=== PATIENT | female | born 1955 | race Caucasian/White ===

== ENCOUNTER → 2017-10-13 | Outpatient (CLI) | payer OTHER ==
--- NOTE | 2017-10-15 12:12 | MM ---
Reason for exam: screening (asymptomatic). Last mammogram was performed 1 year and 11 months ago. History: Patient is postmenopausal. Physical Findings: A clinical breast exam by your physician is recommended on an annual basis and results should be correlated with mammographic findings. MG Screening Mammo w CAD Bilateral CC and MLO view(s) were taken. Prior study comparison: November 20, 2015, mammogram. September 27, 2012, mammogram, performed at [facility]. There are scattered fibroglandular densities. Finding: There are indeterminate, fine calcifications in both breasts inner left CC view and outer right CC view. New finding since November 20, 2015 and September 27, 2012. ASSESSMENT: Incomplete: need additional imaging evaluation, BI-RAD 0 RECOMMENDATION: Special view mammogram of both breasts. [facility] will attempt to contact patient to return for supplemental views.
== END | disposition home or self-care (01) ==
LOC: RADMAMWWP 10:42
PROVIDERS: ATTEND Family Medicine
DX: Z12.31 Encounter for screening mammogram for malignant neoplasm of breast (principal)
CPT/HCPCS: 77067

== ENCOUNTER → 2017-11-06 | Outpatient (CLI) | payer OTHER ==
--- NOTE | 2017-11-09 09:14 | MM ---
Reason for exam: additional evaluation requested from abnormal screening. Last mammogram was performed 1 month ago. History: Patient is postmenopausal. Physical Findings: Nurse did not find any significant physical abnormalities on exam. MG 3D Work Up W/Cad CARISSA Bilateral LM and spot compression CC view(s) were taken. Prior study comparison: October 13, 2017, bilateral MG screening mammo w CAD. November 20, 2015, mammogram. The breast tissue is heterogeneously dense. This may lower the sensitivity of mammography. There is a 5mm group of left lower inner quadrant linear pleomorphic calcification for which biopsy will be performed. Right 3mm group of lower outer quadrant calcifications is likely present on the prior of 2015 and probably benign. 6 month follow up right breast. These results were verbally communicated with the patient and result sheet given to the patient on 11/06/17. ASSESSMENT: Suspicious, BI-RAD 4 RECOMMENDATION: Stereotactic core biopsy of the left breast. Called Dr. Howard with mammographic findings and has scheduled an appointment for the patient for 11/19/17 at 12:[address] Spicer. PRELIMINARY REPORT CALLED AND FAXED TO DR. SPICER ON 11/09/17.
--- NOTE | 2017-12-04 09:39 | PCN ---
PROCEDURE NOTE The patient is a 62-year-old female who presented with a mammographic abnormality in the left breast. There was a 5 mm group of left lower inner quadrant pleomorphic calcifications for which biopsy was recommended. No lesions of concern were otherwise noted in either breast warranting biopsy. On multi-positional exam of each breast, no dominant masses or nodules of concern were identified. Risks and benefits of stereo biopsy procedure were discussed with the patient. The patient is on Coumadin and it was discussed with her hematology office and the patient is switched from Coumadin to Lovenox, which will be stopped approximately 24 hours prior to the procedure. The risks and benefits of the procedure including bleeding, infection, possible inability to identify and remove the area of concern were discussed with the patient. The patient wished to proceed. The patient was taken to the stereotactic core biopsy room and it was determined that we would use a CC from below approach to target the lesion. The lesion was adequately targeted. The skin was prepped using Betadine and 1% lidocaine without epinephrine was used to anesthetize the skin. Approximately 10 mL of lidocaine were used. Bicarb was used with the lidocaine. Approximately 10 mL of 1% lidocaine with epinephrine was used in the deeper tissues. The needle was driven to the correct coordinates and pre and post biopsy films were obtained confirming the location of the needle. The needle was a 9-gauge vacuum assisted core biopsy needle. Multiple core biopsies were obtained. Radiograph of the specimen revealed the area of concern had been removed. The calcifications were present in the specimen. A [employer] top-hat clip was deployed. This was noted to be in the correct location. The specimen was sent to Pathology. The patient tolerated the procedure in stable condition with no immediate postprocedure complications. The patient will follow up next week with Dr. Yung. MMBHAVANIL / IJN: [id number] /
== END | disposition home or self-care (01) ==
LOC: RADMAMWWP 14:55
PROVIDERS: ATTEND Family Medicine
DX: R92.8 Other abnormal and inconclusive findings on diagnostic imaging of breast (principal)
CPT/HCPCS: 77062; 77066

== ENCOUNTER → 2017-11-19 | Outpatient (CLI) | payer OTHER ==
[2017-11-19 12:51] VITALS: BMI 42.7
--- NOTE | 2017-11-19 13:21 | P.GSHP ---
History of Present Illness H&P Date: 11/19/17 Chief Complaint: abnormal mammogram The patient is a 62-year-old white female who is status post bilateral mammogram performed [id number]. Following this mammogram was noted to have some indeterminate calcifications in both breasts and additional [place]. [place] [id number]. These views revealed a 5 mm group of left lower inner quadrant pleomorphic calcifications for which biopsy was recommended. In the right breast a 3 mm group of lower outer quadrant calcifications were felt to be present on a prior study and six-month follow-up was recommended. The patient herself denies any masses in her breast. She denies any nipple discharge. She does have some keratosis underneath the breast which she states may have changed. Family History: 1. sister: thyroid Menarche: 10 : 1, 1 child, 17 at , breast fed: yes menopause: hysterectomy left ovaries, done at 39 for fibroids hormones: none BCP: none Past surgical history: 1. Cervical fusion 2. ventral hernia repair 3. Cholecystectomy 4. Bilateral partial knee 5. Hysterectomy 6. Pulmonary embolism following knee surgery Medical history: 1. 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 Social History: smoke: stopped 13 years ago, smoked 1PPD for 18 years alcohol: stopped 13 years drugs: none used marijuana when younger - Constitutional Constitutional: Denies chills, Denies fever - EENT Eyes: bilateral loss of vision Ears: left: tinnitus, deny: decreased hearing Ears, nose, mouth and throat: Reports headache, Denies sore throat - Breasts Breasts: bilateral: as per HPI - Cardiovascular Cardiovascular: Denies chest pain, Denies shortness of breath - Respiratory Respiratory: Denies cough, Denies 7 - Gastrointestinal Gastrointestinal: Denies abdominal pain, Denies diarrhea, Denies nausea, Denies vomiting Past Medical History Smoking Status: Former smoker Surgical - Exam - General obese - Eyes normal ocular movement - ENT no hearing loss, no congestion - Neck no masses, trachea midline - Respiratory normal respiratory effort, clear to auscultation - Cardiovascular Rhythm: regular Heart Sounds: normal: S1, S2 - Abdomen Abdomen: soft, non tender, no guarding, no rigid, no rebound - Integumentary keratosis under the breast - Neurologic no disoriented, no combative - Psychiatric oriented to time, oriented to person, oriented to place, speech is normal Breast examination: Right breast: Multiple positional exam no dominant masses or nodules of concern , keratosis noted in the inferior aspect of the breast on examination Right axilla: No adenopathy of concern Left breast: Multiple positional exam no dominant masses or nodules of concern, keratosis noted inferior aspect of the breast Left axilla: No adenopathy of concern Results Mammogram results reviewed Assessment and Plan Assessment: Impression/plan: 1. Mammographic abnormality recommending left breast stero-core biopsy 2. Patient status post CVA on Coumadin will discuss this with , we' ll most likely need to stop the Coumadin and be on Lovenox 3. Prior history of pulmonary embolism 4. Arthritis 5. Diabetes 6. Repeat right breast mammogram in 6 months time Risk and benefits of procedure discussed with the patient. These include bleeding infection reaction to the anesthetic inability to access and adequately sampled the area and the patient wishes to proceed. CC: DR. Howard
== END ==
LOC: WWCWWP 12:00
PROVIDERS: ATTEND Surgery
DX: Z53.9 Procedure and treatment not carried out, unspecified reason (principal)

== ENCOUNTER → 2017-12-04 | Day surgery (SDC) | payer OTHER ==
[2017-12-04 07:44] LABS: INR 1.2 (<1.2); Partial Thromboplastin Time 50.5 sec (22.0-30.0); Prothrombin Time 11.7 sec (9.0-12.0)
[2017-12-04 07:53] VITALS: RESP 16; TEMP 98; BMI 43.1
[2017-12-04 10:01] VITALS: BP 132/82; PULSE 71
--- NOTE | 2017-12-04 10:07 | MM ---
EXAMINATION TYPE: MG stereo VAD BX LT DATE OF EXAM: 12/04/2017 COMPARISON: 10/13/2017 CLINICAL HISTORY: Linear pleomorphic left 5 mm group of calcifications for which stereotactic guided biopsy was recommended. TECHNIQUE: Stereotactic guided core biopsy of left breast. FINDINGS: The procedure of stereotactic guided core biopsy was explained to the patient. Benefits, a lternatives, and risks were discussed. An informed consent was then obtained. Preprocedural timeout was performed. The CC from below approach was chosen as the calcifications were partially obscured on the MLO view a nd therefore the shortness pathway was not chosen. I performed the localization, then surgeon, Dr. Kang Matthews performed the remainder of the procedure. A vacuum assisted biopsy gun was used to obtain m ultiple core samples. The patient tolerated the procedure well without any immediate complication. The patient was kept in the radiology department for short stay after the procedure and then discharged home in stable condi tion. Targeted calcifications are identified in specimen mammogram. Post biopsy mammogram shows the biopsy marker to appear in satisfactory position relative to the targeted area of concern on the pre procedure images. IMPRESSION: SUCCESSFUL, UNCOMPLICATED STEREOTACTIC GUIDED CORE BIOPSY OF THE 5 MM GROUP OF LINEAR PLEOMORPHIC ESTELA CIFICATIONS IN THE LEFT BREAST, FULL PATHOLOGY RESULTS TO FOLLOW.
== END ==
LOC: RADMAMWWP 07:00
PROVIDERS: ATTEND Surgery
DX: D24.2 Benign neoplasm of left breast (principal); N61.0 Mastitis without abscess; Z88.1 Allergy status to other antibiotic agents
CPT/HCPCS: 88305; 85610; 85730; 19081; A4648; J2001

== ENCOUNTER → 2018-06-17 | Outpatient (CLI) | payer MEDICARE ==
--- NOTE | 2018-06-17 13:31 | P.PN ---
Subjective Progress Note Date: 06/17/18 Principal diagnosis: status post stero-core biopsy 12-04-17 Flores is a 63-year-old white female who is status post left breast stereotactic core biopsy on . Pathology was benign revealing benign lobulated adipose tissue with scattered fragments and benign breast parenchyma showing fibroadenomatosis, periductal inflammation and intraductal mineralization's. The patient was not seen after her procedure as she had been hospitalized secondary to a subarachnoid bleed. The patient has been on Coumadin secondary antiphosphlipid antibody. She has had pulmonary emboli and strokes in the past. The patient was being bridged with Lovenox at the time of the stereo biopsy and then developed a subarachnoid bleed approximately 2 days after the biopsy. She was being followed by her continuing education specialist. She was at [facility] for approximately a week. The patient has no residual sequela related to the subarachnoid bleed. The patient states that after her procedure she believes she had a reaction to the Betadine which was used to prep the breast. The patient states she developed sloughing of the skin where the skin had been prepped. Family history: 1. sister: thyroid cancer Beginning hormonal history: Menarche: 10 : 2, 1 [place], 1 child at 17 breast fed: yes menpause: hysterectomy at 36 done for fibroids, left ovaries BCP: 1 year hormones: none Past surgical history: 1. Cervical fusion 2. Ventral hernia repair 3. Cholecystectomy 4. Bilateral partial knee replacement 5. Hysterectomy Medical history: 1. CVA at 60 blood clot to right occipital area affected short-term memory and effective vision 2. Depression 3. 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 Social history: Smoke: Stopped 13 years ago, smoked 1 pack per day for 18 years Alcohol: Stopped 13 years ago Drugs: Used marijuana when younger Review of systems: HEENT: Bilateral loss of vision Ears: Left ear tinnitus History of headaches in the past Breasts: As per HPI Cardiovascular: Negative Respiratory: Status post pulmonary embolism GI: Negative Neurologic: Status post CVA, status post subarachnoid bleed Hematology: Hypercoagulable on Coumadin at this time Objective - Vital Signs Vital signs: Intake & Output 06/16/18 06/17/18 06/17/18 18:59 06:59 18:59 Weight 105.687 kg - Exam BMI 42.6 - Constitutional General appearance: Present: obese - EENT Eyes: Present: EOMI ENT: Present: hearing grossly normal - Neck Neck: Present: normal ROM - Respiratory Respiratory: bilateral: CTA - Cardiovascular Rhythm: regular Heart sounds: normal: S1, S2 - Gastrointestinal General gastrointestinal: Present: soft - Integumentary Integumentary: Present: normal turgor - Psychiatric Psychiatric: Present: A&O x's 3, appropriate affect - Additional findings Additional findings: breast exam: Right breast: Multi-positional exam no dominant masses or nodules of concern fibrocystic change Right axilla: No adenopathy of concern Left breast: Multiple positional exam no dominant masses or nodules of concern Left axilla: No adenopathy of concern Patient has keratosis and inferior aspects of both breast. Assessment and Plan Assessment: Impression: 1. Antiphospholipid antibody, resulting in hypercoagulable state patient presently on Coumadin 2. Patient status post CVA and subarachnoid bleed 3. Patient status post pulmonary embolism 4. Arthritis 5. Diabetes 6. Radiographic abnormality of the left breast resulting in stereo biopsy which was benign 7. Fibrocystic breast changes 8. Family history of cancer, thyroid cancer in a sister Hali model risk analysis was run: Five-year risk is 0.9%, lifetime risk for 4.5% Plan: 1. Left breast mammogram, 6 months status post left breast stereo biopsy 2. Continued medical management of medical conditions 3. Bilateral mammogram in 6 months of left breast mammogram is stable at this time Cc: Dr. Howard
[2018-06-17 13:34] VITALS: BP 154/68; PULSE 65; RESP 18; TEMP 97.6; BMI 42.6
== END | disposition home or self-care (01) ==
LOC: WWCWWP 12:34
PROVIDERS: ATTEND Surgery
DX: Z53.9 Procedure and treatment not carried out, unspecified reason (principal)

== ENCOUNTER → 2018-07-05 | Outpatient (CLI) | payer MEDICARE ==
--- NOTE | 2018-07-05 08:29 | MM ---
Reason for exam: follow-up at short interval from prior study. Last mammogram was performed 8 months ago. History: Patient is postmenopausal. Benign MG stereo VAD BX LT of the left breast, December 04, 2017. Physical Findings: Nurse Summary: scattered moles under bilateral breasts (nurse dw). MG 3D Diag Mammo W/Cad LT CC and MLO view(s) were taken of the left breast. Prior study comparison: November 06, 2017, bilateral MG 3d work up w/cad CARISSA. October 13, 2017, bilateral MG screening mammo w CAD. The breast tissue is heterogeneously dense. This may lower the sensitivity of mammography. Previous mammotome biopsy in the left breast. There is no discrete abnormality. These results were verbally communicated with the patient and result sheet given to the patient on 07/05/18. ASSESSMENT: Benign, BI-RAD 2 RECOMMENDATION: Return to routine screening mammogram schedule for both breasts. Back on schedule.
== END | disposition home or self-care (01) ==
LOC: RADMAMWWP 07:13
PROVIDERS: ATTEND Surgery
DX: R92.8 Other abnormal and inconclusive findings on diagnostic imaging of breast (principal)
CPT/HCPCS: 77065; G0279; 77061

== ENCOUNTER → 2018-07-16 | Outpatient (CLI) | payer OTHER ==
--- NOTE | 2018-07-16 15:10 | P.PN ---
Progress Note - Text Progress Note Date: 07/16/18 Ortega is a 63-year-old white female who is status [place] [id number]. Pathology was benign. Postprocedure the patient was hospitalized secondary to subarachnoid bleed. The patient had been on Coumadin secondary to antiphospholipid antibody. She has had pulmonary emboli and strokes in the past. The patient was being placed with Lovenox at the time of the stereo biopsy at this point she was noted to develop a subarachnoid bleed approximately 2 days after the biopsy. She has been followed by her software release manager. She was treated at [facility] for approximately a week. The patient has no residual circumflex probably related to the subarachnoid bleed. The patient was recently seen in May and a breast exam was done at that time. The patient is due for bilateral mammogram in September/October 2018 however to coordinate between the right and left breast she is going to have bilateral mammogram in November 2018. The patient has no complaints at this time. She was recently examined in May 2018 and does not wish to have the exam repeated at this time. Impression: Antiphospholipid antibody resulted in hypercoagulable state patient presently on Coumadin 2. Status post CVA and subarachnoid bleed 3. Status post pulmonary embolism 4. Arthritis 5. Diabetes 6. Status post stereo biopsy of the left breast stable radiographically and on exam at that time 7. Fibrocystic breast disease 8. Family history of cancer Plan: 1. Bilateral mammogram November 2018 with appointment at that time 2. Continued medical management of medical conditions Cc: Dr. Howard
== END ==
LOC: WWCWWP 14:31
PROVIDERS: ATTEND Surgery
DX: Z53.9 Procedure and treatment not carried out, unspecified reason (principal)

== ENCOUNTER → 2018-07-20 | Outpatient (CLI) | payer MEDICARE ==
--- NOTE | 2018-07-21 07:15 | MR ---
EXAMINATION TYPE: MR MRCP DATE OF EXAM: 07/20/2018 COMPARISON: None. HISTORY: Nonspecific reactive hepatitis per order. Abdominal pain per order. Standard multiplanar, multisequence MRI departmental protocol Multiplanar, multisequence images of the abdomen were acquired. Thin and thick slice MRCP imaging is created on the MRI scanner. FINDINGS: Liver/gallbladder/pancreas/biliary system: Gallbladder is not visualized and presumed surgically abse nt. Liver is overall normal in size. No suspicious solid or cystic intrahepatic masses are identified . Pancreas appears normal in size. Pancreatic duct is visualized without suspicious dilatation. Commo n bile duct measures up to 9 mm near edgard hepatis which is within normal limits after cholecystectom y. There is no suspicious intrahepatic or extrahepatic biliary dilatation. There is gradual expected tapering towards the ampulla. No suspicious narrowing or focal dilatation is present. Other: Lung bases are clear. Spleen is upper limits of normal in size with scattered round lesions of slight T2 hyperintensity, largest just below diaphragm measures 2.2 cm long axis, lesions of uncerta in etiology but favored benign. Adrenal glands are normal in size. There is no suspicious renal brandee s or hydronephrosis. No suspicious bowel dilatation. No abdominal ascites is seen. No suspicious abdo imani adenopathy is present. Visualized osseous structures are intact. IMPRESSION: No suspicious biliary dilatation. Nonspecific splenic lesions otherwise unremarkable stud y.
== END | disposition home or self-care (01) ==
LOC: RADMRIMAIN 13:12
PROVIDERS: ATTEND Family Medicine
DX: D73.89 Other diseases of spleen (principal); K75.2 Nonspecific reactive hepatitis
CPT/HCPCS: 74181

== ENCOUNTER → 2018-12-09 | Outpatient (CLI) | payer MEDICARE ==
--- NOTE | 2018-12-09 23:04 | CONS ---
CONSULTATION DATE OF SERVICE: 12/09/2018 This patient is a 63-year-old lady who has been evaluated in [facility] for significant excessive daytime sleepiness, snoring and witnessed episodes of stopped breathing during sleep. HISTORY OF PRESENT ILLNESS/SLEEP-WAKE EVALUATION: Patient usually sleeps from 9 p.m. until 9 a.m. She sometimes has problem with falling asleep, although no TV in bedroom. She prefers to sleep on her stomach position. She has loud snoring. She wakes up from sleep up to 3 times, with 2 episodes of nocturia. She also has episodes of grinding teeth, dry mouth, panic attack, palpitations, restless legs, sleeptalking, sweating. She has jumping movements sometimes during sleep. She attributed it to the possibility of abnormal respiration during sleep. No history of hypnagogic hallucinations, sleep paralysis or cataplexy. During the day, the patient feels extremely sleepy. [place] Sleepiness Scale is 22. She may take naps any time; usually no vivid dreams during naps. PAST MEDICAL HISTORY: 1. Depression. 2. Right occipital stroke in 2016 with loss of left-side field vision in both eyes. 3. Hypertension. 4. Antiphospholipid antibody. 5. History of bilateral pulmonary embolism. 6. Thyroid nodules. PAST SURGICAL HISTORY: Bilateral partial knee replacement. MEDICATIONS: 1. Seroquel. 2. Zoloft. 3. Aspirin. 4. Lisinopril. 5. Atorvastatin. 6. Xanax. 7. Metformin. 8. Coumadin. 9. Coreg. SOCIAL HISTORY: Positive for about 20 pack/years of smoking; quit about 20 years ago. Alcohol consumption occasional. FAMILY HISTORY: Hypertension, hyperlipidemia, lung problems, sleep apnea, snoring, headaches, diabetes, liver problems, thyroid problems. REVIEW OF SYSTEMS: Multiple awakenings from sleep. Significant sleepiness during the day. Absent left- side visual field. Problems with short-term memory. PHYSICAL EXAMINATION: GENERAL: A pleasant lady without distress. VITAL SIGNS: BP 178/85, HR 77, RR 16, height 5 feet 1 inch, weight 241 pounds. Body mass index 45.5. Temperature 98.3, oxygen saturation at room air 92%. HEENT: PERRLA, EOMI. Evaluation of oropharynx showed tongue protrudes midline. Extremely low position of soft palate. Mallampati IV. NECK: Supple. No JVD. Thyroid is not palpable. Neck measures 15-1/2 inches in circumference. LUNGS: Clear to percussion and to auscultation. Good air exchange. No wheezing or rhonchi. HEART: S1, S2 regular. No murmurs, gallops or rubs. ABDOMEN: Obese. EXTREMITIES: No clubbing or cyanosis. AUDIO VISUAL AIDE: Awake, alert, and oriented X3. Cranial nerves 2 to 7 intact. There is no fasciculation or atrophy. noted. No focal deficits observed. IMPRESSION: 1. Loud snoring, witnessed episodes of stopped breathing during sleep, extremely low position of soft palate, multiple awakenings from sleep, sleepiness; obstructive sleep apnea-hypopnea syndrome. 2. Significant excessive daytime sleepiness with [place] Sleepiness Scale 22, dictating necessity to include hypersomnia including narcolepsy in the differential diagnosis, including secondary sleep disorder secondary to stroke. 3. History of right occipital stroke in 2016, with loss of left side of visual [place] of both eyes. 4. Hypertension. 5. Antiphospholipid antibody syndrome. 6. Hyperlipidemia. 7. Thyroid nodules. 8. Status post bilateral pulmonary emboli. 9. History of subarachnoid bleed. 10.Depression. 11.Pre-diabetic with borderline level of blood sugar. 12.Status post hernia repair. 13.Status post cholecystectomy. 14.Status post neck decompression surgery. PLAN: 1. Polysomnography for evaluation of patient's breathing during sleep. 2. CPAP/BiPAP titration if sleep study confirms obstructive sleep apnea-hypopnea syndrome. 3. Preferable position during sleep on the side. 4. No driving. Patient does not drive. 5. I will see patient for follow up visit to explain results of testing and following plan. 6. Patient may need multiple sleep latency test for objective evaluation of her symptoms of significant excessive daytime sleepiness. Thank you very much for referring this patient for consultation. Sincerely, Christofer Tyler MD, PhD, FAASM Diplomat of [place] [employer] [place] [employer] [facility] [place] MMBHAVANIL / AMIN: [id number] /
== END ==
LOC: SLEEP 14:50
PROVIDERS: ATTEND Internal Medicine
DX: G47.33 Obstructive sleep apnea (adult) (pediatric) (principal); I10 Essential (primary) hypertension; D68.61 Antiphospholipid syndrome; E04.2 Nontoxic multinodular goiter; Z86.69 Personal history of other diseases of the nervous system and sense organs; F32.9 Major depressive disorder, single episode, unspecified; R73.03 Prediabetes; Z98.890 Other specified postprocedural states; Z90.49 Acquired absence of other specified parts of digestive tract; Z87.891 Personal history of nicotine dependence; Z79.899 Other long term (current) drug therapy; Z79.82 Long term (current) use of aspirin; Z79.01 Long term (current) use of anticoagulants; Z79.84 Long term (current) use of oral hypoglycemic drugs
CPT/HCPCS: 99211

== ENCOUNTER → 2019-07-06 | Outpatient (CLI) | payer MEDICARE ==
--- NOTE | 2019-07-06 15:52 | PN ---
PROGRESS NOTE DATE OF SERVICE: 07/06/2019 This patient is a 64-year-old lady who has been followed in Sleep Center for treatment of obstructive sleep apnea-hypopnea syndrome. At the end of last year the patient had a polysomnogram which showed mild obstructive sleep apnea. The patient presented with significant excessive daytime sleepiness and history of stroke. Subsequently she was started on treatment with CPAP. Today is her first visit after starting on treatment with CPAP. I checked her CPAP unit. Range of the pressure is from 5 to 15 cm of water. Average pressure is 11 cm of water. Usage is 83/155 nights and 70/155 nights for more than 4 hours, with average usage 6.7 hours per night. Leak is only 6 L/minute for all this time, which is within normal range. Apnea-hypopnea index is 1.8, which is within normal range. [place] Sleepiness Scale today is 13. The patient still has episodes of sleepiness during the day. MEDICATIONS: Zoloft, Xanax and Seroquel at bedtime, aspirin, atorvastatin, metformin. Coreg, Coumadin. PHYSICAL EXAMINATION: GENERAL: A pleasant patient in no distress. VITAL SIGNS: BP 163/84, HR 72, RR 16, weight 246 pounds, temperature 98.2, oxygen saturation at room air 93%. HEENT: PERRLA, EOMI. Evaluation of oropharynx showed tongue protrudes midline. Low position of soft palate. Mallampati III. NECK: Supple. No JVD. Thyroid is not palpable. LUNGS: Clear to percussion and to auscultation. Good air exchange. No wheezing or rhonchi. HEART: S1, S2 regular. No murmurs, gallops or rubs. ABDOMEN: Obese. EXTREMITIES: No clubbing or cyanosis. SPOOLING MACHINE OPERATOR: Awake, alert, and oriented X3. Cranial nerves 2 to 7 intact. There is no fasciculation or atrophy. noted. No focal deficits observed. IMPRESSION: 1. Mild obstructive sleep apnea-hypopnea syndrome. Reading from the machine demonstrated normal respiration while on treatment with CPAP. 2. Hypertension. 3. History of right occipital stroke in 2016 with changes of vision. 4. Hypertension. 5. History of antiphospholipid antibody syndrome. 6. History of depression. 7. History of thyroid nodules. 8. History of bilateral pulmonary emboli. PLAN: 1. Continue treatment with CPAP every night for the whole night. 2. Trial with nasal pillow mask. 3. Losing weight. 4. Sleep hygiene with regular time in bed for at least 7-1/2 to 8 hours. 5. No driving if feeling any sleepiness. Thank you very much for allowing me to participate in the management of your patient. Sincerely, Christofer Tyler MD, PhD, FAASM Diplomat of [employer] [employer] Microbiology Teacher of [facility] [place] MMODL / IJN: [id number] /
== END | disposition home or self-care (01) ==
LOC: SLEEP 13:46
PROVIDERS: ATTEND Internal Medicine
DX: G47.33 Obstructive sleep apnea (adult) (pediatric) (principal); I10 Essential (primary) hypertension; Z86.73 Personal history of transient ischemic attack (TIA), and cerebral infarction without residual deficits; Z86.59 Personal history of other mental and behavioral disorders; Z85.850 Personal history of malignant neoplasm of thyroid; Z86.711 Personal history of pulmonary embolism; Z86.2 Personal history of diseases of the blood and blood-forming organs and certain disorders involving the immune mechanism; Z79.82 Long term (current) use of aspirin; Z79.84 Long term (current) use of oral hypoglycemic drugs; Z79.01 Long term (current) use of anticoagulants; Z79.899 Other long term (current) drug therapy

== ENCOUNTER → 2020-01-12 | Outpatient (CLI) | payer MEDICARE ==
--- NOTE | 2020-01-13 03:46 | SFUN ---
SLEEP CENTER FOLLOW UP NOTE DATE OF SERVICE: 01/12/2020 This 64-year-old lady has been followed in Sleep Center for treatment of obstructive sleep apnea-hypopnea syndrome. The patient tried to use her CPAP equipment, but feels discomfort under the nose while using her full face mask. [place] Sleepiness Scale today significantly increased to 19. I checked patient's CPAP unit. She did not use it for the last month. For the last 3 months, she used it 46 out 90 days and 29 out of 90 days for more than 4 hours with average usage 5.1 hour per night. Pressure range 5 to 10 with average pressure 8.7. Apnea-hypopnea index reading 3.9, which is acceptable. Leak is 10 L/minutes which is also acceptable. MEDICATIONS: Zoloft, Xanax, Seroquel, aspirin, atorvastatin, Coumadin, Coreg. PHYSICAL EXAMINATION: GENERAL: Patient in no distress. VITAL SIGNS: BP 191/86, HR 71, R 16, height 5 feet 1 inch, weight 241 pounds, which is 5 pounds less than during the previous visit. Body mass index 45.5, temperature 98.3, oxygen saturation at room air 94%. HEENT: PERRLA, EOMI. Low position of soft palate, Mallampati 3. NECK: Supple, no JVD. Thyroid is not palpable. LUNGS: Clear to percussion and to auscultation. Good air exchange. No wheezing or rhonchi. HEART: S1, S2 regular. No murmurs, gallops, or rubs. ABDOMEN: Obese. EXTREMITIES: No clubbing or cyanosis. MELLOWING MACHINE OPERATOR: Awake, alert, and oriented X3. Cranial nerves 2 to 7 intact. There is no fasciculation or atrophy. noted. No focal deficits observed. IMPRESSION: 1. Obstructive sleep apnea-hypopnea syndrome. The patient has difficulties to use CPAP equipment secondary to some discomfort and irritation under her nose while using her CPAP mask. 2. Hypertension. 3. History of right occipital stroke in 2016 with changes of vision. 4. History of antiphospholipid antibody syndrome. 5. History of depression. 6. History of thyroid nodules. 7. History of bilateral pulmonary embolism. PLAN: 1. We will change full-face mask to different style with the configuration of the mask not below nose, but above nose. 2. Patient will continue to use PAP equipment every night for the whole night. 3. Sleep hygiene with regular time in bed for at least 7-1/2 to 8 hours. 4. Precautions related to driving. No driving if feeling sleepiness. 5. I will maintain all necessary prescription for PAP supplies including mask, tube, filters. 6. Watching weight. 7. No driving if feeling sleepiness. 8. Follow-up visit in 6 months or earlier if patient has any problems. Thank you very much for allowing me to participate in management of your patient. Sincerely, Christofer Tyler MD, PhD, FAASM Diplomat of [place] [employer] Platform Material Handling Supervisor of [facility] [place] MMODL / IJN: [id number] /
== END | disposition home or self-care (01) ==
LOC: SLEEP 15:01
PROVIDERS: ATTEND Internal Medicine
DX: G47.33 Obstructive sleep apnea (adult) (pediatric) (principal); I10 Essential (primary) hypertension; Z86.711 Personal history of pulmonary embolism; Z86.73 Personal history of transient ischemic attack (TIA), and cerebral infarction without residual deficits; Z86.59 Personal history of other mental and behavioral disorders; Z86.39 Personal history of other endocrine, nutritional and metabolic disease; Z86.2 Personal history of diseases of the blood and blood-forming organs and certain disorders involving the immune mechanism; Z99.89 Dependence on other enabling machines and devices

== ENCOUNTER → 2020-04-05 | Outpatient (CLI) | payer MEDICARE ==
--- NOTE | 2020-04-05 16:58 | SFUN ---
SLEEP CENTER FOLLOW UP NOTE DATE OF SERVICE: 04/05/2020 A 65-year-old lady who has been followed in the Sleep Center for treatment of obstructive sleep apnea-hypopnea syndrome. During previous visit, it was documented that patient continues to use her machine, but she has problems with her mask, so she was recommended to get a different style of mask. Patient received mask different stype and she likes the part which goes to the face, but she was not given head gear for this part. Subsequently, she was not able to use machine properly. [employer] Sleepiness Scale today significantly increased to 18. I checked the patient CPAP unit. Automatic regimen 5-15 cm of water. Average pressure is 11 cm of water. MEDICATIONS: Zoloft, lisinopril, metformin, Seroquel, Coumadin, Xanax, atorvastatin, aspirin. PHYSICAL EXAM: Patient in no distress, BP 158/67, HR 74, RR 15, height 5 foot 1 inch, weight 238.8 pounds, temperature 96.5, oxygen saturation at room air 92%. OROPHARYNX: Low position of soft palate, Mallampati 3. ABDOMEN: Obese. NECK: Supple, no JVD. Thyroid is not palpable. LUNGS: Clear to percussion and to auscultation. Good air exchange. No wheezing or rhonchi. HEART: S1, S2 regular. No murmurs, gallops, or rubs. EXTREMITIES: No clubbing or cyanosis. TONG CARRIER: Awake, alert, and oriented X3. Cranial nerves 2 to 7 intact. There is no fasciculation or atrophy. noted. No focal deficits observed. IMPRESSION: 1. Obstructive sleep apnea-hypopnea syndrome. Patient has difficulties with usage of CPAP equipment because she does not have all parts of her mask presently. 2. Hypertension. 3. History of right occipital stroke in 2016, which changes with vision. 4. History of antiphospholipid antibody syndrome. 5. History of depression. 6. History of thyroid nodules. 7. History of bilateral pulmonary embolism. PLAN: 1. Prescription for all necessary CPAP supplies, including a head gear for the Simplus, medium-size full-face mask. 2. Patient will continue to use PAP equipment every night for the whole night. 3. Sleep hygiene with regular time in bed for at least 7-1/2 to 8 hours. 4. Precautions related to driving. No driving if feeling sleepiness. 5. Watching weight. 6. No driving if feeling sleepiness. 7. Followup visit in 6 months or earlier if patient has any problems. Thank you very much for allowing me to participate in the management of your patient. Sincerely, Christofer Tyler MD, PhD, FAASM Diplomat of [place] [employer] [employer] Packaging Clerk of [facility] [place] MMODL / AMIN: [id number] /
== END | disposition home or self-care (01) ==
LOC: SLEEP 13:58
PROVIDERS: ATTEND Internal Medicine
DX: G47.33 Obstructive sleep apnea (adult) (pediatric) (principal); I10 Essential (primary) hypertension; Z86.73 Personal history of transient ischemic attack (TIA), and cerebral infarction without residual deficits; Z86.711 Personal history of pulmonary embolism; Z86.2 Personal history of diseases of the blood and blood-forming organs and certain disorders involving the immune mechanism; Z86.59 Personal history of other mental and behavioral disorders; Z86.39 Personal history of other endocrine, nutritional and metabolic disease; Z79.84 Long term (current) use of oral hypoglycemic drugs; Z79.01 Long term (current) use of anticoagulants; Z79.899 Other long term (current) drug therapy; Z79.82 Long term (current) use of aspirin; Z99.89 Dependence on other enabling machines and devices

== ENCOUNTER → 2020-10-04 | Outpatient (CLI) | payer MEDICARE ==
--- NOTE | 2020-10-05 08:06 | SFUN ---
SLEEP CENTER FOLLOW UP NOTE DATE OF SERVICE: 10/04/2020 65-year-old lady has been followed in sleep center for treatment of obstructive sleep apnea-hypopnea syndrome. Last time I saw the patient in March of 2020 and at that time she has had some difficulties with using the machine because she did not have the whole parts necessary from the mask and I wrote for all necessary prescriptions. Today, patient indicated that she had Covid several months ago and she was not able to use her CPAP equipment. I checked her CPAP unit. No recent usage of the CPAP. For the last 6 months, she used it only 15 nights and 5 nights for more than 4 hours. Range of the pressure 5-15, average pressure of 8.7. Leak is 23 L/minute, which is with full face mask. Apnea- hypopnea index was normal at that time 2.6. The patient has Simplus fullface mask and does not like it, there is some leak to the eyes according to her. [place] Sleepiness Scale today is extremely high, 22. MEDICATIONS: Lisinopril. Seroquel, Xanax, Coreg, Coumadin, Zoloft, aspirin. PHYSICAL EXAMINATION: GENERAL: Patient in no distress. BP 145/77, HR 68/15, height 5 feet 1 inch, weight 132.0, BMI 43.8, temperature 97.4. Oxygen saturation at room air 95%. Oropharynx: Low position of soft palate, Mallampati 3. NECK: Supple, no JVD. Thyroid is not palpable. LUNGS: Clear to percussion and to auscultation. Good air exchange. No wheezing or rhonchi. HEART: S1, S2 regular. No murmurs, gallops, or rubs. ABDOMEN: Soft and nontender. Bowel sounds are present. No organomegaly appreciated. EXTREMITIES: No clubbing or cyanosis. SEMICONDUCTOR PACKAGES PLATEMAKER: Awake, alert, and oriented X3. Cranial nerves 2 to 7 intact. There is no fasciculation or atrophy. noted. No focal deficits observed. The patient walks with a walker. IMPRESSION: 1. Obstructive sleep apnea-hypopnea syndrome. The patient was not able to use machine, had Covid and does not feel comfortable with full face mask. Obstructive sleep apnea in mild range, but patient has sleepiness during the day and awakenings from sleep and that is why treatment with the CPAP is indicated including other medical problems, hypertension, and history of stroke. 2. Status post Covid 19 2 months ago. 3. Hypertension. 4. History of right occipital stroke in 2016 with changes of the vision. 5. History of antiphospholipid antibody syndrome. 6. History of depression. 7. History of thyroid nodules. 8. History of bilateral pulmonary embolism. PLAN: 1. I discussed with the patient necessity to start using the machine. 2. Prescription for nasal pillow mask which would be much easier to use. 1. Patient will continue to use PAP equipment every night for the whole night. 2. Sleep hygiene with regular time in bed for at least 7-1/2 to 8 hours. 3. Precautions related to driving. No driving if feeling sleepiness. 4. I will maintain all necessary prescription for PAP supplies including mask, tube, filters. 5. Watching weight. 6. Follow-up visit in 6 months or earlier if patient has any problems. Thank you very much for allowing me to participate in management of your patient. Sincerely, Christofer Tyler MD, PhD, FAASM Diplomat of [place] [employer] [place] [employer] Water Plumber of [facility] [place] MMODL / AMIN: [id number] /
== END ==
LOC: SLEEP 15:21
PROVIDERS: ATTEND Internal Medicine
DX: G47.33 Obstructive sleep apnea (adult) (pediatric) (principal); I10 Essential (primary) hypertension; Z86.73 Personal history of transient ischemic attack (TIA), and cerebral infarction without residual deficits; Z86.2 Personal history of diseases of the blood and blood-forming organs and certain disorders involving the immune mechanism; F32.9 Major depressive disorder, single episode, unspecified; Z86.711 Personal history of pulmonary embolism; Z86.39 Personal history of other endocrine, nutritional and metabolic disease; Z86.16 Personal history of COVID-19; Z88.5 Allergy status to narcotic agent; Z88.1 Allergy status to other antibiotic agents; Z88.6 Allergy status to analgesic agent; Z88.8 Allergy status to other drugs, medicaments and biological substances; Z87.891 Personal history of nicotine dependence

== ENCOUNTER 2022-04-25 07:09 | Observation (INO) | payer MEDICARE ==
--- NOTE | 2022-04-25 07:50 | ED ---
General Adult HPI - General Chief complaint: Fall Stated complaint: fall Time Seen by Provider: 04/25/22 07:37 Source: patient, family, RN notes reviewed Mode of arrival: ambulatory Limitations: physical limitation - History of Present Illness Initial comments: Patient is a pleasant 67-year-old female presenting to the emergency Department with general weakness. Onset of symptoms was a past day or 2. Patient was recently at [facility] for hypertension however cannot state more than that. Patient does have history of previous stroke and states she has memory problems. Patient states last night she slid off the bed while sitting on the side. He should does have mild discomfort of her right hip region. Patient felt generally weak and is unable to get up on her own. Son was unable to help her as well. Patient denies any head injury or loss of consciousness. No neck or back pain. No chest pain or dyspnea. No abdominal pain. Son has concerns that patient is more drowsy than normal. Patient does twice tripped off to sleep during conversation. - Related Data Home Medications Medication Instructions Recorded Confirmed Atorvastatin [Lipitor] 20 mg PO HS 11/19/17 04/25/22 QUEtiapine [SEROquel] 50 mg PO HS 11/19/17 04/25/22 Sertraline HCl [Zoloft] 200 tab PO HS 11/19/17 04/25/22 Warfarin Sodium [Coumadin] 6 mg PO HS 11/19/17 04/25/22 Cefuroxime [Ceftin] 250 mg PO BID 04/25/22 04/25/22 Dapsone 50 mg PO DAILY 04/25/22 04/25/22 Folic Acid 1 mg PO DAILY 04/25/22 04/25/22 Furosemide [Lasix] 40 mg PO DAILY 04/25/22 04/25/22 Metoprolol Succinate (ER) [Toprol 50 mg PO HS 04/25/22 04/25/22 Xl] NIFEdipine [Adalat CC] 30 mg PO HS 04/25/22 04/25/22 Potassium Chloride ER [K-Dur 10] 10 meq PO DAILY 04/25/22 04/25/22 Triamcinolone 0.1% Cream [Kenalog 1 applicatio TOPICAL BID PRN 04/25/22 04/25/22 0.1% Cream] glipiZIDE [Glucotrol] 5 mg PO BID 04/25/22 04/25/22 lisinopriL [Zestril] 10 mg PO HS 04/25/22 04/25/22 Allergies Allergy/AdvReac Type Severity Reaction Status Date / Time povidone-iodine Allergy Rash/Hives Verified 04/25/22 07:22 [From Betadine] soap [From Betadine] Allergy Rash/Hives Verified 04/25/22 07:22 acetaminophen [From [place]] AdvReac Itching Verified 04/25/22 07:22 hydrocodone [From [place]] AdvReac Itching Verified 04/25/22 07:22 Tetracyclines AdvReac Nausea & Verified 04/25/22 07:22 Vomiting Review of Systems ROS Statement: Those systems with pertinent positive or pertinent negative responses have been documented in the HPI. ROS Other: All systems not noted in ROS Statement are negative. Constitutional: Denies: fever Eyes: Denies: eye pain ENT: Denies: ear pain Respiratory: Denies: cough Cardiovascular: Denies: chest pain Endocrine: Reports: fatigue Gastrointestinal: Denies: abdominal pain Genitourinary: Denies: dysuria Musculoskeletal: Denies: back pain Skin: Denies: rash Neurological: Reports: as per HPI, weakness. 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 antiphosphopholipid antibody-autoimmune clotting disorder. 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 tinnitus, eczema. thyroid [id number]. thrombocytopenia. History of Any Multi-Drug Resistant Organisms: None Reported Past Surgical History: Cholecystectomy, Hernia Repair, Joint Replacement, Orthopedic Surgery Additional Past Surgical History / Comment(s): cervical decompression, ventral hernia repair, bilat knee replacement, Past Anesthesia/Blood Transfusion Reactions: Postoperative Nausea & Vomiting (PONV) Past Psychological History: Anxiety, Depression Smoking Status: Former smoker Past Alcohol Use History: Occasional Past Drug Use History: None Reported General Exam Limitations: physical limitation General appearance: alert, in no apparent distress Head exam: Present: atraumatic, normocephalic Eye exam: Present: normal appearance, PERRL, EOMI ENT exam: Present: normal oropharynx Neck exam: Present: normal inspection. Absent: tenderness Respiratory exam: Present: normal lung sounds bilaterally Cardiovascular Exam: Present: regular rate, normal rhythm Expanded Peripheral pulses: 2+: Dorsalis Pedis (R), Dorsalis Pedis (L) GI/Abdominal exam: Present: soft. Absent: distended, tenderness Extremities exam: Present: tenderness (Minimal tenderness right hip) Back exam: Absent: tenderness Neurological exam: Present: oriented X3, CN II-XII intact, other (Drowsy, drifts to sleep during conversation). Absent: motor sensory deficit Expanded Neurological exam: Present: protecting the airway Patient oriented to: Present: person, place, time Speech: Present: fluid speech Motor strength exam: RUE: 5, LUE: 5, RLE: 5, LLE: 5 Eye Response: (4) open spontaneously Motor Response: (6) obeys commands Verbal Response: (5) oriented Psychiatric exam: Present: normal affect, normal mood Skin exam: Present: other (Bilateral lower leg redness consistent with patient's history of vasculitis. There is tenderness.) Course Vital Signs 04/25/22 04/25/22 04/25/22 07:16 09:00 09:30 Temperature 98.6 F Pulse Rate 93 90 88 Respiratory 18 Rate Blood Pressure 146/74 120/58 122/58 O2 Sat by Pulse 96 93 L 94 L Oximetry 04/25/22 04/25/22 04/25/22 10:00 10:30 11:00 Temperature Pulse Rate 87 89 86 Respiratory 17 Rate Blood Pressure 122/64 127/69 125/79 O2 Sat by Pulse 93 L 95 93 L Oximetry 04/25/22 11:30 Temperature Pulse Rate 87 Respiratory 16 Rate Blood Pressure 130/77 O2 Sat by Pulse 96 Oximetry EKG Findings - EKG Results: EKG: interpreted by ERMD, sinus rhythm, normal axis, normal QRS, normal ST/T Medical Decision Making - Medical Decision Making Patient reevaluated without significant change. Patient and family updated on results and plan. Case discussed with physician Davian, covering Dr. Stubbs, - Lab Data Result diagrams: 04/25/22 08:28 04/25/22 08:28 Lab Results 04/25/22 04/25/22 04/25/22 Range/Units 08:28 08:28 08:28 WBC 7.5 (3.8-10.6) k/uL RBC 4.38 (3.80-5.40) m/uL Hgb 11.4 (11.4-16.0) gm/dL Hct 34.4 (34.0-46.0) % MCV 78.5 L (80.0-100.0) fL MCH 26.1 (25.0-35.0) pg MCHC 33.3 (31.0-37.0) g/dL RDW 16.5 H (11.5-15.5) % Plt Count 145 L (150-450) k/uL MPV 8.6 Neutrophils % 82 % Lymphocytes % 11 % Monocytes % 4 % Eosinophils % 1 % Basophils % 0 % Neutrophils # 6.2 (1.3-7.7) k/uL Lymphocytes # 0.9 L (1.0-4.8) k/uL Monocytes # 0.3 (0-1.0) k/uL Eosinophils # 0.1 (0-0.7) k/uL Basophils # 0.0 (0-0.2) k/uL Hypochromasia Slight Anisocytosis Slight Microcytosis Slight PT 27.4 H (9.0-12.0) sec INR 2.8 H (<1.2) APTT 33.6 H (22.0-30.0) sec Sodium (137-145) mmol/L Potassium (3.5-5.1) mmol/L Chloride (98-107) mmol/L Carbon Dioxide (22-30) mmol/L Anion Gap mmol/L BUN (7-17) mg/dL Creatinine (0.52-1.04) mg/dL Est GFR (CKD-EPI)AfAm (>60 ml/min/1.73 sqM) Est GFR (CKD-EPI)NonAf (>60 ml/min/1.73 sqM) Glucose (74-99) mg/dL Plasma Lactic Acid [place] (0.7-2.0) mmol/L Calcium (8.4-10.2) mg/dL Phosphorus (2.5-4.5) mg/dL Magnesium (1.6-2.3) mg/dL Total Bilirubin (0.2-1.3) mg/dL AST (14-36) U/L ALT (4-34) U/L Alkaline Phosphatase (38-126) U/L Creatine Kinase (30-135) U/L Troponin I (0.000-0.034) ng/mL Total Protein (6.3-8.2) g/dL Albumin (3.5-5.0) g/dL TSH (0.465-4.680) mIU/L Free T4 (0.78-2.19) ng/dL Free T3 pg/mL (2.8-5.3) pg/ml Urine Color Dark Yellow Urine Appearance Cloudy H (Clear) Urine pH 5.5 (5.0-8.0) Ur Specific [place] 1.025 (1.001-1.035) Urine Protein 1+ H (Negative) Urine Glucose (UA) Trace H (Negative) Urine Ketones 1+ H (Negative) Urine Blood Trace H (Negative) Urine Nitrite Negative (Negative) Urine Bilirubin Negative (Negative) Urine Urobilinogen 4.0 (<2.0) mg/dL Ur Leukocyte Esterase Negative (Negative) Urine RBC 2 (0-5) /hpf Urine WBC 2 (0-5) /hpf Ur Squamous Epith Cells 9 H (0-4) /hpf Urine Mucus Few H (None) /hpf 04/25/22 04/25/22 04/25/22 Range/Units 08:28 08:28 08:28 WBC (3.8-10.6) k/uL RBC (3.80-5.40) m/uL Hgb (11.4-16.0) gm/dL Hct (34.0-46.0) % MCV (80.0-100.0) fL MCH (25.0-35.0) pg MCHC (31.0-37.0) g/dL RDW (11.5-15.5) % Plt Count (150-450) k/uL MPV Neutrophils % % Lymphocytes % % Monocytes % % Eosinophils % % Basophils % % Neutrophils # (1.3-7.7) k/uL Lymphocytes # (1.0-4.8) k/uL Monocytes # (0-1.0) k/uL Eosinophils # (0-0.7) k/uL Basophils # (0-0.2) k/uL Hypochromasia Anisocytosis Microcytosis PT (9.0-12.0) sec INR (<1.2) APTT (22.0-30.0) sec Sodium 136 L (137-145) mmol/L Potassium 3.9 (3.5-5.1) mmol/L Chloride 103 (98-107) mmol/L Carbon Dioxide 24 (22-30) mmol/L Anion Gap 9 mmol/L BUN 17 (7-17) mg/dL Creatinine 0.68 (0.52-1.04) mg/dL Est GFR (CKD-EPI)AfAm >90 (>60 ml/min/1.73 sqM) Est GFR (CKD-EPI)NonAf >90 (>60 ml/min/1.73 sqM) Glucose 179 H (74-99) mg/dL Plasma Lactic Acid [place] 1.1 (0.7-2.0) mmol/L Calcium 8.3 L (8.4-10.2) mg/dL Phosphorus 3.0 (2.5-4.5) mg/dL Magnesium 1.6 (1.6-2.3) mg/dL Total Bilirubin 1.3 (0.2-1.3) mg/dL AST 39 H (14-36) U/L ALT 21 (4-34) U/L Alkaline Phosphatase 109 (38-126) U/L Creatine Kinase 159 H (30-135) U/L Troponin I 0.012 (0.000-0.034) ng/mL Total Protein 5.9 L (6.3-8.2) g/dL Albumin 3.1 L (3.5-5.0) g/dL TSH 3.460 (0.465-4.680) mIU/L Free T4 1.45 (0.78-2.19) ng/dL Free T3 pg/mL 4.8 (2.8-5.3) pg/ml Urine Color Urine Appearance (Clear) Urine pH (5.0-8.0) Ur Specific [place] (1.001-1.035) Urine Protein (Negative) Urine Glucose (UA) (Negative) Urine Ketones (Negative) Urine Blood (Negative) Urine Nitrite (Negative) Urine Bilirubin (Negative) Urine Urobilinogen (<2.0) mg/dL Ur Leukocyte Esterase (Negative) Urine RBC (0-5) /hpf Urine WBC (0-5) /hpf Ur Squamous Epith Cells (0-4) /hpf Urine Mucus (None) /hpf - Radiology Data Radiology results: report reviewed (Computed tomography scan of the brain reveals no acute intercranial process. Remote injury right occipital lobe with encephalomalacia.) Interpreted by me: Two-view chest x-ray shows mild interstitial prominence. X-ray right hip and pelvis shows mild arthritis. No acute osseous fracture. Disposition Clinical Impression: Fall, Weakness Disposition: ADMITTED IP TO THIS HOSP Is patient prescribed a controlled substance at d/c from ED?: No Referrals: None,Stated [Primary Care Provider] - 1-2 days Time of Disposition: 12:37
--- NOTE | 2022-04-25 08:05 | CT ---
EXAMINATION TYPE: CT brain wo con CT DLP: 1149 mGycm, Automated exposure control for dose reduction was used. DATE OF EXAM: 04/25/2022 8:00 AM COMPARISON: None. CLINICAL INDICATION:Female, 67 years old with history of weakness, TECHNIQUE: Brain: Multiple axial CT images of the brain were obtained without IV contrast. Coronal and sagittal reformats reviewed FINDINGS: Brain: Extra-axial spaces: No abnormal extra-axial fluid collections. Ventricular system: Within normal limits Cerebral parenchyma: No acute intraparenchymal hemorrhage or mass effect. Encephalomalacia of the ri ght occipital lobe. The patel-white junction is well differentiated. Scattered hypoattenuating areas a re seen within the white matter. Cerebellum: Unremarkable. Mass effect: No evidence of midline shift. Intracranial vasculature: unremarkable Soft tissues: Normal. Calvarium/osseous structures: No depressed skull fracture. Paranasal sinuses and mastoid air cells: Suggestive mucous retention cyst within the right maxillary sinus measuring up to 7 mm. The mastoid air cells are clear. Visualized orbits: Bilateral aphakia IMPRESSION: 1. No acute intracranial process. 2. Remote injury to the right occipital lobe with encephalomalacia and nonspecific white matter duarte ges, likely secondary to chronic small vessel ischemic disease.
--- NOTE | 2022-04-25 08:44 | XR ---
EXAMINATION TYPE: XR chest 2V DATE OF EXAM: 04/25/2022 COMPARISON: None HISTORY: 67-year-old female with weakness TECHNIQUE: AP and lateral views FINDINGS: ACF hardware. Heart normal size. Mild interstitial prominence. Mild peribronchial cuffing. No consoli dation or pleural effusion. IMPRESSION: There is some interstitial prominence that may be seen with bronchitis or asthma. No focal infiltrate .
--- NOTE | 2022-04-25 08:46 | XR ---
EXAMINATION TYPE: AP view pelvis and 2 views right hip DATE OF EXAM: 04/25/2022 COMPARISON: NONE HISTORY: 67-year-old female with fall and pain FINDINGS: Degenerative change lower lumbar spine. SI joints appear symmetric and intact. There is mil d degenerative change at both hips. Some additional degenerative change of the pubic symphysis noted. No displaced fracture identified. IMPRESSION: Mild bilateral hip OA. Degenerative change lower lumbar spine. No acute osseous abnormali ty seen.
[2022-04-25 09:40] LABS: Anisocytosis Slight; Basophils % (A) 0 %; Eosinophils # (A) 0.1 k/uL (0-0.7); Eosinophils % (A) 1 %; HCT 34.4 % (34.0-46.0); HGB 11.4 gm/dL (11.4-16.0); Hypochromasia Slight; Lymphocytes # (A) 0.9 k/uL (1.0-4.8); Lymphocytes % (A) 11 %; MCH 26.1 pg (25.0-35.0); MCHC 33.3 g/dL (31.0-37.0); MCV 78.5 fL (80.0-100.0); Mean Platelet Volume 8.6; Microcytosis Slight; Monocytes # (A) 0.3 k/uL (0-1.0); Monocytes % (A) 4 %; Neutrophils # (A) 6.2 k/uL (1.3-7.7); Neutrophils % (A) 82 %; Platelet Count 145 k/uL (150-450); RBC 4.38 m/uL (3.80-5.40); RDW 16.5 % (11.5-15.5); WBC 7.5 k/uL (3.8-10.6)
[2022-04-25 09:59] LABS: ALT 21 U/L (4-34); AST 39 U/L (14-36); African American GFR (CKD) >90 (>60 ml/min/1.73 sqM); Albumin 3.1 g/dL (3.5-5.0); Alkaline Phosphatase 109 U/L (38-126); Anion Gap 9 mmol/L; Blood Urea Nitrogen 17 mg/dL (7-17); Calcium 8.3 mg/dL (8.4-10.2); Carbon Dioxide 24 mmol/L (22-30); Chloride 103 mmol/L (98-107); Creatine Kinase 159 U/L (30-135); Glucose 179 mg/dL (74-99); Magnesium 1.6 mg/dL (1.6-2.3); Non-African American GFR(CKD) >90 (>60 ml/min/1.73 sqM); Potassium 3.9 mmol/L (3.5-5.1); Sodium 136 mmol/L (137-145); Total Bilirubin 1.3 mg/dL (0.2-1.3); Total Protein 5.9 g/dL (6.3-8.2)
[2022-04-25 10:09] LABS: INR 2.8 (<1.2); Partial Thromboplastin Time 33.6 sec (22.0-30.0); Prothrombin Time 27.4 sec (9.0-12.0)
[2022-04-25 10:14] LABS: T4, Free (Free Thyroxine) 1.45 ng/dL (0.78-2.19)
[2022-04-25 11:55] LABS: Appearance,Urine Cloudy (Clear); Bilirubin,Urine Negative (Negative); Blood,Urine Trace (Negative); Color,Urine Dark Yellow; Glucose,Urine (UA) Trace (Negative); Ketones,Urine 1+ (Negative); Leukocyte Esterase,Urine Negative (Negative); Mucus,Urine Few /hpf; Nitrite,Urine Negative (Negative); PH, Urine 5.5 (5.0-8.0); Protein,Urine 1+ (Negative); RBC,Urine 2 /hpf (0-5); Specific Gravity,Urine 1.025 (1.001-1.035); Squamous Epithelial Cell,Urine 9 /hpf (0-4); WBC,Urine 2 /hpf (0-5)
[2022-04-25] MEDS ORDERED: NALOXONE 0.4 MG/ML 1 ML VIAL IV PRN ×2 (12:38→14:13)
[2022-04-25] MEDS: SODIUM CHLORIDE 0.9% 1,000 ML IV SCH (12:50)
--- NOTE | 2022-04-25 14:28 | P.HPIM ---
History of Present Illness H&P Date: 04/25/22 Chief Complaint: weakness 67-year-old female presenting to the emergency Department with bilateral lower extremities weakness right more than left. Weakness started right after [place]. A family member noted that she ''was not making sense'' when she was talking during [place]. Her speech is clear currently. 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 Patient was recently at [facility] for hypertension and dehydration. She states that she has not been drinking water because she doesn't feel like it. Prior to this ER visit she slipped off her mattress and laid on the floor for many hours due to not being able to get up. She was also feeling dizzy and was having left-sided abdominal pain earlier. She denied having chest pain, loss of consciousness or shortness of breath. No nausea or vomiting. No fevers or chills. No recent illness. She does have mild discomfort of her right hip region. Evaluation in the emergency department revealed normal vital signs. Labs were unremarkable. Right hip and pelvis x-ray was negative for fracture. Head CT scan showed old right occipital stroke with encephalomalacia but no acute process. Patient was admitted to the hospital for further evaluation and man agement. 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 antiphosphopholipid antibody-autoimmune clotting disorder. 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 tinnitus, eczema. thyroid [id number]. thrombocytopenia. History of Any Multi-Drug Resistant Organisms: None Reported Past Surgical History: Cholecystectomy, Hernia Repair, Joint Replacement, Orthopedic Surgery Additional Past Surgical History / Comment(s): cervical decompression, ventral hernia repair, bilat knee replacement, Past Anesthesia/Blood Transfusion Reactions: Postoperative Nausea & Vomiting (PONV) Past Psychological History: Anxiety, Depression Smoking Status: Former smoker Past Alcohol Use History: Occasional Past Drug Use History: None Reported Medications and Allergies Home Medications Medication Instructions Recorded Confirmed Type Atorvastatin [Lipitor] 20 mg PO HS 11/19/17 04/25/22 History QUEtiapine [SEROquel] 50 mg PO HS 11/19/17 04/25/22 History Sertraline HCl [Zoloft] 200 tab PO HS 11/19/17 04/25/22 History Warfarin Sodium [Coumadin] 6 mg PO HS 11/19/17 04/25/22 History Cefuroxime [Ceftin] 250 mg PO BID 04/25/22 04/25/22 History Dapsone 50 mg PO DAILY 04/25/22 04/25/22 History Folic Acid 1 mg PO DAILY 04/25/22 04/25/22 History Furosemide [Lasix] 40 mg PO DAILY 04/25/22 04/25/22 History Metoprolol Succinate (ER) [Toprol 50 mg PO HS 04/25/22 04/25/22 History Xl] NIFEdipine [Adalat CC] 30 mg PO HS 04/25/22 04/25/22 History Potassium Chloride ER [K-Dur 10] 10 meq PO DAILY 04/25/22 04/25/22 History Triamcinolone 0.1% Cream [Kenalog 1 applicatio TOPICAL BID PRN 04/25/22 04/25/22 History 0.1% Cream] glipiZIDE [Glucotrol] 5 mg PO BID 04/25/22 04/25/22 History lisinopriL [Zestril] 10 mg PO HS 04/25/22 04/25/22 History Allergies Allergy/AdvReac Type Severity Reaction Status Date / Time povidone-iodine Allergy Rash/Hives Verified 04/25/22 07:22 [From Betadine] soap [From Betadine] Allergy Rash/Hives Verified 04/25/22 07:22 acetaminophen [From [place]] AdvReac Itching Verified 04/25/22 07:22 hydrocodone [From [place]] AdvReac Itching Verified 04/25/22 07:22 Tetracyclines AdvReac Nausea & Verified 04/25/22 07:22 Vomiting Physical Exam Vitals: Vital Signs Temp Pulse Resp BP Pulse Ox 04/25/22 12:30 90 130/73 04/25/22 12:00 87 116/65 04/25/22 11:30 87 16 130/77 96 04/25/22 11:00 86 17 125/79 93 L 04/25/22 10:30 89 127/69 95 04/25/22 10:00 87 122/64 93 L 04/25/22 09:30 88 122/58 94 L 04/25/22 09:00 90 120/58 93 L 04/25/22 07:16 98.6 F 93 18 146/74 96 Intake and Output 04/24/22 04/25/22 04/25/22 22:59 06:59 14:59 Other: Weight 104.326 kg Constitutional: No acute distress, conversant, pleasant Eyes:Anicteric sclerae, moist conjunctiva, no lid-lag, PERRLA, ENMT: Oropharynx clear, no erythema, exudates Neck: Supple, FROM, no masses, or JVD, No carotid bruits, No thyromegaly Lungs: Clear to auscultation, Clear to percussion, Normal respiratory effort, no accessory muscle use Cardiovascular: Heart regular in rate and rhythm, No murmurs, gallops, or rubs, No peripheral edema Abdominal: Soft, Nontender, no guarding, rebound or rigidity, Normoactive bowel sounds, No hepatomegaly, No splenomegaly, No palpable mass Skin: Normal temperature, tone, texture, turgor, no induration, No subcutaneous nodules, No rash, lesions, No ulcers Extremities: No digital cyanosis, No clubbing, Pedal pulses intact and symmetrical, Radial pulses intact and symmetrical, No calf tenderness Psychiatric: Alert and oriented to person, place and time, appropriate affect, intact judgement Neuro: Right lower extremity 4 out of 5, Sensation to light touch grossly present throughout, Cranial nerves II-XII grossly intact, no focal sensory deficits Results CBC & Chem 7: 04/25/22 08:28 04/25/22 08:28 Labs: Abnormal Lab Results - Last 24 Hours (Table) 04/25/22 04/25/22 04/25/22 Range/Units 08:28 08:28 08:28 MCV 78.5 L (80.0-100.0) fL RDW 16.5 H (11.5-15.5) % Plt Count 145 L (150-450) k/uL Lymphocytes # 0.9 L (1.0-4.8) k/uL PT 27.4 H (9.0-12.0) sec INR 2.8 H (<1.2) APTT 33.6 H (22.0-30.0) sec Sodium (137-145) mmol/L Glucose (74-99) mg/dL Calcium (8.4-10.2) mg/dL AST (14-36) U/L Creatine Kinase (30-135) U/L Total Protein (6.3-8.2) g/dL Albumin (3.5-5.0) g/dL Urine Appearance Cloudy H (Clear) Urine Protein 1+ H (Negative) Urine Glucose (UA) Trace H (Negative) Urine Ketones 1+ H (Negative) Urine Blood Trace H (Negative) Ur Squamous Epith Cells 9 H (0-4) /hpf Urine Mucus Few H (None) /hpf 04/25/22 Range/Units 08:28 MCV (80.0-100.0) fL RDW (11.5-15.5) % Plt Count (150-450) k/uL Lymphocytes # (1.0-4.8) k/uL PT (9.0-12.0) sec INR (<1.2) APTT (22.0-30.0) sec Sodium 136 L (137-145) mmol/L Glucose 179 H (74-99) mg/dL Calcium 8.3 L (8.4-10.2) mg/dL AST 39 H (14-36) U/L Creatine Kinase 159 H (30-135) U/L Total Protein 5.9 L (6.3-8.2) g/dL Albumin 3.1 L (3.5-5.0) g/dL Urine Appearance (Clear) Urine Protein (Negative) Urine Glucose (UA) (Negative) Urine Ketones (Negative) Urine Blood (Negative) Ur Squamous Epith Cells (0-4) /hpf Urine Mucus (None) /hpf Assessment and Plan Plan: Right lower extremity weakness History of dysphasia recently Hisotry of right occipital stroke. Rule out acute stroke MRI brain Consult neurology Telemetry Neuro checks PT and OT Diabetes Mellitus 2 Hold oral agents SSI Chronic Hypertension, Osteoarthritis (OA), History of pulmonary Embolus (PE), History of vasculitis History of antiphospholipid syndrome Sleep Apnea/CPAP/BIPAP All stable Resume meds Admit to inpatient, expected length of stay was in 2 midnights
--- NOTE | 2022-04-25 20:25 | P.CNNES ---
History of Present Illness Consult date: 04/25/22 Requesting physician: Evens Marino Reason for Consult: Weakness History of Present Illness: Patient is a 67-year-old female with history of antiphospholipid antibodies, history of DVTs and PE on Coumadin, previous stroke, hypertension, came to the hospital by ambulance today at 7:09 AM. EMS flow sheet not available in the chart. Patient states that last night at around 9:30 to 10 PM, patient fell off the bed. She was sitting on the edge of the bed, when she slid down. Her feet could not hold her weight. At first she was able to get up, but then she slid back down. Then she had no energy, laid there all night long. She rolled on the floor, got the blanket and put it under her knees and tried to get up, still could not. She stayed there until her grandson Mario who works acute care occupational therapist came over at 6 AM and she hollered at him and he found her on the floor. He turned her over on the stomach but she still could not get up. He called the ambulance. Patient states that on 04/20/2022, she was at her sister's house, when she was not able to go up steps. She was not acting right. She was taken to [facility] on [address] where she stayed from Thursday, the and discharged on 04/22/2022. They monitored her INR. She does not remember if any MRI was done. Patient admits to having low back pain 01/04. It radiates to the right leg all the way to the ankle. Vital signs on arrival blood pressure 146/74, pulse rate 93, temperature 98.6. CT head showed no acute intracranial process. Remote injury to the right occipital lobe with encephalomalacia and nonspecific white matter changes, likely secondary to chronic small vessel ischemic disease. I personally rev iewed CT head, agree with the findings. There is no previous CT head for comparison. There is also evidence of chronic ischemia in the left cerebellum. Chest x-ray showed some interstitial prominence that may be seen with bronchitis or asthma. No focal infiltrate. EKG shows normal sinus rhythm. X-ray of the hip and pelvis revealed mild bilateral hip OA. Degenerative changes of lower lumbar spine. No acute osseous abnormality. Blood test shows normal CBC, INR is 2.8. Sodium 136, potassium is normal. Renal function is normal. AST 39 ALT 21. CPK 159. TSH is normal. UA negative. For the last 4 years she has been walking with a walker mostly, but not all the time. She uses walker outside only as needed. Patient has been diagnosed with this colitis by continuing education instructor Dr. Foreman in January 2022. She is on prednisone. Home medications not sertraline 200 mg, Seroquel 50 mg, Coumadin, Lipitor 20 mg, potassium, metoprolol, lisinopril 10 mg, dapsone 50 mg, nifedipine ER 30 mg, g lipizide 5 mg twice a day, Lasix, folic acid 1 mg and Ceftin. Patient states that she has been using a walker since 2017. She admits to having low back pain which she rates 9/10. Patient denies any stroke symptoms like facial droop, slurred speech. Patient states she had a history of CVA in 2016 involving right occipital lobe, which produced left homonymous hemianopia. Also affected slightly her memory. Patient follows up with Dr. Espinoza. Patient has smoked 1 pack per day from age 19 until age 46 (for 25 years), quit 20 years ago. Denies any alcohol use. She has diabetes, takes pills for last 2 years. Review of Systems Constitutional: Denies chills, Denies fever Eyes: bilateral loss of vision (Left homonymous hemianopia), denies diplopia, denies pain Ears: deny: ear discharge, earache Ears, nose, mouth and throat: Denies headache, Denies sore throat Cardiovascular: Denies chest pain, Denies shortness of breath Respiratory: Denies cough Genitourinary: Denies dysuria, Denies hematuria Integumentary: Reports color changes, Reports darkening of skin, Reports lesi ons, Reports rash, Denies pruritus Neurological: Reports as per HPI Psychiatric: Denies anxiety, Denies depression Endocrine: Reports weight change Hematologic/Lymphatic: Reports easy bruising Past Medical History Past Medical History: Blood Disorder, Diabetes Mellitus, Eye Disorder, Hearing Disorder / Deafness, Hypertension, Neurologic Disorder, Osteoarthritis (OA), Pulmonary Embolus (PE), Skin Disorder, Sleep Apnea/CPAP/BIPAP Additional Past Medical History / Comment(s): 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 antiphosphopholipid antibody-autoimmune clotting disorder. 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 tinnitus, eczema. thyroid [id number]. thrombocytopenia. History of Any Multi-Drug Resistant Organisms: None Reported Past Surgical History: Cholecystectomy, Hernia Repair, Joint Replacement, Orthopedic Surgery Additional Past Surgical History / Comment(s): cervical decompression, ventral hernia repair, bilat knee replacement, Past Anesthesia/Blood Transfusion Reactions: Postoperative Nausea & Vomiting (PONV) Past Psychological History: Anxiety, Depression Smoking Status: Former smoker Past Alcohol Use History: Occasional Past Drug Use History: None Reported Medications and Allergies Home Medications Medication Instructions Recorded Confirmed Type Atorvastatin [Lipitor] 20 mg PO HS 11/19/17 04/25/22 History QUEtiapine [SEROquel] 50 mg PO HS 11/19/17 04/25/22 History Sertraline HCl [Zoloft] 200 mg PO HS 11/19/17 04/25/22 History Warfarin Sodium [Coumadin] 6 mg PO HS 11/19/17 04/25/22 History Cefuroxime [Ceftin] 250 mg PO BID 04/25/22 04/25/22 History Dapsone 50 mg PO DAILY 04/25/22 04/25/22 History Folic Acid 1 mg PO DAILY 04/25/22 04/25/22 History Furosemide [Lasix] 40 mg PO DAILY 04/25/22 04/25/22 History Metoprolol Succinate (ER) [Toprol 50 mg PO HS 04/25/22 04/25/22 History Xl] NIFEdipine [Adalat CC] 30 mg PO HS 04/25/22 04/25/22 History Potassium Chloride ER [K-Dur 10] 10 meq PO DAILY 04/25/22 04/25/22 History Triamcinolone 0.1% Cream [Kenalog 1 applicatio TOPICAL BID PRN 04/25/22 04/25/22 History 0.1% Cream] glipiZIDE [Glucotrol] 5 mg PO BID 04/25/22 04/25/22 History lisinopriL [Zestril] 10 mg PO HS 04/25/22 04/25/22 History Allergies Allergy/AdvReac Type Severity Reaction Status Date / Time povidone-iodine Allergy Rash/Hives Verified 04/25/22 07:22 [From Betadine] soap [From Betadine] Allergy Rash/Hives Verified 04/25/22 07:22 acetaminophen [From [place]] AdvReac Itching Verified 04/25/22 07:22 hydrocodone [From [place]] AdvReac Itching Verified 04/25/22 07:22 Tetracyclines AdvReac Nausea & Verified 04/25/22 07:22 Vomiting Physical Examination - Vital Signs Vital Signs: Vital Signs Temp Pulse Resp BP Pulse Ox 04/25/22 12:30 90 130/73 04/25/22 12:00 87 116/65 04/25/22 11:30 87 16 130/77 96 04/25/22 11:00 86 17 125/79 93 L 04/25/22 10:30 89 127/69 95 04/25/22 10:00 87 122/64 93 L 04/25/22 09:30 88 122/58 94 L 04/25/22 09:00 90 120/58 93 L 04/25/22 07:16 98.6 F 93 18 146/74 96 Intake and Output 04/25/22 04/25/22 04/25/22 06:59 14:59 22:59 Other: Weight 104.326 kg Patient is an elderly female, in no acute distress. Patient is alert awake oriented to time place and person. Speech and language functions are normal. Patient can name and repeat very well. No aphasia or dysarthria. Attention, concentration and fund of knowledge is adequate. On cranial nerve examination, pupils are equal, round and reacting to light, visual [place] revealed left homonymous hemianopia, that is chronic in nature. Extraocular muscles are intact with no nystagmus. Face is symmetric, tongue pro trudes to the midline. Palatal elevation and sensation normal, hearing and shoulder shrug normal, facial sensation normal. On muscle strength testing, there is left-sided pronation, no drift. Muscle strength is normal in both upper limbs distally and proximally. In the lower limbs, the strength is normal in bilateral hip adduction, hip abduction, knee extension, ankle dorsiflexion. Hip flexion is 4 on the right, 5 left. Deep tendon reflexes are (right/left) biceps 1+/1+, brachioradialis 1+/1+, knees 2/2+, ankles trace/trace, plantar is downgoing on the right, up on the left side. Sensory to touch is equal with no neglect on double simultaneous stimulation. Cerebellar function showed no ataxia for [id number] testing. No dysdiadochokinesia. No ataxia for [id number] testing on either side. Tone and bulk of muscles normal. Gait deferred.. On general examination, there is no carotid bruit or murmur, S1-S2 audible. Chest is clear on consultation. Abdomen is soft nontender. No organomegaly, bowel sounds present. Patient has peripheral edema. Patient has red blotches in the skin of the lower limbs from previous vasculitis. Also has some bruises over the knee from fall. Results - Laboratory Findings CBC and BMP: 04/26/22 08:18 04/26/22 08:18 Abnormal Lab Findings: Abnormal Labs 04/25/22 04/25/22 04/25/22 08:28 08:28 08:28 MCV 78.5 L RDW 16.5 H Plt Count 145 L Lymphocytes # 0.9 L PT 27.4 H INR 2.8 H APTT 33.6 H Sodium Glucose Calcium AST Creatine Kinase Total Protein Albumin Urine Appearance Cloudy H Urine Protein 1+ H Urine Glucose (UA) Trace H Urine Ketones 1+ H Urine Blood Trace H Ur Squamous Epith Cells 9 H Urine Mucus Few H 04/25/22 08:28 MCV RDW Plt Count Lymphocytes # PT INR APTT Sodium 136 L Glucose 179 H Calcium 8.3 L AST 39 H Creatine Kinase 159 H Total Protein 5.9 L Albumin 3.1 L Urine Appearance Urine Protein Urine Glucose (UA) Urine Ketones Urine Blood Ur Squamous Epith Cells Urine Mucus Assessment and Plan Assessment: * 67-year-old female, with chronic low back pain, with radiation to the right leg, came to the hospital because of slipping down the bed, and not able to get up. Examination reveals right leg weakness mainly in the hip flexion as compared to the left. X-ray of the hips shows evidence of osteoarthritis. Rule out superimposed lumbar spondylosis/spinal stenosis/radiculopathy. CVA less likely, with therapeutic INR. * Vasculitis * History of right occipital stroke with chronic left homonymous hemianopia * History of antiphospholipid antibodies * History of DVT and PE, on anticoagulation * Diabetes * Hypertension * Obesity Plan: * MRI lumbar spine evaluate for spinal stenosis * B12, folate, A1c. TFTs are normal. CPK borderline elevated, likely due to fall. * Neurology will follow. Thank you for the consult. Time with Patient: Greater than 30
[2022-04-25 21:27] LABS: Glucose,Whole Blood 147 mg/dL (70-110)
[2022-04-25] MEDS: INSULIN ASPART (NovoLOG) 100 UNIT/ML VIAL SQ SCH (21:28)
[2022-04-25] MEDS: ATORVASTATIN 20 MG TAB PO SCH (21:29)
[2022-04-25] MEDS: lisinopriL 10 MG TAB PO SCH ×2 (21:29)
[2022-04-25] MEDS: METOPROLOL SUCCINATE (ER) 50 MG TAB.ER.24H PO SCH (21:29)
[2022-04-25] MEDS: QUEtiapine 50 MG TAB PO SCH (21:30)
[2022-04-25] MEDS: SERTRALINE 100 MG TAB PO SCH (21:30)
[2022-04-25] MEDS: NIFEdipine XL 30 MG TAB.ER.24 PO SCH (21:30)
[2022-04-25] MEDS: WARFARIN 3 MG TAB PO SCH (21:30)
[2022-04-26] MEDS: ACETAMINOPHEN TAB 325 MG TAB PO PRN ×2 (04:28→15:53)
[2022-04-26] MEDS: SODIUM CHLORIDE 0.9% 1,000 ML IV SCH ×2 (06:03→15:49)
[2022-04-26 06:07] LABS: Glucose,Whole Blood 159 mg/dL (70-110)
[2022-04-26] MEDS: INSULIN ASPART (NovoLOG) 100 UNIT/ML VIAL SQ SCH ×4 (06:52→21:38)
[2022-04-26 08:43] LABS: Anisocytosis Slight; Basophils % (A) 1 %; Eosinophils # (A) 0.1 k/uL (0-0.7); Eosinophils % (A) 2 %; HCT 34.6 % (34.0-46.0); HGB 10.9 gm/dL (11.4-16.0); Hypochromasia Slight; Lymphocytes # (A) 0.7 k/uL (1.0-4.8); Lymphocytes % (A) 12 %; MCH 25.3 pg (25.0-35.0); MCHC 31.6 g/dL (31.0-37.0); MCV 80.1 fL (80.0-100.0); Microcytosis Slight; Monocytes # (A) 0.2 k/uL (0-1.0); Monocytes % (A) 3 %; Neutrophils # (A) 4.9 k/uL (1.3-7.7); Neutrophils % (A) 81 %; Platelet Count 133 k/uL (150-450); RBC 4.32 m/uL (3.80-5.40); RDW 17.1 % (11.5-15.5); WBC 6.1 k/uL (3.8-10.6)
[2022-04-26 08:51] LABS: INR 2.4 (<1.2); Prothrombin Time 23.2 sec (9.0-12.0)
[2022-04-26 08:54] LABS: AST 31 U/L (14-36); African American GFR (CKD) >90 (>60 ml/min/1.73 sqM); Albumin 2.7 g/dL (3.5-5.0); Alkaline Phosphatase 96 U/L (38-126); Anion Gap 4 mmol/L; Blood Urea Nitrogen 16 mg/dL (7-17); Calcium 8.3 mg/dL (8.4-10.2); Carbon Dioxide 28 mmol/L (22-30); Chloride 105 mmol/L (98-107); Glucose 187 mg/dL (74-99); Magnesium 1.9 mg/dL (1.6-2.3); Non-African American GFR(CKD) 86 (>60 ml/min/1.73 sqM); Phosphorus 3.1 mg/dL (2.5-4.5); Potassium 3.3 mmol/L (3.5-5.1); Sodium 137 mmol/L (137-145); Total Bilirubin 1.3 mg/dL (0.2-1.3); Total Protein 5.5 g/dL (6.3-8.2)
[2022-04-26] MEDS: FUROSEMIDE 40 MG TAB PO SCH (09:47)
[2022-04-26] MEDS: FOLIC ACID 1 MG TAB PO SCH (09:47)
[2022-04-26] MEDS: DAPSONE 25 MG TAB PO SCH (09:47)
[2022-04-26] MEDS: POTASSIUM CHLORIDE ER 10 MEQ TAB.ER.PRT PO SCH (09:47)
[2022-04-26 09:53] LABS: ALT 18 U/L (4-34)
[2022-04-26] MEDS ORDERED: Potassium Replacement Protocol 1 EACH MISC MISCELLANE PRN (11:07)
[2022-04-26 11:39] VITALS: BMI 42.0
[2022-04-26 11:39] LABS: Glucose,Whole Blood 223 mg/dL (70-110)
[2022-04-26] MEDS: POTASSIUM CHLORIDE ER 20 MEQ TAB.ER PO SCH ×2 (12:15→15:51)
--- NOTE | 2022-04-26 12:18 | P.PN ---
Subjective Progress Note Date: 04/26/22 Principal diagnosis: Right leg weakness Patient feels that her right lower extremity is currently stronger. States that she has right lower back pain radiating to the right hip area. This is an improvement from admission time. Denied other complaint. No shortness of breath or pain. No fevers or chills. No overnight event. Objective - Vital Signs Vital signs: Vital Signs Temp 98.0 F 04/26/22 08:00 Pulse 88 04/26/22 08:00 Resp 16 04/26/22 08:00 BP 137/74 04/26/22 08:00 Pulse Ox 93 L 04/26/22 08:00 FiO2 Intake & Output 04/25/22 04/26/22 04/26/22 18:59 06:59 18:59 Intake Total 180 Output Total 300 Balance -300 180 Weight 104.326 kg 104.326 kg 104.326 kg Intake: Oral 180 Output: Urine 300 Other: Voiding Method Toilet Toilet Bedside Commode Bedside Commode - Exam Constitutional: No acute distress, conversant, pleasant Eyes:Anicteric sclerae, moist conjunctiva, no lid-lag, PERRLA, ENMT: Oropharynx clear, no erythema, exudates Neck: Supple, FROM, no masses, or JVD, No carotid bruits, No thyromegaly Lungs: Clear to auscultation, Clear to percussion, Normal respiratory effort, no accessory muscle use Cardiovascular: Heart regular in rate and rhythm, No murmurs, gallops, or rubs, No peripheral edema Abdominal: Soft, Nontender, no guarding, rebound or rigidity, Normoactive bowel sounds, No hepatomegaly, No splenomegaly, No palpable mass Skin: Normal temperature, tone, texture, turgor, no induration, No subcutaneous nodules, No rash, lesions, No ulcers Extremities: No digital cyanosis, No clubbing, Pedal pulses intact and symmetrical, Radial pulses intact and symmetrical, No calf tenderness Psychiatric: Alert and oriented to person, place and time, appropriate affect, intact judgement Neuro: Right lower extremity 4 out of 5, Sensation to light touch grossly pre sent throughout, Cranial nerves II-XII grossly intact, no focal sensory deficits - Labs CBC & Chem 7: 04/26/22 08:18 04/26/22 08:18 Labs: Abnormal Lab Results - Last 24 Hours (Table) 04/25/22 04/25/22 04/26/22 Range/Units 08:28 21:26 06:06 Hgb (11.4-16.0) gm/dL RDW (11.5-15.5) % Plt Count (150-450) k/uL Lymphocytes # (1.0-4.8) k/uL PT (9.0-12.0) sec INR (<1.2) Potassium (3.5-5.1) mmol/L Glucose (74-99) mg/dL POC Glucose (mg/dL) 147 H 159 H (70-110) mg/dL Hemoglobin A1c 10.3 H (0.0-6.0) % Calcium (8.4-10.2) mg/dL Total Protein (6.3-8.2) g/dL Albumin (3.5-5.0) g/dL 04/26/22 04/26/22 04/26/22 Range/Units 08:18 08:18 08:18 Hgb 10.9 L (11.4-16.0) gm/dL RDW 17.1 H (11.5-15.5) % Plt Count 133 L (150-450) k/uL Lymphocytes # 0.7 L (1.0-4.8) k/uL PT 23.2 H (9.0-12.0) sec INR 2.4 H (<1.2) Potassium 3.3 L (3.5-5.1) mmol/L Glucose 187 H (74-99) mg/dL POC Glucose (mg/dL) (70-110) mg/dL Hemoglobin A1c (0.0-6.0) % Calcium 8.3 L (8.4-10.2) mg/dL Total Protein 5.5 L (6.3-8.2) g/dL Albumin 2.7 L (3.5-5.0) g/dL 04/26/22 Range/Units 11:38 Hgb (11.4-16.0) gm/dL RDW (11.5-15.5) % Plt Count (150-450) k/uL Lymphocytes # (1.0-4.8) k/uL PT (9.0-12.0) sec INR (<1.2) Potassium (3.5-5.1) mmol/L Glucose (74-99) mg/dL POC Glucose (mg/dL) 223 H (70-110) mg/dL Hemoglobin A1c (0.0-6.0) % Calcium (8.4-10.2) mg/dL Total Protein (6.3-8.2) g/dL Albumin (3.5-5.0) g/dL Assessment and Plan Plan: Right lower extremity weakness History of dysphasia recently Hisotry of right occipital stroke. Rule out acute stroke versus lumbar disc disease causing right leg weakness MRI brain as well as lumbar spine Case discussed with neurology Telemetry Neuro checks PT and OT Diabetes Mellitus 2 Hold oral agents SSI Chronic Hypertension, Osteoarthritis (OA), History of pulmonary Embolus (PE), History of vasculitis History of antiphospholipid syndrome Sleep Apnea/CPAP/BIPAP All stable Resume meds Disposition: Likely home 1-2 days
--- NOTE | 2022-04-26 14:13 | MR ---
EXAMINATION TYPE: MR brain/lspine wo con DATE OF EXAM: 04/26/2022 1:59 PM COMPARISON: CT brain 04/25/2022. CLINICAL INDICATION:Female, 67 years old with history of LBP radiating both legs, weakness right leg; TECHNIQUE: Multi planar, multi sequence imaging was performed through the brain including: T1, T2, In version recovery, Diffusion weighted imaging, and gradient echo imaging. No gadolinium was given. FINDINGS: Right occipital lobe remote injury with encephalomalacia. The patel-white junctions, ventricular syste m, and cisterns appear unremarkable. Scattered foci of high T2 signal intensity are seen within the periventricular white matter. Midline structures show no abnormality. Diffusion-weighted imaging show s no evidence of restricted diffusion. The susceptibility weighted images do not reveal any evidence for micro-hemorrhage. The bone marrow signal is within normal limits. Paranasal sinuses and mastoid air cells: Mild scattered paranasal sinus disease. Visualized orbits: Orbital contents are intact. Alignment: The lumbar vertebral bodies have preserved heights and alignment. Cord: The conus medullaris and the distal spinal cord appear unremarkable with regards to their signa l intensity and morphology. Bones/Discs: Bone signal is within normal limits. Multilevel degenerative disc disease is noted and most pronounced at the . T12-L1: Disc bulge and facet joint arthropathy without significant spinal canal stenosis and mild yasmine ateral neural foraminal stenosis. L1-L2: No evidence of significant spinal canal stenosis or neural foraminal stenosis. L2-L3: Disc bulge and facet joint arthropathy result in moderate spinal canal and mild bilateral neur al foraminal stenosis. L3-L4: Disc bulge and facet joint arthropathy result in mild spinal canal and mild bilateral neural f oraminal stenosis. L4-L5: The disc is rounded posterior morphology without significant spinal canal stenosis. Facet join t arthropathy with moderate neural foraminal stenosis. L5-S1: The disc is rounded posterior morphology without significant spinal canal stenosis. Facet join t arthropathy with moderate neural foraminal stenosis. Other findings: None. IMPRESSION: 1. No evidence of intracranial mass or acute/subacute infarct. 2. Right occipital lobe remote injury with encephalomalacia. 3. Nonspecific white matter changes, likely secondary to small vessel ischemic disease. 4. No definitive evidence of disc herniation or significant spinal canal stenosis. 5. Multilevel disc degeneration with associated osteoarthritic changes resulting in moderate L4-L5 a nd L5-S1 neural foraminal stenosis.
[2022-04-26 16:26] LABS: Glucose,Whole Blood 213 mg/dL (70-110)
[2022-04-26] MEDS: GABAPENTIN 100 MG CAP PO SCH ×2 (17:00→21:37)
[2022-04-26 20:08] LABS: Glucose,Whole Blood 148 mg/dL (70-110)
[2022-04-26] MEDS: SERTRALINE 100 MG TAB PO SCH (20:14)
[2022-04-26] MEDS: lisinopriL 10 MG TAB PO SCH (20:14)
[2022-04-26] MEDS: QUEtiapine 50 MG TAB PO SCH (20:14)
[2022-04-26] MEDS: NIFEdipine XL 30 MG TAB.ER.24 PO SCH (20:15)
[2022-04-26] MEDS: ATORVASTATIN 20 MG TAB PO SCH (20:15)
[2022-04-26] MEDS: WARFARIN 3 MG TAB PO SCH (20:15)
[2022-04-26] MEDS: METOPROLOL SUCCINATE (ER) 50 MG TAB.ER.24H PO SCH (20:15)
[2022-04-27] MEDS: SODIUM CHLORIDE 0.9% 1,000 ML IV SCH ×2 (05:58→18:03)
[2022-04-27 06:03] LABS: Glucose,Whole Blood 150 mg/dL (70-110)
[2022-04-27] MEDS: INSULIN ASPART (NovoLOG) 100 UNIT/ML VIAL SQ SCH ×4 (06:04→20:38)
--- NOTE | 2022-04-27 08:31 | US ---
EXAMINATION TYPE: US venous doppler duplex LE RT DATE OF EXAM: 04/27/2022 8:15 AM COMPARISON: NONE CLINICAL HISTORY: Right leg pain and swelling SIDE PERFORMED: Right TECHNIQUE: The lower extremity deep venous system is examined utilizing real time linear array sonog demario with graded compression, doppler sonography and color-flow sonography. VESSELS IMAGED: Common Femoral Vein Deep Femoral Vein Greater Saphenous Vein * Femoral Vein Popliteal Vein Small Saphenous Vein * Proximal Calf Veins (* superficial vessels) Right Leg: Negative for DVT. Grayscale, color doppler, spectral doppler imaging performed of the kyle p veins of the lower extremities. There is normal flow, compressibility, vascular waveforms. IMPRESSION: No evidence for deep vein thrombus of the right lower extremity.
[2022-04-27] MEDS: FOLIC ACID 1 MG TAB PO SCH (08:53)
[2022-04-27] MEDS: POTASSIUM CHLORIDE ER 10 MEQ TAB.ER.PRT PO SCH (08:53)
[2022-04-27] MEDS: GABAPENTIN 100 MG CAP PO SCH (08:53)
[2022-04-27] MEDS: DAPSONE 25 MG TAB PO SCH (08:53)
[2022-04-27] MEDS: FUROSEMIDE 40 MG TAB PO SCH (08:53)
[2022-04-27] MEDS: ACETAMINOPHEN TAB 325 MG TAB PO PRN (08:54)
[2022-04-27 10:16] LABS: INR 2.3 (<1.2); Prothrombin Time 22.9 sec (9.0-12.0)
--- NOTE | 2022-04-27 10:25 | P.PN ---
Subjective Progress Note Date: 04/26/22 Patient was seen for a follow-up. Patient continues to be complaining of radicular pain in the right leg. She believes her right leg is swollen. She complains of pain 10 on a scale of 1-10. The pain bothers the bottom of the right foot, that extends to the right calf and then anterior thigh to the right posterior hip region. Denies any symptoms in the left leg. Objective - Vital Signs Vital signs: Vital Signs Temp 98.3 F 04/26/22 12:00 Pulse 72 04/26/22 14:00 Resp 16 04/26/22 14:00 BP 96/58 04/26/22 12:00 Pulse Ox 93 L 04/26/22 12:00 FiO2 Intake & Output 04/25/22 04/26/22 04/26/22 18:59 06:59 18:59 Intake Total 360 Output Total 300 Balance -300 360 Weight 104.326 kg 104.326 kg 104.326 kg Intake: Oral 360 Output: Urine 300 Other: Voiding Method Toilet Toilet Bedside Commode Bedside Commode # Bowel Movements 1 - Exam Patient's mental status, speech and language functions are normal. Examination significant for only right hip flexion weakness. Muscle examination is normal. Patient's right leg is swollen as compared to the left. Patient has large petechial rash from her vasculitis. - Labs CBC & Chem 7: 04/26/22 08:18 04/26/22 08:18 Labs: Abnormal Lab Results - Last 24 Hours (Table) 04/25/22 04/25/22 04/26/22 Range/Units 08:28 21:26 06:06 Hgb (11.4-16.0) gm/dL RDW (11.5-15.5) % Plt Count (150-450) k/uL Lymphocytes # (1.0-4.8) k/uL PT (9.0-12.0) sec INR (<1.2) Potassium (3.5-5.1) mmol/L Glucose (74-99) mg/dL POC Glucose (mg/dL) 147 H 159 H (70-110) mg/dL Hemoglobin A1c 10.3 H (0.0-6.0) % Calcium (8.4-10.2) mg/dL Total Protein (6.3-8.2) g/dL Albumin (3.5-5.0) g/dL 04/26/22 04/26/22 04/26/22 Range/Units 08:18 08:18 08:18 Hgb 10.9 L (11.4-16.0) gm/dL RDW 17.1 H (11.5-15.5) % Plt Count 133 L (150-450) k/uL Lymphocytes # 0.7 L (1.0-4.8) k/uL PT 23.2 H (9.0-12.0) sec INR 2.4 H (<1.2) Potassium 3.3 L (3.5-5.1) mmol/L Glucose 187 H (74-99) mg/dL POC Glucose (mg/dL) (70-110) mg/dL Hemoglobin A1c (0.0-6.0) % Calcium 8.3 L (8.4-10.2) mg/dL Total Protein 5.5 L (6.3-8.2) g/dL Albumin 2.7 L (3.5-5.0) g/dL 04/26/22 Range/Units 11:38 Hgb (11.4-16.0) gm/dL RDW (11.5-15.5) % Plt Count (150-450) k/uL Lymphocytes # (1.0-4.8) k/uL PT (9.0-12.0) sec INR (<1.2) Potassium (3.5-5.1) mmol/L Glucose (74-99) mg/dL POC Glucose (mg/dL) 223 H (70-110) mg/dL Hemoglobin A1c (0.0-6.0) % Calcium (8.4-10.2) mg/dL Total Protein (6.3-8.2) g/dL Albumin (3.5-5.0) g/dL Assessment and Plan Assessment: * Right leg weakness and radicular pain in S1 root distribution. Possible radiculopathy. X-ray of the hips shows evidence of osteoarthritis. MRI of the lumbar spine did not show any significant spinal stenosis or disc herniation. Radiculopathy could be inflammatory from diabetes or related to her vasculitis. CVA ruled out with MRI brain. 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 Multilevel disc degeneration with associated osteoarthritic changes resulting in moderate L4-L5 and L5-S1 neural foraminal stenosis. I personally reviewed MRI, and agree with findings. No significant spinal stenosis or radiculopathy. * MRI of the brain revealed no acute or subacute infarct. Right occipital lobe remote injury with encephalomalacia. Nonspecific white matter change likely secondary to small vessel ischemic disease. I personally reviewed MRI, I agree with the findings. * B12 447, folate 8.7, A1c 10.3. Patient started on folic acid 1 mg daily. Recommend optimize control of diabetes to target A1c < 7.0. * Start Neurontin 200 mg 3 times a day for neuropathic/radicular pain. This is likely inflammatory radiculopathy. Patient may need EMG and nerve conduction of right lower extremity as an outpatient. * Doppler ultrasound right lower extremity rule out DVT. * TFTs are normal. CPK borderline elevated, likely due to fall. * Discussed with primary physician in detail.
[2022-04-27 10:27] LABS: African American GFR (CKD) >90 (>60 ml/min/1.73 sqM); Anion Gap 3 mmol/L; Blood Urea Nitrogen 15 mg/dL (7-17); Calcium 7.9 mg/dL (8.4-10.2); Carbon Dioxide 25 mmol/L (22-30); Chloride 105 mmol/L (98-107); Glucose 258 mg/dL (74-99); Non-African American GFR(CKD) >90 (>60 ml/min/1.73 sqM); Potassium 4.2 mmol/L (3.5-5.1); Sodium 133 mmol/L (137-145)
[2022-04-27 11:44] LABS: Glucose,Whole Blood 173 mg/dL (70-110)
--- NOTE | 2022-04-27 13:21 | P.PN ---
Subjective Progress Note Date: 04/27/22 Principal diagnosis: Right leg weakness Patient noticed improvement in her right lower extremity weakness today. She is able to walk using a walker. Denied any new neurologic symptoms. No overnight events. Objective - Vital Signs Vital signs: Vital Signs Temp 99.2 F 04/27/22 08:00 Pulse 94 04/27/22 08:00 Resp 17 04/27/22 08:00 BP 119/77 04/27/22 08:00 Pulse Ox 92 L 04/27/22 08:00 FiO2 Intake & Output 04/26/22 04/27/22 04/27/22 18:59 06:59 18:59 Intake Total 540 480 180 Output Total 800 Balance 540 -320 180 Weight 104.326 kg Intake: Oral 540 480 180 Output: Urine 800 Other: Voiding Method Toilet Toilet Toilet Bedside Commode Bedside Commode Bedside Commode # Voids 1 # Bowel Movements 1 - Exam Constitutional: No acute distress, conversant, pleasant Eyes:Anicteric sclerae, moist conjunctiva, no lid-lag, PERRLA, ENMT: Oropharynx clear, no erythema, exudates Neck: Supple, FROM, no masses, or JVD, No carotid bruits, No thyromegaly Lungs: Clear to auscultation, Clear to percussion, Normal respiratory effort, no accessory muscle use Cardiovascular: Heart regular in rate and rhythm, No murmurs, gallops, or rubs, No peripheral edema Abdominal: Soft, Nontender, no guarding, rebound or rigidity, Normoactive bowel sounds, No hepatomegaly, No splenomegaly, No palpable mass Skin: Normal temperature, tone, texture, turgor, no induration, No subcutaneous nodules, No rash, lesions, No ulcers Extremities: No digital cyanosis, No clubbing, Pedal pulses intact and symmetrical, Radial pulses intact and symmetrical, No calf tenderness Psychiatric: Alert and oriented to person, place and time, appropriate affect, intact judgement Neuro: Right lower extremity 4 out of 5, Sensation to light touch grossly present throughout, Cranial nerves II-XII grossly intact, no focal sensory deficits - Labs CBC & Chem 7: 04/26/22 08:18 04/27/22 09:30 Labs: Abnormal Lab Results - Last 24 Hours (Table) 04/26/22 04/26/22 04/27/22 Range/Units 16:24 20:07 06:02 PT (9.0-12.0) sec INR (<1.2) Sodium (137-145) mmol/L Glucose (74-99) mg/dL POC Glucose (mg/dL) 213 H 148 H 150 H (70-110) mg/dL Calcium (8.4-10.2) mg/dL 04/27/22 04/27/22 04/27/22 Range/Units 09:30 09:30 11:42 PT 22.9 H (9.0-12.0) sec INR 2.3 H (<1.2) Sodium 133 L (137-145) mmol/L Glucose 258 H (74-99) mg/dL POC Glucose (mg/dL) 173 H (70-110) mg/dL Calcium 7.9 L (8.4-10.2) mg/dL Assessment and Plan Plan: Right lower extremity weakness History of dysphasia recently Hisotry of right occipital stroke. Rule out acute stroke versus lumbar disc disease causing right leg weakness MRI brain as well as lumbar spine both negative Case discussed with neurology Telemetry PT and OT Diabetes Mellitus 2 A1c 10, very uncontrolled Add SGLT2 inhibitors due to presence of swelling Add lantus SSI Peripheral neuropathy D/w neurology, will need EMG outpatient, neurontin added. Chronic Hypertension, Osteoarthritis (OA), History of pulmonary Embolus (PE), History of vasculitis History of antiphospholipid syndrome Sleep Apnea/CPAP/BIPAP All stable Resume meds Disposition: Likely home in am
--- NOTE | 2022-04-27 15:03 | P.PN ---
Subjective Progress Note Date: 04/27/22 Patient was seen for a follow-up. Patient continues to be complaining of radicular pain in the right leg. The pain is improved with Neurontin. She was experiencing pain 8-9/10 before, but since taking Neurontin, it is down to 5- 6/10. The pain bothers the bottom of the right foot, that extends to the right calf and then anterior thigh to the right posterior hip region. Denies any symptoms in the left leg. Patient used to follow with Dr. Espinoza. Objective - Vital Signs Vital signs: Vital Signs Temp 99.2 F 04/27/22 08:00 Pulse 94 04/27/22 08:00 Resp 17 04/27/22 08:00 BP 119/77 04/27/22 08:00 Pulse Ox 92 L 04/27/22 08:00 FiO2 Intake & Output 04/26/22 04/27/22 04/27/22 18:59 06:59 18:59 Intake Total 540 480 180 Output Total 800 Balance 540 -320 180 Weight 104.326 kg Intake: Oral 540 480 180 Output: Urine 800 Other: Voiding Method Toilet Toilet Toilet Bedside Commode Bedside Commode Bedside Commode # Voids 1 # Bowel Movements 1 - Exam Patient's mental status, speech and language functions are normal. Examination significant for only right hip flexion weakness. Muscle examination is normal. Patient's right leg is swollen as compared to the left. Patient has large petechial rash from her vasculitis. Patient has peripheral edema. - Labs CBC & Chem 7: 04/26/22 08:18 04/27/22 09:30 Labs: Abnormal Lab Results - Last 24 Hours (Table) 04/26/22 04/26/22 04/27/22 Range/Units 16:24 20:07 06:02 PT (9.0-12.0) sec INR (<1.2) Sodium (137-145) mmol/L Glucose (74-99) mg/dL POC Glucose (mg/dL) 213 H 148 H 150 H (70-110) mg/dL Calcium (8.4-10.2) mg/dL 04/27/22 04/27/22 04/27/22 Range/Units 09:30 09:30 11:42 PT 22.9 H (9.0-12.0) sec INR 2.3 H (<1.2) Sodium 133 L (137-145) mmol/L Glucose 258 H (74-99) mg/dL POC Glucose (mg/dL) 173 H (70-110) mg/dL Calcium 7.9 L (8.4-10.2) mg/dL Assessment and Plan Assessment: * Right leg weakness and radicular pain in S1 root distribution. Possible radiculopathy. X-ray of the hips shows evidence of osteoarthritis. MRI of the lumbar spine did not show any significant spinal stenosis or disc herniation. Radiculopathy could be inflammatory from diabetes or related to her vasculitis. CVA ruled out with MRI brain. 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 Multilevel disc degeneration with associated osteoarthritic changes resulting in moderate L4-L5 and L5-S1 neural foraminal stenosis. I personally reviewed MRI, and agree with findings. No significant spinal stenosis or radiculopathy. * MRI of the brain revealed no acute or subacute infarct. Right occipital lobe remote injury with encephalomalacia. Nonspecific white matter change likely secondary to small vessel ischemic disease. I personally reviewed MRI, I agree with the findings. * B12 447, folate 8.7, A1c 10.3. Patient started on folic acid 1 mg daily. Recommend optimize control of diabetes to target A1c < 7.0. * Patient's radicular pain has improved with Neurontin. We will increase Neurontin to 300 mg 3 times a day. Radiculopathy is likely inflammatory in nature. Patient may need EMG and nerve conduction of right lower extremity as an outpatient. Patient to follow up with Dr. Farley, her neurologist. * Doppler ultrasound right lower extremity rule out DVT. * TFTs are normal. CPK borderline elevated, likely due to fall. * Neurologically clear for discharge. We will sign off. Discussed with primary physician in detail.
[2022-04-27] MEDS: GABAPENTIN 300 MG CAP PO SCH ×2 (15:52→20:38)
[2022-04-27 16:25] LABS: Glucose,Whole Blood 160 mg/dL (70-110)
[2022-04-27] MEDS: DAPAGLIFLOZIN PROPANEDIOL 5 MG TABLET PO SCH (17:22)
[2022-04-27 20:14] LABS: Glucose,Whole Blood 169 mg/dL (70-110)
[2022-04-27] MEDS: ATORVASTATIN 20 MG TAB PO SCH (20:36)
[2022-04-27] MEDS: METOPROLOL SUCCINATE (ER) 50 MG TAB.ER.24H PO SCH (20:37)
[2022-04-27] MEDS: WARFARIN 3 MG TAB PO SCH (20:37)
[2022-04-27] MEDS: QUEtiapine 50 MG TAB PO SCH (20:37)
[2022-04-27] MEDS: SERTRALINE 100 MG TAB PO SCH (20:37)
[2022-04-27] MEDS: NIFEdipine XL 30 MG TAB.ER.24 PO SCH (20:38)
[2022-04-27] MEDS: lisinopriL 10 MG TAB PO SCH (20:38)
[2022-04-27] MEDS ORDERED: INSULIN DETEMIR (LEVEMIR) 100 UNIT/ML SYR SQ SCH (21:00)
[2022-04-28 06:27] LABS: Glucose,Whole Blood 163 mg/dL (70-110)
[2022-04-28] MEDS: SODIUM CHLORIDE 0.9% 1,000 ML IV SCH (06:49)
[2022-04-28] MEDS: INSULIN ASPART (NovoLOG) 100 UNIT/ML VIAL SQ SCH ×2 (07:00→11:47)
[2022-04-28] MEDS: POTASSIUM CHLORIDE ER 10 MEQ TAB.ER.PRT PO SCH (08:05)
[2022-04-28] MEDS: GABAPENTIN 300 MG CAP PO SCH (08:05)
[2022-04-28] MEDS: FUROSEMIDE 40 MG TAB PO SCH (08:05)
[2022-04-28] MEDS: FOLIC ACID 1 MG TAB PO SCH (08:06)
[2022-04-28] MEDS: DAPAGLIFLOZIN PROPANEDIOL 5 MG TABLET PO SCH (08:06)
[2022-04-28] MEDS: DAPSONE 25 MG TAB PO SCH (08:06)
[2022-04-28 08:11] VITALS: TEMP 98.3
[2022-04-28 08:28] LABS: INR 2.4 (<1.2); Prothrombin Time 23.5 sec (9.0-12.0)
[2022-04-28 11:29] LABS: Glucose,Whole Blood 195 mg/dL (70-110)
[2022-04-28 11:37] VITALS: BP 146/76; PULSE 79; RESP 18
--- NOTE | 2022-04-28 12:28 | P.DS ---
Providers Date of admission: 04/25/22 12:38 Expected date of discharge: 04/28/22 Attending physician: Pat Vitale DO Consults: 04/25/22 12:38 Consult Physician Routine Consulting Provider: Palma Watson Consult Reason/Comments: weakness Do you want consulting provider notified?: Yes Primary care physician: Stated None Hospital Course: 67-year-old female presenting to the emergency Department with bilateral lower extremities weakness right more than left. Weakness started right after Madeline. A family member noted that she ''was not making sense'' when she was talking during Madeline. Her speech is clear currently. 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 Patient was recently at [facility] for hypertension and dehydration. She states that she has not been drinking water because she doesn't feel like it. Prior to this ER visit she slipped off her mattress and laid on the floor for many hours due to not being able to get up. She was also feeling dizzy and was having left-sided abdominal pain earlier. She denied having chest pain, loss of consciousness or shortness of breath. No nausea or vomiting. No fevers or chills. No recent illness. She does have mild discomfort of her right hip region. Evaluation in the emergency department revealed normal vital signs. Labs were unremarkable. Right hip and pelvis x-ray was negative for fracture. Head CT scan showed old right occipital stroke with encephalomalacia but no acute process. Patient was admitted to the hospital for further evaluation and management. Patient was monitored on telemetry, underwent stroke workup with brain MRI came back negative. She also had lumbar spine MRI due to isolated right leg weakness and that showed some degenerative changes with no explanation for the weakness. She was evaluated by neurology. Patient also has pain and swelling in the right lower extremity. Venous doppler was negative for DVT. Based on the neurologist evaluation peripheral neuropathy sec to uncontrolled diabetes and vasculitis was suspected. She was started on neurontin for right leg pain. Of note HbA1c was 10. She was given some diabetic education. In addition she was started on farxiga as well as Lantus. She was told to keep herself hydrated and to skip the lasix if she feels she is getting too dehydrated. she was ad vised to lose weight. Her symptoms are much better now. She will be discharged home in a stable condition. She was seen face to face on the day of discharge / Time for discharge 36 min Plan - Discharge Summary Discharge Rx Participant: No New Discharge Prescriptions: New Dapagliflozin Propanediol [Farxiga] 5 mg PO DAILY 30 Days #30 tab Gabapentin [Neurontin] 300 mg PO TID 30 Days #90 cap Insulin Detemir (Levemir) [Levemir] 10 unit SQ HS 30 Days #10 ml Insulin Detemir (Levemir) [Levemir] 10 unit SQ HS 30 Days #10 ml Dapagliflozin Propanediol [Farxiga] 5 mg PO DAILY 30 Days #30 tablet Insulin Detemir (Levemir) [Levemir] 10 unit SQ HS 30 Days #10 ml Dapagliflozin Propanediol [Farxiga] 5 mg PO DAILY 30 Days #30 tablet Continue Sertraline HCl [Zoloft] 200 mg PO HS QUEtiapine [SEROquel] 50 mg PO HS Warfarin Sodium [Coumadin] 6 mg PO HS Atorvastatin [Lipitor] 20 mg PO HS Potassium Chloride ER [K-Dur 10] 10 meq PO DAILY Metoprolol Succinate (ER) [Toprol XL] 50 mg PO HS lisinopriL [Zestril] 10 mg PO HS Dapsone 50 mg PO DAILY Triamcinolone 0.1% Cream [Kenalog 0.1% Cream] 1 applicatio TOPICAL BID PRN PRN Reason: Skin Irritation NIFEdipine [Adalat CC] 30 mg PO HS glipiZIDE [Glucotrol] 5 mg PO BID Furosemide [Lasix] 40 mg PO DAILY Folic Acid 1 mg PO DAILY Discontinued Cefuroxime [Ceftin] 250 mg PO BID Discharge Medication List Atorvastatin [Lipitor] 20 mg PO HS 11/19/17 [History] QUEtiapine [SEROquel] 50 mg PO HS 11/19/17 [History] Sertraline HCl [Zoloft] 200 mg PO HS 11/19/17 [History] Warfarin Sodium [Coumadin] 6 mg PO HS 11/19/17 [History] Dapsone 50 mg PO DAILY 04/25/22 [History] Folic Acid 1 mg PO DAILY 04/25/22 [History] Furosemide [Lasix] 40 mg PO DAILY 04/25/22 [History] Metoprolol Succinate (ER) [Toprol XL] 50 mg PO HS 04/25/22 [History] NIFEdipine [Adalat CC] 30 mg PO HS 04/25/22 [History] Potassium Chloride ER [K-Dur 10] 10 meq PO DAILY 04/25/22 [History] Triamcinolone 0.1% Cream [Kenalog 0.1% Cream] 1 applicatio TOPICAL BID PRN 04/25/22 [History] glipiZIDE [Glucotrol] 5 mg PO BID 04/25/22 [History] lisinopriL [Zestril] 10 mg PO HS 04/25/22 [History] Dapagliflozin Propanediol [Farxiga] 5 mg PO DAILY 30 Days #30 tab 04/28/22 [Rx] Dapagliflozin Propanediol [Farxiga] 5 mg PO DAILY 30 Days #30 tablet 04/28/22 [Rx] Dapagliflozin Propanediol [Farxiga] 5 mg PO DAILY 30 Days #30 tablet 04/28/22 [Rx] Gabapentin [Neurontin] 300 mg PO TID 30 Days #90 cap 04/28/22 [Rx] Insulin Detemir (Levemir) [Levemir] 10 unit SQ HS 30 Days #10 ml 04/28/22 [Rx] Insulin Detemir (Levemir) [Levemir] 10 unit SQ HS 30 Days #10 ml 04/28/22 [Rx] Insulin Detemir (Levemir) [Levemir] 10 unit SQ HS 30 Days #10 ml 04/28/22 [Rx] Follow up Appointment(s)/Referral(s): None,Stated [Primary Care Provider] - 1-2 days (Please find a primary care provi justin and follow up JAYLA.) Patient Instructions/Handouts: How to Give a Subcutaneous Injection (DC), Diabetic Peripheral Neuropathy (DC), Type 2 Diabetes in the Older Adult (DC)
== END 2022-04-28 14:43 | disposition home or self-care (01) ==
LOC: EC 07:09 → 6NMEDSUR 12:38 → 3SCARD 16:09
PROVIDERS: ADMIT Internal Medicine; ATTEND Internal Medicine
DX: W19.XXXA Unspecified fall, initial encounter (principal); I69.398 Other sequelae of cerebral infarction; H53.8 Other visual disturbances; I10 Essential (primary) hypertension; H91.90 Unspecified hearing loss, unspecified ear; E11.65 Type 2 diabetes mellitus with hyperglycemia; E11.40 Type 2 diabetes mellitus with diabetic neuropathy, unspecified; E87.6 Hypokalemia; E66.9 Obesity, unspecified; Z68.41 Body mass index [BMI] 40.0-44.9, adult; D68.312 Antiphospholipid antibody with hemorrhagic disorder; M16.0 Bilateral primary osteoarthritis of hip; M35.9 Systemic involvement of connective tissue, unspecified; L30.9 Dermatitis, unspecified; H93.19 Tinnitus, unspecified ear; F41.9 Anxiety disorder, unspecified; F32.A Depression, unspecified; Z87.891 Personal history of nicotine dependence; D69.6 Thrombocytopenia, unspecified; W06.XXXA Fall from bed, initial encounter; Z86.711 Personal history of pulmonary embolism; G62.9 Polyneuropathy, unspecified; M54.50 Low back pain, unspecified; G47.30 Sleep apnea, unspecified; Z90.49 Acquired absence of other specified parts of digestive tract; Z96.653 Presence of artificial knee joint, bilateral; Z98.890 Other specified postprocedural states; Z79.01 Long term (current) use of anticoagulants; Z79.84 Long term (current) use of oral hypoglycemic drugs; Z79.899 Other long term (current) drug therapy; Z88.1 Allergy status to other antibiotic agents; Z88.5 Allergy status to narcotic agent; Z88.8 Allergy status to other drugs, medicaments and biological substances; Z91.048 Other nonmedicinal substance allergy status
CPT/HCPCS: 96360; 96361 ×2; 99285; 36415; 93005; 97162; 97166; 84439; 84481; 80053 ×2; 80048; 82607; 82550; 82746; 83605; 83735 ×2; 84100 ×2; 84443; 84484; 85025 ×2; 85610 ×4; 85730; 81001; 83036; 73502; 71046; 93971; 70450; 70551; 72148; G0378 ×5

== ENCOUNTER 2022-04-30 12:31 | Inpatient (IN) | payer MEDICARE ==
--- NOTE | 2022-04-30 13:08 | ED ---
Fall HPI - General Chief Complaint: Fall Stated Complaint: weakness Time Seen by Provider: 04/30/22 12:31 Source: patient, EMS, RN notes reviewed, old records reviewed - History of Present Illness Initial Comments: 67-year-old female history of vasculitis with lower extremity weakness who states she fell last p.m. around 9 to 10:00 PM while using her walker she was on a bedroom for could not get up all night. Complains of some head pain also left hip and knee pain. No definitive neck pain at all. No new focal weakness is reported no dizziness no lightheadedness. He states he was just discharged from hospital yesterday. MD Complaint: fall - Related Data Home Medications Medication Instructions Recorded Confirmed Atorvastatin [Lipitor] 20 mg PO HS 11/19/17 04/30/22 QUEtiapine [SEROquel] 50 mg PO HS 11/19/17 04/30/22 Sertraline HCl [Zoloft] 200 mg PO HS 11/19/17 04/30/22 Warfarin Sodium [Coumadin] 6 mg PO HS 11/19/17 04/30/22 Dapsone 50 mg PO DAILY 04/25/22 04/30/22 Folic Acid 1 mg PO DAILY 04/25/22 04/30/22 Furosemide [Lasix] 40 mg PO DAILY 04/25/22 04/30/22 Metoprolol Succinate (ER) [Toprol 50 mg PO HS 04/25/22 04/30/22 XL] NIFEdipine [Adalat CC] 30 mg PO HS 04/25/22 04/30/22 Potassium Chloride ER [K-Dur 10] 10 meq PO DAILY 04/25/22 04/30/22 Triamcinolone 0.1% Cream [Kenalog 1 applicatio TOPICAL BID PRN 04/25/22 04/30/22 0.1% Cream] glipiZIDE [Glucotrol] 5 mg PO BID 04/25/22 04/30/22 lisinopriL [Zestril] 10 mg PO HS 04/25/22 04/30/22 Previous Rx's Medication Instructions Recorded Dapagliflozin Propanediol [Farxiga] 5 mg PO DAILY 30 Days #30 tablet 04/28/22 Gabapentin [Neurontin] 300 mg PO TID 30 Days #90 cap 04/28/22 Insulin Detemir (Levemir) [Levemir] 10 unit SQ HS 30 Days #10 ml 04/28/22 Allergies Allergy/AdvReac Type Severity Reaction Status Date / Time povidone-iodine Allergy Rash/Hives Verified 04/30/22 16:14 [From Betadine] soap [From Betadine] Allergy Rash/Hives Verified 04/30/22 16:14 acetaminophen [From Flushing] AdvReac Itching Verified 04/30/22 16:14 hydrocodone [From Flushing] AdvReac Itching Verified 04/30/22 16:14 Tetracyclines AdvReac Nausea & Verified 04/30/22 16:14 Vomiting Review of Systems ROS Statement: Those systems with pertinent positive or pertinent negative responses have been documented in the HPI. ROS Other: All systems not noted in ROS Statement are negative. 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 antiphosphopholipid antibody-autoimmune clotting disorder. 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 tinnitus, eczema. thyroid [id number]. thrombocytopenia. History of Any Multi-Drug Resistant Organisms: None Reported Past Surgical History: Cholecystectomy, Hernia Repair, Joint Replacement, Orthopedic Surgery Additional Past Surgical History / Comment(s): cervical decompression, ventral hernia repair, bilat knee replacement, Past Anesthesia/Blood Transfusion Reactions: Postoperative Nausea & Vomiting (PONV) Past Psychological History: Anxiety, Depression Smoking Status: Former smoker Past Alcohol Use History: Occasional Past Drug Use History: None Reported General Exam - General Exam Comments Initial Comments: This is a well-developed well-nourished awake alert oriented 4 female Limitations: no limitations General appearance: alert, anxious Head exam: Present: normocephalic, other (3 mm abrasion laceration with good approximation no suture repair indicated no formed by seen no step-off no crepitation no active bleeding.) ENT exam: Present: mucous membranes dry Neck exam: Present: normal inspection, full ROM, other (Equivocal tenderness over the paraspinal minus musculature) Extremities exam: Present: full ROM, tenderness (As of the left knee and left hip evidence of vasculitis both lower extremities with chronic changes) Back exam: Present: normal inspection Neurological exam: Present: alert, oriented X3, CN II-XII intact Psychiatric exam: Present: normal affect, normal mood Skin exam: Present: warm, dry. Absent: intact, normal color Course Vital Signs 04/30/22 12:35 Temperature 99.0 F Pulse Rate 98 Respiratory 20 Rate Blood Pressure 106/52 O2 Sat by Pulse 92 L Oximetry Medical Decision Making - Medical Decision Making Patient will be admitted she does trace weakness she was on the floor all night and could not get herself up. She also demonstrate dehydration and failure to thrive Was pt. sent in by a medical professional or institution? @ Paramedics-[by , PA, BUS BOY, urgent care, hospital, or snf] Did you speak to anyone other than the patient for history? @ Paramedics-[EMS, parent, family, police, friend?] Did you review nursing and triage notes? @ Yes and I agree -[agree or disagree, why?] Were old charts reviewed? @ -[outside hosp., previous admissions, EMS record, old EKG, old radiological studies, urgent care reports/EKGs, snf records?] Differential Diagnosis? @ Weakness NC head trauma small superficial laceration no need for any repair. Weakness including dehydration-[chest pain, altered mental status abdominal pain women, abdominal pain men, vaginal bleeding, weakness, fever, dyspnea, syncope, headache, dizziness, GI bleed, back pain, seizure] EKG interpreted by me (3pts min.)? @Yes as above-[none] X-rays interpreted by me (1pt min.)? @ Yes as above-[none] CT interpreted by me (1pt min.)? @ Yes as above-[none] U/S interpreted by me (1pt. min.)? @ -[none] What testing was considered but not performed? (CT, X-rays, U/S, labs)? Why? @ [CT, X-rays, U/S, labs? Why?] What meds were considered but not given? Why? @ -[none] Did you discuss the management of the patient with other professionals? @ Dr. Garcia -[professionals i.e. , PA, BUS BOY, Lab, RT, Psych Nurse, Mechanist, Event Mgr, Teacher, Software Design Manager, caser? Give summary] Did you reconcile home meds? @ -[none] Was smoking cessation discussed for >3mins.? @ -[none] Was critical care preformed (if so, how long)? @ -[none] Were there social determinants of health that impacted care today? How? (Homelessness, low income, unemployed, alcoholism, drug addiction, transportation, low edu. Level, literacy, decrease access to med. care, correction, rehab)? @ -[Homelessness, low income, unemployed, alcoholism, drug addiction, transportation, low edu. Level, literacy, decrease access to med. care, correction, rehab?] Was there de-escalation of care discussed even if they declined? (Discuss DNR or withdrawal of care, Hospice)? @ -[Discuss DNR or withdrawal of care, Hospice?] What co-morbidities impacted this encounter? (DM, HTN, Smoking, COPD, CAD, Cancer, CVA, Hep., AIDS, mental health diagnosis, sleep apnea, morbid obesity)? @ Comorbidities as above-[DM, HTN, Smoking, COPD, CAD, Cancer, CVA, Hep., AIDS, mental health diagnosis, sleep apnea, morbid obesity?] Was patient admitted / discharged? @ Patient was admitted-[hospital course] Undiagnosed new problem with uncertain prognosis? @ -[none] Drug Therapy requiring intensive monitoring for toxicity (Heparin, Nitro, Insulin, Cardizem)? @ -[none] Were any procedures done? @ -[none] Diagnosis/symptom? @ Generalized weakness, dehydration, failure to thrive, fall, scalp laceration- [default] Acute, or Chronic, or Acute on Chronic? @ Acute on chronic-[default] Uncomplicated (without systemic symptoms) or Complicated (systemic symptoms)? @ -[default] Side effects of treatment? @ -[none] Exacerbation, Progression, or Severe Exacerbation] @ -[no] Poses a threat to life or bodily function? @ -[no] - Lab Data Result diagrams: 04/30/22 13:08 04/30/22 13:08 Lab Results 04/30/22 04/30/22 04/30/22 Range/Units 13:08 13:08 13:08 WBC 9.2 (3.8-10.6) k/uL RBC 4.60 (3.80-5.40) m/uL Hgb 11.8 (11.4-16.0) gm/dL Hct 36.6 (34.0-46.0) % MCV 79.5 L (80.0-100.0) fL MCH 25.7 (25.0-35.0) pg MCHC 32.3 (31.0-37.0) g/dL RDW 16.2 H (11.5-15.5) % Plt Count 148 L (150-450) k/uL MPV 8.6 Neutrophils % 85 % Lymphocytes % 8 % Monocytes % 3 % Eosinophils % 1 % Basophils % 1 % Neutrophils # 7.8 H (1.3-7.7) k/uL Lymphocytes # 0.8 L (1.0-4.8) k/uL Monocytes # 0.3 (0-1.0) k/uL Eosinophils # 0.1 (0-0.7) k/uL Basophils # 0.1 (0-0.2) k/uL Hypochromasia Slight Anisocytosis Slight PT 33.2 H (9.0-12.0) sec INR 3.4 H (<1.2) APTT 40.4 H (22.0-30.0) sec Sodium 136 L (137-145) mmol/L Potassium 4.0 (3.5-5.1) mmol/L Chloride 101 (98-107) mmol/L Carbon Dioxide 27 (22-30) mmol/L Anion Gap 8 mmol/L BUN 30 H (7-17) mg/dL Creatinine 0.97 (0.52-1.04) mg/dL Est GFR (CKD-EPI)AfAm 71 (>60 ml/min/1.73 sqM) Est GFR (CKD-EPI)NonAf 61 (>60 ml/min/1.73 sqM) Glucose 147 H (74-99) mg/dL Calcium 8.7 (8.4-10.2) mg/dL Magnesium 1.7 (1.6-2.3) mg/dL Total Bilirubin 1.3 (0.2-1.3) mg/dL AST 60 H (14-36) U/L ALT 25 (4-34) U/L Alkaline Phosphatase 139 H (38-126) U/L Creatine Kinase 206 H (30-135) U/L Troponin I (0.000-0.034) ng/mL Total Protein 6.5 (6.3-8.2) g/dL Albumin 3.3 L (3.5-5.0) g/dL 04/30/22 Range/Units 13:08 WBC (3.8-10.6) k/uL RBC (3.80-5.40) m/uL Hgb (11.4-16.0) gm/dL Hct (34.0-46.0) % MCV (80.0-100.0) fL MCH (25.0-35.0) pg MCHC (31.0-37.0) g/dL RDW (11.5-15.5) % Plt Count (150-450) k/uL MPV Neutrophils % % Lymphocytes % % Monocytes % % Eosinophils % % Basophils % % Neutrophils # (1.3-7.7) k/uL Lymphocytes # (1.0-4.8) k/uL Monocytes # (0-1.0) k/uL Eosinophils # (0-0.7) k/uL Basophils # (0-0.2) k/uL Hypochromasia Anisocytosis PT (9.0-12.0) sec INR (<1.2) APTT (22.0-30.0) sec Sodium (137-145) mmol/L Potassium (3.5-5.1) mmol/L Chloride (98-107) mmol/L Carbon Dioxide (22-30) mmol/L Anion Gap mmol/L BUN (7-17) mg/dL Creatinine (0.52-1.04) mg/dL Est GFR (CKD-EPI)AfAm (>60 ml/min/1.73 sqM) Est GFR (CKD-EPI)NonAf (>60 ml/min/1.73 sqM) Glucose (74-99) mg/dL Calcium (8.4-10.2) mg/dL Magnesium (1.6-2.3) mg/dL Total Bilirubin (0.2-1.3) mg/dL AST (14-36) U/L ALT (4-34) U/L Alkaline Phosphatase (38-126) U/L Creatine Kinase (30-135) U/L Troponin I <0.012 (0.000-0.034) ng/mL Total Protein (6.3-8.2) g/dL Albumin (3.5-5.0) g/dL Disposition Clinical Impression: Fall, Weakness, Dehydration, Failure to thrive Disposition: ADMITTED IP TO THIS [facility] Condition: Fair Referrals: Nonstaff,Physician [REFERRING] - 1-2 days Decision Date: 04/30/22 Decision Time: 16:30
[2022-04-30 13:44] LABS: Anisocytosis Slight; Basophils # (A) 0.1 k/uL (0-0.2); Basophils % (A) 1 %; Eosinophils # (A) 0.1 k/uL (0-0.7); Eosinophils % (A) 1 %; HCT 36.6 % (34.0-46.0); HGB 11.8 gm/dL (11.4-16.0); Hypochromasia Slight; Lymphocytes # (A) 0.8 k/uL (1.0-4.8); Lymphocytes % (A) 8 %; MCH 25.7 pg (25.0-35.0); MCHC 32.3 g/dL (31.0-37.0); MCV 79.5 fL (80.0-100.0); Mean Platelet Volume 8.6; Monocytes # (A) 0.3 k/uL (0-1.0); Monocytes % (A) 3 %; Neutrophils # (A) 7.8 k/uL (1.3-7.7); Neutrophils % (A) 85 %; Platelet Count 148 k/uL (150-450); RDW 16.2 % (11.5-15.5); WBC 9.2 k/uL (3.8-10.6)
[2022-04-30 13:49] LABS: INR 3.4 (<1.2); Partial Thromboplastin Time 40.4 sec (22.0-30.0); Prothrombin Time 33.2 sec (9.0-12.0)
[2022-04-30 13:56] LABS: Albumin 3.3 g/dL (3.5-5.0); Calcium 8.7 mg/dL (8.4-10.2); Magnesium 1.7 mg/dL (1.6-2.3); Total Bilirubin 1.3 mg/dL (0.2-1.3); Total Protein 6.5 g/dL (6.3-8.2)
--- NOTE | 2022-04-30 14:11 | CT ---
EXAMINATION TYPE: CT brain cspine wo con DATE OF EXAM: 04/30/2022 COMPARISON: 04/25/2022 HISTORY: Fall and altered mental status. CT DLP: 1744.2 mGycm Automated exposure control for dose reduction was used. TECHNIQUE: CT scan of the head and cervical spine are performed without contrast. FINDINGS: There is no acute intracranial hemorrhage, mass effect, or midline shift identified. The ventricles and sulci are consistent with mild to moderate degenerative change. Focal area of low att enuation involving the right parietal-occipital lobe compatible with remote infarct and stable from p rior exam.. The globes are intact and the visualized sinuses demonstrate changes of chronic sinusiti s. Cerebellar tonsils are low lying position at the level of foramen magnum stable from prior exam.. Cervical spine is visualized in its entirety from C1 through upper thoracic levels and demonstrates s atisfactory alignment without evidence of acute fracture or dislocation. Prevertebral soft tissue ap pears within normal limits. The C1-C2 articulation is unremarkable. Postsurgical changes are seen t here is multilevel hypertrophic and degenerative disc disease. Severe changes C2-C3. Postsurgical chyna nges beginning at level C4 through the lower cervical spine. Suspect a multilevel facet arthropathy a nd foraminal encroachment. IMPRESSION: 1. There is no acute fracture or dislocation evident in the cervical spine. There is multilevel degen erative change and facet arthropathy with suspected foraminal encroachment. Postsurgical changes note d. 2. No acute intracranial hemorrhage, mass effect, or midline shift is seen. Degenerative and remote ischemic change as discussed above.
--- NOTE | 2022-04-30 14:46 | XR ---
EXAMINATION TYPE: XR chest 2V DATE OF EXAM: 04/30/2022 COMPARISON: 04/25/2022 HISTORY: 67-year-old female with pain after fall TECHNIQUE: AP and lateral views FINDINGS: ACDF hardware. Somewhat low lung volumes and crowded vascular markings. Hazy densities relating to la rge patient body habitus. Heart upper limits of normal in size. No alfredo consolidation or pleural eff usion seen. Cholecystectomy clips. IMPRESSION: Hypoventilatory changes. No definite acute process seen.
--- NOTE | 2022-04-30 14:49 | XR ---
EXAMINATION TYPE: XR AP pelvis and 2 views left hip, XR knee complete 3 views LT DATE OF EXAM: 04/30/2022 Comparison: None Clinical History: 67-year-old female with pain after fall, Trauma Findings: Pelvis and left hip: There is mild marginal spurring at both hips. Portable exam and large body habitus limiting the evalu ation. No acute fracture, subluxation, dislocation is seen. Left knee: Postsurgical change of medial compartmental arthroplasty. Extensor mechanism is intact. Mild degenera tive spurring in the patellofemoral and lateral compartment. No significant joint effusion. No peripr osthetic fracture or alfredo loosening is seen. There may be some soft tissue swelling along the latera l and posterior aspect of the lower thigh. Impression: 1. Pelvis and left hip: Mild anterior spurring of both hips. No acute osseous abnormality seen. 2. Left knee: Previous unicompartmental arthroplasty medially at the knee. This appears uncomplicated . There appears to be some soft tissue swelling along the lateral and posterior aspect of the lower t high. Correlate for soft tissue contusion. No acute osseous abnormality seen.
--- NOTE | 2022-04-30 16:06 | XR ---
EXAMINATION TYPE: XR ankle complete 3 views LT, XR foot complete 3 views LT DATE OF EXAM: 04/30/2022 Comparison: None Clinical History: 67-year-old female pain after trauma Findings: Ankle: Generalized soft tissue swelling is present. There is a oblique, nondisplaced fracture of the distal fibular shaft. Small posterior and plantar calcaneal spurs. Talar dome appears intact. Foot: Prominent dorsal soft tissue swelling. Possible underlying fracture involving the second metatarsal b ase with lateral displacement of 3 mm. Additional lucency may involve the third metatarsal base. Bipa rtite fibular sesamoid. Impression: 1. Ankle: Oblique nondisplaced fracture distal fibular shaft. Soft tissue swelling. 2. Foot: Prominent dorsal soft tissue swelling. Suspect acute fracture at the base of the second meta tarsal (with 3 mm of displacement) and possibly acute fracture at the third metatarsal base as well.
[2022-04-30] MEDS ORDERED: NALOXONE 0.4 MG/ML 1 ML VIAL IV PRN (17:35)
[2022-04-30] MEDS ORDERED: TRIAMCINOLONE 0.1% CREAM 80 GM TUBE TOPICAL PRN (17:36)
--- NOTE | 2022-04-30 17:41 | ED ---
Medical Decision Making - Lab Data Result diagrams: 04/30/22 13:08 04/30/22 13:08 Lab Results 04/30/22 04/30/22 04/30/22 Range/Units 13:08 13:08 13:08 WBC 9.2 (3.8-10.6) k/uL RBC 4.60 (3.80-5.40) m/uL Hgb 11.8 (11.4-16.0) gm/dL Hct 36.6 (34.0-46.0) % MCV 79.5 L (80.0-100.0) fL MCH 25.7 (25.0-35.0) pg MCHC 32.3 (31.0-37.0) g/dL RDW 16.2 H (11.5-15.5) % Plt Count 148 L (150-450) k/uL MPV 8.6 Neutrophils % 85 % Lymphocytes % 8 % Monocytes % 3 % Eosinophils % 1 % Basophils % 1 % Neutrophils # 7.8 H (1.3-7.7) k/uL Lymphocytes # 0.8 L (1.0-4.8) k/uL Monocytes # 0.3 (0-1.0) k/uL Eosinophils # 0.1 (0-0.7) k/uL Basophils # 0.1 (0-0.2) k/uL Hypochromasia Slight Anisocytosis Slight PT 33.2 H (9.0-12.0) sec INR 3.4 H (<1.2) APTT 40.4 H (22.0-30.0) sec Sodium 136 L (137-145) mmol/L Potassium 4.0 (3.5-5.1) mmol/L Chloride 101 (98-107) mmol/L Carbon Dioxide 27 (22-30) mmol/L Anion Gap 8 mmol/L BUN 30 H (7-17) mg/dL Creatinine 0.97 (0.52-1.04) mg/dL Est GFR (CKD-EPI)AfAm 71 (>60 ml/min/1.73 sqM) Est GFR (CKD-EPI)NonAf 61 (>60 ml/min/1.73 sqM) Glucose 147 H (74-99) mg/dL Calcium 8.7 (8.4-10.2) mg/dL Magnesium 1.7 (1.6-2.3) mg/dL Total Bilirubin 1.3 (0.2-1.3) mg/dL AST 60 H (14-36) U/L ALT 25 (4-34) U/L Alkaline Phosphatase 139 H (38-126) U/L Creatine Kinase 206 H (30-135) U/L Troponin I (0.000-0.034) ng/mL Total Protein 6.5 (6.3-8.2) g/dL Albumin 3.3 L (3.5-5.0) g/dL 04/30/22 Range/Units 13:08 WBC (3.8-10.6) k/uL RBC (3.80-5.40) m/uL Hgb (11.4-16.0) gm/dL Hct (34.0-46.0) % MCV (80.0-100.0) fL MCH (25.0-35.0) pg MCHC (31.0-37.0) g/dL RDW (11.5-15.5) % Plt Count (150-450) k/uL MPV Neutrophils % % Lymphocytes % % Monocytes % % Eosinophils % % Basophils % % Neutrophils # (1.3-7.7) k/uL Lymphocytes # (1.0-4.8) k/uL Monocytes # (0-1.0) k/uL Eosinophils # (0-0.7) k/uL Basophils # (0-0.2) k/uL Hypochromasia Anisocytosis PT (9.0-12.0) sec INR (<1.2) APTT (22.0-30.0) sec Sodium (137-145) mmol/L Potassium (3.5-5.1) mmol/L Chloride (98-107) mmol/L Carbon Dioxide (22-30) mmol/L Anion Gap mmol/L BUN (7-17) mg/dL Creatinine (0.52-1.04) mg/dL Est GFR (CKD-EPI)AfAm (>60 ml/min/1.73 sqM) Est GFR (CKD-EPI)NonAf (>60 ml/min/1.73 sqM) Glucose (74-99) mg/dL Calcium (8.4-10.2) mg/dL Magnesium (1.6-2.3) mg/dL Total Bilirubin (0.2-1.3) mg/dL AST (14-36) U/L ALT (4-34) U/L Alkaline Phosphatase (38-126) U/L Creatine Kinase (30-135) U/L Troponin I <0.012 (0.000-0.034) ng/mL Total Protein (6.3-8.2) g/dL Albumin (3.5-5.0) g/dL - Radiology Data Interpreted by me: Imaging of the foot and tib-fib on the left ankle reveals evidence of a fractured distal fibula and second metatarsal this was evaluated by me Disposition Clinical Impression: Fall, Weakness, Dehydration, Failure to thrive, Closed left ankle fracture, Foot fracture, left Disposition: ADMITTED IP TO THIS [facility] Condition: Fair Referrals: Nonstaff,Physician [REFERRING] - 1-2 days Procedures - Orthopedic Splinting/Casting Injury #1 Side: left Lower Extremity Injury Location: short leg, ankle, foot Lower Extremity Immobilizer: posterior splint Additional Comments: Nonweightbearing
[2022-04-30] MEDS ORDERED: MELATONIN 3 MG TABLET PO PRN (17:42)
[2022-04-30] MEDS ORDERED: DEXTROSE 50% SYRINGE 50 ML IVP PRN ×2 (17:46)
--- NOTE | 2022-04-30 17:49 | P.HPIM ---
History of Present Illness H&P Date: 04/30/22 Patient is a 67 year old female with PMH of vasculitis, history of right occipital stroke with chronic left homonymous hemianopia, antiphospholipid syndrome, history of DVT and PE, diabetes mellitus, hypertension, obesity, sleep apnea presents the ED after mechanical fall. Patient reports attempting to ambulate with the aid of her walker last night when she started to feel vertigo- like symptoms which resulted in a fall. She feels that she may have injured her left leg. She denies any syncopal episode. She was unable to get up and spent the night on the floor. Patient was previously admitted for right lower extremity weakness and underwent extensive evaluation. Evaluation included: MRI lumbar spine revealed no definitive evidence of disc herniation or significant spinal canal stenosis. Multilevel disc degeneration with associated osteoarthritic changes resulting in moderate L4-L5 and L5-S1 neural foraminal stenosis. MRI of the brain revealed no acute or subacute infarct. Right occipital lobe remote injury with encephalomalacia. Nonspecific white matter change likely secondary to small vessel ischemic disease. Her right lower extremity weakness was thought to be related to radiculopathy possibly from diabetes or vasculitis. Her pain improved with gabapentin and she was discharged home on 04/28/2022. She reports presents to the hospital on 04/30/2022 after a fall. Patient is agreeable for rehab. Patient currently denies any headache, lower extremity edema, nausea vomiting, fever or chills, cough, chest pain, shortness of breath, palpitations, changes in urination or bowel habits. No changes in appetite or weight. She denies any dizziness, numbness/weakness or tingling of the extremities. In the ED, her vital signs are stable. CBC showed MCV of 79.5 with platelet count 148. INR was 2.4. CMP showed sodium 136, BUN of 30, glucose 147, AST of 60, alkaline phosphatase 139, creatinine kinase 206. Troponin was less than 0.012. CT head and C-spine was negative for acute change. Chest x-ray negative. Pelvic x-ray negative for fracture. Left foot x-ray showed distal fibular fracture with acute fracture of the third metatarsal base. Pertinent positives and negatives as discussed in HPI, a complete review of systems was performed and all other systems are negative. General: non toxic, appears sleepy and lethargic, appears at stated age Derm: warm, dry Head: atraumatic, normocephalic, symmetric Eyes: EOMI, no lid lag, anicteric sclera Mouth: no lip lesion, mucus membranes moist Cardiovascular: S1S2 reg, no murmur, positive posterior tibial pulse bilateral, Lungs: CTA bilateral, no rhonchi, no rales , no accessory muscle use Abdominal: soft, nontender to palpation, no guarding, no appreciable organomegaly Ext: no gross muscle atrophy, no edema, petechial rash bilateral lower extremities Neuro: CN II-XI grossly intact besides left homonymous hemianopia, no focal neuro deficits Psych: Alert, oriented, appropriate affect #Left distal fibular fracture Orthopedic surgery will be consulted for further management. #Failure to thrive #Mechanical fall PT and OT will be consulted to work with this patient. Follow-up precautions. Case management and social work consulted. #Prerenal azotemia BUN of 30. Likely due to dehydration. Continue normal sinus 75 mL per hour. #History of CVA Restart Lipitor. #Antiphospholipid syndrome #History DVT and PE Restart Coumadin. Daily INR. #Diabetes mellitus Start low-dose insulin sliding scale. Accu-Cheks before meals at bedtime. Hypoglycemic precautions. #Hypertension BP 106/52. Restart Lasix, lisinopril, metoprolol, nifedipine. Patient would like to be full code. Anticipated discharge to SNF after Orthopedic evaluation and insurance authorization. 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 antiphosphopholipid antibody-autoimmune clotting disorder. 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 tinnitus, eczema. thyroid [id number]. thrombocytopenia. History of Any Multi-Drug Resistant Organisms: None Reported Past Surgical History: Cholecystectomy, Hernia Repair, Joint Replacement, Orthopedic Surgery Additional Past Surgical History / Comment(s): cervical decompression, ventral hernia repair, bilat knee replacement, Past Anesthesia/Blood Transfusion Reactions: Postoperative Nausea & Vomiting (PONV) Past Psychological History: Anxiety, Depression Smoking Status: Former smoker Past Alcohol Use History: Occasional Past Drug Use History: None Reported Medications and Allergies Home Medications Medication Instructions Recorded Confirmed Type Atorvastatin [Lipitor] 20 mg PO HS 11/19/17 04/30/22 History QUEtiapine [SEROquel] 50 mg PO HS 11/19/17 04/30/22 History Sertraline HCl [Zoloft] 200 mg PO HS 11/19/17 04/30/22 History Warfarin Sodium [Coumadin] 6 mg PO HS 11/19/17 04/30/22 History Dapsone 50 mg PO DAILY 04/25/22 04/30/22 History Folic Acid 1 mg PO DAILY 04/25/22 04/30/22 History Furosemide [Lasix] 40 mg PO DAILY 04/25/22 04/30/22 History Metoprolol Succinate (ER) [Toprol 50 mg PO HS 04/25/22 04/30/22 History XL] NIFEdipine [Adalat CC] 30 mg PO HS 04/25/22 04/30/22 History Potassium Chloride ER [K-Dur 10] 10 meq PO DAILY 04/25/22 04/30/22 History Triamcinolone 0.1% Cream [Kenalog 1 applicatio TOPICAL BID PRN 04/25/22 04/30/22 History 0.1% Cream] glipiZIDE [Glucotrol] 5 mg PO BID 04/25/22 04/30/22 History lisinopriL [Zestril] 10 mg PO HS 04/25/22 04/30/22 History Dapagliflozin Propanediol [Farxiga] 5 mg PO DAILY 30 Days #30 tablet 04/28/22 04/30/22 Rx Gabapentin [Neurontin] 300 mg PO TID 30 Days #90 cap 04/28/22 04/30/22 Rx Insulin Detemir (Levemir) [Levemir] 10 unit SQ HS 30 Days #10 ml 04/28/22 04/30/22 Rx Allergies Allergy/AdvReac Type Severity Reaction Status Date / Time povidone-iodine Allergy Rash/Hives Verified 04/30/22 16:14 [From Betadine] soap [From Betadine] Allergy Rash/Hives Verified 04/30/22 16:14 acetaminophen [From [place]] AdvReac Itching Verified 04/30/22 16:14 hydrocodone [From [place]] AdvReac Itching Verified 04/30/22 16:14 Tetracyclines AdvReac Nausea & Verified 04/30/22 16:14 Vomiting Physical Exam Vitals: Vital Signs Temp Pulse Resp BP Pulse Ox 04/30/22 12:35 99.0 F 98 20 106/52 92 L Intake and Output 04/30/22 04/30/22 04/30/22 06:59 14:59 22:59 Other: Weight 104.78 kg Results CBC & Chem 7: 04/30/22 13:08 04/30/22 13:08 Labs: Abnormal Lab Results - Last 24 Hours (Table) 04/30/22 04/30/22 04/30/22 Range/Units 13:08 13:08 13:08 MCV 79.5 L (80.0-100.0) fL RDW 16.2 H (11.5-15.5) % Plt Count 148 L (150-450) k/uL Neutrophils # 7.8 H (1.3-7.7) k/uL Lymphocytes # 0.8 L (1.0-4.8) k/uL PT 33.2 H (9.0-12.0) sec INR 3.4 H (<1.2) APTT 40.4 H (22.0-30.0) sec Sodium 136 L (137-145) mmol/L BUN 30 H (7-17) mg/dL Glucose 147 H (74-99) mg/dL AST 60 H (14-36) U/L Alkaline Phosphatase 139 H (38-126) U/L Creatine Kinase 206 H (30-135) U/L Albumin 3.3 L (3.5-5.0) g/dL
[2022-04-30] MEDS ORDERED: WARFARIN 0.5 MG TAB PO ONE (18:00)
[2022-04-30 20:50] LABS: Glucose,Whole Blood 195 mg/dL (70-110)
[2022-04-30] MEDS: GABAPENTIN 300 MG CAP PO SCH (21:41)
[2022-04-30] MEDS: METOPROLOL SUCCINATE (ER) 50 MG TAB.ER.24H PO SCH (21:41)
[2022-04-30] MEDS: SERTRALINE 100 MG TAB PO SCH (21:41)
[2022-04-30] MEDS: QUEtiapine 50 MG TAB PO SCH (21:41)
[2022-04-30] MEDS: INSULIN ASPART (NovoLOG) 100 UNIT/ML VIAL SQ SCH (21:41)
[2022-04-30] MEDS: lisinopriL 10 MG TAB PO SCH (21:41)
[2022-04-30] MEDS: ATORVASTATIN 20 MG TAB PO SCH (21:42)
[2022-04-30] MEDS: FAMOTIDINE 20 MG TAB PO SCH (21:42)
[2022-04-30] MEDS: NIFEdipine XL 30 MG TAB.ER.24 PO SCH (21:42)
[2022-04-30] MEDS: SODIUM CHLORIDE 0.9% 1,000 ML IV SCH (21:42)
[2022-04-30 23:49] LABS: Appearance,Urine Clear (Clear); Bilirubin,Urine Negative (Negative); Blood,Urine Negative (Negative); Color,Urine Yellow; Glucose,Urine (UA) 4+ (Negative); Ketones,Urine Negative (Negative); Leukocyte Esterase,Urine Negative (Negative); Nitrite,Urine Negative (Negative); PH, Urine 5.5 (5.0-8.0); Protein,Urine Trace (Negative); Specific Gravity,Urine 1.026 (1.001-1.035)
[2022-05-01 07:01] LABS: Glucose,Whole Blood 136 mg/dL (70-110)
[2022-05-01] MEDS: INSULIN ASPART (NovoLOG) 100 UNIT/ML VIAL SQ SCH ×4 (07:29→21:12)
[2022-05-01 07:42] LABS: INR 3.5 (<1.2); Prothrombin Time 33.7 sec (9.0-12.0)
[2022-05-01] MEDS: FUROSEMIDE 40 MG TAB PO SCH (08:35)
[2022-05-01] MEDS: FOLIC ACID 1 MG TAB PO SCH (08:35)
[2022-05-01] MEDS: GABAPENTIN 300 MG CAP PO SCH ×3 (08:36→21:12)
[2022-05-01 11:11] LABS: Basophils # (A) 0.03 X 10*3/uL (0.00-0.10); Basophils % (A) 0.4 %; Eosinophils # (A) 0.12 X 10*3/uL (0.04-0.35); Eosinophils % (A) 1.6 %; HCT 30.3 % (37.2-46.3); HGB 9.4 g/dL (12.0-15.0); Immature Grans, Automated 1.7 %; Lymphocytes # (A) 1.05 X 10*3/uL (0.90-5.00); MCH 24.7 pg (27.0-32.0); MCV 79.5 fL (80.0-97.0); NRBC Per 100 WBC 0 /100 WBCS (0.0-0.0); Neutrophils # (A) 5.87 X 10*3/uL (1.80-7.70); Neutrophils % (A) 78.3 %; Platelet Count 157 X 10*3/uL (140-440); RBC 3.81 X 10*6/uL (4.10-5.20); RDW 17.4 % (11.5-14.5)
--- NOTE | 2022-05-01 11:23 | P.CNOR ---
History of Present Illness - [facility] Consult date: 05/01/22 Consult reason: fracture History of present illness: Patient's a pleasant 67-year-old female who presented to the hospital after having a fall yesterday and was unable to get up off the floor. She is a pleasant woman with a history of vasculitis, right occiput stroke, history of DVT and PE, history of diabetes, history of obesity hypertension and sleep apnea. She says she normally uses a walker when she walks at home for the past year but the walker has wheels and the brace does not work appropriately. She says that the walker slipped out from under her and she fell to the floor after having some vertigo-like symptoms. She had new pain at her left foot and lower leg. She was evaluated in the emergency room and found to have fractures of her foot and left ankle. She denied any headaches or loss conscious. She denies any prior injuries at her ankle or foot. She lives at home with her grandson Review of Systems As stated per [facility]. Apparently patient had some vertigo and fell while using her rolling walker. She was unable to get up and had some lower extremity weakness and had further evaluation. She was admitted regards to failure to thrive, dehydration and little weakness. She had evaluation. He recently as well which showed some foraminal stenosis at her lumbar spine without acute change. There was also no acute change in her cranial imaging. 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 antiphosphopholipid antibody-autoimmune clotting disorder. 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 tinnitus, eczema. thyroid [id number]. thrombocytopenia. History of Any Multi-Drug Resistant Organisms: None Reported Past Surgical History: Cholecystectomy, Hernia Repair, Joint Replacement, Orthopedic Surgery Additional Past Surgical History / Comment(s): cervical decompression, ventral hernia repair, bilat knee replacement, Past Anesthesia/Blood Transfusion Reactions: Postoperative Nausea & Vomiting (PONV) Past Psychological History: Anxiety, Depression Smoking Status: Former smoker Past Alcohol Use History: Occasional Additional Past Alcohol Use History / Comment(s): QUIT SMOKING IN 1997 Past Drug Use History: None Reported Medications and Allergies Home Medications Medication Instructions Recorded Confirmed Type Atorvastatin [Lipitor] 20 mg PO HS 11/19/17 04/30/22 History QUEtiapine [SEROquel] 50 mg PO HS 11/19/17 04/30/22 History Sertraline HCl [Zoloft] 200 mg PO HS 11/19/17 04/30/22 History Warfarin Sodium [Coumadin] 6 mg PO HS 11/19/17 04/30/22 History Dapsone 50 mg PO DAILY 04/25/22 04/30/22 History Folic Acid 1 mg PO DAILY 04/25/22 04/30/22 History Furosemide [Lasix] 40 mg PO DAILY 04/25/22 04/30/22 History Metoprolol Succinate (ER) [Toprol 50 mg PO HS 04/25/22 04/30/22 History XL] NIFEdipine [Adalat CC] 30 mg PO HS 04/25/22 04/30/22 History Potassium Chloride ER [K-Dur 10] 10 meq PO DAILY 04/25/22 04/30/22 History Triamcinolone 0.1% Cream [Kenalog 1 applicatio TOPICAL BID PRN 04/25/22 04/30/22 History 0.1% Cream] glipiZIDE [Glucotrol] 5 mg PO BID 04/25/22 04/30/22 History lisinopriL [Zestril] 10 mg PO HS 04/25/22 04/30/22 History Dapagliflozin Propanediol [Farxiga] 5 mg PO DAILY 30 Days #30 tablet 04/28/22 04/30/22 Rx Gabapentin [Neurontin] 300 mg PO TID 30 Days #90 cap 04/28/22 04/30/22 Rx Insulin Detemir (Levemir) [Levemir] 10 unit SQ HS 30 Days #10 ml 04/28/22 04/30/22 Rx Allergies Allergy/AdvReac Type Severity Reaction Status Date / Time povidone-iodine Allergy Rash/Hives Verified 04/30/22 16:14 [From Betadine] soap [From Betadine] Allergy Rash/Hives Verified 04/30/22 16:14 acetaminophen [From [place]] AdvReac Itching Verified 04/30/22 16:14 hydrocodone [From [place]] AdvReac Itching Verified 04/30/22 16:14 Tetracyclines AdvReac Nausea & Verified 04/30/22 16:14 Vomiting Physical Examination Osteopathic Statement: *. No significant issues noted on an osteopathic structural exam other than those noted in the History and Physical/Consult. - Ankle & Foot left Ankle appearance: swelling (She has a splint intact at her left ankle. There is no open wounds or abrasions. She has some vascular changes at her left thigh. She has tenderness over her lateral malleolus and the dorsum of her left foot. Sensory is intact.) Foot appearance: swelling (She is able to move her toes. Capillary refill is less than 2 seconds. HEENT normocephalic/atraumatic. She is obese. Abdomen soft.) Results - Labs Labs: Abnormal Lab Results - Last 24 Hours (Table) 04/30/22 04/30/22 04/30/22 Range/Units 13:08 13:08 13:08 RBC (4.10-5.20) X 10*6/uL Hgb (12.0-15.0) g/dL Hct (37.2-46.3) % MCV 79.5 L (80.0-100.0) fL MCH (27.0-32.0) pg MCHC (32.0-37.0) g/dL RDW 16.2 H (11.5-15.5) % Plt Count 148 L (150-450) k/uL Immature Gran # (0.00-0.04) X 10*3/uL Neutrophils # 7.8 H (1.3-7.7) k/uL Lymphocytes # 0.8 L (1.0-4.8) k/uL PT 33.2 H (9.0-12.0) sec INR 3.4 H (<1.2) APTT 40.4 H (22.0-30.0) sec Sodium 136 L (137-145) mmol/L BUN 30 H (7-17) mg/dL Glucose 147 H (74-99) mg/dL POC Glucose (mg/dL) (70-110) mg/dL AST 60 H (14-36) U/L Alkaline Phosphatase 139 H (38-126) U/L Creatine Kinase 206 H (30-135) U/L Albumin 3.3 L (3.5-5.0) g/dL Urine Protein (Negative) Urine Glucose (UA) (Negative) 04/30/22 04/30/22 05/01/22 Range/Units 20:48 23:35 06:59 RBC (4.10-5.20) X 10*6/uL Hgb (12.0-15.0) g/dL Hct (37.2-46.3) % MCV (80.0-100.0) fL MCH (27.0-32.0) pg MCHC (32.0-37.0) g/dL RDW (11.5-15.5) % Plt Count (150-450) k/uL Immature Gran # (0.00-0.04) X 10*3/uL Neutrophils # (1.3-7.7) k/uL Lymphocytes # (1.0-4.8) k/uL PT (9.0-12.0) sec INR (<1.2) APTT (22.0-30.0) sec Sodium (137-145) mmol/L BUN (7-17) mg/dL Glucose (74-99) mg/dL POC Glucose (mg/dL) 195 H 136 H (70-110) mg/dL AST (14-36) U/L Alkaline Phosphatase (38-126) U/L Creatine Kinase (30-135) U/L Albumin (3.5-5.0) g/dL Urine Protein Trace H (Negative) Urine Glucose (UA) 4+ H (Negative) 05/01/22 05/01/22 Range/Units 07:18 07:18 RBC 3.81 L (4.10-5.20) X 10*6/uL Hgb 9.4 L (12.0-15.0) g/dL Hct 30.3 L (37.2-46.3) % MCV 79.5 L (80.0-100.0) fL MCH 24.7 L (27.0-32.0) pg MCHC 31.0 L (32.0-37.0) g/dL RDW 17.4 H (11.5-15.5) % Plt Count (150-450) k/uL Immature Gran # 0.13 H (0.00-0.04) X 10*3/uL Neutrophils # (1.3-7.7) k/uL Lymphocytes # (1.0-4.8) k/uL PT 33.7 H (9.0-12.0) sec INR 3.5 H (<1.2) APTT (22.0-30.0) sec Sodium (137-145) mmol/L BUN (7-17) mg/dL Glucose (74-99) mg/dL POC Glucose (mg/dL) (70-110) mg/dL AST (14-36) U/L Alkaline Phosphatase (38-126) U/L Creatine Kinase (30-135) U/L Albumin (3.5-5.0) g/dL Urine Protein (Negative) Urine Glucose (UA) (Negative) H & H 04/30/22 05/01/22 Range/Units 13:08 07:18 Hgb 11.8 9.4 L (11.4-16.0) gm/dL Hct 36.6 30.3 L (34.0-46.0) % Coagulation 04/30/22 05/01/22 Range/Units 13:08 07:18 INR 3.4 H 3.5 H (<1.2) Result Diagrams: 05/01/22 07:18 04/30/22 13:08 - Diagnostic results Ankle/Foot x-ray: report reviewed (It is difficult to determine if there is significant widening at the base of the second metatarsal between the first and second.), image reviewed (Ankle and foot x-rays show a minimally displaced lateral malleolus fracture. There is no widening of the mortise and no widening at the syndesmosis. Her left foot shows possible fracture at the base of the second metatarsal and potentially at the base of third metatarsal. It is difficult to deter) Assessment and Plan Assessment: Status post fall at home Left ankle lateral malleolus fracture minimally displaced, closed neurologically intact Left foot base of second metatarsal fracture with possible widening between the first and second metatarsal Left foot base of third metatarsal fracture History of diabetes Multiple medical history Plan: Status post fall at home Left ankle lateral malleolus fracture minimally displaced, closed neurologically intact Left foot base of second metatarsal fracture with possible widening between the first and second metatarsal Left foot base of third metatarsal fracture History of diabetes Multiple medical history In terms of the left ankle fracture the injuries appear to be well-positioned and should do well with conservative treatment with using a equalizer boot. Equalizer boot has been ordered for her. She should remain with limited weightbearing toe-touch weightbearing for balance during transfers on her left foot. With the imaging showing the fracture at the base of second metatarsal I have some concern about the possibility of a Lisfranc type injury and I think that a computed tomography scan would be worthwhile to further evaluate the area of her left foot. We have ordered this for her. It is likely that she will be able to do conservative treatment with the boot for this as well. The patient feels that she would do much better with a different walker we will order new walker for her without wheels. The patient has multiple medical issues and is being treated with medicine appropriately. She is going to have significant difficulty with her mobilization given her limited status prior to her injury. She may need home health or placement post hospital. At this point we do not have plans for surgical intervention.
[2022-05-01 11:25] LABS: African American GFR (CKD) 77.2 (60.0-200.0); Anion Gap 6.9 mmol/L (10.00-18.00); BUN/Creat Ratio 28.67 Ratio (12.00-20.00); Blood Urea Nitrogen 25.8 mg/dL (9.0-27.0); Carbon Dioxide 27.1 mmol/L (20.0-27.5); Non-African American GFR(CKD) 66.6 (60.0-200.0); Potassium 4.9 mmol/L (3.5-5.5)
[2022-05-01 12:52] LABS: Glucose,Whole Blood 140 mg/dL (70-110)
[2022-05-01] MEDS ORDERED: traMADol 50 MG TAB PO STA (13:12)
--- NOTE | 2022-05-01 13:23 | P.PN ---
Subjective Progress Note Date: 05/01/22 Patient is a 67 year old female with PMH of vasculitis, history of right occipital stroke with chronic left homonymous hemianopia, antiphospholipid syndrome, history of DVT and PE, diabetes mellitus, hypertension, obesity, sleep apnea presents the ED after mechanical fall. Patient reports attempting to a mbulate with the aid of her walker last night when she started to feel vertigo- like symptoms which resulted in a fall. She feels that she may have injured her left leg. She denies any syncopal episode. She was unable to get up and spent the night on the floor. Patient was previously admitted for right lower extremity weakness and underwent extensive evaluation. Evaluation included: MRI lumbar spine revealed no definitive evidence of disc herniation or significant spinal canal stenosis. Multilevel disc degeneration with associated osteoarthritic changes resulting in moderate L4-L5 and L5-S1 neural foraminal stenosis. MRI of the brain revealed no acute or subacute infarct. Right occipital lobe remote injury with encephalomalacia. Nonspecific white matter change likely secondary to small vessel ischemic disease. Her right lower extremity weakness was thought to be related to radiculopathy possibly from diabetes or vasculitis. Her pain improved with gabapentin and she was discharged home on 04/28/2022. She reports presents to the hospital on 04/30/2022 after a fall. Patient is agreeable for rehab. Patient currently denies any headache, lower extremity edema, nausea vomiting, fever or chills, cough, chest pain, shortness of breath, palpitations, changes in urination or bowel habits. No changes in appetite or weight. She denies any dizziness, numbness/weakness or tingling of the extremities. In the ED, her vital signs are stable. CBC showed MCV of 79.5 with platelet count 148. INR was 2.4. CMP showed sodium 136, BUN of 30, glucose 147, AST of 60, alkaline phosphatase 139, creatinine kinase 206. Troponin was less than 0.012. CT head and C-spine was negative for acute change. Chest x-ray negative. Pelvic x-ray negative for fracture. Left foot x-ray showed distal fibular fracture with acute fracture of the third metatarsal base. Patient was seen and examined. No acute events overnight. Seen at bedside with her mother. Patient reports 8/10 severity pain in the left foot. Her lethargy has resolved. She reports poor water intake. General: non toxic, no distress, appears at stated age Derm: warm, dry Head: atraumatic, normocephalic, symmetric Eyes: EOMI, no lid lag, anicteric sclera Mouth: no lip lesion, mucus membranes moist Cardiovascular: S1S2 reg, no murmur Lungs: CTA bilateral, no rhonchi, no rales , no accessory muscle use Abdominal: soft, nontender to palpation, no guarding, no appreciable organomegaly Ext: no gross muscle atrophy, no edema, petechial rash bilateral lower extremities, L foot wrapped with restricted ROM due to pain Neuro: no focal neuro deficits Psych: Alert, oriented, appropriate affect #Left distal fibular fracture #Failure to thrive #Mechanical fall Orthopedic surgery recommedations appreciated, limited weightbearing toe-touch weightbearing for balance during transfers on her left foot. Pain control with Tramadol. Fall precautions. PT and OT will be consulted to work with this patient. Follow-up precautions. Case management and social work consulted. #Prerenal azotemia Resolved. DC IVF. #History of CVA Restart Lipitor. #Antiphospholipid syndrome #History DVT and PE Restart Coumadin. Daily INR. #Diabetes mellitus Start low-dose insulin sliding scale. Accu-Cheks before meals at bedtime. Hypoglycemic precautions. #Hypertension BP 106/52.18/ Continue Lasix, lisinopril, metoprolol, nifedipine. Resolved: Prerenal azotemia Patient would like to be full code. Anticipated discharge to SNF after insurance authorization. Objective - Vital Signs Vital signs: Vital Signs Temp 98.9 F 05/01/22 12:38 Pulse 89 05/01/22 12:38 Resp 18 05/01/22 12:38 BP 118/62 05/01/22 12:38 Pulse Ox 92 L 05/01/22 12:38 FiO2 Intake & Output 04/30/22 05/01/22 05/01/22 18:59 06:59 18:59 Output Total 300 Balance -300 Weight 104.78 kg 111.5 kg Output: Urine 300 Other: Voiding Method External Catheter External Catheter # Voids 1 1 # Bowel Movements 1 - Labs CBC & Chem 7: 05/01/22 07:18 05/01/22 07:18 Labs: Abnormal Lab Results - Last 24 Hours (Table) 04/30/22 04/30/22 04/30/22 Range/Units 13:08 13:08 13:08 RBC (4.10-5.20) X 10*6/uL Hgb (12.0-15.0) g/dL Hct (37.2-46.3) % MCV 79.5 L (80.0-100.0) fL MCH (27.0-32.0) pg MCHC (32.0-37.0) g/dL RDW 16.2 H (11.5-15.5) % Plt Count 148 L (150-450) k/uL Immature Gran # (0.00-0.04) X 10*3/uL Neutrophils # 7.8 H (1.3-7.7) k/uL Lymphocytes # 0.8 L (1.0-4.8) k/uL PT 33.2 H (9.0-12.0) sec INR 3.4 H (<1.2) APTT 40.4 H (22.0-30.0) sec Sodium 136 L (137-145) mmol/L Anion Gap (10.00-18.00) mmol/L BUN 30 H (7-17) mg/dL BUN/Creatinine Ratio (12.00-20.00) Ratio Glucose 147 H (74-99) mg/dL POC Glucose (mg/dL) (70-110) mg/dL Calcium (8.7-10.3) mg/dL AST 60 H (14-36) U/L Alkaline Phosphatase 139 H (38-126) U/L Creatine Kinase 206 H (30-135) U/L Albumin 3.3 L (3.5-5.0) g/dL Urine Protein (Negative) Urine Glucose (UA) (Negative) 04/30/22 04/30/22 05/01/22 Range/Units 20:48 23:35 06:59 RBC (4.10-5.20) X 10*6/uL Hgb (12.0-15.0) g/dL Hct (37.2-46.3) % MCV (80.0-100.0) fL MCH (27.0-32.0) pg MCHC (32.0-37.0) g/dL RDW (11.5-15.5) % Plt Count (150-450) k/uL Immature Gran # (0.00-0.04) X 10*3/uL Neutrophils # (1.3-7.7) k/uL Lymphocytes # (1.0-4.8) k/uL PT (9.0-12.0) sec INR (<1.2) APTT (22.0-30.0) sec Sodium (137-145) mmol/L Anion Gap (10.00-18.00) mmol/L BUN (7-17) mg/dL BUN/Creatinine Ratio (12.00-20.00) Ratio Glucose (74-99) mg/dL POC Glucose (mg/dL) 195 H 136 H (70-110) mg/dL Calcium (8.7-10.3) mg/dL AST (14-36) U/L Alkaline Phosphatase (38-126) U/L Creatine Kinase (30-135) U/L Albumin (3.5-5.0) g/dL Urine Protein Trace H (Negative) Urine Glucose (UA) 4+ H (Negative) 05/01/22 05/01/22 05/01/22 Range/Units 07:18 07:18 07:18 RBC 3.81 L (4.10-5.20) X 10*6/uL Hgb 9.4 L (12.0-15.0) g/dL Hct 30.3 L (37.2-46.3) % MCV 79.5 L (80.0-100.0) fL MCH 24.7 L (27.0-32.0) pg MCHC 31.0 L (32.0-37.0) g/dL RDW 17.4 H (11.5-15.5) % Plt Count (150-450) k/uL Immature Gran # 0.13 H (0.00-0.04) X 10*3/uL Neutrophils # (1.3-7.7) k/uL Lymphocytes # (1.0-4.8) k/uL PT 33.7 H (9.0-12.0) sec INR 3.5 H (<1.2) APTT (22.0-30.0) sec Sodium (137-145) mmol/L Anion Gap 6.90 L (10.00-18.00) mmol/L BUN (7-17) mg/dL BUN/Creatinine Ratio 28.67 H (12.00-20.00) Ratio Glucose 125 H (74-99) mg/dL POC Glucose (mg/dL) (70-110) mg/dL Calcium 8.0 L (8.7-10.3) mg/dL AST (14-36) U/L Alkaline Phosphatase (38-126) U/L Creatine Kinase (30-135) U/L Albumin (3.5-5.0) g/dL Urine Protein (Negative) Urine Glucose (UA) (Negative) 05/01/22 Range/Units 12:49 RBC (4.10-5.20) X 10*6/uL Hgb (12.0-15.0) g/dL Hct (37.2-46.3) % MCV (80.0-100.0) fL MCH (27.0-32.0) pg MCHC (32.0-37.0) g/dL RDW (11.5-15.5) % Plt Count (150-450) k/uL Immature Gran # (0.00-0.04) X 10*3/uL Neutrophils # (1.3-7.7) k/uL Lymphocytes # (1.0-4.8) k/uL PT (9.0-12.0) sec INR (<1.2) APTT (22.0-30.0) sec Sodium (137-145) mmol/L Anion Gap (10.00-18.00) mmol/L BUN (7-17) mg/dL BUN/Creatinine Ratio (12.00-20.00) Ratio Glucose (74-99) mg/dL POC Glucose (mg/dL) 140 H (70-110) mg/dL Calcium (8.7-10.3) mg/dL AST (14-36) U/L Alkaline Phosphatase (38-126) U/L Creatine Kinase (30-135) U/L Albumin (3.5-5.0) g/dL Urine Protein (Negative) Urine Glucose (UA) (Negative)
--- NOTE | 2022-05-01 13:26 | CT ---
EXAMINATION TYPE: CT foot LT wo con CT DLP: 201 mGycm, Automated exposure control for dose reduction was used. DATE OF EXAM: 05/01/2022 12:54 PM COMPARISON: Left foot/ankle radiographs 04/30/2022. CLINICAL INDICATION:Female, 67 years old with history of fracture at base of 2nd MT wth possible wide timur; PHH, fx base of 2nd MT TECHNIQUE: Axial images were obtained of the left foot without the use of IV contrast. Additional co laisha and sagittal reformatted images and soft tissue and bone window were obtained for review. 3-D r econstruction was created on a separate workstation. FINDINGS: Acute oblique nondisplaced fracture of the distal fibula. Nondisplaced acute fracture of th e base of the second, third, and fourth metatarsals. Nondisplaced acute fracture of the base of the f ourth proximal phalanx. Additional nondisplaced acute fracture of the medial cuneiform. There is wide timur between the first and second digits at the bases of approximate 4 mm. No dislocation. Small plan tar calcaneal enthesophyte. Calcification of the insertion of the Achilles tendon into the calcaneus. Diffuse soft tissue edema. IMPRESSION: 1. Acute nondisplaced fractures of the base of the second, third, and fourth metatarsals. There is n o widening between the first and second metatarsal bases of 3 mm which raises possibility of Lisfranc injury. Consider further evaluation with MR is clinically indicated. 2. Acute nondisplaced fracture of the medial cuneiform. 3. Acute nondisplaced fracture of the base of the fourth proximal phalanx. 4. Acute nondisplaced fracture of the distal fibula.
[2022-05-01] MEDS: SODIUM CHLORIDE 0.9% 1,000 ML IV SCH (14:19)
[2022-05-01 17:25] LABS: Glucose,Whole Blood 180 mg/dL (70-110)
[2022-05-01 20:33] LABS: Glucose,Whole Blood 228 mg/dL (70-110)
[2022-05-01] MEDS ORDERED: WARFARIN 0.5 MG TAB PO ONE (21:00)
[2022-05-01] MEDS ORDERED: WARFARIN 3 MG TAB PO SCH (21:00)
[2022-05-01] MEDS: NIFEdipine XL 30 MG TAB.ER.24 PO SCH (21:12)
[2022-05-01] MEDS: ATORVASTATIN 20 MG TAB PO SCH (21:12)
[2022-05-01] MEDS: SERTRALINE 100 MG TAB PO SCH (21:12)
[2022-05-01] MEDS: FAMOTIDINE 20 MG TAB PO SCH (21:12)
[2022-05-01] MEDS: QUEtiapine 50 MG TAB PO SCH (21:12)
[2022-05-01] MEDS: lisinopriL 10 MG TAB PO SCH (21:12)
[2022-05-01] MEDS: METOPROLOL SUCCINATE (ER) 50 MG TAB.ER.24H PO SCH (21:12)
[2022-05-02 06:05] LABS: INR 2.4 (<1.2); Prothrombin Time 23.9 sec (9.0-12.0)
[2022-05-02 07:13] LABS: Glucose,Whole Blood 144 mg/dL (70-110)
[2022-05-02] MEDS: GABAPENTIN 300 MG CAP PO SCH ×3 (08:42→22:36)
[2022-05-02] MEDS: FOLIC ACID 1 MG TAB PO SCH (08:42)
[2022-05-02] MEDS: FUROSEMIDE 40 MG TAB PO SCH (08:42)
[2022-05-02] MEDS: INSULIN ASPART (NovoLOG) 100 UNIT/ML VIAL SQ SCH ×4 (08:43→22:32)
--- NOTE | 2022-05-02 09:04 | P.PN ---
Progress Note - Text Progress Note Date: 05/02/22 Orthopedics: History of present illness: Patient is a very pleasant 67-year-old female who is seen and examined at bedside for follow-up evaluation for her left lower extremity. She is known have multiple fractures at the left ankle and left foot. CT imaging of the left foot was performed yesterday. She is currently in a splint for the left lower extremity. Previous equalizer boot has been ordered. Case management states this boot should be delivered and fitted appropriately today. Nursing states they have had difficulty with transferring this patient today bedside commode given her nonweightbearing status on her left lower extremity. Possibility of discharge to rehabilitation facility was discussed in detail with the patient. Patient states she would be willing to go to rehab at the time of discharge. She is admitted to medicine and is being seen for her multiple other medical diagnoses. Physical Exam: Patient is awake, alert, and oriented 3 Vital signs stable Good chest excursion with deep inspiration and expiration Splint is intact over the left lower extremity No pain with palpation over the left knee over the toes of the left foot Patient is able to wiggle her toes of the left foot without significant difficulty Evidence of some mild swelling of the left foot Evidence of skin changes over the bilateral lower extremities Pertinent studies: CT of the left foot without contrast taken on 05/01/2022: Acute nondisplaced fractures of the base of the second, third, and fourth metatarsal; evidence of widening between the first and second digits of the base of approximately 4 mm raised the possibility of Lisfranc injury; acute nondisplaced fracture of the medial cuneiform; acute nondisplaced fracture the base of the fourth proximal phalanx; acute nondisplaced fracture of the distal fibula Assessment: Status post multiple falls 3 Left ankle and foot pain Acute left nondisplaced fractures of the base of the second, third, and fourth metatarsal Widening between the left first and second digits of the base of approximately 4 mm raises the possibility of Lisfranc injury Acute left nondisplaced fracture of the medial cuneiform Acute left nondisplaced fracture the base of the fourth proximal phalanx Acute left nondisplaced fracture of the distal fibula History of DVT and PE History of CVA Diabetes mellitus Hypertension History of vasculitis History of right occipital stroke with chronic left homonymous hemianopia Obesity Plan: 1. Patient has sustained multiple falls and has multiple fractures including acute nondisplaced fractures of the base of the second, third, and fourth metatarsal, widening between the first and second digits of the base of approximately 4 mm raises the possibility of Lisfranc injury, acute nondisplaced fracture of the medial cuneiform, acute nondisplaced fracture the base of the fourth proximal phalanx, and acute nondisplaced fracture of the distal fibula. She is currently in a splint for the left lower extremity. Prescription has been written, signed, right case management to obtain a premium equalizer boot. Once this boot is delivered and fitted properly, patient may toe-touch weightbearing only on the left lower extremity. 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 Prescription has been written, signed and completed to case management as well for a walker without wheels. We discussed in detail she is nonweightbearing on the left lower extremity and it is toe- touch weightbearing only. Following the delivery and fitting of this boot, patient is clear for discharge from an orthopedic standpoint. Patient may follow-up with Dr. Collazo at [facility] in 1 weeks following discharge. 2. Patient will continue to be seen and examined by medicine for other medical diagnoses.
[2022-05-02] MEDS: traMADol 50 MG TAB PO PRN (09:53)
[2022-05-02 11:12] LABS: Glucose,Whole Blood 185 mg/dL (70-110)
--- NOTE | 2022-05-02 14:50 | P.PN ---
Subjective Progress Note Date: 05/02/22 Patient is a 67 year old female with PMH of vasculitis, history of right occipital stroke with chronic left homonymous hemianopia, antiphospholipid syndrome, history of DVT and PE, diabetes mellitus, hypertension, obesity, sleep apnea presents the ED after mechanical fall. Patient reports attempting to a mbulate with the aid of her walker last night when she started to feel vertigo- like symptoms which resulted in a fall. She feels that she may have injured her left leg. She denies any syncopal episode. She was unable to get up and spent the night on the floor. Patient was previously admitted for right lower extremity weakness and underwent extensive evaluation. Evaluation included: MRI lumbar spine revealed no definitive evidence of disc herniation or significant spinal canal stenosis. Multilevel disc degeneration with associated osteoarthritic changes resulting in moderate L4-L5 and L5-S1 neural foraminal stenosis. MRI of the brain revealed no acute or subacute infarct. Right occipital lobe remote injury with encephalomalacia. Nonspecific white matter change likely secondary to small vessel ischemic disease. Her right lower extremity weakness was thought to be related to radiculopathy possibly from diabetes or vasculitis. Her pain improved with gabapentin and she was discharged home on 04/28/2022. She reports presents to the hospital on 04/30/2022 after a fall. Patient is agreeable for rehab. Patient currently denies any headache, lower extremity edema, nausea vomiting, fever or chills, cough, chest pain, shortness of breath, palpitations, changes in urination or bowel habits. No changes in appetite or weight. She denies any dizziness, numbness/weakness or tingling of the extremities. In the ED, her vital signs are stable. CBC showed MCV of 79.5 with platelet count 148. INR was 2.4. CMP showed sodium 136, BUN of 30, glucose 147, AST of 60, alkaline phosphatase 139, creatinine kinase 206. Troponin was less than 0.012. CT head and C-spine was negative for acute change. Chest x-ray negative. Pelvic x-ray negative for fracture. Left foot x-ray showed distal fibular fracture with acute fracture of the third metatarsal base. Patient was seen and examined. No acute events overnight. Patient reports 8/10 severity pain in the left foot. She is agreeable for rehab today. General: non toxic, no distress, appears at stated age Derm: warm, dry Head: atraumatic, normocephalic, symmetric Eyes: EOMI, no lid lag, anicteric sclera Mouth: no lip lesion, mucus membranes moist Cardiovascular: S1S2 reg, no murmur Lungs: CTA bilateral, no rhonchi, no rales , no accessory muscle use Abdominal: soft, nontender to palpation, no guarding, no appreciable organomegaly Ext: no gross muscle atrophy, no edema, petechial rash bilateral lower extremities, L foot in a boot Neuro: no focal neuro deficits Psych: Alert, oriented, appropriate affect #Left distal fibular fracture #Failure to thrive #Mechanical fall Orthopedic surgery recommedations appreciated, limited weightbearing toe-touch weightbearing for balance during transfers on her left foot. Head CT reviewed which shows nondisplaced fractures of the base of the second, third and fourth metatarsals, medial cuneiform, base of the fourth proximal phalanx, distal fibula. Pain control with Tramadol. Percocet added for better pain control. Fall precautions. PT and OT will be consulted to work with this patient. Follow-up precautions. Case management and social work consulted. OBRA filled out, plans for DC to SNF with insurance authorization. #Prerenal azotemia Resolved. DC IVF. #History of CVA Restart Lipitor. #Antiphospholipid syndrome #History DVT and PE Restart Coumadin. Daily INR. #Diabetes mellitus Start low-dose insulin sliding scale. Accu-Cheks before meals at bedtime. Hypoglycemic precautions. #Hypertension BP 122/78 Continue Lasix, lisinopril, metoprolol, nifedipine. Resolved: Prerenal azotemia Patient would like to be full code. Anticipated discharge to SNF after insurance authorization. Medically stable. Objective - Vital Signs Vital signs: Vital Signs Temp 98.5 F 05/02/22 13:05 Pulse 82 05/02/22 13:05 Resp 18 05/02/22 13:05 BP 122/78 05/02/22 13:05 Pulse Ox 92 L 05/02/22 13:05 FiO2 Intake & Output 05/01/22 05/02/22 05/02/22 18:59 06:59 18:59 Intake Total 600 Balance 600 Intake: Oral 600 Other: Voiding Method External Catheter Bedside Commode Diaper # Voids 2 2 1 # Bowel Movements 1 1 1 - Labs CBC & Chem 7: 05/01/22 07:18 05/01/22 07:18 Labs: Abnormal Lab Results - Last 24 Hours (Table) 05/01/22 05/01/22 05/02/22 Range/Units 17:24 20:32 04:56 PT 23.9 H (9.0-12.0) sec INR 2.4 H (<1.2) POC Glucose (mg/dL) 180 H 228 H (70-110) mg/dL 05/02/22 05/02/22 Range/Units 07:12 11:11 PT (9.0-12.0) sec INR (<1.2) POC Glucose (mg/dL) 144 H 185 H (70-110) mg/dL
[2022-05-02] MEDS: oxyCODONE-APAP 7.5-325MG 1 EACH TAB PO PRN (15:30)
[2022-05-02 17:00] LABS: Glucose,Whole Blood 248 mg/dL (70-110)
[2022-05-02] MEDS ORDERED: WARFARIN 3 MG TAB PO ONE (18:00)
[2022-05-02 20:02] LABS: Glucose,Whole Blood 273 mg/dL (70-110)
[2022-05-02] MEDS: ATORVASTATIN 20 MG TAB PO SCH (22:35)
[2022-05-02] MEDS: METOPROLOL SUCCINATE (ER) 50 MG TAB.ER.24H PO SCH (22:35)
[2022-05-02] MEDS: SERTRALINE 100 MG TAB PO SCH (22:35)
[2022-05-02] MEDS: NIFEdipine XL 30 MG TAB.ER.24 PO SCH (22:35)
[2022-05-02] MEDS: QUEtiapine 50 MG TAB PO SCH (22:36)
[2022-05-02] MEDS: FAMOTIDINE 20 MG TAB PO SCH (22:36)
[2022-05-02] MEDS: lisinopriL 10 MG TAB PO SCH (22:36)
[2022-05-03 07:04] LABS: INR 2.1 (<1.2); Prothrombin Time 20.4 sec (9.0-12.0)
[2022-05-03 07:52] LABS: Glucose,Whole Blood 161 mg/dL (70-110)
[2022-05-03] MEDS: INSULIN ASPART (NovoLOG) 100 UNIT/ML VIAL SQ SCH ×4 (09:46→21:39)
[2022-05-03] MEDS: FUROSEMIDE 40 MG TAB PO SCH (09:46)
[2022-05-03] MEDS: GABAPENTIN 300 MG CAP PO SCH ×3 (09:46→21:39)
[2022-05-03] MEDS: FOLIC ACID 1 MG TAB PO SCH (09:46)
[2022-05-03] MEDS: oxyCODONE-APAP 7.5-325MG 1 EACH TAB PO PRN ×2 (09:49→14:29)
[2022-05-03 11:54] LABS: Glucose,Whole Blood 186 mg/dL (70-110)
--- NOTE | 2022-05-03 14:39 | P.PN ---
Subjective Progress Note Date: 05/03/22 Patient is a 67 year old female with PMH of vasculitis, history of right occipital stroke with chronic left homonymous hemianopia, antiphospholipid syndrome, history of DVT and PE, diabetes mellitus, hypertension, obesity, sleep apnea presents the ED after mechanical fall. Patient reports attempting to a mbulate with the aid of her walker last night when she started to feel vertigo- like symptoms which resulted in a fall. She feels that she may have injured her left leg. She denies any syncopal episode. She was unable to get up and spent the night on the floor. Patient was previously admitted for right lower extremity weakness and underwent extensive evaluation. Evaluation included: MRI lumbar spine revealed no definitive evidence of disc herniation or significant spinal canal stenosis. Multilevel disc degeneration with associated osteoarthritic changes resulting in moderate L4-L5 and L5-S1 neural foraminal stenosis. MRI of the brain revealed no acute or subacute infarct. Right occipital lobe remote injury with encephalomalacia. Nonspecific white matter change likely secondary to small vessel ischemic disease. Her right lower extremity weakness was thought to be related to radiculopathy possibly from diabetes or vasculitis. Her pain improved with gabapentin and she was discharged home on 04/28/2022. She reports presents to the hospital on 04/30/2022 after a fall. In the ED, her vital signs are stable. CBC showed MCV of 79.5 with platelet count 148. INR was 2.4. CMP showed sodium 136, BUN of 30, glucose 147, AST of 60, alkaline phosphatase 139, creatinine kinase 206. Troponin was less than 0.012. CT head and C-spine was negative for acute change. Chest x-ray negative. Pelvic x-ray negative for fracture. Left foot x-ray showed distal fibular fracture with acute fracture of the third metatarsal base. Patient was seen and examined. No acute events overnight. Patient reports 6/10 severity pain in the left foot. She is agreeable for rehab today. General: non toxic, no distress, appears at stated age Derm: warm, dry Head: atraumatic, normocephalic, symmetric Eyes: EOMI, no lid lag, anicteric sclera Mouth: no lip lesion, mucus membranes moist Cardiovascular: S1S2 reg, no murmur Lungs: CTA bilateral, no rhonchi, no rales , no accessory muscle use Abdominal: soft, nontender to palpation, no guarding, no appreciable organomegaly Ext: no gross muscle atrophy, no edema, petechial rash bilateral lower extremities, L foot in a boot Neuro: no focal neuro deficits Psych: Alert, oriented, appropriate affect #Left distal fibular fracture #Failure to thrive #Mechanical fall Orthopedic surgery recommedations appreciated, limited weightbearing toe-touch weightbearing for balance during transfers on her left foot. Head CT reviewed which shows nondisplaced fractures of the base of the second, third and fourth metatarsals, medial cuneiform, base of the fourth proximal phalanx, distal fibula. Pain control with Tramadol. Percocet added for better pain control. Fall precautions. PT and OT will be consulted to work with this patient. Follow-up precautions. Case management and social work consulted. OBRA filled out, plans for DC to SNF with insurance authorization. #Prerenal azotemia Resolved. DC IVF. #History of CVA Restart Lipitor. #Antiphospholipid syndrome #History DVT and PE Restart Coumadin. Daily INR. #Diabetes mellitus Start low-dose insulin sliding scale. Started on levemir 10 units QD. Accu-Cheks before meals at bedtime. Hypoglycemic precautions. #Hypertension BP 104/68 Continue Lasix, lisinopril, metoprolol, nifedipine. Resolved: Prerenal azotemia Patient would like to be full code. Anticipated discharge to SNF after insurance authorization. Medically stable. Objective - Vital Signs Vital signs: Vital Signs Temp 98.4 F 05/03/22 12:27 Pulse 73 05/03/22 12:27 Resp 16 05/03/22 12:27 BP 104/68 05/03/22 12:27 Pulse Ox 90 L 05/03/22 12:27 FiO2 Intake & Output 05/02/22 05/03/22 05/03/22 18:59 06:59 18:59 Intake Total 480 Balance 480 Intake: Oral 480 Other: # Voids 1 2 # Bowel Movements 1 - Labs CBC & Chem 7: 05/01/22 07:18 05/01/22 07:18 Labs: Abnormal Lab Results - Last 24 Hours (Table) 05/02/22 05/02/22 05/03/22 Range/Units 16:59 20:00 06:33 PT 20.4 H (9.0-12.0) sec INR 2.1 H (<1.2) POC Glucose (mg/dL) 248 H 273 H (70-110) mg/dL 05/03/22 05/03/22 Range/Units 07:50 11:52 PT (9.0-12.0) sec INR (<1.2) POC Glucose (mg/dL) 161 H 186 H (70-110) mg/dL
[2022-05-03 17:05] LABS: Glucose,Whole Blood 186 mg/dL (70-110)
[2022-05-03 20:42] LABS: Glucose,Whole Blood 210 mg/dL (70-110)
[2022-05-03] MEDS: METOPROLOL SUCCINATE (ER) 50 MG TAB.ER.24H PO SCH (21:39)
[2022-05-03] MEDS: FAMOTIDINE 20 MG TAB PO SCH (21:39)
[2022-05-03] MEDS: lisinopriL 10 MG TAB PO SCH (21:39)
[2022-05-03] MEDS: WARFARIN 3 MG TAB PO SCH (21:39)
[2022-05-03] MEDS: ATORVASTATIN 20 MG TAB PO SCH (21:39)
[2022-05-03] MEDS: SERTRALINE 100 MG TAB PO SCH (21:39)
[2022-05-03] MEDS: QUEtiapine 50 MG TAB PO SCH (21:39)
[2022-05-03] MEDS: NIFEdipine XL 30 MG TAB.ER.24 PO SCH (21:40)
[2022-05-04] MEDS ORDERED: INSULIN DETEMIR (LEVEMIR) 100 UNIT/ML SYR SQ SCH (07:00)
[2022-05-04 07:53] LABS: Glucose,Whole Blood 165 mg/dL (70-110)
[2022-05-04 08:35] LABS: INR 2.1 (<1.2)
[2022-05-04] MEDS: oxyCODONE-APAP 7.5-325MG 1 EACH TAB PO PRN ×2 (08:58→12:54)
[2022-05-04] MEDS: FUROSEMIDE 40 MG TAB PO SCH (08:59)
[2022-05-04] MEDS: GABAPENTIN 300 MG CAP PO SCH ×3 (08:59→21:15)
[2022-05-04] MEDS: FOLIC ACID 1 MG TAB PO SCH (09:00)
[2022-05-04] MEDS: INSULIN ASPART (NovoLOG) 100 UNIT/ML VIAL SQ SCH ×5 (09:00→21:16)
[2022-05-04 11:39] LABS: Glucose,Whole Blood 198 mg/dL (70-110)
--- NOTE | 2022-05-04 14:26 | P.PN ---
Subjective Progress Note Date: 05/04/22 Patient is a 67 year old female with PMH of vasculitis, history of right occipital stroke with chronic left homonymous hemianopia, antiphospholipid syndrome, history of DVT and PE, diabetes mellitus, hypertension, obesity, sleep apnea presents the ED after mechanical fall. Patient reports attempting to a mbulate with the aid of her walker last night when she started to feel vertigo- like symptoms which resulted in a fall. She feels that she may have injured her left leg. She denies any syncopal episode. She was unable to get up and spent the night on the floor. Patient was previously admitted for right lower extremity weakness and underwent extensive evaluation. Evaluation included: MRI lumbar spine revealed no definitive evidence of disc herniation or significant spinal canal stenosis. Multilevel disc degeneration with associated osteoarthritic changes resulting in moderate L4-L5 and L5-S1 neural foraminal stenosis. MRI of the brain revealed no acute or subacute infarct. Right occipital lobe remote injury with encephalomalacia. Nonspecific white matter change likely secondary to small vessel ischemic disease. Her right lower extremity weakness was thought to be related to radiculopathy possibly from diabetes or vasculitis. Her pain improved with gabapentin and she was discharged home on 04/28/2022. She reports presents to the hospital on 04/30/2022 after a fall. In the ED, her vital signs are stable. CBC showed MCV of 79.5 with platelet count 148. INR was 2.4. CMP showed sodium 136, BUN of 30, glucose 147, AST of 60, alkaline phosphatase 139, creatinine kinase 206. Troponin was less than 0.012. CT head and C-spine was negative for acute change. Chest x-ray negative. Pelvic x-ray negative for fracture. Left foot x-ray showed distal fibular fracture with acute fracture of the third metatarsal base. Patient was seen and examined. No acute events overnight. Patient reports 6/10 severity pain in the left foot. She is agreeable for rehab. General: non toxic, no distress, appears at stated age Derm: warm, dry Head: atraumatic, normocephalic, symmetric Eyes: EOMI, no lid lag, anicteric sclera Mouth: no lip lesion, mucus membranes moist Cardiovascular: S1S2 reg, no murmur Lungs: CTA bilateral, no rhonchi, no rales , no accessory muscle use Ext: no gross muscle atrophy, no edema, petechial rash bilateral lower extremities, L foot in a boot Neuro: no focal neuro deficits Psych: Alert, oriented, appropriate affect #Left distal fibular fracture #Failure to thrive #Mechanical fall Orthopedic surgery recommendations appreciated, limited weightbearing toe-touch weightbearing for balance during transfers on her left foot. Head CT reviewed which shows nondisplaced fractures of the base of the second, third and fourth metatarsals, medial cuneiform, base of the fourth proximal phalanx, distal fibula. Pain control with Tramadol. Percocet added for better pain control. Fall precautions. PT and OT will be consulted to work with this patient. Follow-up precautions. Case management and social work consulted. OBRA filled out, plans for DC to SNF with insurance authorization. #History of CVA Restart Lipitor. #Antiphospholipid syndrome #History DVT and PE Restart Coumadin. Daily INR. #Diabetes mellitus POC glucose 198 Start low-dose insulin sliding scale. Increase levemir to 12 units QD. Add Novolog 5 units TID with meals. Accu-Cheks before meals at bedtime. Hypoglycemic precautions. #Hypertension BP 121/65 Continue Lasix, lisinopril, metoprolol, nifedipine. Resolved: Prerenal azotemia Anticipated discharge to SNF after insurance authorization. Medically stable. Objective - Vital Signs Vital signs: Vital Signs Temp 97.9 F 05/04/22 12:33 Pulse 74 05/04/22 12:33 Resp 16 05/04/22 12:33 BP 121/65 05/04/22 12:33 Pulse Ox 90 L 05/04/22 12:33 FiO2 Intake & Output 05/03/22 05/04/22 05/04/22 18:59 06:59 18:59 Intake Total 500 Balance 500 Intake: Oral 500 Other: Voiding Method Bedside Commode Bedside Commode Bedside Commode Diaper Diaper Diaper # Voids 4 2 - Labs CBC & Chem 7: 05/01/22 07:18 05/01/22 07:18 Labs: Abnormal Lab Results - Last 24 Hours (Table) 05/03/22 05/03/22 05/04/22 Range/Units 17:00 20:40 07:41 PT 21.0 H (9.0-12.0) sec INR 2.1 H (<1.2) POC Glucose (mg/dL) 186 H 210 H (70-110) mg/dL 05/04/22 05/04/22 Range/Units 07:43 11:35 PT (9.0-12.0) sec INR (<1.2) POC Glucose (mg/dL) 165 H 198 H (70-110) mg/dL
[2022-05-04 17:02] LABS: Glucose,Whole Blood 211 mg/dL (70-110)
[2022-05-04 20:49] LABS: Glucose,Whole Blood 195 mg/dL (70-110)
[2022-05-04] MEDS: traMADol 50 MG TAB PO PRN (21:15)
[2022-05-04] MEDS: WARFARIN 3 MG TAB PO SCH (21:15)
[2022-05-04] MEDS: lisinopriL 10 MG TAB PO SCH (21:15)
[2022-05-04] MEDS: FAMOTIDINE 20 MG TAB PO SCH (21:15)
[2022-05-04] MEDS: SERTRALINE 100 MG TAB PO SCH (21:15)
[2022-05-04] MEDS: ATORVASTATIN 20 MG TAB PO SCH (21:15)
[2022-05-04] MEDS: NIFEdipine XL 30 MG TAB.ER.24 PO SCH (21:15)
[2022-05-04] MEDS: QUEtiapine 50 MG TAB PO SCH (21:15)
[2022-05-04] MEDS: METOPROLOL SUCCINATE (ER) 50 MG TAB.ER.24H PO SCH (21:15)
[2022-05-05 03:15] VITALS: RESP 16
[2022-05-05] MEDS: traMADol 50 MG TAB PO PRN (05:21)
[2022-05-05 06:51] LABS: Glucose,Whole Blood 167 mg/dL (70-110)
[2022-05-05] MEDS ORDERED: INSULIN DETEMIR (LEVEMIR) 100 UNIT/ML SYR SQ SCH (07:00)
[2022-05-05] MEDS: INSULIN ASPART (NovoLOG) 100 UNIT/ML VIAL SQ SCH ×4 (07:57→12:59)
[2022-05-05] MEDS: FUROSEMIDE 40 MG TAB PO SCH (07:57)
[2022-05-05] MEDS: FOLIC ACID 1 MG TAB PO SCH (07:58)
[2022-05-05] MEDS: GABAPENTIN 300 MG CAP PO SCH (07:58)
[2022-05-05 10:15] LABS: Anisocytosis Slight; HCT 32.5 % (34.0-46.0); HGB 10.1 gm/dL (11.4-16.0); Hypochromasia Marked; MCH 25.7 pg (25.0-35.0); MCHC 31.2 g/dL (31.0-37.0); MCV 82.4 fL (80.0-100.0); Mean Platelet Volume 9.4; Platelet Count 140 k/uL (150-450); RBC 3.94 m/uL (3.80-5.40); RDW 16.9 % (11.5-15.5); WBC 4.9 k/uL (3.8-10.6)
[2022-05-05 10:25] LABS: African American GFR (CKD) 71 (>60 ml/min/1.73 sqM); Anion Gap 3 mmol/L; Blood Urea Nitrogen 26 mg/dL (7-17); Carbon Dioxide 28 mmol/L (22-30); Chloride 103 mmol/L (98-107); Glucose 148 mg/dL (74-99); Non-African American GFR(CKD) 61 (>60 ml/min/1.73 sqM); Potassium 4.5 mmol/L (3.5-5.1); Sodium 134 mmol/L (137-145)
[2022-05-05] MEDS: oxyCODONE-APAP 7.5-325MG 1 EACH TAB PO PRN (10:41)
--- NOTE | 2022-05-05 11:01 | P.DS ---
Providers Date of admission: 04/30/22 17:39 Expected date of discharge: 05/05/22 Attending physician: Marcell Garcia MD Consults: 04/30/22 17:38 Consult Physician Routine Consulting Provider: Caty Schulte Consult Reason/Comments: Left distal fibula fracture metatarsal rapture Do you want consulting provider notified?: Yes, Notify in am Primary care physician: Dorene Howard Hospital Course: Discharge Diagnosis: Left distal fibular fracture Secondary third and fourth metattarsal base fracture, possible fracture of the medial cuneiform Chemical fall Failure to thrive Prerenal azotemia History of CVA Antiphospholipid syndrome with history of DVT and PE Diabetes mellitus type 2 poorly controlled with A1c 10.3 04/25/22 Hypertension Anemia, undetermined etiology, likely mild blood loss due to fracture Hospital Course: Patient is a 67 year old female with vasculitis, right occipital stroke with chronic left homonymous hemianopia, antiphospholipid syndrome, prior DVT and PE, diabetes mellitus, hypertension, obesity, sleep apnea presents the ED after mechanical fall. In the ED she underwent an extensive evaluation. Her initial vitals sigsn were within normal limits. CBC showed MCV of 79.5 with platelet count 148. INR was 2.4. CMP showed sodium 136, BUN of 30, glucose 147, AST of 60, alkaline phosphatase 139, creatinine kinase 206. Troponin was less than 0.012. CT head and C-spine was negative for acute change. Chest x-ray negative. Pelvic x-ray negative for fracture. Left foot x-ray showed distal fibular fracture with acute fracture of the third metatarsal base. Prior evaluation: MRI lumbar spine revealed no definitive evidence of disc herniation or significant spinal canal stenosis. Multilevel disc degeneration with associated osteoarthritic changes resulting in moderate L4-L5 and L5-S1 neural foraminal stenosis. MRI of the brain revealed no acute or subacute infarct. Right occipital lobe remote injury with encephalomalacia. Nonspecific white matter change likely secondary to small vessel ischemic disease. Follow-up: Orthopedic surgery with Dr. Collazo, patient may toe-touch weightbearing to the left lower extremity and should use a walker, fall precautions. Blood sugars 3 times daily, INR ever other day. Follow-up with PCP on discharge. Patient seen and examined at bedside. DOing well, pain controlled, no chest pain or shortness of breath. Vital signs reviewed and stable. General: nontoxic, no distress, appears at stated age Derm: warm, dry Head: atraumatic, normocephalic, symmetric Eyes: EOMI, no lid lag, anicteric sclera Mouth: no lip lesion, mucus membranes moist Cardiovascular: S1S2 reg, no murmur, positive posterior tibial pulse bilateral, Lungs: CTA bilateral, no rhonchi, no rales , no accessory muscle use Abdominal: soft, nontender to palpation, no guarding, no appreciable organomegaly Ext: no gross muscle atrophy, no edema, no contractures, left leg in boot Neuro: CN II-XI grossly intact, no focal neuro deficits Psych: Alert, oriented, appropriate affect A total of 35 minutes of time were spent preparing this complex discharge summary. Patient was discharged on 05/05/22. Patient Condition at Discharge: Fair Plan - Discharge Summary Discharge Rx Participant: Yes New Discharge Prescriptions: New INSULIN ASPART (NovoLOG) [NovoLOG (formulary)] 5 unit SQ AC-TID each Famotidine [Pepcid] 20 mg PO HS tab oxyCODONE-APAP 7.5-325MG [Percocet 7.5-325 mg] 1 each PO Q4HR PRN #24 tab PRN Reason: Pain Insulin Detemir (Levemir) [Levemir] 12 unit SQ DAILY@0700 each Continue Sertraline HCl [Zoloft] 200 mg PO HS QUEtiapine [SEROquel] 50 mg PO HS Warfarin Sodium [Coumadin] 6 mg PO HS Atorvastatin [Lipitor] 20 mg PO HS Potassium Chloride ER [K-Dur 10] 10 meq PO DAILY Metoprolol Succinate (ER) [Toprol XL] 50 mg PO HS lisinopriL [Zestril] 10 mg PO HS Dapsone 50 mg PO DAILY Triamcinolone 0.1% Cream [Kenalog 0.1% Cream] 1 applicatio TOPICAL BID PRN PRN Reason: Skin Irritation NIFEdipine [Adalat CC] 30 mg PO HS Furosemide [Lasix] 40 mg PO DAILY Folic Acid 1 mg PO DAILY Dapagliflozin Propanediol [Farxiga] 5 mg PO DAILY 30 Days #30 tablet Gabapentin [Neurontin] 300 mg PO TID 30 Days #90 cap Discontinued glipiZIDE [Glucotrol] 5 mg PO BID Insulin Detemir (Levemir) [Levemir] 10 unit SQ HS 30 Days #10 ml Discharge Medication List Atorvastatin [Lipitor] 20 mg PO HS 11/19/17 [History] QUEtiapine [SEROquel] 50 mg PO HS 11/19/17 [History] Sertraline HCl [Zoloft] 200 mg PO HS 11/19/17 [History] Warfarin Sodium [Coumadin] 6 mg PO HS 11/19/17 [History] Dapsone 50 mg PO DAILY 04/25/22 [History] Folic Acid 1 mg PO DAILY 04/25/22 [History] Furosemide [Lasix] 40 mg PO DAILY 04/25/22 [History] Metoprolol Succinate (ER) [Toprol XL] 50 mg PO HS 04/25/22 [History] NIFEdipine [Adalat CC] 30 mg PO HS 04/25/22 [History] Potassium Chloride ER [K-Dur 10] 10 meq PO DAILY 04/25/22 [History] Triamcinolone 0.1% Cream [Kenalog 0.1% Cream] 1 applicatio TOPICAL BID PRN 04/25/22 [History] lisinopriL [Zestril] 10 mg PO HS 04/25/22 [History] Dapagliflozin Propanediol [Farxiga] 5 mg PO DAILY 30 Days #30 tablet 04/28/22 [Rx] Famotidine [Pepcid] 20 mg PO HS tab 05/05/22 [Rx] Gabapentin [Neurontin] 300 mg PO TID 30 Days #90 cap 05/05/22 [Rx] INSULIN ASPART (NovoLOG) [NovoLOG (formulary)] 5 unit SQ AC-TID each 05/05/22 [Rx] Insulin Detemir (Levemir) [Levemir] 12 unit SQ DAILY@0700 each 05/05/22 [Rx] oxyCODONE-APAP 7.5-325MG [Percocet 7.5-325 mg] 1 each PO Q4HR PRN #24 tab 05/05/22 [Rx] Follow up Appointment(s)/Referral(s): Home Health,[facility] [NON-STAFF] - 1 Week Nicholas Collazo DPM [Doctor of Osteopathic Medicine] - 1 Week Nonstaff,Physician [REFERRING] - 1-2 days Activity/Diet/Wound Care/Special Instructions: Activity: 1. Toe-touch weightbearing for balance only on left lower extremity for transfers. 2. Elevate left lower extremity 3. Splint to be worn until boot is available and then have premium equalizer boot on at all times except bathing 4. Patient is encouraged to use a walker to aid in ambulation 5. Fall Precautions Diet: carb consistent Special Instructions: Check blood sugars 3 times daily. INR every other day diagnosis Coumadin use with prior DVT. Discharge Disposition: TRANSFER TO SNF/ECF
[2022-05-05 11:38] LABS: Glucose,Whole Blood 248 mg/dL (70-110)
[2022-05-05 12:47] VITALS: BP 110/72; PULSE 81; TEMP 98.7
== END 2022-05-05 13:39 | DRG 563 ==
LOC: EC 12:31 → 5NMEDONC 17:39
PROVIDERS: ADMIT Family Medicine; ATTEND Family Medicine
PROC: 2W3TX1Z Immobilization of Left Foot using Splint (ICD-10-PCS; principal; 2022-04-30)
DX: S82.62XA Displaced fracture of lateral malleolus of left fibula, initial encounter for closed fracture (principal); D68.61 Antiphospholipid syndrome; Z68.42 Body mass index [BMI] 45.0-49.9, adult; D68.32 Hemorrhagic disorder due to extrinsic circulating anticoagulants; R62.7 Adult failure to thrive; D69.6 Thrombocytopenia, unspecified; I77.6 Arteritis, unspecified; E11.65 Type 2 diabetes mellitus with hyperglycemia; Z79.4 Long term (current) use of insulin; Z79.899 Other long term (current) drug therapy; S92.322A Displaced fracture of second metatarsal bone, left foot, initial encounter for closed fracture; S92.332A Displaced fracture of third metatarsal bone, left foot, initial encounter for closed fracture; W18.30XA Fall on same level, unspecified, initial encounter; Y92.013 Bedroom of single-family (private) house as the place of occurrence of the external cause; E86.0 Dehydration; D50.0 Iron deficiency anemia secondary to blood loss (chronic); R79.89 Other specified abnormal findings of blood chemistry; I10 Essential (primary) hypertension; G47.30 Sleep apnea, unspecified; L30.9 Dermatitis, unspecified; M48.061 Spinal stenosis, lumbar region without neurogenic claudication; M48.07 Spinal stenosis, lumbosacral region; M19.90 Unspecified osteoarthritis, unspecified site; H53.462 Homonymous bilateral field defects, left side; H54.7 Unspecified visual loss; E04.2 Nontoxic multinodular goiter; H93.19 Tinnitus, unspecified ear; H91.90 Unspecified hearing loss, unspecified ear; E66.9 Obesity, unspecified; F41.9 Anxiety disorder, unspecified; R29.6 Repeated falls; M51.37 Other intervertebral disc degeneration, lumbosacral region; H53.8 Other visual disturbances; I69.312 Visuospatial deficit and spatial neglect following cerebral infarction; S92.343A Displaced fracture of fourth metatarsal bone, unspecified foot, initial encounter for closed fracture; T45.515A Adverse effect of anticoagulants, initial encounter; Z87.19 Personal history of other diseases of the digestive system; Z79.84 Long term (current) use of oral hypoglycemic drugs; Z91.81 History of falling; Z88.6 Allergy status to analgesic agent; Z88.1 Allergy status to other antibiotic agents; Z88.8 Allergy status to other drugs, medicaments and biological substances; Z86.711 Personal history of pulmonary embolism; Z86.718 Personal history of other venous thrombosis and embolism; Z91.041 Radiographic dye allergy status; Z88.5 Allergy status to narcotic agent; Z91.048 Other nonmedicinal substance allergy status; Z90.49 Acquired absence of other specified parts of digestive tract; Z79.01 Long term (current) use of anticoagulants; Z96.653 Presence of artificial knee joint, bilateral
CPT/HCPCS: 36415; 70450; 71046; 72125; 73502; 80048; 80053; 81003; 82550; 83735; 84484; 85025; 85027; 85610; 85730; 93005; 99285

== ENCOUNTER 2022-05-12 21:12 | Inpatient (IN) | payer MEDICARE ==
[2022-05-12] MEDS ORDERED: SODIUM CHLORIDE 0.9% 1,000 ML IV ONE (21:59)
[2022-05-12] MEDS ORDERED: VANCOMYCIN IV PER PHARMACY 1 EACH MISC MISCELLANE PRN (22:00)
[2022-05-12 22:06] LABS: Glucose,Whole Blood 177 mg/dL (70-110)
--- NOTE | 2022-05-12 22:35 | CT ---
EXAMINATION TYPE: CT brain wo con DATE OF EXAM: 05/12/2022 COMPARISON: 04/30/2022 HISTORY: Altered mental status CT DLP: 1142.4 mGycm Automated exposure control for dose reduction was used. Images obtained of the brain with no contrast. There is 3 x 1.5 cm hypodense area in the medial right occipital lobe related to old infarct. There i s no mass effect or midline shift. No sign of intracranial hemorrhage. The calvarium is intact. There is small fluid level in the left and right maxillary sinus. IMPRESSION: Old right occipital lobe infarct without change. Maxillary sinusitis without much change. No acute in tracranial abnormality.
--- NOTE | 2022-05-12 22:50 | XR ---
EXAMINATION TYPE: XR chest 1V DATE OF EXAM: 05/12/2022 COMPARISON: 04/30/2022 HISTORY: Pain TECHNIQUE: Single view FINDINGS: There is no heart failure nor confluent pneumonic infiltrate. Costophrenic angles are clear . There are no hilar masses. IMPRESSION: No active cardiopulmonary disease. No adverse change.
[2022-05-12 22:58] LABS: Anisocytosis Slight; Basophils # (A) 0.1 k/uL (0-0.2); Basophils % (A) 1 %; Eosinophils # (A) 0.1 k/uL (0-0.7); Eosinophils % (A) 1 %; HCT 22.8 % (34.0-46.0); Hypochromasia Slight; Lymphocytes # (A) 0.8 k/uL (1.0-4.8); Lymphocytes % (A) 8 %; MCH 24.8 pg (25.0-35.0); MCHC 31.9 g/dL (31.0-37.0); MCV 77.6 fL (80.0-100.0); Mean Platelet Volume 9.1; Microcytosis Slight; Monocytes # (A) 0.4 k/uL (0-1.0); Monocytes % (A) 5 %; Neutrophils # (A) 8.2 k/uL (1.3-7.7); Neutrophils % (A) 84 %; Platelet Count 185 k/uL (150-450); RBC 2.94 m/uL (3.80-5.40); RDW 17.4 % (11.5-15.5); WBC 9.7 k/uL (3.8-10.6)
[2022-05-12] MEDS: ACETAMINOPHEN TAB 500 MG TAB PO STA ×2 (22:59→23:03)
[2022-05-12] MEDS ORDERED: VANCOMYCIN 1,500 MG in SODIUM CHLORIDE 0.9% 500 ML 500 ML IVPB ONE (23:00)
[2022-05-12 23:09] LABS: ALT 30 U/L (4-34); AST 72 U/L (14-36); Acetaminophen <10.0 ug/mL; African American GFR (CKD) 77 (>60 ml/min/1.73 sqM); Albumin 2.4 g/dL (3.5-5.0); Alcohol <10 mg/dL; Alkaline Phosphatase 184 U/L (38-126); Anion Gap 6 mmol/L; Blood Urea Nitrogen 31 mg/dL (7-17); Calcium 7.9 mg/dL (8.4-10.2); Carbon Dioxide 24 mmol/L (22-30); Chloride 104 mmol/L (98-107); Glucose 158 mg/dL (74-99); Non-African American GFR(CKD) 67 (>60 ml/min/1.73 sqM); Potassium 4.5 mmol/L (3.5-5.1); Salicylate <1.0 mg/dL; Sodium 134 mmol/L (137-145); Total Bilirubin 1.2 mg/dL (0.2-1.3); Total Protein 5.4 g/dL (6.3-8.2)
[2022-05-12 23:10] LABS: HGB 7.3 gm/dL (11.4-16.0); INR 4.3 (<1.2); Partial Thromboplastin Time 37.1 sec (22.0-30.0); Prothrombin Time 42.3 sec (9.0-12.0)
--- NOTE | 2022-05-12 23:58 | US ---
EXAMINATION TYPE: US venous doppler duplex LE DATE OF EXAM: 05/12/2022 11:49 PM COMPARISON: Rt le04/27/22 CLINICAL HISTORY: eval for dvt. Both legs swollen, red, and warm to touch. Pt is on blood thinners. SIDE PERFORMED: Bilateral TECHNIQUE: The lower extremity deep venous system is examined utilizing real time linear array sonog demario with graded compression, doppler sonography and color-flow sonography. VESSELS IMAGED: Common Femoral Vein Deep Femoral Vein Greater Saphenous Vein * Femoral Vein Popliteal Vein Small Saphenous Vein * Proximal Calf Veins (* superficial vessels) Right Leg: No evidence for DVT Left Leg: No evidence for DVT. Prox calf vessels not vis due to edema IMPRESSION: No evidence of deep vein thrombosis in both legs.
[2022-05-13] MEDS ORDERED: IBUPROFEN 800 MG TAB PO STA (00:16)
[2022-05-13] MEDS ORDERED: ACETAMINOPHEN TAB 500 MG TAB PO STA (00:19)
[2022-05-13 00:35] LABS: Appearance,Urine Clear (Clear); Bilirubin,Urine Negative (Negative); Blood,Urine Negative (Negative); Color,Urine Yellow; Glucose,Urine (UA) 4+ (Negative); Ketones,Urine Negative (Negative); Leukocyte Esterase,Urine Negative (Negative); Nitrite,Urine Negative (Negative); PH, Urine 5.5 (5.0-8.0); Protein,Urine Trace (Negative); Specific Gravity,Urine 1.021 (1.001-1.035)
[2022-05-13 00:48] LABS: Amphetamine Screen,Urine Not Detected (NotDetected); Barbiturate Screen,Urine Not Detected (NotDetected); Benzodiazepines Screen,Urine Not Detected (NotDetected); Cocaine Screen,Urine Not Detected (NotDetected); Methadone Screen, Urine Not Detected (NotDetected); Opiate Screen,Urine Not Detected (NotDetected); Oxycodone Screen, Urine Detected (NotDetected); Phencyclidine Screen,Urine Not Detected (NotDetected); Tricyclic Antidepressant,Urine Detected (NotDetected); Urn Cannabinoid Scrn Not Detected (NotDetected)
[2022-05-13] MEDS ORDERED: IBUPROFEN 400 MG TAB PO PRN (01:10)
[2022-05-13] MEDS ORDERED: NALOXONE 0.4 MG/ML 1 ML VIAL IV PRN (01:10)
--- NOTE | 2022-05-13 01:44 | ED ---
General Adult HPI - General Chief complaint: Weakness Stated complaint: Altered mental status Time Seen by Provider: 05/12/22 21:22 Source: patient, EMS, RN notes reviewed, old records reviewed Mode of arrival: EMS Limitations: no limitations - History of Present Illness Initial comments: Patient is a 67-year-old female who presents from nursing facility over concern for altered mental status, fever, as well as right lower extremity cellulitis. Patient has been experiencing worsening pain and redness in the right lower extremity since her discharge from the hospital recently. She was recently admitted for dehydration and failure to thrive. She also to fall at that time. She is discharged home and returns today for the altered mental status, as well as the concern for cellulitis. Patient is febrile. Patient does awaken but is unable to provide much of a history. Per EMS, there is concern that the patient may have taken 2 [place] tablets that were not prescribed to her at her facility. She had pinpoint pupils in the field but currently does not. She is unable to provide much history at this time. Presents for further evaluation. She is obese with a left foot boot on. Patient is on Coumadin. - Related Data Home Medications Medication Instructions Recorded Confirmed Atorvastatin [Lipitor] 20 mg PO HS 11/19/17 04/30/22 QUEtiapine [SEROquel] 50 mg PO HS 11/19/17 04/30/22 Sertraline HCl [Zoloft] 200 mg PO HS 11/19/17 04/30/22 Warfarin Sodium [Coumadin] 6 mg PO HS 11/19/17 04/30/22 Dapsone 50 mg PO DAILY 04/25/22 04/30/22 Folic Acid 1 mg PO DAILY 04/25/22 04/30/22 Furosemide [Lasix] 40 mg PO DAILY 04/25/22 04/30/22 Metoprolol Succinate (ER) [Toprol 50 mg PO HS 04/25/22 04/30/22 XL] NIFEdipine [Adalat CC] 30 mg PO HS 04/25/22 04/30/22 Potassium Chloride ER [K-Dur 10] 10 meq PO DAILY 04/25/22 04/30/22 Triamcinolone 0.1% Cream [Kenalog 1 applicatio TOPICAL BID PRN 04/25/22 04/30/22 0.1% Cream] lisinopriL [Zestril] 10 mg PO HS 04/25/22 04/30/22 Previous Rx's Medication Instructions Recorded Dapagliflozin Propanediol [Farxiga] 5 mg PO DAILY 30 Days #30 tablet 04/28/22 Famotidine [Pepcid] 20 mg PO HS tab 05/05/22 Gabapentin [Neurontin] 300 mg PO TID 30 Days #90 cap 05/05/22 INSULIN ASPART (NovoLOG) [NovoLOG 5 unit SQ AC-TID each 05/05/22 (formulary)] Insulin Detemir (Levemir) [Levemir] 12 unit SQ DAILY@0700 each 05/05/22 oxyCODONE-APAP 7.5-325MG [Percocet 1 each PO Q4HR PRN #24 tab 05/05/22 7.5-325 mg] Allergies Allergy/AdvReac Type Severity Reaction Status Date / Time povidone-iodine Allergy Rash/Hives Verified 04/30/22 16:14 [From Betadine] soap [From Betadine] Allergy Rash/Hives Verified 04/30/22 16:14 acetaminophen [From [place]arshall] AdvReac Itching Verified 04/30/22 16:14 hydrocodone [From [place]] AdvReac Itching Verified 04/30/22 16:14 Tetracyclines AdvReac Nausea & Verified 04/30/22 16:14 Vomiting Review of Systems ROS Statement: Those systems with pertinent positive or pertinent negative responses have been documented in the HPI. ROS Other: All systems not noted in ROS Statement are negative. 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 antiphosphopholipid antibody-autoimmune clotting disorder. 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 tinnitus, eczema. thyroid [id number]. thrombocytopenia. History of Any Multi-Drug Resistant Organisms: None Reported Past Surgical History: Cholecystectomy, Hernia Repair, Joint Replacement, Orthopedic Surgery Additional Past Surgical History / Comment(s): cervical decompression, ventral hernia repair, bilat knee replacement, Past Anesthesia/Blood Transfusion Reactions: Postoperative Nausea & Vomiting (PONV) Past Psychological History: Anxiety, Depression Smoking Status: Former smoker Past Alcohol Use History: Occasional Additional Past Alcohol Use History / Comment(s): QUIT SMOKING IN 1997 Past Drug Use History: None Reported General Exam - General Exam Comments Initial Comments: General: Appears in no acute distress. Patient is febrile. HEAD: Normal with no signs of head trauma. EYES: PERRLA, EOMI, conjunctiva normal, no discharge. Pupils are 3 mm equal bilaterally. ENT: Hearing grossly intact, normal oropharynx. RESPIRATORY: Clear breath sounds bilaterally. No wheezes, rales, or rhonchi. Mildly hypoxic on room air the cracks with nasal cannula. Per nursing facility, supposed be on CPAP for sleep apnea. C/V: Regular rate and rhythm. S1 and S2 auscultated, peripheral pitting edema in bilateral lower extremities, peripheral pulses 2+ and intact throughout ABD: Abd is soft, nontender, nondistended EXT: Normal range of motion, no obvious deformity SKIN: No decubitus ulcers. Left lower extremity has orthopedic boot for fracture. Right lower extremity has erythema primarily over the calf that is hot to touch. Concern for cellulitis. NEURO: Alert but not oriented. Following basic commands. Moving all 4 extremities. Limitations: no limitations Course Vital Signs 05/12/22 21:18 Temperature 101.1 F H Pulse Rate 99 Respiratory 20 Rate Blood Pressure 117/57 O2 Sat by Pulse 94 L Oximetry Medical Decision Making - Medical Decision Making Based on the patient's presentation and physical exam, I'm concerned that she is present with altered mental status, febrile, and what appears to be infection of the right lower extremity. We will obtain broad workup for altered mental status, CT brain and she is on blood thinners, as well as start patient on vancomycin for her infection and give her antipyretics. We'll monitor for improvement in her mental status. Vital signs otherwise within except for limits. Patient also receive an IV fluid bolus. EKG showed no signs of acute ischemia. CT brain revealed no acute intracranial process, bleed. Chest x-ray revealed no acute cardio pulmonary process. Venous duplex of bilateral lower extremities reveal no signs of DVT. Laboratory studies returned were remarkable for a acutely decreased hemoglobin of 7.3 with no obvious signs of bleeding. Rectal exam was completed by myself in the presence of staff members. Good rectal tone. No gross blood. Fecal occult blood was negative. Patient has a supratherapeutic INR 4.3 in the setting of coumadin use with no source of bleed. We will hold her Coumadin at this time. Remainder the laboratory studies are relatively unremarkable including an undetectable troponin. Patient is negative for Covid, flu, RSV. UDS is positive for oxycodone as well as TCAs. Urinalysis is within acceptable limits. At this time patient is alert and oriented 4. She does endorse taking to pain medications that weren't her own for her right leg pain. She states it has been getting worse in terms of erythema over the last week. Does endorse a fever. Denies any source of bleeding in her PE, stool, and denies any hematemesis. I discussed with her her workup and I would like to admit her to the hospital for IV antibiotics as well as to monitor her hemoglobin level. She was in agreement this plan. We will hold her blood thinning medication at this time. I spoke with the admitting team, BEATRIZ Nuñez of [facility] who accepted the patient. Was pt. sent in by a medical professional or institution (, PA, DIGITAL SOLUTION ARCHITECT, urgent care, hospital, or longterm...) When possible be specific @ -penitentiary Did you speak to anyone other than the patient for history (EMS, parent, family, police, friend...)? What history was obtained from this source @ -No Did you review nursing and triage notes (agree or disagree)? Why? @ -I reviewed and agree with nursing and triage notes Were old charts reviewed (outside hosp., previous admission, EMS record, old EKG, old radiological studies, urgent care reports/EKG's, longterm records)? Report findings @ -Yes. Old EKGs, charts were reviewed. Differential Diagnosis (chest pain, altered mental status, abdominal pain women, abdominal pain men, vaginal bleeding, weakness, fever, dyspnea, syncope, headache, dizziness, GI bleed, back pain, seizure, CVA, palpatations, mental health)? @ -Differential Altered Mental Status: Hypoglycemia, DKA, hypercapnia, ETOH, overdose, CO poisoning, trauma, myxedema coma, HTN encephalopathy, infection, encephalitis, psychosis, intercranial hemorrhage, hepatic encephalopathy, meningitis, CVA, this is not meant to be an all-inclusive list EKG interpreted by me (3pts min.). @ -As above X-rays interpreted by me (1pt min.). @ -Chest x-ray showed no acute cardiopulmonary process CT interpreted by me (1pt min.). @ -CT brain showed no acute intracranial process, bleed U/S interpreted by me (1pt. min.). @ -Venous duplex of bilateral lower extremities reveal no evidence of DVT What testing was considered but not performed or refused? (CT, X-rays, U/S, labs)? Why? @ -None What meds were considered but not given or refused? Why? @ -None Did you discuss the management of the patient with other professionals (professionals i.e. , PA, DIGITAL SOLUTION ARCHITECT, lab, RT, psych nurse, social insurance adviser, threading machine feeder automatic, teacher, detention officer, counseling case manager)? Give summary @ -Yes, mid-level provider [place] of the admitting team [facility] who accepted the patient. Was smoking cessation discussed for >3mins.? @ -No Was critical care preformed (if so, how long)? @ -No Were there social determinants of health that impacted care today? How? (Homelessness, low income, unemployed, alcoholism, drug addiction, transportation, low edu. Level, literacy, decrease access to med. care, [facility], rehab)? @ -No Was there de-escalation of care discussed even if they declined (Discuss DNR or withdrawal of care, Hospice)? DNR status @ -No What co-morbidities impacted this encounter? (DM, HTN, Smoking, COPD, CAD, Cancer, CVA, ARF, Chemo, Hep., AIDS, mental health diagnosis, sleep apnea, morbid obesity)? @ -Diabetes, hypertension, obesity, sleep apnea Was patient admitted / discharged? Hospital course, mention meds given and route, prescriptions, significant lab abnormalities, going to OR and other pertinent info. @ -Admitted to the hospital. See above for ED course. Undiagnosed new problem with uncertain prognosis? @ -No Drug Therapy requiring intensive monitoring for toxicity (Heparin, Nitro, Insulin, Cardizem)? @ -No Were any procedures done? @ -No Diagnosis/symptom? @ -Altered mental status, resolved Acute, or Chronic, or Acute on Chronic? @ -Acute Uncomplicated (without systemic symptoms) or Complicated (systemic symptoms)? @ -Uncomplicated Side effects of treatment? @ -No Exacerbation, Progression, or Severe Exacerbation? @ -No Poses a threat to life or bodily function? How? (Chest pain, [place], [place], pneumonia, PE, COPD, DKA, ARF, appy, cholecystitis, CVA, Diverticulitis, Homicidal, Mishra icidal, threat to staff... and all critical care pts) @ -No Diagnosis/symptom? @ -Right lower extremity cellulitis Acute, or Chronic, or Acute on Chronic? @ -Acute Uncomplicated (without systemic symptoms) or Complicated (systemic symptoms)? @ -Complicated Side effects of treatment? @ -none Exacerbation, Progression, or Severe Exacerbation] @ -no Poses a threat to life or bodily function? @ -Yes, if untreated can result in significant morbidity and mortality. Diagnosis/symptom? @ -Supratherapeutic INR Acute, or Chronic, or Acute on Chronic? @ -Acute Uncomplicated (without systemic symptoms) or Complicated (systemic symptoms)? @ -Uncomplicated Side effects of treatment? @ -none Exacerbation, Progression, or Severe Exacerbation] @ -no Poses a threat to life or bodily function? @ -If not monitored, can result in significant morbidity and mortality if there is a bleed. No current evidence of bleeding. Diagnosis/symptom? @ -Worsening microcytic anemia Acute, or Chronic, or Acute on Chronic? @ -Acute on chronic Uncomplicated (without systemic symptoms) or Complicated (systemic symptoms)? @ -Uncomplicated Side effects of treatment? @ -none Exacerbation, Progression, or Severe Exacerbation] @ -no Poses a threat to life or bodily function? @ -no Diagnosis/symptom? @ -Poorly treated sleep apnea Acute, or Chronic, or Acute on Chronic? @ -Chronic Uncomplicated (without systemic symptoms) or Complicated (systemic symptoms)? @ -Complicated Side effects of treatment? @ -none Exacerbation, Progression, or Severe Exacerbation] @ -no Poses a threat to life or bodily function? @ -no - Lab Data Result diagrams: 05/12/22 22:10 05/12/22 22:10 Lab Results 05/12/22 05/12/22 05/12/22 Range/Units 22:05 22:10 22:10 WBC 9.7 (3.8-10.6) k/uL RBC 2.94 L (3.80-5.40) m/uL Hgb 7.3 L D (11.4-16.0) gm/dL Hct 22.8 L (34.0-46.0) % MCV 77.6 L (80.0-100.0) fL MCH 24.8 L (25.0-35.0) pg MCHC 31.9 (31.0-37.0) g/dL RDW 17.4 H (11.5-15.5) % Plt Count 185 (150-450) k/uL MPV 9.1 Neutrophils % 84 % Lymphocytes % 8 % Monocytes % 5 % Eosinophils % 1 % Basophils % 1 % Neutrophils # 8.2 H (1.3-7.7) k/uL Lymphocytes # 0.8 L (1.0-4.8) k/uL Monocytes # 0.4 (0-1.0) k/uL Eosinophils # 0.1 (0-0.7) k/uL Basophils # 0.1 (0-0.2) k/uL Hypochromasia Slight Anisocytosis Slight Microcytosis Slight PT 42.3 H (9.0-12.0) sec INR 4.3 H (<1.2) APTT 37.1 H (22.0-30.0) sec Sodium (137-145) mmol/L Potassium (3.5-5.1) mmol/L Chloride (98-107) mmol/L Carbon Dioxide (22-30) mmol/L Anion Gap mmol/L BUN (7-17) mg/dL Creatinine (0.52-1.04) mg/dL Est GFR (CKD-EPI)AfAm (>60 ml/min/1.73 sqM) Est GFR (CKD-EPI)NonAf (>60 ml/min/1.73 sqM) Glucose (74-99) mg/dL POC Glucose (mg/dL) 177 H (70-110) mg/dL POC Glu Road Consultant ID Joe Russell Calcium (8.4-10.2) mg/dL Total Bilirubin (0.2-1.3) mg/dL AST (14-36) U/L ALT (4-34) U/L Alkaline Phosphatase (38-126) U/L Ammonia (<30) umol/L Troponin I (0.000-0.034) ng/mL Total Protein (6.3-8.2) g/dL Albumin (3.5-5.0) g/dL Urine Color Urine Appearance (Clear) Urine pH (5.0-8.0) Ur Specific [place] (1.001-1.035) Urine Protein (Negative) Urine Glucose (UA) (Negative) Urine Ketones (Negative) Urine Blood (Negative) Urine Nitrite (Negative) Urine Bilirubin (Negative) Urine Urobilinogen (<2.0) mg/dL Ur Leukocyte Esterase (Negative) Stool Occult Blood (Negative) Salicylates mg/dL Urine Opiates Screen (NotDetected) Ur Oxycodone Screen (NotDetected) Urine Methadone Screen (NotDetected) Ur Propoxyphene Screen (NotDetected) Acetaminophen ug/mL Ur Barbiturates Screen (NotDetected) U Tricyclic Antidepress (NotDetected) Ur Phencyclidine Scrn (NotDetected) Ur Amphetamines Screen (NotDetected) U Methamphetamines Scrn (NotDetected) U Benzodiazepines Scrn (NotDetected) Urine Cocaine Screen (NotDetected) U Marijuana (THC) Screen (NotDetected) Serum Alcohol mg/dL Influenza Type A (PCR) (Not Detectd) Influenza Type B (PCR) (Not Detectd) RSV (PCR) (Not Detectd) SARS-CoV-2 (PCR) (Not Detectd) 05/12/22 05/12/22 05/12/22 Range/Units 22:10 22:10 22:10 WBC (3.8-10.6) k/uL RBC (3.80-5.40) m/uL Hgb (11.4-16.0) gm/dL Hct (34.0-46.0) % MCV (80.0-100.0) fL MCH (25.0-35.0) pg MCHC (31.0-37.0) g/dL RDW (11.5-15.5) % Plt Count (150-450) k/uL MPV Neutrophils % % Lymphocytes % % Monocytes % % Eosinophils % % Basophils % % Neutrophils # (1.3-7.7) k/uL Lymphocytes # (1.0-4.8) k/uL Monocytes # (0-1.0) k/uL Eosinophils # (0-0.7) k/uL Basophils # (0-0.2) k/uL Hypochromasia Anisocytosis Microcytosis PT (9.0-12.0) sec INR (<1.2) APTT (22.0-30.0) sec Sodium 134 L (137-145) mmol/L Potassium 4.5 (3.5-5.1) mmol/L Chloride 104 (98-107) mmol/L Carbon Dioxide 24 (22-30) mmol/L Anion Gap 6 mmol/L BUN 31 H (7-17) mg/dL Creatinine 0.90 (0.52-1.04) mg/dL Est GFR (CKD-EPI)AfAm 77 (>60 ml/min/1.73 sqM) Est GFR (CKD-EPI)NonAf 67 (>60 ml/min/1.73 sqM) Glucose 158 H (74-99) mg/dL POC Glucose (mg/dL) (70-110) mg/dL POC Glu Road Consultant ID Calcium 7.9 L (8.4-10.2) mg/dL Total Bilirubin 1.2 (0.2-1.3) mg/dL AST 72 H (14-36) U/L ALT 30 (4-34) U/L Alkaline Phosphatase 184 H (38-126) U/L Ammonia (<30) umol/L Troponin I <0.012 (0.000-0.034) ng/mL Total Protein 5.4 L (6.3-8.2) g/dL Albumin 2.4 L (3.5-5.0) g/dL Urine Color Urine Appearance (Clear) Urine pH (5.0-8.0) Ur Specific [place] (1.001-1.035) Urine Protein (Negative) Urine Glucose (UA) (Negative) Urine Ketones (Negative) Urine Blood (Negative) Urine Nitrite (Negative) Urine Bilirubin (Negative) Urine Urobilinogen (<2.0) mg/dL Ur Leukocyte Esterase (Negative) Stool Occult Blood (Negative) Salicylates <1.0 mg/dL Urine Opiates Screen Not Detected (NotDetected) Ur Oxycodone Screen Detected H (NotDetected) Urine Methadone Screen Not Detected (NotDetected) Ur Propoxyphene Screen Not Detected (NotDetected) Acetaminophen <10.0 ug/mL Ur Barbiturates Screen Not Detected (NotDetected) U Tricyclic Antidepress Detected H (NotDetected) Ur Phencyclidine Scrn Not Detected (NotDetected) Ur Amphetamines Screen Not Detected (NotDetected) U Methamphetamines Scrn Not Detected (NotDetected) U Benzodiazepines Scrn Not Detected (NotDetected) Urine Cocaine Screen Not Detected (NotDetected) U Marijuana (THC) Screen Not Detected (NotDetected) Serum Alcohol <10 mg/dL Influenza Type A (PCR) (Not Detectd) Influenza Type B (PCR) (Not Detectd) RSV (PCR) (Not Detectd) SARS-CoV-2 (PCR) (Not Detectd) 05/12/22 05/12/22 05/12/22 Range/Units 22:10 22:10 22:10 WBC (3.8-10.6) k/uL RBC (3.80-5.40) m/uL Hgb (11.4-16.0) gm/dL Hct (34.0-46.0) % MCV (80.0-100.0) fL MCH (25.0-35.0) pg MCHC (31.0-37.0) g/dL RDW (11.5-15.5) % Plt Count (150-450) k/uL MPV Neutrophils % % Lymphocytes % % Monocytes % % Eosinophils % % Basophils % % Neutrophils # (1.3-7.7) k/uL Lymphocytes # (1.0-4.8) k/uL Monocytes # (0-1.0) k/uL Eosinophils # (0-0.7) k/uL Basophils # (0-0.2) k/uL Hypochromasia Anisocytosis Microcytosis PT (9.0-12.0) sec INR (<1.2) APTT (22.0-30.0) sec Sodium (137-145) mmol/L Potassium (3.5-5.1) mmol/L Chloride (98-107) mmol/L Carbon Dioxide (22-30) mmol/L Anion Gap mmol/L BUN (7-17) mg/dL Creatinine (0.52-1.04) mg/dL Est GFR (CKD-EPI)AfAm (>60 ml/min/1.73 sqM) Est GFR (CKD-EPI)NonAf (>60 ml/min/1.73 sqM) Glucose (74-99) mg/dL POC Glucose (mg/dL) (70-110) mg/dL POC Glu Road Consultant ID Calcium (8.4-10.2) mg/dL Total Bilirubin (0.2-1.3) mg/dL AST (14-36) U/L ALT (4-34) U/L Alkaline Phosphatase (38-126) U/L Ammonia 19 (<30) umol/L Troponin I (0.000-0.034) ng/mL Total Protein (6.3-8.2) g/dL Albumin (3.5-5.0) g/dL Urine Color Yellow Urine Appearance Clear (Clear) Urine pH 5.5 (5.0-8.0) Ur Specific [place] 1.021 (1.001-1.035) Urine Protein Trace H (Negative) Urine Glucose (UA) 4+ H (Negative) Urine Ketones Negative (Negative) Urine Blood Negative (Negative) Urine Nitrite Negative (Negative) Urine Bilirubin Negative (Negative) Urine Urobilinogen 6.0 (<2.0) mg/dL Ur Leukocyte Esterase Negative (Negative) Stool Occult Blood (Negative) Salicylates mg/dL Urine Opiates Screen (NotDetected) Ur Oxycodone Screen (NotDetected) Urine Methadone Screen (NotDetected) Ur Propoxyphene Screen (NotDetected) Acetaminophen ug/mL Ur Barbiturates Screen (NotDetected) U Tricyclic Antidepress (NotDetected) Ur Phencyclidine Scrn (NotDetected) Ur Amphetamines Screen (NotDetected) U Methamphetamines Scrn (NotDetected) U Benzodiazepines Scrn (NotDetected) Urine Cocaine Screen (NotDetected) U Marijuana (THC) Screen (NotDetected) Serum Alcohol mg/dL Influenza Type A (PCR) Not Detected (Not Detectd) Influenza Type B (PCR) Not Detected (Not Detectd) RSV (PCR) Not Detected (Not Detectd) SARS-CoV-2 (PCR) Not Detected (Not Detectd) 05/13/22 Range/Units 00:16 WBC (3.8-10.6) k/uL RBC (3.80-5.40) m/uL Hgb (11.4-16.0) gm/dL Hct (34.0-46.0) % MCV (80.0-100.0) fL MCH (25.0-35.0) pg MCHC (31.0-37.0) g/dL RDW (11.5-15.5) % Plt Count (150-450) k/uL MPV Neutrophils % % Lymphocytes % % Monocytes % % Eosinophils % % Basophils % % Neutrophils # (1.3-7.7) k/uL Lymphocytes # (1.0-4.8) k/uL Monocytes # (0-1.0) k/uL Eosinophils # (0-0.7) k/uL Basophils # (0-0.2) k/uL Hypochromasia Anisocytosis Microcytosis PT (9.0-12.0) sec INR (<1.2) APTT (22.0-30.0) sec Sodium (137-145) mmol/L Potassium (3.5-5.1) mmol/L Chloride (98-107) mmol/L Carbon Dioxide (22-30) mmol/L Anion Gap mmol/L BUN (7-17) mg/dL Creatinine (0.52-1.04) mg/dL Est GFR (CKD-EPI)AfAm (>60 ml/min/1.73 sqM) Est GFR (CKD-EPI)NonAf (>60 ml/min/1.73 sqM) Glucose (74-99) mg/dL POC Glucose (mg/dL) (70-110) mg/dL POC Glu Road Consultant ID Calcium (8.4-10.2) mg/dL Total Bilirubin (0.2-1.3) mg/dL AST (14-36) U/L ALT (4-34) U/L Alkaline Phosphatase (38-126) U/L Ammonia (<30) umol/L Troponin I (0.000-0.034) ng/mL Total Protein (6.3-8.2) g/dL Albumin (3.5-5.0) g/dL Urine Color Urine Appearance (Clear) Urine pH (5.0-8.0) Ur Specific [place] (1.001-1.035) Urine Protein (Negative) Urine Glucose (UA) (Negative) Urine Ketones (Negative) Urine Blood (Negative) Urine Nitrite (Negative) Urine Bilirubin (Negative) Urine Urobilinogen (<2.0) mg/dL Ur Leukocyte Esterase (Negative) Stool Occult Blood Negative (Negative) Salicylates mg/dL Urine Opiates Screen (NotDetected) Ur Oxycodone Screen (NotDetected) Urine Methadone Screen (NotDetected) Ur Propoxyphene Screen (NotDetected) Acetaminophen ug/mL Ur Barbiturates Screen (NotDetected) U Tricyclic Antidepress (NotDetected) Ur Phencyclidine Scrn (NotDetected) Ur Amphetamines Screen (NotDetected) U Methamphetamines Scrn (NotDetected) U Benzodiazepines Scrn (NotDetected) Urine Cocaine Screen (NotDetected) U Marijuana (THC) Screen (NotDetected) Serum Alcohol mg/dL Influenza Type A (PCR) (Not Detectd) Influenza Type B (PCR) (Not Detectd) RSV (PCR) (Not Detectd) SARS-CoV-2 (PCR) (Not Detectd) - EKG Data -: EKG Interpreted by Me EKG Comments: 12-lead Electrocardiogram Interpretation Note EKG was reviewed and interpreted by myself. 12-lead ECG performed at 2321 is interpreted by me as revealing normal sinus rhythm at a rate of 88 beats per minute. [place] is normal. SD interval is 126 ms, QRS duration is 86 ms, QTc is 391 ms.. There were no acute ST or T wave abnormalities to suggest myocardial ischemia or injury. R wave progression across the precordium was satisfactory. By my interpretation this EKG is non-diagnostic for acute ischemia. When compared with EKG from 04/30/2022, no significant change. Disposition Clinical Impression: AMS (altered mental status), Sleep apnea, Cellulitis of right leg, Anemia, Supratherapeutic INR Disposition: ADMITTED IP TO THIS HOSP Condition: Stable Time of Disposition: 00:10
[2022-05-13] MEDS ORDERED: DEXTROSE 50% SYRINGE 50 ML IVP PRN ×2 (04:29)
[2022-05-13] MEDS ORDERED: SODIUM CHLORIDE 0.9% 1,000 ML IV ONE ×3 (06:00→09:26)
[2022-05-13 08:35] LABS: Anisocytosis Slight; Basophils % (A) 1 %; Eosinophils # (A) 0.1 k/uL (0-0.7); Eosinophils % (A) 2 %; HCT 26.6 % (34.0-46.0); Hypochromasia Moderate; Lymphocytes # (A) 0.7 k/uL (1.0-4.8); Lymphocytes % (A) 12 %; MCH 24.2 pg (25.0-35.0); MCHC 29.3 g/dL (31.0-37.0); MCV 82.4 fL (80.0-100.0); Monocytes # (A) 0.5 k/uL (0-1.0); Monocytes % (A) 9 %; Neutrophils # (A) 4.4 k/uL (1.3-7.7); Neutrophils % (A) 74 %; Platelet Count 122 k/uL (150-450); RBC 3.22 m/uL (3.80-5.40); RDW 17.5 % (11.5-15.5)
[2022-05-13 08:40] LABS: HGB 7.8 gm/dL (11.4-16.0)
[2022-05-13] MEDS ORDERED: GABAPENTIN 300 MG CAP PO SCH (09:00)
[2022-05-13] MEDS ORDERED: FUROSEMIDE 40 MG TAB PO SCH (09:00)
[2022-05-13 09:14] LABS: INR 4.48 (0.90-1.11); Prothrombin Time 47.8 sec (9.9-11.9)
[2022-05-13] MEDS: INSULIN ASPART (NovoLOG) 100 UNIT/ML VIAL SQ SCH ×3 (09:36→17:26)
[2022-05-13] MEDS: INSULIN DETEMIR (LEVEMIR) 100 UNIT/ML SYR SQ SCH (10:22)
[2022-05-13 12:20] LABS: Glucose,Whole Blood 89 mg/dL (70-110)
[2022-05-13] MEDS: SODIUM CHLORIDE 0.9% 1,000 ML IV SCH (12:24)
--- NOTE | 2022-05-13 12:47 | P.HPIM ---
History of Present Illness 67-year-old female(was sent in from a care home because of concerns of altered mental status although patient is able to provide good history to me alert oriented 3. Patient is comparing of increased redness the right lower extremity found to have cellulitis of the right lower extremity and patient was started on vancomycin for that. Patient had ONE of the right lower extremity which did not show any DVT. Patient is on Coumadin for previous history of a pulmonary embolism and INR is supratherapeutic at this time patient says she has history of congestive heart failure and does take Lasix as an outpatient patient is hypotensive year patient does have for bilateral lower extremity edema with crackles on lung exam. Patient has low sodium of 134. Patient had fever REVIEW OF SYSTEMS: CONSTITUTIONAL: As mentioned in HPI HEENT: No recent visual problems or hearing problems. Denied any sore throat. CARDIOVASCULAR: No chest pain, orthopnea, PND, no palpitations, no syncope. PULMONARY: No shortness of breath, no cough, no hemoptysis. GASTROINTESTINAL: No diarrhea, no nausea, no vomiting, no abdominal pain. NEUROLOGICAL: No headaches, no weakness, no numbness. HEMATOLOGICAL: Denies any bleeding or petechiae. GENITOURINARY: Denies any burning micturition, frequency, or urgency. MUSCULOSKELETAL/RHEUMATOLOGICAL: Denies any joint pain, swelling, or any muscle pain. ENDOCRINE: Denies any polyuria or polydipsia. The rest of the 14-point review of systems is negative. PHYSICAL EXAMINATION: GENERAL: The patient is alert and oriented x3, not in any acute distress. Obese HEENT: Pupils are round and equally reacting to light. EOMI. No scleral icterus. No conjunctival pallor. Normocephalic, atraumatic. No pharyngeal erythema. No thyromegaly. CARDIOVASCULAR: S1 and S2 present. No murmurs, rubs, or gallops. PULMONARY: Crackles bilateral lower lung bases ABDOMEN: Soft, nontender, nondistended, normoactive bowel sounds. No palpable organomegaly. MUSCULOSKELETAL: No joint swelling or deformity. EXTREMITIES: No cyanosis, clubbing, bilateral lower extremity pitting pedal edema NEUROLOGICAL: Gross neurological examination did not reveal any focal deficits. SKIN: Redness with local is of temperature and cellulitis of the right lower extremity Assessment and plan -Cellulitis of right lower extremity patient will be switched to Cefazolin as well as no history of MRSA in the past vancomycin will be discontinued. Ruled out a DVT of the right lower extremity -Supratherapeutic INR hold off on Coumadin patient probably can be switched to liquids instead of Coumadin upon discharge -Hypervolemic hyponatremia: Patient was started on IV Lasix -History of congestive heart failure exacerbation on February the patient is systolic dysfunction or diastolic dysfunction will order a BNP -Chronic anemia and etiology is not known further evaluation as an outpatient -History of pulmonary embolism for which patient is on Coumadin as mentioned above next and have an hypertension next and have an epidural diabetes mellitus -Sleep apnea patient doesn't use any CPAP machine at home but she is supposed to use that echocardiogram will be obtained. 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 antiphosphopholipid antibody-autoimmune clotting disorder. 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 tinnitus, eczema. thyroid [id number]. thrombocytopenia. History of Any Multi-Drug Resistant Organisms: None Reported Past Surgical History: Cholecystectomy, Hernia Repair, Joint Replacement, Orthopedic Surgery Additional Past Surgical History / Comment(s): cervical decompression, ventral h ernia repair, bilat knee replacement, Past Anesthesia/Blood Transfusion Reactions: Postoperative Nausea & Vomiting (PONV) Past Psychological History: Anxiety, Depression Smoking Status: Former smoker Past Alcohol Use History: Occasional Past Drug Use History: None Reported Medications and Allergies Home Medications Medication Instructions Recorded Confirmed Type Atorvastatin [Lipitor] 20 mg PO HS 11/19/17 05/13/22 History Sertraline HCl [Zoloft] 200 mg PO HS 11/19/17 05/13/22 History Warfarin Sodium [Coumadin] 6 mg PO DIRECTED 11/19/17 05/13/22 History Dapsone 50 mg PO DAILY 04/25/22 05/13/22 History Folic Acid 1 mg PO HS 04/25/22 05/13/22 History Furosemide [Lasix] 40 mg PO DAILY@0600 04/25/22 05/13/22 History Metoprolol Succinate (ER) [Toprol 50 mg PO HS 04/25/22 05/13/22 History XL] NIFEdipine [Adalat CC] 30 mg PO HS 04/25/22 05/13/22 History Potassium Chloride ER [K-Dur 10] 10 meq PO DAILY 04/25/22 05/13/22 History lisinopriL [Zestril] 10 mg PO HS 04/25/22 05/13/22 History Dapagliflozin Propanediol [Farxiga] 5 mg PO DAILY 30 Days #30 tablet 04/28/22 05/13/22 Rx Famotidine [Pepcid] 20 mg PO HS tab 05/05/22 05/13/22 Rx Gabapentin 300 mg PO TID@0600,1400,2200 05/13/22 05/13/22 History Insulin Glargine,Hum.rec.anlog 12 units SQ DAILY@0700 05/13/22 05/13/22 History [Lantus Solostar Pen] Insulin Lispro [humaLOG Kwikpen] 5 unit SQ TID@0700,1200,1700 05/13/22 05/13/22 History QUEtiapine [SEROquel] 25 mg PO HS 05/13/22 05/13/22 History oxyCODONE-APAP 7.5-325MG [Percocet 1 tab PO Q4HR PRN 05/13/22 05/13/22 History 7.5-325 mg] Allergies Allergy/AdvReac Type Severity Reaction Status Date / Time povidone-iodine Allergy Rash/Hives Verified 05/13/22 07:19 [From Betadine] soap [From Betadine] Allergy Rash/Hives Verified 05/13/22 07:19 acetaminophen [From [place]] AdvReac Itching Verified 05/13/22 07:19 hydrocodone [From [place]] AdvReac Itching Verified 05/13/22 07:19 Tetracyclines AdvReac Nausea & Verified 05/13/22 07:19 Vomiting Physical Exam Vitals: Vital Signs Temp Pulse Resp BP Pulse Ox 05/13/22 12:08 69 18 90/54 96 05/13/22 10:27 60 18 108/58 95 05/13/22 09:29 58 L 18 82/48 96 05/13/22 08:00 64 18 77/44 99 05/13/22 04:43 67 16 94/64 94 L 05/13/22 01:51 98.7 F 77 18 94 L 05/12/22 21:18 101.1 F H 99 20 117/57 94 L Intake and Output 05/12/22 05/13/22 05/13/22 22:59 06:59 14:59 Other: Weight 99.79 kg Results CBC & Chem 7: 05/13/22 05:09 05/12/22 22:10 Labs: Abnormal Lab Results - Last 24 Hours (Table) 05/12/22 05/12/22 05/12/22 Range/Units 22:05 22:10 22:10 RBC 2.94 L (3.80-5.40) m/uL Hgb 7.3 L D (11.4-16.0) gm/dL Hct 22.8 L (34.0-46.0) % MCV 77.6 L (80.0-100.0) fL MCH 24.8 L (25.0-35.0) pg MCHC (31.0-37.0) g/dL RDW 17.4 H (11.5-15.5) % Plt Count (150-450) k/uL Neutrophils # 8.2 H (1.3-7.7) k/uL Lymphocytes # 0.8 L (1.0-4.8) k/uL PT 42.3 H (9.0-12.0) sec INR 4.3 H (<1.2) APTT 37.1 H (22.0-30.0) sec Sodium (137-145) mmol/L BUN (7-17) mg/dL Glucose (74-99) mg/dL POC Glucose (mg/dL) 177 H (70-110) mg/dL Calcium (8.4-10.2) mg/dL AST (14-36) U/L Alkaline Phosphatase (38-126) U/L Total Protein (6.3-8.2) g/dL Albumin (3.5-5.0) g/dL Urine Protein (Negative) Urine Glucose (UA) (Negative) Ur Oxycodone Screen (NotDetected) U Tricyclic Antidepress (NotDetected) 01/16/23 01/16/23 01/16/23 Range/Units 22:10 22:10 22:10 RBC (3.80-5.40) m/uL Hgb (11.4-16.0) gm/dL Hct (34.0-46.0) % MCV (80.0-100.0) fL MCH (25.0-35.0) pg MCHC (31.0-37.0) g/dL RDW (11.5-15.5) % Plt Count (150-450) k/uL Neutrophils # (1.3-7.7) k/uL Lymphocytes # (1.0-4.8) k/uL PT (9.0-12.0) sec INR (<1.2) APTT (22.0-30.0) sec Sodium 134 L (137-145) mmol/L BUN 31 H (7-17) mg/dL Glucose 158 H (74-99) mg/dL POC Glucose (mg/dL) (70-110) mg/dL Calcium 7.9 L (8.4-10.2) mg/dL AST 72 H (14-36) U/L Alkaline Phosphatase 184 H (38-126) U/L Total Protein 5.4 L (6.3-8.2) g/dL Albumin 2.4 L (3.5-5.0) g/dL Urine Protein Trace H (Negative) Urine Glucose (UA) 4+ H (Negative) Ur Oxycodone Screen Detected H (NotDetected) U Tricyclic Antidepress Detected H (NotDetected) 05/13/22 05/13/22 Range/Units 05:09 05:09 RBC 3.22 L (3.80-5.40) m/uL Hgb 7.8 L (11.4-16.0) gm/dL Hct 26.6 L (34.0-46.0) % MCV (80.0-100.0) fL MCH 24.2 L (25.0-35.0) pg MCHC 29.3 L (31.0-37.0) g/dL RDW 17.5 H (11.5-15.5) % Plt Count 122 L (150-450) k/uL Neutrophils # (1.3-7.7) k/uL Lymphocytes # 0.7 L (1.0-4.8) k/uL PT 47.8 H (9.0-12.0) sec INR 4.48 H (<1.2) APTT (22.0-30.0) sec Sodium (137-145) mmol/L BUN (7-17) mg/dL Glucose (74-99) mg/dL POC Glucose (mg/dL) (70-110) mg/dL Calcium (8.4-10.2) mg/dL AST (14-36) U/L Alkaline Phosphatase (38-126) U/L Total Protein (6.3-8.2) g/dL Albumin (3.5-5.0) g/dL Urine Protein (Negative) Urine Glucose (UA) (Negative) Ur Oxycodone Screen (NotDetected) U Tricyclic Antidepress (NotDetected)
[2022-05-13] MEDS: FUROSEMIDE 10 MG/ML 4 ML VIAL IV SCH ×2 (14:12→21:06)
[2022-05-13] MEDS ORDERED: VANCOMYCIN 1,500 MG in SODIUM CHLORIDE 0.9% 500 ML 500 ML IVPB SCH (15:00)
[2022-05-13 17:05] LABS: Glucose,Whole Blood 116 mg/dL (70-110)
[2022-05-13] MEDS: GABAPENTIN 100 MG CAP PO SCH ×2 (17:26→21:07)
[2022-05-13 20:12] LABS: Glucose,Whole Blood 145 mg/dL (70-110)
[2022-05-13] MEDS ORDERED: lisinopriL 10 MG TAB PO SCH (21:00)
[2022-05-13] MEDS ORDERED: NIFEdipine XL 30 MG TAB.ER.24 PO SCH (21:00)
[2022-05-13] MEDS: ATORVASTATIN 20 MG TAB PO SCH (21:07)
[2022-05-13] MEDS: METOPROLOL SUCCINATE (ER) 50 MG TAB.ER.24H PO SCH (21:07)
[2022-05-14 06:58] LABS: Glucose,Whole Blood 99 mg/dL (70-110)
[2022-05-14 07:22] LABS: Prothrombin Time 79.5 sec (9.0-12.0)
[2022-05-14 07:29] LABS: Anisocytosis Slight; Basophils % (A) 0 %; Eosinophils # (A) 0.1 k/uL (0-0.7); Eosinophils % (A) 4 %; HCT 27.9 % (34.0-46.0); HGB 8.4 gm/dL (11.4-16.0); Hypochromasia Moderate; Lymphocytes # (A) 0.5 k/uL (1.0-4.8); Lymphocytes % (A) 14 %; MCH 24.4 pg (25.0-35.0); MCHC 30.1 g/dL (31.0-37.0); MCV 81.1 fL (80.0-100.0); Mean Platelet Volume 9.2; Microcytosis Slight; Monocytes # (A) 0.2 k/uL (0-1.0); Monocytes % (A) 5 %; Neutrophils # (A) 2.7 k/uL (1.3-7.7); Neutrophils % (A) 76 %; Platelet Count 123 k/uL (150-450); RBC 3.45 m/uL (3.80-5.40); RDW 17.5 % (11.5-15.5); WBC 3.5 k/uL (3.8-10.6)
[2022-05-14 07:41] LABS: INR 7.9 (<1.2)
[2022-05-14 07:43] LABS: African American GFR (CKD) 67 (>60 ml/min/1.73 sqM); Anion Gap 3 mmol/L; Blood Urea Nitrogen 33 mg/dL (7-17); Calcium 7.1 mg/dL (8.4-10.2); Carbon Dioxide 23 mmol/L (22-30); Chloride 112 mmol/L (98-107); Glucose 96 mg/dL (74-99); Non-African American GFR(CKD) 58 (>60 ml/min/1.73 sqM); Potassium 3.9 mmol/L (3.5-5.1); Sodium 138 mmol/L (137-145)
[2022-05-14] MEDS: FUROSEMIDE 10 MG/ML 4 ML VIAL IV SCH ×2 (08:07→21:09)
[2022-05-14] MEDS: INSULIN ASPART (NovoLOG) 100 UNIT/ML VIAL SQ SCH ×3 (08:07→18:01)
[2022-05-14] MEDS: GABAPENTIN 100 MG CAP PO SCH ×3 (08:07→21:09)
[2022-05-14] MEDS: INSULIN DETEMIR (LEVEMIR) 100 UNIT/ML SYR SQ SCH (08:07)
[2022-05-14] MEDS: SODIUM CHLORIDE 0.9% 1,000 ML IV SCH ×2 (08:49→09:10)
[2022-05-14] MEDS ORDERED: PHYTONADIONE ORAL 5 MG/5 ML ORAL.SYRG PO STA (08:51)
[2022-05-14 11:07] LABS: Glucose,Whole Blood 113 mg/dL (70-110)
[2022-05-14] MEDS: oxyCODONE-APAP 7.5-325MG 1 EACH TAB PO PRN ×2 (11:43→18:03)
--- NOTE | 2022-05-14 16:05 | P.PN ---
Subjective Progress Note Date: 05/14/22 67-year-old female([facility] because of concerns of altered mental status although patient is able to provide good history to me alert oriented 3. Patient is comparing of increased redness the right lower extremity found to have cellulitis of the right lower extremity and patient was started on vancomycin for that. Patient had ONE of the right lower extremity which did not show any DVT. Patient is on Coumadin for previous history of a pulmonary embolism and INR is supratherapeutic at this time patient says she has history of congestive heart failure and does take Lasix as an outpatient patient is hypotensive year patient does have for bilateral lower extremity edema with c rackles on lung exam. Patient has low sodium of 134. Patient had fever 05/14/2022 Patient is evaluated today on medical floor. She had been receiving IV fluids and IV lasix overnight which she continues with lower extremity pitting edema. Redness to the lower extremity is improving and will continue on IV cefazolin for one more night and transition to oral antibiotics tomorrow. Sodium has impro rosette to 138, and kidney function is essentially stable at this time. Hemoglobin today is 8.4. Warfarin is currently held at INR today is 7.9 which she did receive a dose of vitamin K. Blood pressure 142/81, reamins afebrile. Review of Systems Constitutional: Denied any fatigue denied any fever. Cardio vascular: denied any chest pain, palpitations Gastrointestinal: denied any nausea, vomiting, diarrhea Pulmonary: Mild shortness of breath, no cough Neurologic denied any new focal deficits All inpatient medications were reviewed and appropriate changes in these medications as dictated in the interval history and assessment and plan. PHYSICAL EXAMINATION: GENERAL: The patient is alert and oriented x3, not in any acute distress. Obese HEENT: Pupils are round and equally reacting to light. EOMI. No scleral icterus. No conjunctival pallor. Normocephalic, atraumatic. No pharyngeal erythema. No thyromegaly. CARDIOVASCULAR: S1 and S2 present. No murmurs, rubs, or gallops. PULMONARY: Crackles bilateral lower lung bases ABDOMEN: Soft, nontender, nondistended, normoactive bowel sounds. No palpable organomegaly. MUSCULOSKELETAL: No joint swelling or deformity. EXTREMITIES: No cyanosis, clubbing, bilateral lower extremity pitting pedal edema +2 NEUROLOGICAL: Gross neurological examination did not reveal any focal deficits. SKIN: Redness with local is of temperature and cellulitis of the right lower extremity improving less red today. Assessment and plan -Cellulitis of right lower extremity patient will be switched to Cefazolin as well as no history of MRSA in the past vancomycin will be discontinued. Ruled out a DVT of the right lower extremity, continue IV antibiotics for one more day and will switch to oral antibiotics tomorrow. -Supratherapeutic INR hold off on Coumadin patient probably can be switched to eliquis instead of Coumadin upon discharge, INR of 7.9 today and she did receive a dose of vitamin K. -Hypervolemic hyponatremia: Patient was started on IV Lasix which will be continued. Sodium did improve. -History of congestive heart failure exacerbation on February the patient is systolic dysfunction or diastolic dysfunction, no echocardiogram available. BNP is 719. -Chronic anemia and etiology is not known further evaluation as an outpatient -History of pulmonary embolism for which patient is on Coumadin as mentioned a ashley -Sleep apnea patient doesn't use any CPAP machine at home but she is supposed to use that echocardiogram will be obtained. -Hypertension -Type 2 diabetes mellitus patient will be resumed on home regimen along with sliding scale -peripheral neuropathy -Hyperlipidemia DVT prophylaxis: Patient was on Coumadin and subtherapeutic INR GI prophylaxis: Full Code Plan Stop IV fluids and continue with IV lasix. EMMANUEL wrap lower extremities. Continue IV antibiotics and transition to oral tomorrow. Echocardiogram ordered. Repeat labs in AM. Pending PT/OT evaluation patient would like to go home on discharge. The impression and plan of care has been dictated by Shelley Antunez, Nurse Practitioner as directed. Dr. Leonardo MD I have performed a history and physical examination and medical decision making of this patient, discussed the same with the dictator, and agree with the dictators assessment and plan as written, documented as a scribe. Based on total visit time, I have performed more than 50% of this visit. Objective - Vital Signs Vital signs: Vital Signs Temp 98.5 F 05/14/22 06:55 Pulse 77 05/14/22 06:55 Resp 18 05/14/22 06:55 BP 149/75 05/14/22 06:55 Pulse Ox 94 L 05/14/22 06:55 FiO2 Intake & Output 05/13/22 05/14/22 05/14/22 18:59 06:59 18:59 Intake Total 1200 Output Total 203 2100 Balance -203 -900 Weight 99.79 kg Intake: Intake, IV Titration 1200 Amount Sodium Chloride 0.9% 1, 1200 000 ml @ 100 mls/hr IV . Q10H [facility] Rx#:[id number] Output: Urine 2100 Post Void Residual 203 Other: Voiding Method External Catheter Diaper External Catheter # Voids 1 3 1 # Bowel Movements 1 1 1 - Labs CBC & Chem 7: 05/14/22 06:11 05/14/22 06:11 Labs: Abnormal Lab Results - Last 24 Hours (Table) 05/13/22 05/13/22 05/14/22 Range/Units 17:04 20:10 06:11 WBC 3.5 L (3.8-10.6) k/uL RBC 3.45 L (3.80-5.40) m/uL Hgb 8.4 L (11.4-16.0) gm/dL Hct 27.9 L (34.0-46.0) % MCH 24.4 L (25.0-35.0) pg MCHC 30.1 L (31.0-37.0) g/dL RDW 17.5 H (11.5-15.5) % Plt Count 123 L (150-450) k/uL Lymphocytes # 0.5 L (1.0-4.8) k/uL PT (9.0-12.0) sec INR (<1.2) Chloride (98-107) mmol/L BUN (7-17) mg/dL POC Glucose (mg/dL) 116 H 145 H (70-110) mg/dL Calcium (8.4-10.2) mg/dL 05/14/22 05/14/22 Range/Units 06:11 06:11 WBC (3.8-10.6) k/uL RBC (3.80-5.40) m/uL Hgb (11.4-16.0) gm/dL Hct (34.0-46.0) % MCH (25.0-35.0) pg MCHC (31.0-37.0) g/dL RDW (11.5-15.5) % Plt Count (150-450) k/uL Lymphocytes # (1.0-4.8) k/uL PT 79.5 H (9.0-12.0) sec INR 7.9 H* (<1.2) Chloride 112 H (98-107) mmol/L BUN 33 H (7-17) mg/dL POC Glucose (mg/dL) (70-110) mg/dL Calcium 7.1 L (8.4-10.2) mg/dL Microbiology - Last 24 Hours (Table) 05/12/22 22:20 Blood Culture - Preliminary Blood No Growth after 24 hours 05/12/22 22:10 Blood Culture - Preliminary Blood No Growth after 24 hours Assessment and Plan Time with Patient: Less than 30
[2022-05-14 17:04] LABS: Glucose,Whole Blood 105 mg/dL (70-110)
[2022-05-14 20:10] LABS: Glucose,Whole Blood 95 mg/dL (70-110)
[2022-05-14] MEDS: SERTRALINE 100 MG TAB PO SCH (21:09)
[2022-05-14] MEDS: ATORVASTATIN 20 MG TAB PO SCH (21:09)
[2022-05-14] MEDS: METOPROLOL SUCCINATE (ER) 50 MG TAB.ER.24H PO SCH (21:09)
[2022-05-14] MEDS: QUEtiapine 25 MG TAB PO SCH (21:09)
[2022-05-15] MEDS: oxyCODONE-APAP 7.5-325MG 1 EACH TAB PO PRN ×3 (04:07→21:19)
[2022-05-15 06:20] LABS: Anisocytosis Slight; HCT 28.6 % (34.0-46.0); HGB 8.3 gm/dL (11.4-16.0); Hypochromasia Moderate; INR 1.5 (<1.2); MCH 23.4 pg (25.0-35.0); MCV 80.9 fL (80.0-100.0); Mean Platelet Volume 8.9; Microcytosis Slight; Platelet Count 202 k/uL (150-450); Poikilocytosis Slight; Prothrombin Time 15.3 sec (9.0-12.0); RBC 3.54 m/uL (3.80-5.40); RDW 17.6 % (11.5-15.5); WBC 3.3 k/uL (3.8-10.6)
[2022-05-15 06:33] LABS: African American GFR (CKD) >90 (>60 ml/min/1.73 sqM); Anion Gap 6 mmol/L; Blood Urea Nitrogen 24 mg/dL (7-17); Calcium 7.5 mg/dL (8.4-10.2); Carbon Dioxide 23 mmol/L (22-30); Chloride 109 mmol/L (98-107); Glucose 112 mg/dL (74-99); Non-African American GFR(CKD) 81 (>60 ml/min/1.73 sqM); Potassium 3.7 mmol/L (3.5-5.1); Sodium 138 mmol/L (137-145)
[2022-05-15 07:08] LABS: Glucose,Whole Blood 112 mg/dL (70-110)
[2022-05-15] MEDS: FUROSEMIDE 10 MG/ML 4 ML VIAL IV SCH ×2 (08:23→21:51)
[2022-05-15] MEDS: INSULIN ASPART (NovoLOG) 100 UNIT/ML VIAL SQ SCH ×3 (08:23→18:54)
[2022-05-15] MEDS: GABAPENTIN 100 MG CAP PO SCH ×3 (08:23→21:20)
[2022-05-15] MEDS: INSULIN DETEMIR (LEVEMIR) 100 UNIT/ML SYR SQ SCH (08:23)
[2022-05-15 11:05] LABS: Glucose,Whole Blood 128 mg/dL (70-110)
--- NOTE | 2022-05-15 13:42 | P.DS ---
Providers Date of admission: 05/13/22 01:11 Expected date of discharge: 05/15/22 Attending physician: Nancy Nunez Primary care physician: Brayan Olivas Hospital Course: Final diagnosis -Cellulitis of right lower extremity -Ruled out a DVT of the right lower extremity -Supratherapeutic INR on admission, maintained on Coumadin -Hypervolemic hyponatremia, improved -History of congestive heart failure exacerbation on February the patient is systolic dysfunction or diastolic dysfunction, no echocardiogram available. BNP is 719. -Chronic anemia and etiology is not known further evaluation as an outpatient -History of pulmonary embolism for which patient is on Coumadin as mentioned above -Sleep apnea patient doesn't use any CPAP machine at home but she is supposed to use -Hypertension -Type 2 diabetes mellitus, insulin-dependent -peripheral neuropathy -Hyperlipidemia -DVT prophylaxis: Patient on Coumadin and subtherapeutic INR -GI prophylaxis -Full Code Discharge disposition Patient is being discharged in a stable condition with guarded prognosis to [facility] . Patient will follow-up with Dr. Olivas in the outpatient setting upon discharge. Patient is to continue with oral Keflex 3 times a day for the next 4 days to complete the course. Recommend close monitoring of PT/INR and recheck in the next 3-4 days. Total time taken is greater than 35 minutes. Hospital course This is a 67-year-old female who was recently admitted with altered mental status with increased redness of the right lower extremity found to have some cellulitis and started on antibiotics initially vancomycin although discontinued. Patient was transitioned over to cefazolin with clinical improvement and will continue on oral Keflex 3 times daily for the next 4 days to complete the course. Patient also receiving IV Lasix and normally takes 40 mg daily in the outpatient setting and will continue with 40 mg twice daily and recommended follow-up labs of CBC and BMP along with PT/INR in the next 3-4 days. Patient was supratherapeutic with an INR above 7 and was given a dose of vitamin K and brought it down to 1.5 today and will give a dose of warfarin 5 mg and recommend continue with 5 mg daily and monitor the INR in the next 3-4 days. Recommend possibly transitioning to oral eliquis if medication is covered by insurance. Patient is having some improvement of the lower extremities although continues with bilateral lower edema Doppler was negative for DVT. Patient would benefit from continuing to use German wraps from the toes up to the knees and elevated while at rest. Patient is a known diabetic and recommend continue monitoring Accu-Cheks before meals and at bedtime and also continue with consistent carb heart healthy diet. Patient did have a 2-D echo done which is pending for final read may follow-up with cardiology outpatient. Currently no reports of chest pain, shortness of breath, or palpitations. Patient is afebrile. No reports of nausea or vomiting and patient is tolerating diet. [facility] Guarded prognosis Physical exam: Gen: This is a 67-year-old female who is awake, alert and oriented 3, well- developed, well-nourished, obese HEENT: Head is atraumatic, normocephalic. Pupils equal, round. Sclerae is anicteric. NECK: Supple. No JVD. No lymphadenopathy. No thyromegaly. LUNGS: Clear to auscultation. No wheezes or rhonchi. No intercostal re tractions. HEART: Regular rate and rhythm. No murmur. ABDOMEN: Soft. Obese Bowel sounds are present. No masses. No tenderness. EXTREMITIES: Extensive bilateral lower pedal edema and lower extremity with some improvement. No calf tenderness. NEUROLOGICAL: Patient is awake, alert and oriented x3. Cranial nerves 2 through 12 are grossly intact. Diffusely weak Please refer to medication reconciliation sheet for a list of medications. The impression and plan of care has been dictated by Savannah Pereira, Nurse Practitioner as directed. Dr. Leonardo MD I have performed a history and examination and MDM of this patient, discussed the same with the dictator, and agree with the dictator's assessment and plan as written ,documented as a scribe. Based on total visit time, I have performed more than 50% of the visit. Patient Condition at Discharge: Stable Plan - Discharge Summary Discharge Rx Participant: Yes New Discharge Prescriptions: New Warfarin [Coumadin] 5 mg PO 1400 tab Cephalexin [Keflex] 500 mg PO Q8HR 4 Days #12 cap Gabapentin [Neurontin] 100 mg PO TID #9 cap Continue Sertraline HCl [Zoloft] 200 mg PO HS Atorvastatin [Lipitor] 20 mg PO HS Potassium Chloride ER [K-Dur 10] 10 meq PO DAILY Metoprolol Succinate (ER) [Toprol XL] 50 mg PO HS lisinopriL [Zestril] 10 mg PO HS Dapsone 50 mg PO DAILY Famotidine [Pepcid] 20 mg PO HS tab Insulin Glargine,Hum.rec.anlog [Lantus Solostar Pen] 12 units SQ DAILY@0700 Insulin Lispro [humaLOG Kwikpen] 5 unit SQ TID@0700,1200,1700 QUEtiapine [SEROquel] 25 mg PO HS Folic Acid 1 mg PO HS Dapagliflozin Propanediol [Farxiga] 5 mg PO DAILY 30 Days #30 tablet Changed oxyCODONE-APAP 7.5-325MG [Percocet 7.5-325 mg] 1 tab PO Q4HR PRN #6 tab PRN Reason: Pain Furosemide [Lasix] 40 mg PO BID #0 Discontinued Warfarin Sodium [Coumadin] 6 mg PO DIRECTED NIFEdipine [Adalat CC] 30 mg PO HS Gabapentin 300 mg PO TID@0600,1400,2200 Discharge Medication List Atorvastatin [Lipitor] 20 mg PO HS 11/19/17 [History] Sertraline HCl [Zoloft] 200 mg PO HS 11/19/17 [History] Dapsone 50 mg PO DAILY 04/25/22 [History] Folic Acid 1 mg PO HS 04/25/22 [History] Metoprolol Succinate (ER) [Toprol XL] 50 mg PO HS 04/25/22 [History] Potassium Chloride ER [K-Dur 10] 10 meq PO DAILY 04/25/22 [History] lisinopriL [Zestril] 10 mg PO HS 04/25/22 [History] Dapagliflozin Propanediol [Farxiga] 5 mg PO DAILY 30 Days #30 tablet 04/28/22 [Rx] Famotidine [Pepcid] 20 mg PO HS tab 05/05/22 [Rx] Insulin Glargine,Hum.rec.anlog [Lantus Solostar Pen] 12 units SQ DAILY@0700 05/13/22 [History] Insulin Lispro [humaLOG Kwikpen] 5 unit SQ TID@0700,1200,1700 05/13/22 [History] QUEtiapine [SEROquel] 25 mg PO HS 05/13/22 [History] Cephalexin [Keflex] 500 mg PO Q8HR 4 Days #12 cap 05/15/22 [Rx] Furosemide [Lasix] 40 mg PO BID #0 05/15/22 [Rx] Gabapentin [Neurontin] 100 mg PO TID #9 cap 05/15/22 [Rx] Warfarin [Coumadin] 5 mg PO 1400 tab 05/15/22 [Rx] oxyCODONE-APAP 7.5-325MG [Percocet 7.5-325 mg] 1 tab PO Q4HR PRN #6 tab 05/15/22 [Rx] Follow up Appointment(s)/Referral(s): Brayan Olivas MD [Primary Care Provider] - 1 Week [facility] [NON-STAFF] - 1 Week Ambulatory/Diagnostic Orders: Complete Blood Count w/diff [LAB.AMB] Time Frame: 4 Days, Location: None Selected Activity/Diet/Wound Care/Special Instructions: Patient is returning to [facility] as tolerated Continue taking medications as prescribed Recommend Lasix 40 mg twice daily and repeat labs in the next 4 days to monitor kidney functions and electrolytes recommend repeat CBC, BMP, PT/INR in the next 3-4 days Recommend continue with German wraps to lower extremities Recommend close monitoring of PT/INR for Coumadin therapy as patient was supratherapeutic on admission Discharge Disposition: TRANSFER TO SNF/ECF
[2022-05-15] MEDS ORDERED: WARFARIN 5 MG TAB PO SCH (14:00)
--- NOTE | 2022-05-15 15:06 | CA ---
Transthoracic Echo Report Name: Flores Westbrook Age: 67 Gender: F : 1955 Exam Date: 05/15/2022 08:27 Exam Location: [facility] Ht (in): 62 Wt (lb): 220 Ordering Physician: Shelley Antunez Attending/Referring Phys: Tulio COWART Student Dean Lauri Graham RDCS Procedure CPT: Indications: chf Cardiac Hx: Technical Quality: Fair Contrast 1: Total Dose (mL): Contrast 2: Total Dose (mL): MEASUREMENTS (Male / Female) Normal Values 2D ECHO LV Diastolic Diameter PLAX 4.9 cm 4.2 - 5.9 / 3.9 - 5.3 cm LV Systolic Diameter PLAX 2.6 cm IVS Diastolic Thickness 1.2 cm 0.6 - 1.0 / 0.6 - 0.9 cm LVPW Diastolic Thickness 1.2 cm 0.6 - 1.0 / 0.6 - 0.9 cm LV Relative Wall Thickness 0.5 RV Internal Dim ED PLAX 3.1 cm LA Systolic Diameter LX 4.9 cm 3.0 - 4.0 / 2.7 - 3.8 cm LV Diastolic Volume MOD 4C 53.3 cm??? LV Systolic Volume MOD 4C 11.3 cm??? LV Ejection Fraction MOD 4C 78.8 % LV Diastolic Length 4C 5.8 cm LV Systolic Length 4C 5.0 cm M-MODE Aortic Root Diameter MM 2.9 cm LA Systolic Diameter MM 4.4 cm LA Ao Ratio MM 1.5 AV Cusp Separation MM 1.7 cm DOPPLER AV Peak Velocity 188.4 cm/s AV Peak Gradient 14.2 mmHg LVOT Peak Velocity 131.4 cm/s LVOT Peak Gradient 6.9 mmHg MV Area PHT 3.5 cm??? MR Peak Velocity 514.1 cm/s MR Peak Gradient 105.7 mmHg Mitral E Point Velocity 98.7 cm/s Mitral A Point Velocity 114.9 cm/s Mitral E to A Ratio 0.9 MV Deceleration Time 214.8 ms TR Peak Velocity 138.7 cm/s TR Peak Gradient 7.7 mmHg PV Peak Velocity 102.3 cm/s PV Peak Gradient 4.2 mmHg FINDINGS Left Ventricle Mildly increased septal wall thickness. Mildly increased posterior wall thickness. Mild concentric left ventricular hypertrophy. Left ventricular ejection fraction is estimated at 50-55 %. Right Ventricle Mild right ventricular dilatation. Right ventricular systolic pressure within normal limits. Right Atrium Normal right atrial size. Left Atrium Severely increased left atrial diameter. Mildly increased left atrial area. Mitral Valve Mitral valve thickened. Hfdf-[id number] mitral regurgitation. Aortic Valve Trileaflet aortic valve. Thickened aortic valve without stenosis. No aortic regurgitation. Tricuspid Valve Structurally normal tricuspid valve. Mild tricuspid regurgitation. Pulmonic Valve Structurally normal pulmonic valve. Pericardium No pericardial or pleural effusion. Aorta Normal size aortic root and proximal ascending aorta. CONCLUSIONS Mild LVH Left ventricular ejection fraction 55% Previewed by: Dr. Sebastian Santiago MD (Electronically Signed) Final Date: 15 May 2022 15:05
[2022-05-15 17:16] LABS: Glucose,Whole Blood 101 mg/dL (70-110)
[2022-05-15 20:38] LABS: Glucose,Whole Blood 139 mg/dL (70-110)
[2022-05-15] MEDS: SERTRALINE 100 MG TAB PO SCH (21:20)
[2022-05-15] MEDS: QUEtiapine 25 MG TAB PO SCH (21:20)
[2022-05-15] MEDS: METOPROLOL SUCCINATE (ER) 50 MG TAB.ER.24H PO SCH (21:20)
[2022-05-15] MEDS: ATORVASTATIN 20 MG TAB PO SCH (21:20)
[2022-05-16 05:13] LABS: INR 1.3 (<1.2); Prothrombin Time 13.3 sec (9.0-12.0)
[2022-05-16] MEDS ORDERED: MORPHINE SULFATE 2 MG/ML SYRINGE IVP STA (06:46)
[2022-05-16] MEDS ORDERED: NITROGLYCERIN SL TABS 0.4 MG TAB SUBLINGUAL STA (06:46)
[2022-05-16 07:24] LABS: Glucose,Whole Blood 134 mg/dL (70-110)
[2022-05-16] MEDS: INSULIN ASPART (NovoLOG) 100 UNIT/ML VIAL SQ SCH (07:53)
[2022-05-16] MEDS: INSULIN DETEMIR (LEVEMIR) 100 UNIT/ML SYR SQ SCH (07:54)
[2022-05-16] MEDS: GABAPENTIN 100 MG CAP PO SCH (08:38)
[2022-05-16] MEDS: FUROSEMIDE 10 MG/ML 4 ML VIAL IV SCH (08:38)
[2022-05-16 08:47] VITALS: BP 152/75; PULSE 85; RESP 20; TEMP 99.8
[2022-05-16] MEDS ORDERED: lisinopriL 10 MG TAB PO SCH (09:00)
[2022-05-16] MEDS: oxyCODONE-APAP 7.5-325MG 1 EACH TAB PO PRN (09:47)
[2022-05-16] MEDS ORDERED: WARFARIN 7.5 MG TAB PO STA (09:55)
[2022-05-16] MEDS ORDERED: WARFARIN 7.5 MG TAB PO ONE (18:00)
== END 2022-05-16 11:01 | DRG 603 ==
LOC: EC 21:12 → 4SSUR 05-13 01:11 → 5NMEDONC 05-13 13:47
PROVIDERS: ADMIT Hospitalist; ATTEND Hospitalist
DX: L03.115 Cellulitis of right lower limb (principal); D68.9 Coagulation defect, unspecified; E87.4 Mixed disorder of acid-base balance; E87.1 Hypo-osmolality and hyponatremia; I50.32 Chronic diastolic (congestive) heart failure; R50.9 Fever, unspecified; H54.7 Unspecified visual loss; Z86.73 Personal history of transient ischemic attack (TIA), and cerebral infarction without residual deficits; I11.0 Hypertensive heart disease with heart failure; D69.6 Thrombocytopenia, unspecified; Z20.822 Contact with and (suspected) exposure to COVID-19; E66.9 Obesity, unspecified; Z68.36 Body mass index [BMI] 36.0-36.9, adult; D64.9 Anemia, unspecified; G47.30 Sleep apnea, unspecified; L30.9 Dermatitis, unspecified; Z79.01 Long term (current) use of anticoagulants; E11.42 Type 2 diabetes mellitus with diabetic polyneuropathy; I08.1 Rheumatic disorders of both mitral and tricuspid valves; E78.5 Hyperlipidemia, unspecified; F32.A Depression, unspecified; F41.9 Anxiety disorder, unspecified; E87.70 Fluid overload, unspecified; Z79.84 Long term (current) use of oral hypoglycemic drugs; Z79.899 Other long term (current) drug therapy; Z86.711 Personal history of pulmonary embolism; Z87.891 Personal history of nicotine dependence; Z96.653 Presence of artificial knee joint, bilateral; Z87.19 Personal history of other diseases of the digestive system; Z91.048 Other nonmedicinal substance allergy status; Z88.1 Allergy status to other antibiotic agents; Z88.6 Allergy status to analgesic agent; Z88.5 Allergy status to narcotic agent; Z90.49 Acquired absence of other specified parts of digestive tract; Z79.4 Long term (current) use of insulin
CPT/HCPCS: 36415; 70450; 71045; 80048; 80053; 80143; 80179; 80306; 80320; 81003; 82140; 82272; 83880; 84484; 85025; 85027; 85610; 85730; 86850; 86900; 86901; 87040; 87636; 93005; 93306; 93970; 94760; 96361; 96365; 96366; 99285

== ENCOUNTER 2022-05-18 09:56 | Inpatient (IN) | payer MEDICARE ==
[2022-05-18] MEDS ORDERED: NITROGLYCERIN OINT 1 INCH/GM PACKET TOPICAL STA (10:38)
[2022-05-18] MEDS ORDERED: ASPIRIN 81 MG PO STA (10:38)
--- NOTE | 2022-05-18 10:42 | ED ---
General Adult HPI - General Chief complaint: Recheck/Abnormal Lab/Rx Stated complaint: hypertension Time Seen by Provider: 05/18/22 10:11 Source: patient, EMS, RN notes reviewed Mode of arrival: EMS Limitations: no limitations - History of Present Illness Initial comments: Patient is a pleasant 67-year-old female presenting to the emergency department from alf with concerns for blood pressure. Blood pressure poorly was as high as 200/100. Patient states she has been feeling fine however does admit she's been having some chest discomfort. Discomfort is difficult to describe. Patient states this has been occurring for the past 3 days. Patient states no discomfort at this time. Patient is a poor historian. - Related Data Home Medications Medication Instructions Recorded Confirmed Atorvastatin [Lipitor] 20 mg PO HS 11/19/17 05/13/22 Sertraline HCl [Zoloft] 200 mg PO HS 11/19/17 05/13/22 Dapsone 50 mg PO DAILY 04/25/22 05/13/22 Folic Acid 1 mg PO HS 04/25/22 05/13/22 Metoprolol Succinate (ER) [Toprol 50 mg PO HS 04/25/22 05/13/22 XL] Potassium Chloride ER [K-Dur 10] 10 meq PO DAILY 04/25/22 05/13/22 lisinopriL [Zestril] 10 mg PO HS 04/25/22 05/13/22 Insulin Glargine,Hum.rec.anlog 12 units SQ DAILY@0700 05/13/22 05/13/22 [Lantus Solostar Pen] Insulin Lispro [humaLOG Kwikpen] 5 unit SQ TID@0700,1200,1700 05/13/22 05/13/22 QUEtiapine [SEROquel] 25 mg PO HS 05/13/22 05/13/22 Previous Rx's Medication Instructions Recorded Dapagliflozin Propanediol [Farxiga] 5 mg PO DAILY 30 Days #30 tablet 04/28/22 Famotidine [Pepcid] 20 mg PO HS tab 05/05/22 Cephalexin [Keflex] 500 mg PO Q8HR 4 Days #12 cap 05/15/22 Furosemide [Lasix] 40 mg PO BID #0 05/15/22 Gabapentin [Neurontin] 100 mg PO TID #9 cap 05/15/22 Warfarin [Coumadin] 5 mg PO 1400 tab 05/15/22 oxyCODONE-APAP 7.5-325MG [Percocet 1 tab PO Q4HR PRN #6 tab 05/15/22 7.5-325 mg] Pantoprazole Sodium [Protonix] 40 mg PO BID 30 Days #60 tab 05/16/22 Allergies Allergy/AdvReac Type Severity Reaction Status Date / Time povidone-iodine Allergy Rash/Hives Verified 05/18/22 10:10 [From Betadine] soap [From Betadine] Allergy Rash/Hives Verified 05/18/22 10:10 acetaminophen [From [place]] AdvReac Itching Verified 05/18/22 10:10 hydrocodone [From [place]] AdvReac Itching Verified 05/18/22 10:10 Tetracyclines AdvReac Nausea & Verified 05/18/22 10:10 Vomiting Review of Systems ROS Statement: Those systems with pertinent positive or pertinent negative responses have been documented in the HPI. ROS Other: All systems not noted in ROS Statement are negative. Constitutional: Denies: fever Eyes: Denies: eye pain ENT: Denies: ear pain Respiratory: Denies: dyspnea Cardiovascular: Reports: as per HPI, chest pain Endocrine: Denies: fatigue Gastrointestinal: Denies: abdominal pain Genitourinary: Denies: dysuria Musculoskeletal: Denies: back pain Skin: Denies: rash Neurological: Denies: weakness Past Medical History Past Medical History: Blood Disorder, Diabetes Mellitus, Eye Disorder, Hearing Disorder / Deafness, Hypertension, Neurologic Disorder, Osteoarthritis (OA), Pulmonary Embolus (PE), Skin Disorder, Sleep Apnea/CPAP/BIPAP Additional Past Medical History / Comment(s): 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 antiphosphopholipid antibody-autoimmune clotting disorder. 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 tinnitus, eczema. thyroid [id number]. thrombocytopenia. History of Any Multi-Drug Resistant Organisms: None Reported Past Surgical History: Cholecystectomy, Hernia Repair, Joint Replacement, Orthopedic Surgery Additional Past Surgical History / Comment(s): cervical decompression, ventral hernia repair, bilat knee replacement, Past Anesthesia/Blood Transfusion Reactions: Postoperative Nausea & Vomiting (PONV) Past Psychological History: Anxiety, Depression Smoking Status: Former smoker Past Alcohol Use History: Occasional Past Drug Use History: None Reported General Exam Limitations: no limitations General appearance: alert, in no apparent distress Head exam: Present: normocephalic Eye exam: Present: normal appearance, PERRL, EOMI Neck exam: Present: normal inspection Respiratory exam: Present: normal lung sounds bilaterally Cardiovascular Exam: Present: regular rate, normal rhythm Expanded Peripheral pulses: 2+: Radial (R), Radial (L), Dorsalis Pedis (R), Dorsalis Pedis (L) GI/Abdominal exam: Present: soft. Absent: tenderness Extremities exam: Present: pedal edema. Absent: calf tenderness Neurological exam: Present: alert. Absent: motor sensory deficit Psychiatric exam: Present: normal affect, normal mood Skin exam: Present: erythema (Bilateral lower legs with swelling and erythema, more anterior which patient states is chronic and unchanged with history of vasculitis) Course Vital Signs 05/18/22 05/18/22 10:07 11:20 Temperature 98.2 F 99.7 F H Pulse Rate 92 Respiratory 17 Rate Blood Pressure 148/75 O2 Sat by Pulse 98 Oximetry EKG Findings - EKG Results: EKG: interpreted by ERMD, sinus rhythm, normal axis, normal QRS, normal ST/T Medical Decision Making - Medical Decision Making Was pt. sent in by a medical professional or institution (, PA, HEALTHCARE INSURANCE SALES AGENT, urgent care, hospital, or alf...) When possible be specific @ -Patient sent from nursing facility Did you speak to anyone other than the patient for history (EMS, parent, family, police, friend...)? What history was obtained from this source @ -Additional history from chart from nursing facility Did you review nursing and triage notes (agree or disagree)? Why? @ -I reviewed and agree with nursing and triage notes Were old charts reviewed (outside hosp., previous admission, EMS record, old EKG, old radiological studies, urgent care reports/EKG's, alf records)? Report findings @ -Review chart from nursing facility Differential Diagnosis (chest pain, altered mental status, abdominal pain women, abdominal pain men, vaginal bleeding, weakness, fever, dyspnea, syncope, headache, dizziness, GI bleed, back pain, seizure, CVA, palpatations, mental health)? @ -Differential Chest Pain: Stable Angina, Unstable Angina, STEMI, NSTEMI Aortic Dissection, Pneumothorax, Musculoskeletal, Esophageal Spasm GERD, Cholecystitis, Pancreatitis, Zoster, this is not meant to be an all-inclusive list. EKG interpreted by me (3pts min.). @ -As above X-rays interpreted by me (1pt min.). @ -Chest x-ray shows no acute process CT interpreted by me (1pt min.). @ -Report reviewed U/S interpreted by me (1pt. min.). @ -None done What testing was considered but not performed or refused? (CT, X-rays, U/S, labs)? Why? @ -Patient has 99.7 temperature with concern for possible sailors of the legs therefore blood cultures will be added What meds were considered but not given or refused? Why? @ -Antibiotic's will be added Did you discuss the management of the patient with other professionals (professionals i.e. , PA, HEALTHCARE INSURANCE SALES AGENT, lab, RT, psych nurse, social media executive, broach setter, teacher, chief information security officer, leather case finisher)? Give summary @ -Case discussed with Dr. Aragon, who will admit covering Dr. Olivas Was smoking cessation discussed for >3mins.? @ -No Was critical care preformed (if so, how long)? @ -No Were there social determinants of health that impacted care today? How? (Homelessness, low income, unemployed, alcoholism, drug addiction, transporta tion, low edu. Level, literacy, decrease access to med. care, correction, rehab)? @ -Patient from nursing facility Was there de-escalation of care discussed even if they declined (Discuss DNR or withdrawal of care, Hospice)? DNR status @ -No What co-morbidities impacted this encounter? (DM, HTN, Smoking, COPD, CAD, Cancer, CVA, ARF, Chemo, Hep., AIDS, mental health diagnosis, sleep apnea, morbid obesity)? @ -Multiple chronic diseases Was patient admitted / discharged? Hospital course, mention meds given and route, prescriptions, significant lab abnormalities, going to OR and other pert inent info. @ -Patient reevaluated and resting comfortably in bed. There was discussion for possible transfer from family nursing staff however patient does not want to pay probable bill from EMS transfer. Patient is updated on results and plan. Admission orders written. Undiagnosed new problem with uncertain prognosis? @ -No Drug Therapy requiring intensive monitoring for toxicity (Heparin, Nitro, Insulin, Cardizem)? @ -No Were any procedures done? @ -No Diagnosis/symptom? @ -Chest pain, cellulitis Acute, or Chronic, or Acute on Chronic? @ -Acute, acute Uncomplicated (without systemic symptoms) or Complicated (systemic symptoms)? @ -Uncomplicated Side effects of treatment? @ -No Exacerbation, Progression, or Severe Exacerbation? @ -No Poses a threat to life or bodily function? How? (Chest pain, [place], [place], pneumonia, PE, COPD, DKA, ARF, appy, cholecystitis, CVA, Diverticulitis, Homicidal, Suicidal, threat to staff... and all critical care pts) @ -Potential threat if chest pain turns out to be cardiac origin. Also potent ial threat for advanced cellulitis cause sepsis - Lab Data Result diagrams: 05/18/22 11:01 05/18/22 11:01 Lab Results 05/18/22 05/18/22 05/18/22 Range/Units 11:01 11:01 11:01 WBC 7.5 (3.8-10.6) k/uL RBC 3.54 L (3.80-5.40) m/uL Hgb 8.9 L (11.4-16.0) gm/dL Hct 27.6 L (34.0-46.0) % MCV 77.9 L (80.0-100.0) fL MCH 25.1 (25.0-35.0) pg MCHC 32.2 (31.0-37.0) g/dL RDW 17.9 H (11.5-15.5) % Plt Count 139 L (150-450) k/uL MPV 8.5 Neutrophils % 87 % Lymphocytes % 7 % Monocytes % 3 % Eosinophils % 1 % Basophils % 0 % Neutrophils # 6.5 (1.3-7.7) k/uL Lymphocytes # 0.5 L (1.0-4.8) k/uL Monocytes # 0.3 (0-1.0) k/uL Eosinophils # 0.1 (0-0.7) k/uL Basophils # 0.0 (0-0.2) k/uL Hypochromasia Slight Anisocytosis Slight Microcytosis Slight PT 18.5 H (9.0-12.0) sec INR 1.9 H (<1.2) APTT 32.7 H (22.0-30.0) sec D-Dimer 3.95 H (<0.60) mg/L FEU Sodium 136 L (137-145) mmol/L Potassium 3.8 (3.5-5.1) mmol/L Chloride 105 (98-107) mmol/L Carbon Dioxide 27 (22-30) mmol/L Anion Gap 4 mmol/L BUN 20 H (7-17) mg/dL Creatinine 0.82 (0.52-1.04) mg/dL Est GFR (CKD-EPI)AfAm 86 (>60 ml/min/1.73 sqM) Est GFR (CKD-EPI)NonAf 75 (>60 ml/min/1.73 sqM) Glucose 166 H (74-99) mg/dL Calcium 8.0 L (8.4-10.2) mg/dL Magnesium 1.6 (1.6-2.3) mg/dL Total Bilirubin 1.2 (0.2-1.3) mg/dL AST 42 H (14-36) U/L ALT 16 (4-34) U/L Alkaline Phosphatase 226 H (38-126) U/L Troponin I (0.000-0.034) ng/mL Total Protein 5.5 L (6.3-8.2) g/dL Albumin 2.5 L (3.5-5.0) g/dL Influenza Type A (PCR) (Not Detectd) Influenza Type B (PCR) (Not Detectd) RSV (PCR) (Not Detectd) SARS-CoV-2 (PCR) (Not Detectd) 05/18/22 05/18/22 Range/Units 11:01 11:34 WBC (3.8-10.6) k/uL RBC (3.80-5.40) m/uL Hgb (11.4-16.0) gm/dL Hct (34.0-46.0) % MCV (80.0-100.0) fL MCH (25.0-35.0) pg MCHC (31.0-37.0) g/dL RDW (11.5-15.5) % Plt Count (150-450) k/uL MPV Neutrophils % % Lymphocytes % % Monocytes % % Eosinophils % % Basophils % % Neutrophils # (1.3-7.7) k/uL Lymphocytes # (1.0-4.8) k/uL Monocytes # (0-1.0) k/uL Eosinophils # (0-0.7) k/uL Basophils # (0-0.2) k/uL Hypochromasia Anisocytosis Microcytosis PT (9.0-12.0) sec INR (<1.2) APTT (22.0-30.0) sec D-Dimer (<0.60) mg/L FEU Sodium (137-145) mmol/L Potassium (3.5-5.1) mmol/L Chloride (98-107) mmol/L Carbon Dioxide (22-30) mmol/L Anion Gap mmol/L BUN (7-17) mg/dL Creatinine (0.52-1.04) mg/dL Est GFR (CKD-EPI)AfAm (>60 ml/min/1.73 sqM) Est GFR (CKD-EPI)NonAf (>60 ml/min/1.73 sqM) Glucose (74-99) mg/dL Calcium (8.4-10.2) mg/dL Magnesium (1.6-2.3) mg/dL Total Bilirubin (0.2-1.3) mg/dL AST (14-36) U/L ALT (4-34) U/L Alkaline Phosphatase (38-126) U/L Troponin I 0.048 H* (0.000-0.034) ng/mL Total Protein (6.3-8.2) g/dL Albumin (3.5-5.0) g/dL Influenza Type A (PCR) Not Detected (Not Detectd) Influenza Type B (PCR) Not Detected (Not Detectd) RSV (PCR) Not Detected (Not Detectd) SARS-CoV-2 (PCR) Not Detected (Not Detectd) Disposition Clinical Impression: Chest pain, Cellulitis Disposition: ADMITTED IP TO THIS HOSP Is patient prescribed a controlled substance at d/c from ED?: No Referrals: Brayan Olivas MD [Primary Care Provider] - 1-2 days Time of Disposition: 13:31
[2022-05-18 11:16] LABS: Anisocytosis Slight; Basophils % (A) 0 %; Eosinophils # (A) 0.1 k/uL (0-0.7); Eosinophils % (A) 1 %; HCT 27.6 % (34.0-46.0); HGB 8.9 gm/dL (11.4-16.0); Hypochromasia Slight; Lymphocytes # (A) 0.5 k/uL (1.0-4.8); Lymphocytes % (A) 7 %; MCH 25.1 pg (25.0-35.0); MCHC 32.2 g/dL (31.0-37.0); MCV 77.9 fL (80.0-100.0); Mean Platelet Volume 8.5; Microcytosis Slight; Monocytes # (A) 0.3 k/uL (0-1.0); Monocytes % (A) 3 %; Neutrophils # (A) 6.5 k/uL (1.3-7.7); Neutrophils % (A) 87 %; Platelet Count 139 k/uL (150-450); RBC 3.54 m/uL (3.80-5.40); RDW 17.9 % (11.5-15.5); WBC 7.5 k/uL (3.8-10.6)
[2022-05-18 11:31] LABS: INR 1.9 (<1.2); Partial Thromboplastin Time 32.7 sec (22.0-30.0); Prothrombin Time 18.5 sec (9.0-12.0)
--- NOTE | 2022-05-18 11:35 | XR ---
EXAMINATION TYPE: XR chest 2V DATE OF EXAM: 05/18/2022 COMPARISON: 05/12/2022 HISTORY: Altered mental status TECHNIQUE: Frontal and lateral views of the chest are obtained. FINDINGS: There is no focal air space opacity, pleural effusion, or pneumothorax seen. The cardiac silhouette size is within normal limits. There are postsurgical changes of fusion in the lower cervic al spine. IMPRESSION: No acute cardiopulmonary process.
[2022-05-18 11:44] LABS: Albumin 2.5 g/dL (3.5-5.0); Magnesium 1.6 mg/dL (1.6-2.3); Potassium 3.8 mmol/L (3.5-5.1); Total Bilirubin 1.2 mg/dL (0.2-1.3); Total Protein 5.5 g/dL (6.3-8.2)
[2022-05-18] MEDS ORDERED: FAMOTIDINE 20 MG/2 ML VIAL IV STA (12:11)
[2022-05-18] MEDS ORDERED: methylPREDNISolone SOD SUCCI 125 MG/2 ML VIAL IV STA (12:11)
[2022-05-18] MEDS ORDERED: diphenhydrAMINE 50 MG/ML 1 ML VIAL IVP STA (12:11)
--- NOTE | 2022-05-18 12:57 | CT ---
EXAMINATION TYPE: CT angio chest DATE OF EXAM: 05/18/2022 12:49 PM COMPARISON: None HISTORY: Chest pain, elevated d-dimer, hypertension. CT DLP: 852.5 mGycm Automated exposure control for dose reduction was used. CONTRAST: CTA scan of the thorax is performed with IV Contrast, patient injected with 85ml mL of Isovue 370, pu lmonary embolism protocol. 3-D postprocessing was performed. FINDINGS: LUNGS: The lungs are grossly clear, there is no concerning parenchymal mass or nodule identified. T here is no pleural effusion or pneumothorax seen. The tracheobronchial tree is patent. MEDIASTINUM: There is satisfactory enhancement of the pulmonary artery and its branches, there is no CT evidence for pulmonary embolism. There are no greater than 1 cm hilar or mediastinal lymph nodes. No pericardial effusion is seen. OTHER: No additional significant abnormality is seen. There is mild elevation of the right hemidiaphragm. IMPRESSION: 1. NO EVIDENCE OF PULMONARY EMBOLISM. 2. NO ACUTE CARDIOPULMONARY DISEASE
[2022-05-18] MEDS ORDERED: NITROGLYCERIN SL TABS 0.4 MG TAB SUBLINGUAL PRN (13:32)
[2022-05-18 15:50] LABS: Glucose,Whole Blood 174 mg/dL (70-110)
[2022-05-18 16:50] LABS: Glucose,Whole Blood 248 mg/dL (70-110)
[2022-05-18] MEDS ORDERED: WARFARIN 5 MG TAB PO SCH (17:00)
[2022-05-18] MEDS: INSULIN ASPART (NovoLOG) 100 UNIT/ML VIAL SQ SCH (17:05)
[2022-05-18 20:23] LABS: Glucose,Whole Blood 303 mg/dL (70-110)
[2022-05-18] MEDS: METOPROLOL SUCCINATE (ER) 50 MG TAB.ER.24H PO SCH (20:44)
[2022-05-18] MEDS: ATORVASTATIN 20 MG TAB PO SCH (20:44)
[2022-05-18] MEDS: GABAPENTIN 100 MG CAP PO SCH (20:44)
[2022-05-18] MEDS: QUEtiapine 25 MG TAB PO SCH (20:44)
[2022-05-18] MEDS: SERTRALINE 100 MG TAB PO SCH (20:44)
[2022-05-18] MEDS ORDERED: lisinopriL 10 MG TAB PO SCH (21:00)
--- NOTE | 2022-05-18 21:59 | P.HPIM ---
History of Present Illness H&P Date: 05/18/22 Chief Complaint: Elevated blood pressure Patient is a 67-year-old female with a known history of hypertension, hearing status post deafness, diabetes type 2 insulin-dependent, osteoarthritis, history of pulmonary embolism, antiphospholipid antibody positive currently on Coumadin, history of CVA with partial blindness, obstructive sleep apnea, anxiety/depression prior history of smoking and other multiple medical problems was sent from [facility] due to elevated blood pressure as high as 200/100 when checked by the nursing staff at the facility. Patient states that she was having chest discomfort while in the left retrosternal region. No radiation of the pain. No associated shortness of breath. States that she has been having for the past 3 days. Patient also states that she has been having bilateral leg pain otherwise no worsening swelling. Increased redness of the lower extremities. Patient does have chronic venous stasis with skin discoloration. Denies any fever or chills.No cough or sputum production. No nausea vomiting or abdominal pain or diarrhea. EKG showed sinus rhythm with low QRS voltage in precordial leads. Chest x-ray showed no acute cardiopulmonary process CTA chest showed no evidence of PE. No acute cardiopulmonary disease. Laboratory data showed WBC 7.4 hemoglobin 8.9 and platelets 139 INR 1.9 and D- dimer level is 3.95 Sodium 136 potassium 3.8 chloride 105 bicarb is 27 BUN 20 and creatinine 0.82 and blood sugar is 166 Alk phos 226, troponin 0.048, 0.052 and 0.041 Influenza AB, RSV and coronavirus PCR not detected. On admission blood pressure was 148/75 pulse 92 respirations 17 and pulse ox 98% on room air. Review of Systems Constitutional: Patient denies any fever or chills . no Generalized weakness. Abdomen: Patient denied any nausea or vomiting or abd. pain Cardiovascular: Patient denies any chest pain or short of breath no palpitations. Respiratory: patient denied any cough . no sputum production. No shortness of breath Neurologic: Patient denied any numbness or tingling headache. Musculoskeletal: Patient denies any complaints of joint swelling or deformity. Skin: Negative Psychiatric: Negative Endocrine: No heat or cold intolerance. No recent weight gain. Genitourinary: No dysuria or hematuria. 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 antiphosphopholipid antibody-autoimmune clotting disorder. 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 tinnitus, eczema. thyroid [id number]. thrombocytopenia. History of Any Multi-Drug Resistant Organisms: None Reported Past Surgical History: Cholecystectomy, Hernia Repair, Joint Replacement, Orthopedic Surgery Additional Past Surgical History / Comment(s): cervical decompression, ventral hernia repair, bilat knee replacement, Past Anesthesia/Blood Transfusion Reactions: Postoperative Nausea & Vomiting (PONV) Past Psychological History: Anxiety, Depression Smoking Status: Former smoker Past Alcohol Use History: Occasional Past Drug Use History: None Reported - Past Family History Mother Family Medical History: Hypertension Father Family Medical History: Diabetes Mellitus Medications and Allergies Home Medications Medication Instructions Recorded Confirmed Type Atorvastatin [Lipitor] 20 mg PO HS 11/19/17 05/18/22 History Sertraline HCl [Zoloft] 200 mg PO HS 11/19/17 05/18/22 History Dapsone 50 mg PO DAILY 04/25/22 05/18/22 History Folic Acid 1 mg PO DAILY 04/25/22 05/18/22 History Metoprolol Succinate (ER) [Toprol 50 mg PO HS 04/25/22 05/18/22 History XL] Potassium Chloride ER [K-Dur 10] 10 meq PO DAILY 04/25/22 05/18/22 History lisinopriL [Zestril] 10 mg PO HS 04/25/22 05/18/22 History Dapagliflozin Propanediol [Farxiga] 5 mg PO DAILY 30 Days #30 tablet 04/28/22 05/18/22 Rx Insulin Glargine,Hum.rec.anlog 12 units SQ DAILY@0700 05/13/22 05/18/22 History [Lantus Solostar Pen] Insulin Lispro [humaLOG Kwikpen] 5 unit SQ TID@0700,1200,1700 05/13/22 05/18/22 History QUEtiapine [SEROquel] 25 mg PO HS 05/13/22 05/18/22 History Cephalexin [Keflex] 500 mg PO Q8H 05/18/22 05/18/22 History Furosemide [Lasix] 40 mg PO BID@0600,1200 05/18/22 05/18/22 History Gabapentin [Neurontin] 100 mg PO TID@0600,1300,2100 05/18/22 05/18/22 History Warfarin [Coumadin] 5 mg PO DAILY@1700 05/18/22 05/18/22 History oxyCODONE-APAP 7.5-325MG [Percocet 1 tab PO Q4H PRN 05/18/22 05/18/22 History 7.5-325 mg] Allergies Allergy/AdvReac Type Severity Reaction Status Date / Time povidone-iodine Allergy Rash/Hives Verified 05/18/22 14:22 [From Betadine] soap [From Betadine] Allergy Rash/Hives Verified 05/18/22 14:22 acetaminophen [From [facility]] AdvReac Itching Verified 05/18/22 14:22 hydrocodone [From [facility]] AdvReac Itching Verified 05/18/22 14:22 Tetracyclines AdvReac Nausea & Verified 05/18/22 14:22 Vomiting Physical Exam Vitals: Vital Signs Temp Pulse Resp BP Pulse Ox 05/18/22 14:51 99 F 05/18/22 14:30 80 23 156/79 98 05/18/22 14:00 87 18 151/75 95 05/18/22 13:30 82 22 151/75 98 05/18/22 13:00 89 16 156/79 97 05/18/22 12:30 89 20 144/73 96 05/18/22 12:00 87 24 146/73 93 L 05/18/22 11:30 92 23 166/80 95 05/18/22 11:20 99.7 F H 05/18/22 10:07 98.2 F 92 17 148/75 98 Intake and Output 05/18/22 05/18/22 05/18/22 06:59 14:59 22:59 Other: Weight 99.79 kg PHYSICAL EXAMINATION: Patient is lying in the bed comfortably, no acute distress, awake alert and helga ented.. HEENT: Normocephalic. Neck is supple. Pupils reactive. Nostrils clear. Oral cavity is moist. Neck reveals no JVD, carotid bruits, or thyromegaly. CHEST EXAMINATION: Trachea is central. Symmetrical expansion. Bibasilar diminished sounds. No wheezing or rhonchi.. CARDIAC: Normal S1, S2 with no gallops. No murmurs ABDOMEN: Soft. Bowel sounds present. Nontender. No organomegaly. No abdominal bruits. Extremities: Bilateral lower extremity trace edema. No clubbing or cyanosis Neurologically awake, alert, oriented x3 with well-coordinated movements. No focal deficits noted Skin: No rash or skin lesions. Chronic bilateral Achilles skin discoloration and venous stasis changes. Psychiatric: Coperative. Nonsuicidal, Musculoskeletal: No joint swelling or deformity. Normal range of motion. Results CBC & Chem 7: 05/18/22 11:05/18/22 11:01 Labs: Abnormal Lab Results - Last 24 Hours (Table) 05/18/22 05/18/22 05/18/22 Range/Units 11:01 11:01 11:01 RBC 3.54 L (3.80-5.40) m/uL Hgb 8.9 L (11.4-16.0) gm/dL Hct 27.6 L (34.0-46.0) % MCV 77.9 L (80.0-100.0) fL RDW 17.9 H (11.5-15.5) % Plt Count 139 L (150-450) k/uL Lymphocytes # 0.5 L (1.0-4.8) k/uL PT 18.5 H (9.0-12.0) sec INR 1.9 H (<1.2) APTT 32.7 H (22.0-30.0) sec D-Dimer 3.95 H (<0.60) mg/L FEU Sodium 136 L (137-145) mmol/L BUN 20 H (7-17) mg/dL Glucose 166 H (74-99) mg/dL Calcium 8.0 L (8.4-10.2) mg/dL AST 42 H (14-36) U/L Alkaline Phosphatase 226 H (38-126) U/L Troponin I (0.000-0.034) ng/mL Total Protein 5.5 L (6.3-8.2) g/dL Albumin 2.5 L (3.5-5.0) g/dL 05/18/22 05/18/22 Range/Units 11:01 14:02 RBC (3.80-5.40) m/uL Hgb (11.4-16.0) gm/dL Hct (34.0-46.0) % MCV (80.0-100.0) fL RDW (11.5-15.5) % Plt Count (150-450) k/uL Lymphocytes # (1.0-4.8) k/uL PT (9.0-12.0) sec INR (<1.2) APTT (22.0-30.0) sec D-Dimer (<0.60) mg/L FEU Sodium (137-145) mmol/L BUN (7-17) mg/dL Glucose (74-99) mg/dL Calcium (8.4-10.2) mg/dL AST (14-36) U/L Alkaline Phosphatase (38-126) U/L Troponin I 0.048 H* 0.052 H* (0.000-0.034) ng/mL Total Protein (6.3-8.2) g/dL Albumin (3.5-5.0) g/dL Thrombosis Risk Factor Assmnt - DVT/VTE Prophylaxis DVT/VTE Prophylaxis: Pharmacologic Prophylaxis ordered Assessment and Plan Assessment: Hypertensive emergency with elevated troponin level Chest discomfort/pain secondary to above Bilateral lower extremity cellulitis with chronic venous stasis changes Microcytic anemia with hemoglobin 8.9 Antiphospholipid antibody currently on long-term anticoagulation with Coumadin History of PE Osteoarthritis Hearing disorder/deafness Obstructive sleep apnea History of occipital CVA with partial blindness Anxiety/depression Prior history of smoking GI and DVT prophylaxis Plan: Patient will be continued telemetry monitoring. Follow-up troponin level until it trends down. Continue with blood pressure medication including Lasix, lisinopril and metoprolol and titrate dose as needed. Cardiology consult for evaluation of chest pain. Continue with cefazolin IV and follow-up culture reports. Coumadin dosing as per pharmacy Continue with home medications and follow-up closely. Time with Patient: Greater than 30
[2022-05-19] MEDS: MAGNESIUM SULFATE-D5W PMX 1 GM in DEXTROSE/WATER 1 100ML.BAG IVPB SCH ×2 (00:16→01:41)
[2022-05-19] MEDS ORDERED: FUROSEMIDE 40 MG TAB PO SCH ×2 (06:00→09:00)
[2022-05-19 06:15] LABS: Glucose,Whole Blood 225 mg/dL (70-110)
[2022-05-19] MEDS: INSULIN DETEMIR (LEVEMIR) 100 UNIT/ML SYR SQ SCH (06:58)
[2022-05-19] MEDS: GABAPENTIN 100 MG CAP PO SCH ×3 (06:58→20:04)
[2022-05-19] MEDS: PANTOPRAZOLE 40 MG TABLET PO SCH (06:58)
[2022-05-19 08:47] LABS: INR 2.5 (<1.2); Prothrombin Time 24.1 sec (9.0-12.0)
[2022-05-19] MEDS ORDERED: ASPIRIN 325 MG TAB PO SCH (09:00)
[2022-05-19 09:15] LABS: Potassium 3.4 mmol/L (3.5-5.1)
[2022-05-19 09:16] LABS: ALT 16 U/L (4-34); AST 32 U/L (14-36); African American GFR (CKD) 86 (>60 ml/min/1.73 sqM); Albumin 2.3 g/dL (3.5-5.0); Alkaline Phosphatase 193 U/L (38-126); Anion Gap 5 mmol/L; Blood Urea Nitrogen 25 mg/dL (7-17); Calcium 7.8 mg/dL (8.4-10.2); Carbon Dioxide 27 mmol/L (22-30); Chloride 106 mmol/L (98-107); Glucose 169 mg/dL (74-99); Non-African American GFR(CKD) 75 (>60 ml/min/1.73 sqM); Sodium 138 mmol/L (137-145); Total Bilirubin 0.7 mg/dL (0.2-1.3); Total Protein 5.3 g/dL (6.3-8.2)
[2022-05-19] MEDS: hydroCHLOROthiazide 25 MG TAB PO SCH (09:30)
[2022-05-19] MEDS: POTASSIUM CHLORIDE ER 10 MEQ TAB.ER.PRT PO SCH (09:30)
[2022-05-19] MEDS: FOLIC ACID 1 MG TAB PO SCH (09:30)
[2022-05-19] MEDS: lisinopriL 10 MG TAB PO SCH ×2 (09:30→20:04)
[2022-05-19] MEDS ORDERED: Potassium Replacement Protocol 1 EACH MISC MISCELLANE PRN (10:14)
--- NOTE | 2022-05-19 10:26 | P.CRDCN ---
History of Present Illness Consult date: 05/19/22 History of present illness: HISTORY OF PRESENT ILLNESS: This is a 67-year-old female with a past medical history significant for diabetes, hypertension, hyperlipidemia, congestive heart failure, and PE on Coumadin. Patient does not follow with a print operator. She states she was evaluated at [place] a couple years ago by print operator and was told she had congestive heart failure. We have been asked to see the patient in consultation for chest pain. Patient examined at the bedside. Patient was recently admitted to the hospital and was discharged to [facility] for rehab. The patient's blood pressure was checked at [facility] and was found to be elevated with a systolic around 220. The patient states that it was checked by 3 different staff members and it was found to be elevated each time. She states her blood pressure usually runs in the 140s to 150s. She states she has been having some issues controlling her blood pressure over the past year. The patient reports some mild chest discomfort this morning. She states that she feels like she has to burp. She also reports some mild shortness of breath. The patient is also being treated for bilateral lower extremity cellulitis and is receiving IV antibiotics. Blood pressure this morning is ranging between 130 and 145. * EKG reveals sinus mechanism with no signs of acute ischemia * Chest xray negative for acute process * Chest CTA: CT negative for pulmonary embolism. No acute cardiopulmonary disease. * Laboratory data: WBC 7.5. Hemoglobin 8.9. Platelet count 139. INR 2.5. D- dimer 3.95. Sodium 138. Potassium 3.4. BUN 25. Troponin 0.048. 0.052. 0.041. * Current home cardiac medications include Lipitor 20 mg at night, Lasix 40 mg twice a day, metoprolol succinate 50 mg at night, lisinopril 10 mg at night, and warfarin 5 mg daily * Most recent echocardiogram obtained in April 2022 revealed ejection fraction 50-55% REVIEW OF SYSTEMS: At the time of my exam: CONSTITUTIONAL: Denies fever or chills. HEENT: Denies blurred vision, vision changes, or eye pain. Denies hemoptysis CARDIOVASCULAR: Denies chest pain. Denies orthopnea. Denies PND. Denies palpitations RESPIRATORY: Denies shortness of breath. GASTROINTESTINAL: Denies abdominal pain. Denies nausea or vomiting. HEMATOLOGIC: Denies bleeding disorders. GENITOURINARY: Denies any blood in urine. SKIN: Denies pruitis. Denies rash. PHYSICAL EXAM: VITAL SIGNS: Reviewed. GENERAL: Well-developed in no acute distress. HEENT: Head is normocephalic. Pupils are equal, round. Sclerae anicteric. Mucous membranes of the mouth are moist. Neck supple. No JVD or thyromegaly LUNGS: Respirations even and unlabored. Lungs diminished to auscultation bilaterally. HEART: Regular rate and rhythm. S1 and S2 heard. ABDOMEN: Soft. Nondistended. Nontender. EXTREMITIES: Normal range of motion. No clubbing or cyanosis. Peripheral pulses intact. Mild bilateral lower extremity edema with chronic skin discoloration and also mild erythema NEUROLOGIC: Awake and alert. Oriented x 3. ASSESSMENT: Hypertensive urgency, improving Abnormal troponins, flat, not suggestive of acute coronary syndrome Bilateral lower extremity cellulitis, on antibiotics Hypertension Hyperlipidemia Diabetes Chronic congestive heart failure with preserved ejection fraction, currently euvolemic History of PE on Coumadin PLAN: No need to repeat echogram as this was performed recently Change Lasix to 40 mg daily Increase lisinopril to 10 mg twice a day Add hydrochlorothiazide 25 mg daily Continue to monitor blood pressure Recommend outpatient stress testing Further recommendations pending patient's course Nurse practitioner note has been reviewed by physician. Signing provider agrees with the documented findings, assessment, and plan of care. 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 antiphosphopholipid antibody-autoimmune clotting disorder. 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 tinnitus, eczema. thyroid [id number]. thrombocytopenia. History of Any Multi-Drug Resistant Organisms: None Reported Past Surgical History: Cholecystectomy, Hernia Repair, Joint Replacement, Orthopedic Surgery Additional Past Surgical History / Comment(s): cervical decompression, ventral hernia repair, bilat knee replacement, Past Anesthesia/Blood Transfusion Reactions: Postoperative Nausea & Vomiting (PONV) Past Psychological History: Anxiety, Depression Smoking Status: Former smoker Past Alcohol Use History: Occasional Past Drug Use History: None Reported - Past Family History Mother Family Medical History: Hypertension Father Family Medical History: Diabetes Mellitus Medications and Allergies Home Medications Medication Instructions Recorded Confirmed Type Atorvastatin [Lipitor] 20 mg PO HS 11/19/17 05/18/22 History Sertraline HCl [Zoloft] 200 mg PO HS 11/19/17 05/18/22 History Dapsone 50 mg PO DAILY 04/25/22 05/18/22 History Folic Acid 1 mg PO DAILY 04/25/22 05/18/22 History Metoprolol Succinate (ER) [Toprol 50 mg PO HS 04/25/22 05/18/22 History XL] Potassium Chloride ER [K-Dur 10] 10 meq PO DAILY 04/25/22 05/18/22 History lisinopriL [Zestril] 10 mg PO HS 04/25/22 05/18/22 History Dapagliflozin Propanediol [Farxiga] 5 mg PO DAILY 30 Days #30 tablet 04/28/22 05/18/22 Rx Insulin Glargine,Hum.rec.anlog 12 units SQ DAILY@0700 05/13/22 05/18/22 History [Lantus Solostar Pen] Insulin Lispro [humaLOG Kwikpen] 5 unit SQ TID@0700,1200,1700 05/13/22 05/18/22 History QUEtiapine [SEROquel] 25 mg PO HS 05/13/22 05/18/22 History Cephalexin [Keflex] 500 mg PO Q8H 05/18/22 05/18/22 History Furosemide [Lasix] 40 mg PO BID@0600,1200 05/18/22 05/18/22 History Gabapentin [Neurontin] 100 mg PO TID@0600,1300,2100 05/18/22 05/18/22 History Warfarin [Coumadin] 5 mg PO DAILY@1700 05/18/22 05/18/22 History oxyCODONE-APAP 7.5-325MG [Percocet 1 tab PO Q4H PRN 05/18/22 05/18/22 History 7.5-325 mg] Allergies Allergy/AdvReac Type Severity Reaction Status Date / Time povidone-iodine Allergy Rash/Hives Verified 05/18/22 14:22 [From Betadine] soap [From Betadine] Allergy Rash/Hives Verified 05/18/22 14:22 acetaminophen [From [facility]] AdvReac Itching Verified 05/18/22 14:22 hydrocodone [From [facility]] AdvReac Itching Verified 05/18/22 14:22 Tetracyclines AdvReac Nausea & Verified 05/18/22 14:22 Vomiting Physical Exam Vitals: Vital Signs Temp Pulse Pulse Resp BP BP BP 05/19/22 04:00 97.4 F L 63 18 145/77 05/19/22 01:10 63 18 05/19/22 00:00 97.9 F 63 18 152/71 05/18/22 20:00 98.3 F 79 18 174/78 05/18/22 19:40 05/18/22 15:48 99.2 F 80 18 147/78 05/18/22 15:45 80 05/18/22 14:51 99 F 05/18/22 14:30 80 23 156/79 05/18/22 14:00 87 18 151/75 05/18/22 13:30 82 22 151/75 05/18/22 13:00 89 16 156/79 05/18/22 12:30 89 20 144/73 05/18/22 12:00 87 24 146/73 05/18/22 11:30 92 23 166/80 05/18/22 11:20 99.7 F H 05/18/22 10:07 98.2 F 92 17 148/75 Pulse Ox FiO2 05/19/22 04:00 97 05/19/22 01:10 05/19/22 00:00 96 05/18/22 20:00 91 L 05/18/22 19:40 90 L 21 05/18/22 15:48 92 L 05/18/22 15:45 05/18/22 14:51 05/18/22 14:30 98 05/18/22 14:00 95 05/18/22 13:30 98 05/18/22 13:00 97 05/18/22 12:30 96 05/18/22 12:00 93 L 05/18/22 11:30 95 05/18/22 11:20 05/18/22 10:07 98 Intake and Output 05/18/22 05/19/22 05/19/22 22:59 06:59 14:59 Intake Total 420 Output Total 350 300 Balance 70 -300 Intake: Oral 420 Output: Urine 350 300 Other: Voiding Method External Catheter Toilet Diaper # Voids 1 # Bowel Movements 1 Weight 99.79 kg Results 05/18/22 11:01 05/19/22 07:43 Cardiac Enzymes 05/18/22 05/18/22 05/18/22 Range/Units 11:01 11:01 14:02 AST 42 H (14-36) U/L Troponin I 0.048 H* 0.052 H* (0.000-0.034) ng/mL 05/18/22 Range/Units 16:36 AST (14-36) U/L Troponin I 0.041 H* (0.000-0.034) ng/mL Coagulation 05/18/22 Range/Units 11:01 PT 18.5 H (9.0-12.0) sec APTT 32.7 H (22.0-30.0) sec CBC 05/18/22 Range/Units 11:01 WBC 7.5 (3.8-10.6) k/uL RBC 3.54 L (3.80-5.40) m/uL Hgb 8.9 L (11.4-16.0) gm/dL Hct 27.6 L (34.0-46.0) % Plt Count 139 L (150-450) k/uL Comprehensive Metabolic Panel 05/18/22 Range/Units 11:01 Sodium 136 L (137-145) mmol/L Potassium 3.8 (3.5-5.1) mmol/L Chloride 105 (98-107) mmol/L Carbon Dioxide 27 (22-30) mmol/L BUN 20 H (7-17) mg/dL Creatinine 0.82 (0.52-1.04) mg/dL Glucose 166 H (74-99) mg/dL Calcium 8.0 L (8.4-10.2) mg/dL AST 42 H (14-36) U/L ALT 16 (4-34) U/L Alkaline Phosphatase 226 H (38-126) U/L Total Protein 5.5 L (6.3-8.2) g/dL Albumin 2.5 L (3.5-5.0) g/dL Current Medications Generic Name Dose Route Start Last Admin Trade Name Freq PRN Reason Stop Dose Admin Aspirin 325 mg 05/19/22 09:00 Aspirin 325 Mg Tab PO DAILY [facility] Atorvastatin Calcium 20 mg 05/18/22 21:00 05/18/22 20:44 Atorvastatin 20 Mg Tab PO 20 mg HS [facility] Administration Folic Acid 1 mg 05/19/22 09:00 Folic Acid 1 Mg Tab PO DAILY [facility] Furosemide 40 mg 05/19/22 06:00 05/19/22 06:58 Furosemide 40 Mg Tab PO 40 mg BID@0600,1200 [facility] Administration Gabapentin 100 mg 05/18/22 21:00 05/19/22 06:58 Gabapentin 100 Mg Cap PO 100 mg TID@0600,1300,2100 [facility] Administration Cefazolin Sodium 2 gm/ Sodium 50 mls @ 100 mls/hr 05/18/22 16:00 05/18/22 23:40 Chloride IVPB 100 mls/hr Q8HR [facility] Administration Protocol Insulin Aspart 5 unit 05/18/22 17:00 05/18/22 17:05 Insulin Aspart (Novolog) 100 Unit/Ml Vial SQ 5 unit TID@0700,1200,1700 [facility] Administration Insulin Detemir 12 unit 05/19/22 07:00 05/19/22 06:58 Insulin Detemir (Levemir) 100 Unit/Ml Syr SQ 12 unit DAILY@0700 [facility] Administration Lisinopril 10 mg 05/18/22 21:00 05/18/22 20:44 Lisinopril 10 Mg Tab PO 10 mg HS [facility] Administration Metoprolol Succinate 50 mg 05/18/22 21:00 05/18/22 20:44 Metoprolol Succinate (Er) 50 Mg Tab.Er.24h PO 50 mg HS [facility] Administration Miscellaneous Information 1 each 05/18/22 15:34 Warfarin Per Pharmacy MISCELLANE DIRECTED PRN Per Protocol Protocol Nitroglycerin 0.4 mg 05/18/22 13:32 Nitroglycerin Sl Tabs 0.4 Mg Tab SUBLINGUAL Q5M PRN Chest Pain Oxycodone/Acetaminophen 1 each 05/18/22 15:32 Oxycodone-Apap 7.5-325mg 1 Each Tab PO Q4H PRN Pain Pantoprazole Sodium 40 mg 05/19/22 07:30 05/19/22 06:58 Pantoprazole 40 Mg Tablet PO 40 mg [id number] [facility] Administration Potassium Chloride 10 meq 05/19/22 09:00 Potassium Chloride Er 10 Meq Tab.Er.Prt PO DAILY [facility] Quetiapine Fumarate 25 mg 05/18/22 21:00 05/18/22 20:44 Quetiapine 25 Mg Tab PO 25 mg HS [facility] Administration Sertraline HCl 200 mg 05/18/22 21:00 05/18/22 20:44 Sertraline 100 Mg Tab PO 200 mg HS [facility] Administration Warfarin Sodium 5 mg 05/18/22 17:00 05/18/22 17:04 Warfarin 5 Mg Tab PO 5 mg DAILY@1700 [facility] Administration Protocol Intake and Output 05/18/22 05/19/22 05/19/22 22:59 06:59 14:59 Intake Total 420 Output Total 350 300 Balance 70 -300 Intake: Oral 420 Output: Urine 350 300 Other: Voiding Method External Catheter Toilet Diaper # Voids 1 # Bowel Movements 1 Weight 99.79 kg 05/18/22 11:01 05/18/22 11:01
[2022-05-19] MEDS: INSULIN ASPART (NovoLOG) 100 UNIT/ML VIAL SQ SCH ×3 (10:46→17:32)
[2022-05-19 11:59] LABS: Glucose,Whole Blood 150 mg/dL (70-110)
[2022-05-19] MEDS: FUROSEMIDE 40 MG TAB PO SCH (12:02)
[2022-05-19] MEDS: POTASSIUM CHLORIDE ER 20 MEQ TAB.ER PO SCH ×2 (12:02→14:01)
[2022-05-19 12:06] VITALS: BMI 40.2
--- NOTE | 2022-05-19 14:40 | P.PN ---
Subjective Progress Note Date: 05/19/22 Patient is a 67-year-old female with a known history of hypertension, hearing status post deafness, diabetes type 2 insulin-dependent, osteoarthritis, history of pulmonary embolism, antiphospholipid antibody positive currently on Coumadin, history of CVA with partial blindness, obstructive sleep apnea, an xiety/depression prior history of smoking and other multiple medical problems was sent from [facility] due to elevated blood pressure as high as 200/100 when checked by the nursing staff at the facility. Patient states that she was having chest discomfort while in the left retrosternal region. No radiation of the pain. No associated shortness of breath. States that she has been having for the past 3 days. Patient also states that she has been having bilateral leg pain otherwise no worsening swelling. Increased redness of the lower extremities. Patient does have chronic venous stasis with skin discoloration. Denies any fever or chills.No cough or sputum production. No nausea vomiting or abdominal pain or diarrhea. EKG showed sinus rhythm with low QRS voltage in precordial leads. Chest x-ray showed no acute cardiopulmonary process CTA chest showed no evidence of PE. No acute cardiopulmonary disease. Laboratory data showed WBC 7.4 hemoglobin 8.9 and platelets 139 INR 1.9 and D- dimer level is 3.95 Sodium 136 potassium 3.8 chloride 105 bicarb is 27 BUN 20 and creatinine 0.82 and blood sugar is 166 Alk phos 226, troponin 0.048, 0.052 and 0.041 Influenza AB, RSV and coronavirus PCR not detected. On admission blood pressure was 148/75 pulse 92 respirations 17 and pulse ox 98% on room air. 05/19/2022 Patient is seen and evaluated in follow-up currently sleeping although easily arousable. Patient continues to report she has chest pain and reports is i ntermittent at times. Cardiology consulted and evaluated the patient today and making adjustments to medications including increasing lisinopril, adding hydrochlorothiazide and making her Lasix 40 mg daily. Patient recently had an echo done on last admission a few days ago with a preserved EF. On admission patient underwent CTA of the chest which was negative for PE and patient is maintained on Coumadin. Most recent INR today is 2.5. Recommend monitoring blood sugars closely and will continue current regimen. Potassium found to be 3.4 and will replace per protocol recommend follow-up labs. Patient reports to having some difficulty in swallowing feeling like her pills are getting trapped and will have speech evaluate the patient. Patient is also continued on IV antibiotics in the form of cefazolin as patient was being treated for lower extremity cellulitis. Recommend continue with German wrapping lower extremities and elevating while at rest. Encouraged increased activity as tolerated and will have physical therapy evaluate the patient. Plan is for return to [facility] once cleared by cardiology. Review of systems: Constitutional: No reports of fatigue, fever, or chills Cardiovascular: reports of intermittent chest pain , denies palpitations Respiratory: No reports of shortness of breath or cough GI: No reports of nausea, vomiting, or diarrhea : No reports of dysuria or retention Neurovascular: reports of generalized weakness All medications have been reviewed Active Medications Atorvastatin Calcium (Atorvastatin 20 Mg Tab) 20 mg PO [facility] Last Admin: 05/18/22 20:44 Dose: 20 mg Folic Acid (Folic Acid 1 Mg Tab) 1 mg PO DAILY [facility] Last Admin: 05/19/22 09:30 Dose: 1 mg Furosemide (Furosemide 40 Mg Tab) 40 mg PO DAILY [facility] Last Admin: 05/19/22 12:02 Dose: Not Given Gabapentin (Gabapentin 100 Mg Cap) 100 mg PO TID@0600,1300,2100 [facility] Last Admin: 05/19/22 14:01 Dose: 100 mg Hydrochlorothiazide (Hydrochlorothiazide 25 Mg Tab) 25 mg PO DAILY [facility] Last Admin: 05/19/22 09:30 Dose: 25 mg Cefazolin Sodium 2 gm/ Sodium (Chloride) 50 mls @ 100 mls/hr IVPB Q8HR [facility]; Protocol Last Admin: 05/19/22 09:30 Dose: 100 mls/hr Insulin Aspart (Insulin Aspart (Novolog) 100 Unit/Ml Vial) 5 unit SQ TID@0700,1200,1700 [facility] Last Admin: 05/19/22 14:01 Dose: 5 unit Insulin Detemir (Insulin Detemir (Levemir) 100 Unit/Ml Syr) 12 unit SQ DAILY@0700 [facility] Last Admin: 05/19/22 06:58 Dose: 12 unit Lisinopril (Lisinopril 10 Mg Tab) 10 mg PO BID [facility] Last Admin: 05/19/22 09:30 Dose: 10 mg Metoprolol Succinate (Metoprolol Succinate (Er) 50 Mg Tab.Er.24h) 50 mg PO [facility] Last Admin: 05/18/22 20:44 Dose: 50 mg Miscellaneous Information (Warfarin Per Pharmacy) 1 each MISCELLANE DIRECTED PRN; Protocol PRN Reason: Per Protocol Miscellaneous Information (Potassium Replacement Protocol 1 Each Misc) 1 each MISCELLANE DAILY PRN; Protocol PRN Reason: Per Protocol Nitroglycerin (Nitroglycerin Sl Tabs 0.4 Mg Tab) 0.4 mg SUBLINGUAL Q5M PRN PRN Reason: Chest Pain Oxycodone/Acetaminophen (Oxycodone-Apap 7.5-325mg 1 Each Tab) 1 each PO Q4H PRN PRN Reason: Pain Pantoprazole Sodium (Pantoprazole 40 Mg Tablet) 40 mg PO AC-[id number] [facility] Last Admin: 05/19/22 06:58 Dose: 40 mg Potassium Chloride (Potassium Chloride Er 10 Meq Tab.Er.Prt) 10 meq PO DAILY [facility] Last Admin: 05/19/22 09:30 Dose: 10 meq Quetiapine Fumarate (Quetiapine 25 Mg Tab) 25 mg PO [facility] Last Admin: 05/18/22 20:44 Dose: 25 mg Sertraline HCl (Sertraline 100 Mg Tab) 200 mg PO [facility] Last Admin: 05/18/22 20:44 Dose: 200 mg Warfarin Sodium (Warfarin 3 Mg Tab) 3 mg PO ONCE@1700 ONE Stop: 05/19/22 17:01 Physical exam: Patient is sitting up in the bed comfortably, asleep although arousable, alert and oriented.. Well-developed, well-nourished, obese HEENT: Normocephalic. Neck is supple. Pupils reactive. Nostrils clear. Oral cavity is moist. Neck reveals no JVD, carotid bruits, or thyromegaly. CHEST EXAMINATION: Trachea is central. Symmetrical expansion. Bibasilar diminished sounds. No wheezing or rhonchi.. CARDIAC: Normal S1, S2 with no gallops. No murmurs ABDOMEN: Soft. Bowel sounds present. Non-tender. No organomegaly. No abdominal bruits. Extremities: Bilateral lower extremity trace edema. No clubbing or cyanosis Neurologically alert, oriented x3 with well-coordinated movements. No focal deficits noted, diffuse weakness Skin: No rash or skin lesions. Chronic bilateral Achilles skin discoloration a nd venous stasis changes. Psychiatric: Cooperative. Non-suicidal, Musculoskeletal: No joint swelling or deformity. Normal range of motion. Assessment: Hypertensive emergency with elevated troponin level, ACS ruled out per cardiology Chest discomfort/pain secondary to above Bilateral lower extremity cellulitis with chronic venous stasis changes Microcytic anemia with hemoglobin 8.9 Antiphospholipid antibody currently on long-term anticoagulation with Coumadin History of PE, elevated d-dimer on admission and negative for PE on CTA Osteoarthritis Hearing disorder/deafness Morbid obesity with a BMI of 40.2 Obstructive sleep apnea History of occipital CVA with partial blindness Anxiety/depression Prior history of smoking GI and DVT prophylaxis No code Plan: Patient will be continued telemetry monitoring. Follow-up troponin levels mildly elevated although flat and ACS ruled out per cardiology. Lisinopril being resumed and increased along with hydrochlorothiazide and Lasix being trans itioned to 40 mg by mouth once daily Continue with cefazolin IV and follow-up culture reports. Coumadin dosing as per pharmacy, INR is 2.5 today Recommend cardiac, diabetic diet and will continue current regimen recommend before meals at bedtime Accu-Cheks. Patient having some difficulties and feels she is not able to fully swallow her pills will have speech evaluate Encouraged increased activity as tolerated will have physical therapy evaluate the patient. Case management following his plan is to return back to [facility] for continued PT/OT therapy. Will require insurance authorization again Continue with home medications and follow-up closely. Due to multiple complex medical issues, prognosis is guarded Possible discharge in 24-48 hours The impression and plan of care has been dictated by Savannah Pereira, Nurse Practitioner as directed. Dr. Rodri MD I have performed a history and examination and MDM of this patient, discussed the same with the dictator, and agree with the dictator's assessment and plan as written ,documented as a scribe. Based on total visit time, I have performed more than 50% of the visit. Objective - Vital Signs Vital signs: Vital Signs Temp 98.1 F 05/19/22 12:00 Pulse 77 05/19/22 12:00 Resp 18 05/19/22 12:00 BP 174/98 05/19/22 12:00 Pulse Ox 94 L 05/19/22 12:00 FiO2 21 05/18/22 19:40 Intake & Output 05/18/22 05/19/22 05/19/22 18:59 06:59 18:59 Intake Total 420 Output Total 350 300 Balance 70 -300 Weight 99.79 kg 99.79 kg Intake: Oral 420 Output: Urine 350 300 Other: Voiding Method External Catheter Toilet Toilet Diaper # Voids 1 1 # Bowel Movements 1 - Labs CBC & Chem 7: 05/18/22 11:01 05/19/22 07:43 Labs: Abnormal Lab Results - Last 24 Hours (Table) 05/18/22 05/18/22 05/18/22 Range/Units 14:02 15:47 16:36 PT (9.0-12.0) sec INR (<1.2) Potassium (3.5-5.1) mmol/L BUN (7-17) mg/dL Glucose (74-99) mg/dL POC Glucose (mg/dL) 174 H (70-110) mg/dL Calcium (8.4-10.2) mg/dL Alkaline Phosphatase (38-126) U/L Troponin I 0.052 H* 0.041 H* (0.000-0.034) ng/mL Total Protein (6.3-8.2) g/dL Albumin (3.5-5.0) g/dL 05/18/22 05/18/22 05/19/22 Range/Units 16:46 20:22 06:14 PT (9.0-12.0) sec INR (<1.2) Potassium (3.5-5.1) mmol/L BUN (7-17) mg/dL Glucose (74-99) mg/dL POC Glucose (mg/dL) 248 H 303 H 225 H (70-110) mg/dL Calcium (8.4-10.2) mg/dL Alkaline Phosphatase (38-126) U/L Troponin I (0.000-0.034) ng/mL Total Protein (6.3-8.2) g/dL Albumin (3.5-5.0) g/dL 05/19/22 05/19/22 05/19/22 Range/Units 07:43 07:43 11:57 PT 24.1 H (9.0-12.0) sec INR 2.5 H (<1.2) Potassium 3.4 L (3.5-5.1) mmol/L BUN 25 H (7-17) mg/dL Glucose 169 H (74-99) mg/dL POC Glucose (mg/dL) 150 H (70-110) mg/dL Calcium 7.8 L (8.4-10.2) mg/dL Alkaline Phosphatase 193 H (38-126) U/L Troponin I (0.000-0.034) ng/mL Total Protein 5.3 L (6.3-8.2) g/dL Albumin 2.3 L (3.5-5.0) g/dL
[2022-05-19 16:44] LABS: Glucose,Whole Blood 171 mg/dL (70-110)
[2022-05-19] MEDS ORDERED: WARFARIN 3 MG TAB PO ONE (17:00)
[2022-05-19 19:34] LABS: % Iron Saturation 11.48 (12.00-45.00); Chol/HDL Ratio 3.92 Ratio; Iron 28 ug/dL (50-170); Total Iron Binding Capacity 242 ug/dL (228-460)
[2022-05-19] MEDS: SERTRALINE 100 MG TAB PO SCH (20:03)
[2022-05-19] MEDS: oxyCODONE-APAP 7.5-325MG 1 EACH TAB PO PRN (20:03)
[2022-05-19] MEDS: METOPROLOL SUCCINATE (ER) 50 MG TAB.ER.24H PO SCH (20:04)
[2022-05-19] MEDS: ATORVASTATIN 20 MG TAB PO SCH (20:04)
[2022-05-19] MEDS: QUEtiapine 25 MG TAB PO SCH (20:04)
[2022-05-19 20:17] LABS: Glucose,Whole Blood 132 mg/dL (70-110)
[2022-05-20] MEDS: ONDANSETRON 4 MG/2 ML VIAL IVP PRN ×2 (00:06→07:58)
[2022-05-20] MEDS ORDERED: METOCLOPRAMIDE 5 MG/ML 2 ML VIAL IVP PRN (03:53)
[2022-05-20] MEDS: SODIUM CHLORIDE 0.9% 1,000 ML IV SCH ×2 (03:56→18:44)
[2022-05-20 04:01] LABS: Glucose,Whole Blood 185 mg/dL (70-110)
--- NOTE | 2022-05-20 04:56 | XR ---
EXAMINATION TYPE: XR abdomen 1V DATE OF EXAM: 05/20/2022 COMPARISON: NONE HISTORY: Vomiting TECHNIQUE: 2 views supine FINDINGS: There is no sign of intestinal obstruction or pneumoperitoneum. There is a relative lack of intestinal gas. There are clips apparently from cholecystectomy. No pathologic calcifications over t he kidneys. IMPRESSION: Nonacute abdomen.
[2022-05-20] MEDS ORDERED: METOCLOPRAMIDE 5 MG/ML 2 ML VIAL IVP SCH (06:00)
[2022-05-20 06:10] LABS: Glucose,Whole Blood 186 mg/dL (70-110)
[2022-05-20 07:59] LABS: African American GFR (CKD) >90 (>60 ml/min/1.73 sqM); Anion Gap 8 mmol/L; Blood Urea Nitrogen 28 mg/dL (7-17); Calcium 8.2 mg/dL (8.4-10.2); Carbon Dioxide 24 mmol/L (22-30); Chloride 107 mmol/L (98-107); Glucose 183 mg/dL (74-99); Non-African American GFR(CKD) 81 (>60 ml/min/1.73 sqM); Potassium 4.5 mmol/L (3.5-5.1); Sodium 139 mmol/L (137-145)
[2022-05-20] MEDS: GABAPENTIN 100 MG CAP PO SCH ×3 (08:21→20:09)
[2022-05-20] MEDS: INSULIN ASPART (NovoLOG) 100 UNIT/ML VIAL SQ SCH ×3 (08:21→16:41)
[2022-05-20] MEDS ORDERED: FUROSEMIDE 40 MG TAB PO SCH (09:00)
[2022-05-20 10:16] LABS: INR 3.9 (<1.2); Prothrombin Time 38.2 sec (9.0-12.0)
--- NOTE | 2022-05-20 11:20 | P.PN ---
Subjective Progress Note Date: 05/20/22 HISTORY OF PRESENT ILLNESS: This is a 67-year-old female with a past medical history significant for diabetes, hypertension, hyperlipidemia, congestive heart failure, and PE on Coumadin. Patient does not follow with a mail officer. She states she was evaluated at [place] a couple years ago by mail officer and was told she had congestive heart failure. We have been asked to see the patient in consultation for chest pain. Patient examined at the bedside. Patient was recently admitted to the hospital and was discharged to [facility] for rehab. The patient's blood pressure was checked at [facility] and was found to be elevated with a systolic around 220. The patient states that it was checked by 3 different staff members and it was found to be elevated each time. She states her blood pressure usually runs in the 140s to 150s. She states she has been having some issues controlling her blood pressure over the past year. The patient reports some mild chest discomfort this morning. She states that she feels like she has to burp. She also reports some mild shortness of breath. The patient is also being treated for bilateral lower extremity cellulitis and is receiving IV antibiotics. Blood pressure this morning is ranging between 130 and 145. * EKG reveals sinus mechanism with no signs of acute ischemia * Chest xray negative for acute process * Chest CTA: CT negative for pulmonary embolism. No acute cardiopulmonary disease. * Laboratory data: WBC 7.5. Hemoglobin 8.9. Platelet count 139. INR 2.5. D- dimer 3.95. Sodium 138. Potassium 3.4. BUN 25. Troponin 0.048. 0.052. 0.041. * Current home cardiac medications include Lipitor 20 mg at night, Lasix 40 mg twice a day, metoprolol succinate 50 mg at night, lisinopril 10 mg at night, and warfarin 5 mg daily * Most recent echocardiogram obtained in April 2022 revealed ejection fraction 50-55% 05/20/2022 Patient examined this morning at the bedside. Patient denies chest pain or pres sure. She denies shortness of breath. She reports nausea and multiple episodes of vomiting overnight. She is scheduled for an upper GI today. GI services has been consulted. Patient's INR today is 3.9. Patient's blood pressure remains elevated this morning with a systolic in the 160s. However she has been unable to keep her antihypertensive medications down secondary to vomiting. PHYSICAL EXAM: VITAL SIGNS: Reviewed. GENERAL: Well-developed in no acute distress. HEENT: Head is normocephalic. Pupils are equal, round. Sclerae anicteric. Mucous membranes of the mouth are moist. Neck supple. No JVD or thyromegaly LUNGS: Respirations even and unlabored. Lungs diminished to auscultation bilaterally. HEART: Regular rate and rhythm. S1 and S2 heard. ABDOMEN: Soft. Nondistended. Nontender. EXTREMITIES: Normal range of motion. No clubbing or cyanosis. Peripheral pu lses intact. Mild bilateral lower extremity edema with chronic skin discoloration and also mild erythema NEUROLOGIC: Awake and alert. Oriented x 3. ASSESSMENT: Hypertensive urgency, improving Abnormal troponins, flat, not suggestive of acute coronary syndrome Nausea and vomiting Supratherapeutic INR Bilateral lower extremity cellulitis, on antibiotics Hypertension Hyperlipidemia Diabetes Chronic congestive heart failure with preserved ejection fraction, currently euvolemic History of PE on Coumadin PLAN: Continue current cardiac medications. Patient currently vomiting and unable to keep hypertensive medications down. We will make adjustments to patient's medication regimen once she is able to tolerate oral medications Patient scheduled for upper GI series today Recommend outpatient stress testing Further recommendations pending patient's course Nurse practitioner note has been reviewed by physician. Signing provider agrees with the documented findings, assessment, and plan of care. Objective - Vital Signs Vital signs: Vital Signs Temp 97.7 F 05/20/22 07:56 Pulse 80 05/20/22 07:56 Resp 18 05/20/22 07:56 BP 171/80 05/20/22 07:56 Pulse Ox 91 L 05/20/22 07:56 FiO2 21 05/18/22 19:40 Intake & Output 05/19/22 05/20/22 05/20/22 18:59 06:59 18:59 Weight 99.79 kg Other: Voiding Method Toilet Toilet Toilet # Voids 1 1 - Labs CBC & Chem 7: 05/18/22 11:01 05/20/22 06:49 Labs: Abnormal Lab Results - Last 24 Hours (Table) 05/19/22 05/19/22 05/19/22 Range/Units 07:43 11:57 16:43 PT (9.0-12.0) sec INR (<1.2) BUN (7-17) mg/dL Glucose (74-99) mg/dL POC Glucose (mg/dL) 150 H 171 H (70-110) mg/dL Calcium (8.4-10.2) mg/dL Iron 28 L (50-170) ug/dL % Saturation 11.48 L (12.00-45.00) Transferrin 173.0 L (204.0-354.0) mg/dL Troponin I (0.000-0.034) ng/mL HDL Cholesterol 23.00 L (40.00-60.00) mg/dL 05/19/22 05/20/22 05/20/22 Range/Units 20:16 03:59 04:03 PT (9.0-12.0) sec INR (<1.2) BUN (7-17) mg/dL Glucose (74-99) mg/dL POC Glucose (mg/dL) 132 H 185 H (70-110) mg/dL Calcium (8.4-10.2) mg/dL Iron (50-170) ug/dL % Saturation (12.00-45.00) Transferrin (204.0-354.0) mg/dL Troponin I 0.050 H* (0.000-0.034) ng/mL HDL Cholesterol (40.00-60.00) mg/dL 05/20/22 05/20/22 05/20/22 Range/Units 06:08 06:49 09:41 PT 38.2 H (9.0-12.0) sec INR 3.9 H (<1.2) BUN 28 H (7-17) mg/dL Glucose 183 H (74-99) mg/dL POC Glucose (mg/dL) 186 H (70-110) mg/dL Calcium 8.2 L (8.4-10.2) mg/dL Iron (50-170) ug/dL % Saturation (12.00-45.00) Transferrin (204.0-354.0) mg/dL Troponin I (0.000-0.034) ng/mL HDL Cholesterol (40.00-60.00) mg/dL Microbiology - Last 24 Hours (Table) 05/18/22 14:29 Blood Culture Gram Stain - Preliminary Blood 05/18/22 14:29 Blood Culture - Final Blood 05/18/22 14:45 Blood Culture - Preliminary Blood No Growth after 24 hours
--- NOTE | 2022-05-20 11:58 | FL ---
EXAMINATION TYPE: FL UGI w esophagus DATE OF EXAM: 05/20/2022 CLINICAL INDICATION: 67-year-old female difficulty in swallowing, food getting stuck with pain and na usea, sensation of the mid to lower chest level. COMPARISON: Correlation CT 05/18/2022 Total Fluoroscopy Time: 3 minutes 28 seconds 96 images obtained. FINDINGS: The exam is markedly limited due to patient's size and limited mobility. We were unable to adequately coat the stomach for optimal assessment. The swallowing mechanism is normal and hypopharyngeal anatomy is preserved. ACF hardware is present. To the extent visualized, the cervical and thoracic portions have a normal course and caliber. Mild r esidual contrast remains in the distal esophagus suggesting some age-related dysmotility. Mild tertia ry peristaltic waves are also demonstrated. No persistent mucosal irregularity, fixed narrowing, or filling defect is identified. There is suggestion of a tiny hiatal hernia. When the patient was supine, Valsalva maneuvers was unab le to elicit any gastroesophageal reflux. Unable to adequately coat the stomach for optimal assessment given patient's size and very limited mo bility. There may be mild gastric fold thickening Only the first and second portions of the duodenum could be opacified. IMPRESSION: 1. Note that the patient's PE CT is positive for segmental branch right lower lobe pulmonary embolus. There is also prominent subcarinal soft tissue that could represent some reactive lymphadenopathy. M ild wall thickening of the esophagus in this region may relate to mild esophagitis. No mucosal erosio ns are seen on the present study. Suboptimal exam given patient's size and very limited mobility. Rec ommend three-month follow-up contrast enhanced CT chest. 2. No suspicious stricture or suspicious filling defect is clearly identified. There is mild esophag eal dysmotility. 3. Tiny hiatal hernia. 4. Unable to adequately coat the stomach for adequate assessment. There may be mild gastric fold thic kening. Correlate for any symptoms of chronic gastritis.
[2022-05-20 12:10] LABS: Glucose,Whole Blood 206 mg/dL (70-110)
[2022-05-20] MEDS: PANTOPRAZOLE 40 MG TABLET PO SCH (12:51)
[2022-05-20] MEDS: POTASSIUM CHLORIDE ER 10 MEQ TAB.ER.PRT PO SCH (12:57)
[2022-05-20] MEDS: INSULIN DETEMIR (LEVEMIR) 100 UNIT/ML SYR SQ SCH (12:58)
[2022-05-20] MEDS: hydroCHLOROthiazide 25 MG TAB PO SCH (12:58)
[2022-05-20] MEDS: lisinopriL 10 MG TAB PO SCH ×2 (12:58→20:09)
[2022-05-20] MEDS: FOLIC ACID 1 MG TAB PO SCH (12:58)
[2022-05-20] MEDS: FUROSEMIDE 40 MG TAB PO SCH (12:58)
--- NOTE | 2022-05-20 13:29 | CT ---
EXAMINATION TYPE: CT brain wo con DATE OF EXAM: 05/20/2022 COMPARISON: 05/12/2022 HISTORY: AMS CT DLP: 1115.[address] of the brain was performed. The ventricles, basal cisterns and sulci overlying the cerebral convexities demonstrate mild enlargem ent. Remote insult right occipital lobe. Additional remote insult left occipital lobe. There is no evidence for intracranial hemorrhage or sulcal effacement. There is decreased attenuation about the periventricular white matter and deep white matter of both c erebral hemispheres, compatible with chronic small vessel ischemia. Differential diagnosis does inclu de demyelination. No mass effects are seen.No midline shift. Osseous calvarium is intact. If symptoms persist consider MRI. IMPRESSION: 1. Age related atrophic and chronic small vessel ischemic change without acute intracranial process s een at this time.
--- NOTE | 2022-05-20 13:46 | P.CONS ---
History of Present Illness - Reason for Consult Consult date: 05/20/22 Dysphagia Requesting physician: Savannah Pereira - Chief Complaint Hypertension - History of Present Illness This is a pleasant 67-year-old female who presented to the emergency department by EMS from her group home concerns for elevated blood pressures. Apparently she had been having elevated blood pressures in the 200s over 100 for the last 3 day duration. Patient states she was experiencing chest pain and shortness of breath. On admission she was noted to have elevated troponin as well as elevated d-dimer. She had a chest CT angiogram on admission that initially reported no pulmonary embolism however addendum was added today that she does have a Segmental branch emboli at the right lower lobe, stage mild burden and a trace of left pleural effusion. During her admission she was complaining of difficulty with swallowing stating that she has pain and feels like there is something stuck in the middle of her chest/esophagus. She states that she will get pain when eating solids with the only thing that helps is warm tea. She had a speech evaluation that showed a normal swallow exam. They suggested esophagram which she did undergo an upper GI barium swallow this morning which incidentally found that she was positive for the pulmonary emboli, and also reported no suspicious stricture or suspicious filling defect clearly identified. Mild esophageal dysmotility. Tiny hiatal hernia. There is inability to adequately cope the stomach for adequate assessment. May be mild gastric fold thickening. Correlate for any symptoms of chronic gastritis.she denies any EGDs or history of peptic ulcer disease. Last colonoscopy several years ago. Patient does have a history of blood clots and is on warfarin. Has a history of antiphospholipid syndrome.Today patient underwent esophagram reported some mild esophageal dysmotility however no strictures or obstruction. Today she was reporting some nausea and vomiting this morning. Review of Systems REVIEW OF SYSTEMS: CARDIOPULMONARY: No chest pain or shortness of breath. Gastrointestinal: no epigastric, abdominal pain or GERD. nausea with some vomiting today. patient reports pain when swallowingNo hematemesis, coffee- ground emesis. No rectal bleeding, or melena. GENITOURINARY: No dysuria or hematuria. MUSCULOSKELETAL: Reports normal range of motion., Joint pain. SKIN: No rashes. No jaundice. ENDOCRINE: No chills, fevers. No excessive weight gain or loss. No polydipsia or polyuria. PSYCHIATRIC: Unremarkable. NEUROLOGY: No change in mental status. Denies dizziness, headache. ENT: Vision unremarkable. CONSTITUTIONAL: No recent weight loss. No fever, chills, night sweats. 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 antiphosphopholipid antibody-autoimmune clotting disorder. 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 tinnitus, eczema. thyroid [id number]-[id number]-[id number]. thrombocytopenia. History of Any Multi-Drug Resistant Organisms: None Reported Past Surgical History: Cholecystectomy, Hernia Repair, Joint Replacement, Orth opedic Surgery Additional Past Surgical History / Comment(s): cervical decompression, ventral hernia repair, bilat knee replacement, Past Anesthesia/Blood Transfusion Reactions: Postoperative Nausea & Vomiting (PONV) Past Psychological History: Anxiety, Depression Smoking Status: Former smoker Past Alcohol Use History: Occasional Past Drug Use History: None Reported - Past Family History Mother Family Medical History: Hypertension Father Family Medical History: Diabetes Mellitus Medications and Allergies Home Medications Medication Instructions Recorded Confirmed Type Atorvastatin [Lipitor] 20 mg PO HS 11/19/17 05/18/22 History Sertraline HCl [Zoloft] 200 mg PO HS 11/19/17 05/18/22 History Dapsone 50 mg PO DAILY 04/25/22 05/18/22 History Folic Acid 1 mg PO DAILY 04/25/22 05/18/22 History Metoprolol Succinate (ER) [Toprol 50 mg PO HS 04/25/22 05/18/22 History XL] Potassium Chloride ER [K-Dur 10] 10 meq PO DAILY 04/25/22 05/18/22 History lisinopriL [Zestril] 10 mg PO HS 04/25/22 05/18/22 History Dapagliflozin Propanediol [Farxiga] 5 mg PO DAILY 30 Days #30 tablet 04/28/22 05/18/22 Rx Insulin Glargine,Hum.rec.anlog 12 units SQ DAILY@0700 05/13/22 05/18/22 History [Lantus Solostar Pen] Insulin Lispro [humaLOG Kwikpen] 5 unit SQ TID@0700,1200,1700 05/13/22 05/18/22 History QUEtiapine [SEROquel] 25 mg PO HS 05/13/22 05/18/22 History Cephalexin [Keflex] 500 mg PO Q8H 05/18/22 05/18/22 History Furosemide [Lasix] 40 mg PO BID@0600,1200 05/18/22 05/18/22 History Gabapentin [Neurontin] 100 mg PO TID@0600,1300,2100 05/18/22 05/18/22 History Warfarin [Coumadin] 5 mg PO DAILY@1700 05/18/22 05/18/22 History oxyCODONE-APAP 7.5-325MG [Percocet 1 tab PO Q4H PRN 05/18/22 05/18/22 History 7.5-325 mg] Apixaban [Eliquis Starter Pack 5 - 10 mg PO DIRECTED 30 Days 05/20/22 Rx (for VTE)] #1 each Allergies Allergy/AdvReac Type Severity Reaction Status Date / Time povidone-iodine Allergy Rash/Hives Verified 05/18/22 14:22 [From Betadine] soap [From Betadine] Allergy Rash/Hives Verified 05/18/22 14:22 acetaminophen [From [place]] AdvReac Itching Verified 05/18/22 14:22 hydrocodone [From [place]] AdvReac Itching Verified 05/18/22 14:22 Tetracyclines AdvReac Nausea & Verified 05/18/22 14:22 Vomiting Physical Exam Vitals: Vital Signs Temp Pulse Resp BP Pulse Ox 05/20/22 07:56 97.7 F 80 18 171/80 91 L 05/20/22 04:00 86 17 172/91 95 05/19/22 23:40 75 18 165/84 95 05/19/22 19:55 98.8 F 75 18 164/75 98 05/19/22 16:00 98.2 F 80 16 153/80 99 05/19/22 14:00 77 18 05/19/22 13:32 94 L Intake and Output 05/19/22 05/20/22 05/20/22 22:59 06:59 14:59 Other: Voiding Method Toilet Toilet Toilet # Voids 1 General appearance: The patient is alert, oriented, appears in no acute distress. HET: Head is normocephalic and atraumatic. Conjunctiva pink. Sclera anicteric. Neck: Supple without lymphadenopathy. Trachea midline. Heart: S1 S2. Regular rate and rhythm. Lungs: Clear to auscultation. Abdomen: Soft, nontender, nondistended with bowel sounds. No guarding or rigidity. Skin: No rashes. No jaundice. Extremities: Normal skin color and turgor. No pedal edema. Neurological: No focal deficits. Alert and oriented x3. Results CBC & Chem 7: 05/18/22 11:01 05/20/22 06:49 Labs: Abnormal Lab Results - Last 24 Hours (Table) 05/19/22 05/19/22 05/19/22 Range/Units 07:43 16:43 20:16 PT (9.0-12.0) sec INR (<1.2) BUN (7-17) mg/dL Glucose (74-99) mg/dL POC Glucose (mg/dL) 171 H 132 H (70-110) mg/dL Calcium (8.4-10.2) mg/dL Iron 28 L (50-170) ug/dL % Saturation 11.48 L (12.00-45.00) Transferrin 173.0 L (204.0-354.0) mg/dL Troponin I (0.000-0.034) ng/mL HDL Cholesterol 23.00 L (40.00-60.00) mg/dL 05/20/22 05/20/22 05/20/22 Range/Units 03:59 04:03 06:08 PT (9.0-12.0) sec INR (<1.2) BUN (7-17) mg/dL Glucose (74-99) mg/dL POC Glucose (mg/dL) 185 H 186 H (70-110) mg/dL Calcium (8.4-10.2) mg/dL Iron (50-170) ug/dL % Saturation (12.00-45.00) Transferrin (204.0-354.0) mg/dL Troponin I 0.050 H* (0.000-0.034) ng/mL HDL Cholesterol (40.00-60.00) mg/dL 05/20/22 05/20/22 05/20/22 Range/Units 06:49 09:41 12:06 PT 38.2 H (9.0-12.0) sec INR 3.9 H (<1.2) BUN 28 H (7-17) mg/dL Glucose 183 H (74-99) mg/dL POC Glucose (mg/dL) 206 H (70-110) mg/dL Calcium 8.2 L (8.4-10.2) mg/dL Iron (50-170) ug/dL % Saturation (12.00-45.00) Transferrin (204.0-354.0) mg/dL Troponin I (0.000-0.034) ng/mL HDL Cholesterol (40.00-60.00) mg/dL Microbiology - Last 24 Hours (Table) 05/18/22 14:29 Blood Culture Gram Stain - Preliminary Blood Blood Culture - Preliminary Staphylococcus epidermidis 05/18/22 14:29 Blood Culture - Final Blood 05/18/22 14:45 Blood Culture - Preliminary Blood No Growth after 24 hours Comments: Upper GI reported note that patient's PE CT is positive for segmental branch right lower lobe pulmonary embolus. There is also prominent subcarinal soft tissue that could represent some reactive lymphadenopathy. Mild thickening of the esophagus in this region may relate to mild esophagitis. No mucosal erosions are seen on the present study. Suboptimal exam given patient's size and very limited mobility. Recommend three-month follow-up contrast-enhanced CT chest. No suspicious stricture or suspicious filling defect is clearly identified. Mild esophageal dysmotility. Tiny hiatal hernia. Unable to adequately coat the stomach for adequate assessment there may be mild gastric fold thickening. Correlate for any symptoms of chronic gastritis. Assessment and Plan (1) Dysphagia Narrative/Plan: 67-year-old female who came to the emergency department with complaints of chest pain and shortness of breath newly diagnosed with a pulmonary embolism. Patient also with reports of dysphagia, difficulty with swallowing mostly with solids. States that she has pain with swallowing and esophageal region. She is able to get the food down, she does not have any nausea or vomiting associated with that. States that it has been occurring since her last admission which was last week. She had a evaluation by the speech pathologist with a normal swallow had esophagram that showed likely some mild esophageal dysmotility no stricture or obstruction noted. Will continue with symptomatic treatment with Protonix, no plans for endoscopic evaluation at this time due to hypertension, chest pain and pulmonary embolism. Recommend outpatient follow-up. Current Visit: Yes Status: Acute Code(s): R13.10 - DYSPHAGIA, UNSPECIFIED SNOMED Code(s): 15921717 (2) Pulmonary embolism Current Visit: Yes Status: Acute Code(s): I26.99 - OTHER PULMONARY EMBOLISM WITHOUT ACUTE COR PULMONALE SNOMED Code(s): 30417245 (3) Hypertension Current Visit: Yes Status: Acute Code(s): I10 - ESSENTIAL (PRIMARY) HYPERTENSION SNOMED Code(s): 14149071 (4) Chest pain Current Visit: Yes Status: Acute Code(s): R07.9 - CHEST PAIN, UNSPECIFIED SNOMED Code(s): 06182992 Plan: 1. Continue symptomatic and supportive care 2. Continue medical management 3. Protonix 40 mg twice a day 4. No plans of endoscopic evaluation at this time 5. Follow-up with Dr. Fung in the next 2-4 weeks Thank you for this consultation, we'll continue to follow. Dr. Davey Fung I agree with the dictator's note, documented as a scribe by Poonam Blank.
[2022-05-20] MEDS: PANTOPRAZOLE 40 MG/10 ML VIAL IVP SCH ×2 (14:04→20:11)
[2022-05-20] MEDS: oxyCODONE-APAP 7.5-325MG 1 EACH TAB PO PRN (16:41)
[2022-05-20 16:42] LABS: Glucose,Whole Blood 206 mg/dL (70-110)
--- NOTE | 2022-05-20 16:42 | P.PN ---
Subjective Progress Note Date: 05/20/22 Patient is a 67-year-old female with a known history of hypertension, hearing status post deafness, diabetes type 2 insulin-dependent, osteoarthritis, history of pulmonary embolism, antiphospholipid antibody positive currently on Coumadin, history of CVA with partial blindness, obstructive sleep apnea, an xiety/depression prior history of smoking and other multiple medical problems was sent from [facility] due to elevated blood pressure as high as 200/100 when checked by the nursing staff at the facility. Patient states that she was having chest discomfort while in the left retrosternal region. No radiation of the pain. No associated shortness of breath. States that she has been having for the past 3 days. Patient also states that she has been having bilateral leg pain otherwise no worsening swelling. Increased redness of the lower extremities. Patient does have chronic venous stasis with skin discoloration. Denies any fever or chills.No cough or sputum production. No nausea vomiting or abdominal pain or diarrhea. EKG showed sinus rhythm with low QRS voltage in precordial leads. Chest x-ray showed no acute cardiopulmonary process CTA chest showed no evidence of PE. No acute cardiopulmonary disease. Laboratory data showed WBC 7.4 hemoglobin 8.9 and platelets 139 INR 1.9 and D- dimer level is 3.95 Sodium 136 potassium 3.8 chloride 105 bicarb is 27 BUN 20 and creatinine 0.82 and blood sugar is 166 Alk phos 226, troponin 0.048, 0.052 and 0.041 Influenza AB, RSV and coronavirus PCR not detected. On admission blood pressure was 148/75 pulse 92 respirations 17 and pulse ox 98% on room air. 05/19/2022 Patient is seen and evaluated in follow-up currently sleeping although easily arousable. Patient continues to report she has chest pain and reports is i ntermittent at times. Cardiology consulted and evaluated the patient today and making adjustments to medications including increasing lisinopril, adding hydrochlorothiazide and making her Lasix 40 mg daily. Patient recently had an echo done on last admission a few days ago with a preserved EF. On admission patient underwent CTA of the chest which was negative for PE and patient is maintained on Coumadin. Most recent INR today is 2.5. Recommend monitoring blood sugars closely and will continue current regimen. Potassium found to be 3.4 and will replace per protocol recommend follow-up labs. Patient reports to having some difficulty in swallowing feeling like her pills are getting trapped and will have speech evaluate the patient. Patient is also continued on IV antibiotics in the form of cefazolin as patient was being treated for lower extremity cellulitis. Recommend continue with German wrapping lower extremities and elevating while at rest. Encouraged increased activity as tolerated and will have physical therapy evaluate the patient. Plan is for return to [facility] once cleared by cardiology. 05/20/2022 Patient is seen and evaluated in follow-up today and nursing staff reports she had continued emesis with nausea all night unable to tolerate any oral intake. Patient also scheduled for upper GI esophagram as patient reports she has been having difficulties with swallowing her pills and tolerating oral intake. Speech therapy evaluated the patient recommending a GI consult and possible esophagram. GI is consulted and pending at this time. Patient also maintained on Coumadin with pharmacy to dose and current INR today is 3.9 and Coumadin being held at this time. Cardiology has evaluated the patient recommending outpatient stress testing as troponins have been flat. Patient is currently nothing by mouth and will await GI consultation and appreciate input and recommendations. Patient is currently afebrile continues with nausea and denies chest pain or shortness of breath. Patient is extremely lethargic although arousable but fatigues easily. Per nursing staff patient has not received any of her narcotic medications since last night. Will obtain CT brain. Blood pressure remains elevated and uncontrolled. Review of systems: Constitutional: reports of fatigue, no fever, or chills Cardiovascular: reports of intermittent chest pain , denies palpitations Respiratory: No reports of shortness of breath or cough GI: reports of nausea, with vomiting, or diarrhea : No reports of dysuria or retention Neurovascular: reports of generalized weakness All medications have been reviewed Active Medications Atorvastatin Calcium (Atorvastatin 20 Mg Tab) 20 mg PO HS [facility] Last Admin: 05/19/22 20:04 Dose: 20 mg Folic Acid (Folic Acid 1 Mg Tab) 1 mg PO DAILY [facility] Last Admin: 05/19/22 09:30 Dose: 1 mg Furosemide (Furosemide 40 Mg Tab) 40 mg PO DAILY [facility] Last Admin: 05/19/22 12:02 Dose: Not Given Gabapentin (Gabapentin 100 Mg Cap) 100 mg PO TID@0600,1300,2100 [facility] Last Admin: 05/20/22 08:21 Dose: Not Given Hydrochlorothiazide (Hydrochlorothiazide 25 Mg Tab) 25 mg PO DAILY [facility] Last Admin: 05/19/22 09:30 Dose: 25 mg Cefazolin Sodium 2 gm/ Sodium (Chloride) 50 mls @ 100 mls/hr IVPB Q8HR [facility]; Protocol Last Admin: 05/20/22 09:43 Dose: 100 mls/hr Sodium Chloride (Saline 0.9%) 1,000 mls @ 75 mls/hr IV .[id number] [facility] Last Admin: 05/20/22 03:56 Dose: 75 mls/hr Insulin Aspart (Insulin Aspart (Novolog) 100 Unit/Ml Vial) 5 unit SQ TID@0700,1200,1700 [facility] Last Admin: 05/20/22 08:21 Dose: Not Given Insulin Detemir (Insulin Detemir (Levemir) 100 Unit/Ml Syr) 12 unit SQ DAILY@0700 [facility] Last Admin: 05/19/22 06:58 Dose: 12 unit Lisinopril (Lisinopril 10 Mg Tab) 10 mg PO BID [facility] Last Admin: 05/19/22 20:04 Dose: 10 mg Metoclopramide HCl (Metoclopramide 5 Mg/Ml 2 Ml Vial) 5 mg IVP Q6HR PRN PRN Reason: Nausea And Vomiting Last Admin: 05/20/22 03:56 Dose: 5 mg Metoprolol Succinate (Metoprolol Succinate (Er) 50 Mg Tab.Er.24h) 50 mg PO HS [facility] Last Admin: 05/19/22 20:04 Dose: 50 mg Miscellaneous Information (Warfarin Per Pharmacy) 1 each MISCELLANE DIRECTED PRN; Protocol PRN Reason: Per Protocol Miscellaneous Information (Potassium Replacement Protocol 1 Each Misc) 1 each MISCELLANE DAILY PRN; Protocol PRN Reason: Per Protocol Nitroglycerin (Nitroglycerin Sl Tabs 0.4 Mg Tab) 0.4 mg SUBLINGUAL Q5M PRN PRN Reason: Chest Pain Ondansetron HCl (Ondansetron 4 Mg/2 Ml Vial) 4 mg IVP Q6HR PRN PRN Reason: Nausea And Vomiting Last Admin: 05/20/22 07:58 Dose: 4 mg Oxycodone/Acetaminophen (Oxycodone-Apap 7.5-325mg 1 Each Tab) 1 each PO Q4H PRN PRN Reason: Pain Last Admin: 05/19/22 20:03 Dose: 1 each Pantoprazole Sodium (Pantoprazole 40 Mg/10 Ml Vial) 40 mg IVP BID [facility] Potassium Chloride (Potassium Chloride Er 10 Meq Tab.Er.Prt) 10 meq PO DAILY [facility] Last Admin: 05/19/22 09:30 Dose: 10 meq Quetiapine Fumarate (Quetiapine 25 Mg Tab) 25 mg PO [facility] Last Admin: 05/19/22 20:04 Dose: 25 mg Sertraline HCl (Sertraline 100 Mg Tab) 200 mg PO [facility] Last Admin: 05/19/22 20:03 Dose: 200 mg Warfarin Sodium (Warfarin 0.5 Mg Tab) 0 mg PO ONCE@1800 ONE Stop: 05/20/22 18:01 Physical exam: Patient is lying in the bed, lethargic although arousable although falls asleep easily, alert and oriented x1-2.. Well-developed, well-nourished, obese HEENT: Normocephalic. Neck is supple. Pupils reactive. Nostrils clear. Oral cavity is moist. Neck reveals no JVD, carotid bruits, or thyromegaly. CHEST EXAMINATION: Trachea is central. Symmetrical expansion. Bibasilar diminished sounds. No wheezing or rhonchi.. CARDIAC: S1, S2 are muffled ABDOMEN: Soft. Bowel sounds present. Non-tender. No organomegaly. No abdominal bruits. Extremities: Bilateral lower extremity trace edema. No clubbing or cyanosis Neurologically asleep although arousable although fatigues easily alert and oriented x1-2. No focal deficits noted, diffuse weakness Skin: No rash or skin lesions. Chronic bilateral Achilles skin discoloration and venous stasis changes. Psychiatric: Cooperative. Non-suicidal, more confused today Musculoskeletal: No joint swelling or deformity. Normal range of motion. Assessment: Hypertensive emergency with elevated troponin level, ACS ruled out per cardiology Chest discomfort/pain secondary to above Bilateral lower extremity cellulitis with chronic venous stasis changes Microcytic anemia with hemoglobin 8.9 Antiphospholipid antibody currently on long-term anticoagulation with Coumadin Supratherapeutic, INR is 3.9 and Coumadin on hold with pharmacy to dose History of PE, elevated d-dimer on admission and initially report from radiologist on 05/18/2022 was negative for PE although radiologist reviewed today suggestive of a segmental branch emboli in the right lower lobe with mild burden and a trace pleural effusion on the left Osteoarthritis Hearing disorder/deafness Morbid obesity with a BMI of 40.2 Obstructive sleep apnea History of occipital CVA with partial blindness Anxiety/depression Prior history of smoking GI and DVT prophylaxis No code Plan: Patient will be continued telemetry monitoring. Follow-up troponin levels mildly elevated although flat and ACS ruled out per cardiology. Recommending to continue with current medication regimen and will adjust medications once able to tolerate oral intake as patient has been having nausea and vomiting today. Patient is on Coumadin with a supratherapeutic INR with pharmacy to dose and recommend to monitor daily. Blood pressure remains uncontrolled Per nursing staff patient had continued nausea and vomiting all night unable to tolerate any oral intake or take medications. Patient continues with some confusion and extreme lethargy will order CT of the brain. Continue with cefazolin IV and follow-up culture reports. When preliminary blood culture showing contamination we'll continue to follow blood cultures Coumadin dosing as per pharmacy, INR is 3.7 today, hold Coumadin today. Discussed further with vascular and cardiology as addended CTA per radiology was showing a right lower lobe pulmonary embolism. Given patient's history of antiphospholipid antibody will continue Coumadin and monitor closely. No active bleeding noted. Patient does desat quickly with minimal exertion and will continue supplemental oxygen and wean as tolerated. Recommend cardiac, diabetic diet and will continue current regimen recommend before meals at bedtime Accu-Cheks. Patient having some difficulties and feels she is not able to fully swallow her pills speech evaluated recommending GI consultation and esophagram. Esophagram showing some dysmotility and awaiting GI consultation. Encouraged increased activity as tolerated will have physical therapy evaluate the patient. Case management following his plan is to return back to [facility] for continued PT/OT therapy. Will require insurance authorization again Continue with home medications and medications will be adjusted by cardiology to control blood pressure once able to tolerate oral intake Due to multiple complex medical issues, prognosis is guarded Given the extent of patient's comorbidities and current ongoing symptoms of poorly controlled hypertension, coagulopathy, continued confusion patient will require more than two day hospitalization and awaiting clearance for multiple medical consultations. The impression and plan of care has been dictated by Savannah Pereira, Nurse Practitioner as directed. Dr. Rodri MD I have performed a history and examination and MDM of this patient, discussed the same with the dictator, and agree with the dictator's assessment and plan as written ,documented as a scribe. Based on total visit time, I have performed more than 50% of the visit. Objective - Vital Signs Vital signs: Vital Signs Temp 97.7 F 05/20/22 07:56 Pulse 80 05/20/22 07:56 Resp 18 05/20/22 07:56 BP 171/80 05/20/22 07:56 Pulse Ox 91 L 05/20/22 07:56 FiO2 21 05/18/22 19:40 Intake & Output 05/19/22 05/20/22 05/20/22 18:59 06:59 18:59 Weight 99.79 kg Other: Voiding Method Toilet Toilet # Voids 1 1 - Labs CBC & Chem 7: 05/18/22 11:01 05/20/22 06:49 Labs: Abnormal Lab Results - Last 24 Hours (Table) 05/19/22 05/19/22 05/19/22 Range/Units 07:43 07:43 11:57 PT 24.1 H (9.0-12.0) sec INR 2.5 H (<1.2) Potassium 3.4 L (3.5-5.1) mmol/L BUN 25 H (7-17) mg/dL Glucose 169 H (74-99) mg/dL POC Glucose (mg/dL) 150 H (70-110) mg/dL Calcium 7.8 L (8.4-10.2) mg/dL Iron 28 L (50-170) ug/dL % Saturation 11.48 L (12.00-45.00) Transferrin 173.0 L (204.0-354.0) mg/dL Alkaline Phosphatase 193 H (38-126) U/L Troponin I (0.000-0.034) ng/mL Total Protein 5.3 L (6.3-8.2) g/dL Albumin 2.3 L (3.5-5.0) g/dL HDL Cholesterol 23.00 L (40.00-60.00) mg/dL 05/19/22 05/19/22 05/20/22 Range/Units 16:43 20:16 03:59 PT (9.0-12.0) sec INR (<1.2) Potassium (3.5-5.1) mmol/L BUN (7-17) mg/dL Glucose (74-99) mg/dL POC Glucose (mg/dL) 171 H 132 H 185 H (70-110) mg/dL Calcium (8.4-10.2) mg/dL Iron (50-170) ug/dL % Saturation (12.00-45.00) Transferrin (204.0-354.0) mg/dL Alkaline Phosphatase (38-126) U/L Troponin I (0.000-0.034) ng/mL Total Protein (6.3-8.2) g/dL Albumin (3.5-5.0) g/dL HDL Cholesterol (40.00-60.00) mg/dL 05/20/22 05/20/22 05/20/22 Range/Units 04:03 06:08 06:49 PT (9.0-12.0) sec INR (<1.2) Potassium (3.5-5.1) mmol/L BUN 28 H (7-17) mg/dL Glucose 183 H (74-99) mg/dL POC Glucose (mg/dL) 186 H (70-110) mg/dL Calcium 8.2 L (8.4-10.2) mg/dL Iron (50-170) ug/dL % Saturation (12.00-45.00) Transferrin (204.0-354.0) mg/dL Alkaline Phosphatase (38-126) U/L Troponin I 0.050 H* (0.000-0.034) ng/mL Total Protein (6.3-8.2) g/dL Albumin (3.5-5.0) g/dL HDL Cholesterol (40.00-60.00) mg/dL Microbiology - Last 24 Hours (Table) 05/18/22 14:29 Blood Culture - Final Blood 05/18/22 14:45 Blood Culture - Preliminary Blood No Growth after 24 hours
[2022-05-20] MEDS ORDERED: WARFARIN 0.5 MG TAB PO ONE (18:00)
[2022-05-20] MEDS: SERTRALINE 100 MG TAB PO SCH (20:09)
[2022-05-20] MEDS: METOPROLOL SUCCINATE (ER) 50 MG TAB.ER.24H PO SCH (20:09)
[2022-05-20] MEDS: QUEtiapine 25 MG TAB PO SCH (20:09)
[2022-05-20] MEDS: ATORVASTATIN 20 MG TAB PO SCH (20:09)
[2022-05-20 20:27] LABS: Glucose,Whole Blood 150 mg/dL (70-110)
[2022-05-21] MEDS: GABAPENTIN 100 MG CAP PO SCH ×3 (05:47→20:36)
[2022-05-21 06:24] LABS: Glucose,Whole Blood 126 mg/dL (70-110)
[2022-05-21] MEDS: INSULIN ASPART (NovoLOG) 100 UNIT/ML VIAL SQ SCH ×3 (06:50→17:41)
[2022-05-21] MEDS: INSULIN DETEMIR (LEVEMIR) 100 UNIT/ML SYR SQ SCH (06:52)
[2022-05-21] MEDS: SODIUM CHLORIDE 0.9% 1,000 ML IV SCH (06:59)
[2022-05-21 07:52] LABS: Anisocytosis Slight; Basophils % (A) 1 %; Eosinophils # (A) 0.1 k/uL (0-0.7); Eosinophils % (A) 2 %; HCT 25.4 % (34.0-46.0); HGB 7.8 gm/dL (11.4-16.0); Hypochromasia Moderate; Lymphocytes # (A) 0.7 k/uL (1.0-4.8); Lymphocytes % (A) 16 %; MCH 24.9 pg (25.0-35.0); MCHC 30.6 g/dL (31.0-37.0); MCV 81.3 fL (80.0-100.0); Mean Platelet Volume 7.3; Microcytosis Slight; Monocytes # (A) 0.2 k/uL (0-1.0); Monocytes % (A) 5 %; Neutrophils # (A) 3.4 k/uL (1.3-7.7); Neutrophils % (A) 76 %; Platelet Count 155 k/uL (150-450); Poikilocytosis Slight; RBC 3.12 m/uL (3.80-5.40); RDW 17.9 % (11.5-15.5); WBC 4.5 k/uL (3.8-10.6)
[2022-05-21 08:25] LABS: Calcium 7.9 mg/dL (8.4-10.2); Potassium 3.8 mmol/L (3.5-5.1)
[2022-05-21 08:40] LABS: Prothrombin Time 51.3 sec (9.0-12.0)
[2022-05-21 09:27] LABS: INR 5.2 (<1.2)
[2022-05-21] MEDS: lisinopriL 10 MG TAB PO SCH ×2 (09:35→20:35)
[2022-05-21] MEDS: PANTOPRAZOLE 40 MG/10 ML VIAL IVP SCH ×2 (09:35→20:36)
[2022-05-21] MEDS: hydroCHLOROthiazide 25 MG TAB PO SCH (09:35)
[2022-05-21] MEDS: POTASSIUM CHLORIDE ER 10 MEQ TAB.ER.PRT PO SCH (09:35)
[2022-05-21] MEDS: FUROSEMIDE 40 MG TAB PO SCH (09:35)
[2022-05-21] MEDS: FOLIC ACID 1 MG TAB PO SCH (09:35)
--- NOTE | 2022-05-21 10:20 | P.PN ---
Subjective Progress Note Date: 05/21/22 Principal diagnosis: Dysphagia This is a pleasant 67-year-old female who presented to the emergency department by EMS from her group home concerns for elevated blood pressures. Apparently she had been having elevated blood pressures in the 200s over 100 for the last 3 day duration. Patient states she was experiencing chest pain and shortness of breath. On admission she was noted to have elevated troponin as well as elevated d-dimer. She had a chest CT angiogram on admission that initially reported no pulmonary embolism however addendum was added today that she does h ave a Segmental branch emboli at the right lower lobe, stage mild burden and a trace of left pleural effusion. During her admission she was complaining of difficulty with swallowing stating that she has pain and feels like there is something stuck in the middle of her chest/esophagus. She states that she will get pain when eating solids with the only thing that helps is warm tea. She had a speech evaluation that showed a normal swallow exam. They suggested esophagram which she did undergo an upper GI barium swallow this morning which incidentally found that she was positive for the pulmonary emboli, and also reported no suspicious stricture or suspicious filling defect clearly identifie d. Mild esophageal dysmotility. Tiny hiatal hernia. There is inability to adequately cope the stomach for adequate assessment. May be mild gastric fold thickening. Correlate for any symptoms of chronic gastritis.she denies any EGDs or history of peptic ulcer disease. Last colonoscopy several years ago. Patient does have a history of blood clots and is on warfarin. Has a history of antiphospholipid syndrome.Today patient underwent esophagram reported some mild esophageal dysmotility however no strictures or obstruction. Today she was reporting some nausea and vomiting this morning. 05/21/2022: Patient seen and examined today as follow-up. She states her nausea and vomiting has completely subsided. She's been on a full liquid diet throughout the evening and is doing well. Was diagnosed yesterday with a pulmonary embolism. Denies any abdominal pain at this time. Patient underwent esophagram yesterday that shows GERD, and esophageal dysmotility without any strictures or obstruction. Objective - Vital Signs Vital signs: Vital Signs Temp 98 F 05/20/22 20:10 Pulse 66 05/21/22 04:30 Resp 18 05/21/22 04:30 BP 113/69 05/21/22 04:30 Pulse Ox 95 05/21/22 08:12 FiO2 21 05/18/22 19:40 Intake & Output 05/20/22 05/21/22 05/21/22 18:59 06:59 18:59 Other: Voiding Method Toilet Toilet # Voids 2 - Exam General appearance: The patient is alert, oriented, appears in no acute distress. HET: Head is normocephalic and atraumatic. Conjunctiva pink. Sclera anicteric. Neck: Supple without lymphadenopathy. Abdomen: Soft, nontender, nondistended with bowel sounds. No guarding or rigidity. Extremities: Normal skin color and turgor. No pedal edema Skin: No rashes, no jaundice Neurological: No focal deficits. Alert and oriented. - Labs CBC & Chem 7: 05/21/22 07:20 05/21/22 07:20 Labs: Abnormal Lab Results - Last 24 Hours (Table) 05/20/22 05/20/22 05/20/22 Range/Units 09:41 12:06 16:39 RBC (3.80-5.40) m/uL Hgb (11.4-16.0) gm/dL Hct (34.0-46.0) % MCH (25.0-35.0) pg MCHC (31.0-37.0) g/dL RDW (11.5-15.5) % Lymphocytes # (1.0-4.8) k/uL PT 38.2 H (9.0-12.0) sec INR 3.9 H (<1.2) Chloride (98-107) mmol/L BUN (7-17) mg/dL Creatinine (0.52-1.04) mg/dL Glucose (74-99) mg/dL POC Glucose (mg/dL) 206 H 206 H (70-110) mg/dL Calcium (8.4-10.2) mg/dL 05/20/22 05/21/22 05/21/22 Range/Units 20:25 06:24 07:20 RBC (3.80-5.40) m/uL Hgb (11.4-16.0) gm/dL Hct (34.0-46.0) % MCH (25.0-35.0) pg MCHC (31.0-37.0) g/dL RDW (11.5-15.5) % Lymphocytes # (1.0-4.8) k/uL PT (9.0-12.0) sec INR (<1.2) Chloride 109 H (98-107) mmol/L BUN 36 H (7-17) mg/dL Creatinine 1.08 H (0.52-1.04) mg/dL Glucose 104 H (74-99) mg/dL POC Glucose (mg/dL) 150 H 126 H (70-110) mg/dL Calcium 7.9 L (8.4-10.2) mg/dL 05/21/22 Range/Units 07:20 RBC 3.12 L (3.80-5.40) m/uL Hgb 7.8 L (11.4-16.0) gm/dL Hct 25.4 L (34.0-46.0) % MCH 24.9 L (25.0-35.0) pg MCHC 30.6 L (31.0-37.0) g/dL RDW 17.9 H (11.5-15.5) % Lymphocytes # 0.7 L (1.0-4.8) k/uL PT (9.0-12.0) sec INR (<1.2) Chloride (98-107) mmol/L BUN (7-17) mg/dL Creatinine (0.52-1.04) mg/dL Glucose (74-99) mg/dL POC Glucose (mg/dL) (70-110) mg/dL Calcium (8.4-10.2) mg/dL Microbiology - Last 24 Hours (Table) 05/18/22 14:45 Blood Culture - Preliminary Blood No Growth after 48 hours 05/18/22 14:29 Blood Culture Gram Stain - Preliminary Blood Blood Culture - Preliminary Staphylococcus epidermidis 05/18/22 14:29 Blood Culture - Final Blood Assessment and Plan (1) Dysphagia Narrative/Plan: 67-year-old female who came to the emergency department with complaints of chest pain and shortness of breath newly diagnosed with a pulmonary embolism. Patient also with reports of dysphagia, difficulty with swallowing mostly with solids. States that she has pain with swallowing and esophageal region. She is able to get the food down, she does not have any nausea or vomiting associated with that. States that it has been occurring since her last admission which was last week. She had a evaluation by the speech pathologist with a normal swallow had esophagram that showed likely some mild esophageal dysmotility no stricture or obstruction noted. Will continue with symptomatic treatment with Protonix, no plans for endoscopic evaluation at this time due to hypertension, chest pain and pulmonary embolism. Recommend outpatient follow-up. Current Visit: Yes Status: Acute Code(s): R13.10 - DYSPHAGIA, UNSPECIFIED SNOMED Code(s): 74149894 (2) Pulmonary embolism Current Visit: Yes Status: Acute Code(s): I26.99 - OTHER PULMONARY EMBOLISM WITHOUT ACUTE COR PULMONALE SNOMED Code(s): 15380117 (3) Hypertension Current Visit: Yes Status: Acute Code(s): I10 - ESSENTIAL (PRIMARY) HYPERTENSION SNOMED Code(s): 27194985 (4) Chest pain Current Visit: Yes Status: Acute Code(s): R07.9 - CHEST PAIN, UNSPECIFIED SNOMED Code(s): 34648808 Plan: 1. Continue symptomatic and supportive care 2. Advance patient to chopped diet, discussed dietary modifications including eating small frequent meals, food chopped well and chewing well followed biceps of water. 3. Protonix 40 mg twice a day 4. No plans of endoscopic evaluation at this time 5. Follow-up with Dr. Fung in the next 2-4 weeks Thank you for this consultation, we will sign off at this time Dr. Davey Fung I agree with the dictator's note, documented as a scribe by Poonam Blank.
--- NOTE | 2022-05-21 11:20 | P.PN ---
Subjective Progress Note Date: 05/21/22 HISTORY OF PRESENT ILLNESS: This is a 67-year-old female with a past medical history significant for diabetes, hypertension, hyperlipidemia, congestive heart failure, and PE on Coumadin. Patient does not follow with a dental assisting instructor. She states she was evaluated at [facility] a couple years ago by dental assisting instructor and was told she had congestive heart failure. We have been asked to see the patient in consultation for chest pain. Patient examined at the bedside. Patient was recently admitted to the hospital and was discharged to [facility] for rehab. The patient's blood pressure was checked at [facility] and was found to be elevated with a systolic around 220. The patient states that it was checked by 3 different staff members and it was found to be elevated each time. She states her blood pressure usually runs in the 140s to 150s. She states she has been having some issues controlling her blood pressure over the past year. The patient reports some mild chest discomfort this morning. She states that she feels like she has to burp. She also reports some mild shortness of breath. The patient is also being treated for bilateral lower extremity cellulitis and is receiving IV antibiotics. Blood pressure this morning is ranging between 130 and 145. * EKG reveals sinus mechanism with no signs of acute ischemia * Chest xray negative for acute process * Chest CTA: CT negative for pulmonary embolism. No acute cardiopulmonary disease. * Laboratory data: WBC 7.5. Hemoglobin 8.9. Platelet count 139. INR 2.5. D- dimer 3.95. Sodium 138. Potassium 3.4. BUN 25. Troponin 0.048. 0.052. 0.041. * Current home cardiac medications include Lipitor 20 mg at night, Lasix 40 mg twice a day, metoprolol succinate 50 mg at night, lisinopril 10 mg at night, and warfarin 5 mg daily * Most recent echocardiogram obtained in April 2022 revealed ejection fraction 50-55% 05/20/2022 Patient examined this morning at the bedside. Patient denies chest pain or pres sure. She denies shortness of breath. She reports nausea and multiple episodes of vomiting overnight. She is scheduled for an upper GI today. GI services has been consulted. Patient's INR today is 3.9. Patient's blood pressure remains elevated this morning with a systolic in the 160s. However she has been unable to keep her antihypertensive medications down secondary to vomiting. 05/21/2022 Patient examined this morning at the bedside. Patient denies nausea or vomiting. She denies chest pain or pressure. Denies shortness of breath. Blood pressure is improved this morning. Patient was found to have a pulmonary embolism yesterday. She is anticoagulated with warfarin. Her INR today is 5.2. Patient underwent esophagram yesterday that showed GERD and esophageal dysmotility without any strictures or obstruction. PHYSICAL EXAM: VITAL SIGNS: Reviewed. GENERAL: Well-developed in no acute distress. HEENT: Head is normocephalic. Pupils are equal, round. Sclerae anicteric. Mucous membranes of the mouth are moist. Neck supple. No JVD or thyromegaly LUNGS: Respirations even and unlabored. Lungs diminished to auscultation bilaterally. HEART: Regular rate and rhythm. S1 and S2 heard. ABDOMEN: Soft. Nondistended. Nontender. EXTREMITIES: Normal range of motion. No clubbing or cyanosis. Peripheral pulses intact. Mild bilateral lower extremity edema with chronic skin discoloration and also mild erythema NEUROLOGIC: Awake and alert. Oriented x 3. ASSESSMENT: Hypertensive urgency, improving Abnormal troponins, flat, not suggestive of acute coronary syndrome Nausea and vomiting Acute PE Supratherapeutic INR Bilateral lower extremity cellulitis, on antibiotics Hypertension Hyperlipidemia Diabetes Chronic congestive heart failure with preserved ejection fraction, currently euvolemic History of PE on Coumadin PLAN: Continue current cardiac medications Recommend outpatient stress testing Patient is stable from a cardiac standpoint with no further inpatient recommendations We will sign off. Please reconsult if needed. Nurse practitioner note has been reviewed by physician. Signing provider agrees with the documented findings, assessment, and plan of care. Objective - Vital Signs Vital signs: Vital Signs Temp 98 F 05/20/22 20:10 Pulse 84 05/21/22 09:33 Resp 17 05/21/22 09:33 BP 110/66 05/21/22 09:33 Pulse Ox 87 L 05/21/22 09:33 FiO2 21 05/18/22 19:40 Intake & Output 05/20/22 05/21/22 05/21/22 18:59 06:59 18:59 Output Total 1 Balance -1 Output: Urine 1 Other: Voiding Method Toilet Toilet Toilet # Voids 2 1 # Bowel Movements 1 - Labs CBC & Chem 7: 05/21/22 07:20 05/21/22 07:20 Labs: Abnormal Lab Results - Last 24 Hours (Table) 05/20/22 05/20/22 05/20/22 Range/Units 12:06 16:39 20:25 RBC (3.80-5.40) m/uL Hgb (11.4-16.0) gm/dL Hct (34.0-46.0) % MCH (25.0-35.0) pg MCHC (31.0-37.0) g/dL RDW (11.5-15.5) % Lymphocytes # (1.0-4.8) k/uL PT (9.0-12.0) sec INR (<1.2) Chloride (98-107) mmol/L BUN (7-17) mg/dL Creatinine (0.52-1.04) mg/dL Glucose (74-99) mg/dL POC Glucose (mg/dL) 206 H 206 H 150 H (70-110) mg/dL Calcium (8.4-10.2) mg/dL 05/21/22 05/21/22 05/21/22 Range/Units 06:24 07:20 07:20 RBC (3.80-5.40) m/uL Hgb (11.4-16.0) gm/dL Hct (34.0-46.0) % MCH (25.0-35.0) pg MCHC (31.0-37.0) g/dL RDW (11.5-15.5) % Lymphocytes # (1.0-4.8) k/uL PT 51.3 H (9.0-12.0) sec INR 5.2 H* (<1.2) Chloride 109 H (98-107) mmol/L BUN 36 H (7-17) mg/dL Creatinine 1.08 H (0.52-1.04) mg/dL Glucose 104 H (74-99) mg/dL POC Glucose (mg/dL) 126 H (70-110) mg/dL Calcium 7.9 L (8.4-10.2) mg/dL 05/21/22 Range/Units 07:20 RBC 3.12 L (3.80-5.40) m/uL Hgb 7.8 L (11.4-16.0) gm/dL Hct 25.4 L (34.0-46.0) % MCH 24.9 L (25.0-35.0) pg MCHC 30.6 L (31.0-37.0) g/dL RDW 17.9 H (11.5-15.5) % Lymphocytes # 0.7 L (1.0-4.8) k/uL PT (9.0-12.0) sec INR (<1.2) Chloride (98-107) mmol/L BUN (7-17) mg/dL Creatinine (0.52-1.04) mg/dL Glucose (74-99) mg/dL POC Glucose (mg/dL) (70-110) mg/dL Calcium (8.4-10.2) mg/dL Microbiology - Last 24 Hours (Table) 05/18/22 14:45 Blood Culture - Preliminary Blood No Growth after 48 hours 05/18/22 14:29 Blood Culture Gram Stain - Preliminary Blood Blood Culture - Preliminary Staphylococcus epidermidis
[2022-05-21 12:02] LABS: Glucose,Whole Blood 134 mg/dL (70-110)
--- NOTE | 2022-05-21 12:42 | P.PN ---
Subjective Progress Note Date: 05/21/22 Patient is a 67-year-old female with a known history of hypertension, hearing status post deafness, diabetes type 2 insulin-dependent, osteoarthritis, history of pulmonary embolism, antiphospholipid antibody positive currently on Coumadin, history of CVA with partial blindness, obstructive sleep apnea, an xiety/depression prior history of smoking and other multiple medical problems was sent from [facility] due to elevated blood pressure as high as 200/100 when checked by the nursing staff at the facility. Patient states that she was having chest discomfort while in the left retrosternal region. No radiation of the pain. No associated shortness of breath. States that she has been having for the past 3 days. Patient also states that she has been having bilateral leg pain otherwise no worsening swelling. Increased redness of the lower extremities. Patient does have chronic venous stasis with skin discoloration. Denies any fever or chills.No cough or sputum production. No nausea vomiting or abdominal pain or diarrhea. EKG showed sinus rhythm with low QRS voltage in precordial leads. Chest x-ray showed no acute cardiopulmonary process CTA chest showed no evidence of PE. No acute cardiopulmonary disease. Laboratory data showed WBC 7.4 hemoglobin 8.9 and platelets 139 INR 1.9 and D- dimer level is 3.95 Sodium 136 potassium 3.8 chloride 105 bicarb is 27 BUN 20 and creatinine 0.82 and blood sugar is 166 Alk phos 226, troponin 0.048, 0.052 and 0.041 Influenza AB, RSV and coronavirus PCR not detected. On admission blood pressure was 148/75 pulse 92 respirations 17 and pulse ox 98% on room air. 05/19/2022 Patient is seen and evaluated in follow-up currently sleeping although easily arousable. Patient continues to report she has chest pain and reports is i ntermittent at times. Cardiology consulted and evaluated the patient today and making adjustments to medications including increasing lisinopril, adding hydrochlorothiazide and making her Lasix 40 mg daily. Patient recently had an echo done on last admission a few days ago with a preserved EF. On admission patient underwent CTA of the chest which was negative for PE and patient is maintained on Coumadin. Most recent INR today is 2.5. Recommend monitoring blood sugars closely and will continue current regimen. Potassium found to be 3.4 and will replace per protocol recommend follow-up labs. Patient reports to having some difficulty in swallowing feeling like her pills are getting trapped and will have speech evaluate the patient. Patient is also continued on IV antibiotics in the form of cefazolin as patient was being treated for lower extremity cellulitis. Recommend continue with German wrapping lower extremities and elevating while at rest. Encouraged increased activity as tolerated and will have physical therapy evaluate the patient. Plan is for return to [facility] once cleared by cardiology. 05/20/2022 Patient is seen and evaluated in follow-up today and nursing staff reports she had continued emesis with nausea all night unable to tolerate any oral intake. Patient also scheduled for upper GI esophagram as patient reports she has been having difficulties with swallowing her pills and tolerating oral intake. Speech therapy evaluated the patient recommending a GI consult and possible esophagram. GI is consulted and pending at this time. Patient also maintained on Coumadin with pharmacy to dose and current INR today is 3.9 and Coumadin being held at this time. Cardiology has evaluated the patient recommending outpatient stress testing as troponins have been flat. Patient is currently nothing by mouth and will await GI consultation and appreciate input and recommendations. Patient is currently afebrile continues with nausea and denies chest pain or shortness of breath. Patient is extremely lethargic although arousable but fatigues easily. Per nursing staff patient has not received any of her narcotic medications since last night. Will obtain CT brain. Blood pressure remains elevated and uncontrolled. 05/21/2022 Patient is seen this morning sitting up at the site of the bed mentation improved patient has not had any nausea or vomiting. Patient seen by GI recommending to continue with slowly advancing diet and patient is currently maintained on dysphagia 3 Diet along with consistent carb recommend continue and monitor for any aspiration precautions. Patient also being followed by cardiology with improvement in blood pressure recommending to continue with current regimen and outpatient stress testing. Cardiology along with GI has cleared the patient and signed off with close outpatient follow-up. INR is 5.2 today and has not been receiving her doses of Coumadin as her INR has been elevated. Will consider a low-dose of vitamin K as this was given on previous admission and brought her INR down to less than 1. Patient will need close outpatient follow-up with mechanical cad designer that she has been seeing out of [place]. Given her antiphospholipid antibody unable to tolerate or take other anticoagulation. Patient was noted to have a pulmonary embolism on the right and will continue with Coumadin with close monitoring. Patient is afebrile denies chest pain or shortness of breath. Patient reports she is having some swallowing issues with her pills and was seen and evaluated by GI underwent esophagram showing some mild esophageal dysmotility with a tiny hiatal hernia and mild wall thickening of the esophagus related to mild esophagitis with no erosions noted. Recommend three-month follow-up and again will have patient follow-up with Dr. Kenton CERON in the outpatient setting. Recommend continue on Protonix and continue with dysphagia diet. Patient to be seen and evaluated by PT/OT therapy although doing well and reports she will likely be wanting to return home with son and will arrange for home care outpatient. Review of systems: Constitutional: no reports of fatigue, no fever, or chills Cardiovascular: no reports of chest pain , denies palpitations Respiratory: No reports of shortness of breath or cough GI: no reports of nausea or vomiting today, or diarrhea : No reports of dysuria or retention Neurovascular: no reports of weakness, reports feeling improved All medications have been reviewed Active Medications Atorvastatin Calcium (Atorvastatin 20 Mg Tab) 20 mg PO HS [facility] Last Admin: 05/20/22 20:09 Dose: 20 mg Folic Acid (Folic Acid 1 Mg Tab) 1 mg PO DAILY [facility] Last Admin: 05/20/22 12:58 Dose: 1 mg Furosemide (Furosemide 40 Mg Tab) 40 mg PO DAILY [facility] Last Admin: 05/20/22 12:58 Dose: 40 mg Gabapentin (Gabapentin 100 Mg Cap) 100 mg PO TID@0600,1300,2100 [facility] Last Admin: 05/21/22 05:47 Dose: 100 mg Hydrochlorothiazide (Hydrochlorothiazide 25 Mg Tab) 25 mg PO DAILY [facility] Last Admin: 05/20/22 12:58 Dose: 25 mg Cefazolin Sodium 2 gm/ Sodium (Chloride) 50 mls @ 100 mls/hr IVPB Q8HR [facility]; Protocol Last Admin: 05/21/22 00:53 Dose: 100 mls/hr Sodium Chloride (Saline 0.9%) 1,000 mls @ 75 mls/hr IV .[id number] [facility] Last Admin: 05/21/22 06:59 Dose: Not Given Insulin Aspart (Insulin Aspart (Novolog) 100 Unit/Ml Vial) 5 unit SQ TID@0700,1200,1700 [facility] Last Admin: 05/21/22 06:50 Dose: Not Given Insulin Detemir (Insulin Detemir (Levemir) 100 Unit/Ml Syr) 12 unit SQ DAILY@0700 [facility] Last Admin: 05/21/22 06:52 Dose: 12 unit Lisinopril (Lisinopril 10 Mg Tab) 10 mg PO BID [facility] Last Admin: 05/20/22 20:09 Dose: 10 mg Metoclopramide HCl (Metoclopramide 5 Mg/Ml 2 Ml Vial) 5 mg IVP Q6HR PRN PRN Reason: Nausea And Vomiting Last Admin: 05/20/22 03:56 Dose: 5 mg Metoprolol Succinate (Metoprolol Succinate (Er) 50 Mg Tab.Er.24h) 50 mg PO [facility] Last Admin: 05/20/22 20:09 Dose: 50 mg Miscellaneous Information (Warfarin Per Pharmacy) 1 each MISCELLANE DIRECTED PRN; Protocol PRN Reason: Per Protocol Miscellaneous Information (Potassium Replacement Protocol 1 Each Misc) 1 each MISCELLANE DAILY PRN; Protocol PRN Reason: Per Protocol Nitroglycerin (Nitroglycerin Sl Tabs 0.4 Mg Tab) 0.4 mg SUBLINGUAL Q5M PRN PRN Reason: Chest Pain Ondansetron HCl (Ondansetron 4 Mg/2 Ml Vial) 4 mg IVP Q6HR PRN PRN Reason: Nausea And Vomiting Last Admin: 05/20/22 07:58 Dose: 4 mg Oxycodone/Acetaminophen (Oxycodone-Apap 7.5-325mg 1 Each Tab) 1 each PO Q4H PRN PRN Reason: Pain Last Admin: 05/20/22 16:41 Dose: 1 each Pantoprazole Sodium (Pantoprazole 40 Mg/10 Ml Vial) 40 mg IVP BID [facility] Last Admin: 05/20/22 20:11 Dose: 40 mg Potassium Chloride (Potassium Chloride Er 10 Meq Tab.Er.Prt) 10 meq PO DAILY [facility] Last Admin: 05/20/22 12:57 Dose: 10 meq Quetiapine Fumarate (Quetiapine 25 Mg Tab) 25 mg PO [facility] Last Admin: 05/20/22 20:09 Dose: 25 mg Sertraline HCl (Sertraline 100 Mg Tab) 200 mg PO [facility] Last Admin: 05/20/22 20:09 Dose: 200 mg Physical exam: Patient is sitting up at the side of the bed, awake, alert and oriented x3.. Well-developed, well-nourished, obese HEENT: Normocephalic. Neck is supple. Pupils reactive. Nostrils clear. Oral cavity is moist. Neck reveals no JVD, carotid bruits, or thyromegaly. CHEST EXAMINATION: Trachea is central. Symmetrical expansion. Bibasilar dimin ished sounds. No wheezing or rhonchi.. CARDIAC: S1, S2 are muffled ABDOMEN: Soft. Bowel sounds present. Non-tender. No organomegaly. No abdominal bruits. Extremities: Bilateral lower extremity trace edema improved from admission. No clubbing or cyanosis Neurologically alert and oriented 3, No focal deficits noted Skin: No rash or skin lesions. Chronic bilateral Achilles skin discoloration and venous stasis changes. Psychiatric: Cooperative. Non-suicidal Musculoskeletal: No joint swelling or deformity. Normal range of motion. Assessment: Hypertensive emergency with elevated troponin level, ACS ruled out per cardiology, improved Chest discomfort/pain secondary to above Bilateral lower extremity cellulitis with chronic venous stasis changes Microcytic anemia with hemoglobin 8.9 Antiphospholipid antibody currently on long-term anticoagulation with Coumadin Supratherapeutic, INR is 5.2 and Coumadin on hold with pharmacy to dose History of PE, elevated d-dimer on admission and initially report from radiologist on 05/18/2022 was negative for PE although radiologist reviewed to day suggestive of a segmental branch emboli in the right lower lobe with mild burden and a trace pleural effusion on the left Osteoarthritis history Hearing disorder/deafness Morbid obesity with a BMI of 40.2 Obstructive sleep apnea History of occipital CVA with partial blindness Anxiety/depression Prior history of smoking GI and DVT prophylaxis No code Plan: Recommend continue current medications and management and has been seen and evaluated by cardiology and has cleared the patient for close outpatient follow- up with outpatient stress testing recommended. Patient was having some difficulty in swallowing underwent esophagram showing mild esophageal dysmotility with no suspicious stricture noted along with some mild wall thickening of the esophagus. GI evaluated the patient with no plans for endoscopic intervention this admission recommending to continue with Protonix, continue dysphagia 3 chopped diet with small frequent meals and chewing more frequently and sips of water after each bite and outpatient follow- up in the next 2-3 weeks. Recommend aspiration precautions Patient is on Coumadin with a supratherapeutic INR with pharmacy to dose and recommend to monitor daily. INR today is 5.2 and has not received Coumadin in 3 days, will consider low-dose vitamin K with follow-up INR in the a.m. Continue with cefazolin IV for lower extremity cellulitis and will transition back to oral on discharge, bilateral lower extremities appear significantly improved with chronic venous stasis noted Recommend cardiac, diabetic diet and will continue current regimen recommend before meals at bedtime Accu-Cheks. Encouraged increased activity as tolerated with PT/OT therapy following and patient is improving and reporting she will most likely return home and case management following arranging for home care Continue with home medications and medications have been adjusted by cardiology Will follow-up with repeat INR in the a.m. with possible discharge in 24 hours Due to multiple complex medical issues, prognosis is guarded The impression and plan of care has been dictated by Savannah Pereira, Nurse Practitioner as directed. Dr. Rodri MD I have performed a history and examination and MDM of this patient, discussed the same with the dictator, and agree with the dictator's assessment and plan as written ,documented as a scribe. Based on total visit time, I have performed more than 50% of the visit. Objective - Vital Signs Vital signs: Vital Signs Temp 98 F 05/20/22 20:10 Pulse 66 05/21/22 04:30 Resp 18 05/21/22 04:30 BP 113/69 05/21/22 04:30 Pulse Ox 95 05/21/22 08:12 FiO2 21 05/18/22 19:40 Intake & Output 05/20/22 05/21/22 05/21/22 18:59 06:59 18:59 Other: Voiding Method Toilet Toilet # Voids 2 - Labs CBC & Chem 7: 05/21/22 07:20 05/21/22 07:20 Labs: Abnormal Lab Results - Last 24 Hours (Table) 05/20/22 05/20/22 05/20/22 Range/Units 09:41 12:06 16:39 RBC (3.80-5.40) m/uL Hgb (11.4-16.0) gm/dL Hct (34.0-46.0) % MCH (25.0-35.0) pg MCHC (31.0-37.0) g/dL RDW (11.5-15.5) % Lymphocytes # (1.0-4.8) k/uL PT 38.2 H (9.0-12.0) sec INR 3.9 H (<1.2) Chloride (98-107) mmol/L BUN (7-17) mg/dL Creatinine (0.52-1.04) mg/dL Glucose (74-99) mg/dL POC Glucose (mg/dL) 206 H 206 H (70-110) mg/dL Calcium (8.4-10.2) mg/dL 05/20/22 05/21/22 05/21/22 Range/Units 20:25 06:24 07:20 RBC (3.80-5.40) m/uL Hgb (11.4-16.0) gm/dL Hct (34.0-46.0) % MCH (25.0-35.0) pg MCHC (31.0-37.0) g/dL RDW (11.5-15.5) % Lymphocytes # (1.0-4.8) k/uL PT (9.0-12.0) sec INR (<1.2) Chloride 109 H (98-107) mmol/L BUN 36 H (7-17) mg/dL Creatinine 1.08 H (0.52-1.04) mg/dL Glucose 104 H (74-99) mg/dL POC Glucose (mg/dL) 150 H 126 H (70-110) mg/dL Calcium 7.9 L (8.4-10.2) mg/dL 05/21/22 Range/Units 07:20 RBC 3.12 L (3.80-5.40) m/uL Hgb 7.8 L (11.4-16.0) gm/dL Hct 25.4 L (34.0-46.0) % MCH 24.9 L (25.0-35.0) pg MCHC 30.6 L (31.0-37.0) g/dL RDW 17.9 H (11.5-15.5) % Lymphocytes # 0.7 L (1.0-4.8) k/uL PT (9.0-12.0) sec INR (<1.2) Chloride (98-107) mmol/L BUN (7-17) mg/dL Creatinine (0.52-1.04) mg/dL Glucose (74-99) mg/dL POC Glucose (mg/dL) (70-110) mg/dL Calcium (8.4-10.2) mg/dL Microbiology - Last 24 Hours (Table) 05/18/22 14:45 Blood Culture - Preliminary Blood No Growth after 48 hours 05/18/22 14:29 Blood Culture Gram Stain - Preliminary Blood Blood Culture - Preliminary Staphylococcus epidermidis 05/18/22 14:29 Blood Culture - Final Blood
[2022-05-21 16:42] LABS: Glucose,Whole Blood 162 mg/dL (70-110)
[2022-05-21] MEDS ORDERED: WARFARIN 0.5 MG TAB PO ONE (18:00)
[2022-05-21 20:00] LABS: Glucose,Whole Blood 167 mg/dL (70-110)
[2022-05-21] MEDS: QUEtiapine 25 MG TAB PO SCH (20:35)
[2022-05-21] MEDS: SERTRALINE 100 MG TAB PO SCH (20:35)
[2022-05-21] MEDS: oxyCODONE-APAP 7.5-325MG 1 EACH TAB PO PRN (20:36)
[2022-05-21] MEDS: METOPROLOL SUCCINATE (ER) 50 MG TAB.ER.24H PO SCH (20:36)
[2022-05-21] MEDS: ATORVASTATIN 20 MG TAB PO SCH (20:36)
[2022-05-22] MEDS: SODIUM CHLORIDE 0.9% 1,000 ML IV SCH ×3 (01:45→23:26)
[2022-05-22 06:10] LABS: Glucose,Whole Blood 166 mg/dL (70-110)
[2022-05-22] MEDS: GABAPENTIN 100 MG CAP PO SCH ×3 (06:13→21:31)
[2022-05-22] MEDS: INSULIN DETEMIR (LEVEMIR) 100 UNIT/ML SYR SQ SCH (06:13)
[2022-05-22 07:32] LABS: INR 3.4 (<1.2); Prothrombin Time 33.3 sec (9.0-12.0)
[2022-05-22] MEDS: INSULIN ASPART (NovoLOG) 100 UNIT/ML VIAL SQ SCH ×3 (09:17→17:11)
[2022-05-22] MEDS: hydroCHLOROthiazide 25 MG TAB PO SCH (09:48)
[2022-05-22] MEDS: FUROSEMIDE 40 MG TAB PO SCH (09:49)
[2022-05-22] MEDS: PANTOPRAZOLE 40 MG/10 ML VIAL IVP SCH ×2 (09:49→21:32)
[2022-05-22] MEDS: FOLIC ACID 1 MG TAB PO SCH (09:49)
[2022-05-22] MEDS: POTASSIUM CHLORIDE ER 10 MEQ TAB.ER.PRT PO SCH (09:49)
[2022-05-22] MEDS: lisinopriL 10 MG TAB PO SCH ×2 (09:49→21:31)
[2022-05-22 11:57] LABS: Glucose,Whole Blood 183 mg/dL (70-110)
--- NOTE | 2022-05-22 12:24 | XR ---
EXAMINATION TYPE: XR foot complete LT DATE OF EXAM: 05/22/2022 CLINICAL HISTORY: pain TECHNIQUE: Frontal, lateral and oblique images of the left foot are obtained. COMPARISON: None. FINDINGS: Fracture at the base of the proximal phalanx of the fourth toe. The joint spaces appear w ithin normal limits. The overlying soft tissue appears unremarkable. IMPRESSION: As above
[2022-05-22] MEDS: oxyCODONE-APAP 7.5-325MG 1 EACH TAB PO PRN (12:29)
--- NOTE | 2022-05-22 13:27 | P.PN ---
Subjective Progress Note Date: 05/22/22 Patient is a 67-year-old female with a known history of hypertension, hearing status post deafness, diabetes type 2 insulin-dependent, osteoarthritis, history of pulmonary embolism, antiphospholipid antibody positive currently on Coumadin, history of CVA with partial blindness, obstructive sleep apnea, an xiety/depression prior history of smoking and other multiple medical problems was sent from [facility], [place] due to elevated blood pressure as high as 200/100 when checked by the nursing staff at the facility. Patient states that she was having chest discomfort while in the left retrosternal region. No radiation of the pain. No associated shortness of breath. States that she has been having for the past 3 days. Patient also states that she has been having bilateral leg pain otherwise no worsening swelling. Increased redness of the lower extremities. Patient does have chronic venous stasis with skin discoloration. Denies any fever or chills.No cough or sputum production. No nausea vomiting or abdominal pain or diarrhea. EKG showed sinus rhythm with low QRS voltage in precordial leads. Chest x-ray showed no acute cardiopulmonary process CTA chest showed no evidence of PE. No acute cardiopulmonary disease. Laboratory data showed WBC 7.4 hemoglobin 8.9 and platelets 139 INR 1.9 and D- dimer level is 3.95 Sodium 136 potassium 3.8 chloride 105 bicarb is 27 BUN 20 and creatinine 0.82 and blood sugar is 166 Alk phos 226, troponin 0.048, 0.052 and 0.041 Influenza AB, RSV and coronavirus PCR not detected. On admission blood pressure was 148/75 pulse 92 respirations 17 and pulse ox 98% on room air. 05/19/2022 Patient is seen and evaluated in follow-up currently sleeping although easily arousable. Patient continues to report she has chest pain and reports is i ntermittent at times. Cardiology consulted and evaluated the patient today and making adjustments to medications including increasing lisinopril, adding hydrochlorothiazide and making her Lasix 40 mg daily. Patient recently had an echo done on last admission a few days ago with a preserved EF. On admission patient underwent CTA of the chest which was negative for PE and patient is maintained on Coumadin. Most recent INR today is 2.5. Recommend monitoring blood sugars closely and will continue current regimen. Potassium found to be 3.4 and will replace per protocol recommend follow-up labs. Patient reports to having some difficulty in swallowing feeling like her pills are getting trapped and will have speech evaluate the patient. Patient is also continued on IV antibiotics in the form of cefazolin as patient was being treated for lower extremity cellulitis. Recommend continue with German wrapping lower extremities and elevating while at rest. Encouraged increased activity as tolerated and will have physical therapy evaluate the patient. Plan is for return to [facility] once cleared by cardiology. 05/20/2022 Patient is seen and evaluated in follow-up today and nursing staff reports she had continued emesis with nausea all night unable to tolerate any oral intake. Patient also scheduled for upper GI esophagram as patient reports she has been having difficulties with swallowing her pills and tolerating oral intake. Speech therapy evaluated the patient recommending a GI consult and possible esophagram. GI is consulted and pending at this time. Patient also maintained on Coumadin with pharmacy to dose and current INR today is 3.9 and Coumadin being held at this time. Cardiology has evaluated the patient recommending outpatient stress testing as troponins have been flat. Patient is currently nothing by mouth and will await GI consultation and appreciate input and recommendations. Patient is currently afebrile continues with nausea and denies chest pain or shortness of breath. Patient is extremely lethargic although arousable but fatigues easily. Per nursing staff patient has not received any of her narcotic medications since last night. Will obtain CT brain. Blood pressure remains elevated and uncontrolled. 05/21/2022 Patient is seen this morning sitting up at the site of the bed mentation improved patient has not had any nausea or vomiting. Patient seen by GI recommending to continue with slowly advancing diet and patient is currently maintained on dysphagia 3 Diet along with consistent carb recommend continue and monitor for any aspiration precautions. Patient also being followed by cardiology with improvement in blood pressure recommending to continue with current regimen and outpatient stress testing. Cardiology along with GI has cleared the patient and signed off with close outpatient follow-up. INR is 5.2 today and has not been receiving her doses of Coumadin as her INR has been elevated. Will consider a low-dose of vitamin K as this was given on previous admission and brought her INR down to less than 1. Patient will need close outpatient follow-up with rn hedis that she has been seeing out of [place]. Given her antiphospholipid antibody unable to tolerate or take other anticoagulation. Patient was noted to have a pulmonary embolism on the right and will continue with Coumadin with close monitoring. Patient is afebrile denies chest pain or shortness of breath. Patient reports she is having some swallowing issues with her pills and was seen and evaluated by GI underwent esophagram showing some mild esophageal dysmotility with a tiny hiatal hernia and mild wall thickening of the esophagus related to mild esophagitis with no erosions noted. Recommend three-month follow-up and again will have patient follow-up with Dr. Kenton CERON in the outpatient setting. Recommend continue on Protonix and continue with dysphagia diet. Patient to be seen and evaluated by PT/OT therapy although doing well and reports she will likely be wanting to return home with son and will arrange for home care outpatient. 05/22/2022 Patient has been seen and evaluated in follow-up currently sitting up at the side of the bed alert and oriented with son at the bedside. Patient continues with weakness although has been up and working with physical therapy able to walk with a walker. Patient with multiple significant comorbidities and complex issues going on would likely benefit from rehab although insurance has denied and patient will be going home with home care and reports she will be going to stay with her mother for assistance for a while prior to returning home. Patient did have left foot pain with fracture and was seen and evaluated by orthopedics last admission did obtain a specialty boot all the left at [facility] when returning here to the hospital. Will reconsult orthopedics and appreciate input and recommendations. Patient also maintained on Keflex for her lower extremity cellulitis which is showing improvement and continues to have chronic skin discoloration and venous stasis changes noted. Swelling of the lower extremities has improved as well. Patient has been seen by cardiology recom mending outpatient stress testing and to continue her Coumadin. Coumadin currently on hold as INR was elevated with some improvement of 3.[address] addended and was positive for PE. Patient unable to tolerate or take Xarelto or eliquis due to her antiphospholipid antibody. Patient has been following with a rn hedis out of [place] most recently. Recommend monitor blood sugars closely and continue with current medication regimen. Patient is afebrile denies chest pain or shortness of breath. Patient reports she continues to feel she is unable to tolerate her diet as she feels it is being trapped in her esophagus. Patient was seen and evaluated by GI and underwent esophagram showing some dysmotility with no obvious stenosis or obstruction noted. Recommend possibly downgrading diet to ground diet. Overall prognosis remains guarded. Review of systems: Constitutional: no reports of fatigue, no fever, or chills Cardiovascular: no reports of chest pain , denies palpitations Respiratory: No reports of shortness of breath or cough GI: no reports of nausea or vomiting today, or diarrhea, reports feeling her food is not adequately going down the esophagus : No reports of dysuria or retention Neurovascular: no reports of weakness, reports feeling improved although continues with left foot pain and swelling All medications have been reviewed Active Medications Atorvastatin Calcium (Atorvastatin 20 Mg Tab) 20 mg PO HS [facility] Last Admin: 05/21/22 20:36 Dose: 20 mg Folic Acid (Folic Acid 1 Mg Tab) 1 mg PO DAILY [facility] Last Admin: 05/22/22 09:49 Dose: 1 mg Furosemide (Furosemide 40 Mg Tab) 40 mg PO DAILY [facility] Last Admin: 05/22/22 09:49 Dose: 40 mg Gabapentin (Gabapentin 100 Mg Cap) 100 mg PO TID@0600,1300,2100 [facility] Last Admin: 05/22/22 12:28 Dose: 100 mg Hydrochlorothiazide (Hydrochlorothiazide 25 Mg Tab) 25 mg PO DAILY [facility] Last Admin: 05/22/22 09:48 Dose: 25 mg Cefazolin Sodium 2 gm/ Sodium (Chloride) 50 mls @ 100 mls/hr IVPB Q8HR [facility]; Protocol Last Admin: 05/22/22 11:11 Dose: 100 mls/hr Sodium Chloride (Saline 0.9%) 1,000 mls @ 75 mls/hr IV .[id number] [facility] Last Admin: 05/22/22 13:18 Dose: Not Given Insulin Aspart (Insulin Aspart (Novolog) 100 Unit/Ml Vial) 5 unit SQ TID@0700,1200,1700 [facility] Last Admin: 05/22/22 12:28 Dose: 5 unit Insulin Detemir (Insulin Detemir (Levemir) 100 Unit/Ml Syr) 12 unit SQ DAILY@0700 [facility] Last Admin: 05/22/22 06:13 Dose: 12 unit Lisinopril (Lisinopril 10 Mg Tab) 10 mg PO BID [facility] Last Admin: 05/22/22 09:49 Dose: 10 mg Metoclopramide HCl (Metoclopramide 5 Mg/Ml 2 Ml Vial) 5 mg IVP Q6HR PRN PRN Reason: Nausea And Vomiting Last Admin: 05/20/22 03:56 Dose: 5 mg Metoprolol Succinate (Metoprolol Succinate (Er) 50 Mg Tab.Er.24h) 50 mg PO [facility] Last Admin: 05/21/22 20:36 Dose: 50 mg Miscellaneous Information (Warfarin Per Pharmacy) 1 each MISCELLANE DIRECTED PRN; Protocol PRN Reason: Per Protocol Miscellaneous Information (Potassium Replacement Protocol 1 Each Misc) 1 each MISCELLANE DAILY PRN; Protocol PRN Reason: Per Protocol Nitroglycerin (Nitroglycerin Sl Tabs 0.4 Mg Tab) 0.4 mg SUBLINGUAL Q5M PRN PRN Reason: Chest Pain Ondansetron HCl (Ondansetron 4 Mg/2 Ml Vial) 4 mg IVP Q6HR PRN PRN Reason: Nausea And Vomiting Last Admin: 05/20/22 07:58 Dose: 4 mg Oxycodone/Acetaminophen (Oxycodone-Apap 7.5-325mg 1 Each Tab) 1 each PO Q4H PRN PRN Reason: Pain Last Admin: 05/22/22 12:29 Dose: 1 each Pantoprazole Sodium (Pantoprazole 40 Mg/10 Ml Vial) 40 mg IVP BID [facility] Last Admin: 05/22/22 09:49 Dose: 40 mg Potassium Chloride (Potassium Chloride Er 10 Meq Tab.Er.Prt) 10 meq PO DAILY [facility] Last Admin: 05/22/22 09:49 Dose: 10 meq Quetiapine Fumarate (Quetiapine 25 Mg Tab) 25 mg PO [facility] Last Admin: 05/21/22 20:35 Dose: 25 mg Sertraline HCl (Sertraline 100 Mg Tab) 200 mg PO [facility] Last Admin: 05/21/22 20:35 Dose: 200 mg Warfarin Sodium (Warfarin 0.5 Mg Tab) 0 mg PO ONCE@1800 ONE Stop: 05/22/22 18:01 Physical exam: Patient is sitting up at the side of the bed, awake, alert and oriented x3.. Well-developed, well-nourished, obese HEENT: Normocephalic. Neck is supple. Pupils reactive. Nostrils clear. Oral cavity is moist. Neck reveals no JVD, carotid bruits, or thyromegaly. CHEST EXAMINATION: Trachea is central. Symmetrical expansion. Bibasilar diminished sounds. No wheezing or rhonchi.. CARDIAC: S1, S2 are muffled ABDOMEN: Soft. Bowel sounds present. Non-tender. No organomegaly. No abdominal bruits. Extremities: Bilateral lower extremity trace edema improved from admission. No clubbing or cyanosis Neurologically alert and oriented 3, No focal deficits noted Skin: No rash or skin lesions. Chronic bilateral Achilles skin discoloration and venous stasis changes noted of bilateral lower extremities with some minimal left foot swelling. Psychiatric: Cooperative. Non-suicidal Musculoskeletal: No joint swelling or deformity. Normal range of motion. Assessment: Hypertensive emergency with elevated troponin level, ACS ruled out per cardiology, improved Chest discomfort/pain secondary to above Bilateral lower extremity cellulitis with chronic venous stasis changes Microcytic anemia with hemoglobin 8.9 Antiphospholipid antibody currently on long-term anticoagulation with Coumadin Supratherapeutic, INR is trending down at 3.4 today and Coumadin on hold with pharmacy to dose History of PE, elevated d-dimer on admission and initially report from radiologist on 05/18/2022 was negative for PE although radiologist reviewed today suggestive of a segmental branch emboli in the right lower lobe with mild burden and a trace pleural effusion on the left Osteoarthritis history Hearing disorder/deafness History of recent fall previous admissions daily by orthopedics at the left ankle lateral malleolus fracture minimally displaced and left foot base of second and third metatarsal fracture recommending conservative management and equalizer boot ordered Morbid obesity with a BMI of 40.2 Obstructive sleep apnea History of occipital CVA with partial blindness Anxiety/depression Prior history of smoking GI and DVT prophylaxis No code Plan: Recommend continue current medications and management and has been seen and evaluated by cardiology and has cleared the patient for close outpatient follow- up with outpatient stress testing recommended. Patient continues with having some difficulty in swallowing underwent esophagram showing mild esophageal dysmotility with no suspicious stricture noted along with some mild wall thickening of the esophagus. GI evaluated the patient with no plans for endoscopic intervention this admission recommending to continue wit h Protonix, continue dysphagia 3 chopped diet with small frequent meals and chewing more frequently and sips of water after each bite and outpatient follow- up in the next 2-3 weeks. Recommend downgrading diet possible ground diet and continue with dietitian consult, patient has been seen and evaluated by speech therapy Patient is on Coumadin with a supratherapeutic INR with pharmacy to dose and r ecommend to monitor daily. INR today is 3.4 and has not received Coumadin in 3 days, pharmacy to dose and will follow-up with repeat labs in the a.m. Continue with cefazolin IV for lower extremity cellulitis and will transition back to oral on discharge, bilateral lower extremities appear significantly improved with chronic venous stasis noted Recommend cardiac, diabetic diet and will continue current regimen recommend before meals at bedtime Accu-Cheks. Encouraged increased activity as tolerated with PT/OT therapy following and patient is improving and reporting she will most likely return home and case management following arranging for home care. insurance has denied her to return to [facility] Continue with home medications and medications have been adjusted by cardiology Will follow-up with repeat INR in the a.m. Due to multiple complex medical issues, prognosis is guarded The impression and plan of care has been dictated by Savannah Pereira, Nurse Practitioner as directed. Dr Enrique MD I have performed a history and examination and MDM of this patient, discussed the same with the dictator, and agree with the dictator's assessment and plan as written ,documented as a scribe. Based on total visit time, I have performed more than 50% of the visit. Objective - Vital Signs Vital signs: Vital Signs Temp 97.8 F 05/22/22 09:46 Pulse 79 05/22/22 09:46 Resp 18 05/22/22 09:46 BP 156/72 05/22/22 09:46 Pulse Ox 94 L 05/22/22 09:46 FiO2 21 05/18/22 19:40 Intake & Output 05/21/22 05/22/22 05/22/22 18:59 06:59 18:59 Intake Total 540 Output Total 1 Balance -1 540 Intake: Oral 540 Output: Urine 1 Other: Voiding Method Toilet Toilet # Voids 2 2 # Bowel Movements 1 - Labs CBC & Chem 7: 05/21/22 07:20 05/21/22 07:20 Labs: Abnormal Lab Results - Last 24 Hours (Table) 05/21/22 05/21/22 05/21/22 Range/Units 11:58 16:41 19:58 PT (9.0-12.0) sec INR (<1.2) POC Glucose (mg/dL) 134 H 162 H 167 H (70-110) mg/dL 05/22/22 05/22/22 Range/Units 06:08 06:48 PT 33.3 H (9.0-12.0) sec INR 3.4 H (<1.2) POC Glucose (mg/dL) 166 H (70-110) mg/dL Microbiology - Last 24 Hours (Table) 05/18/22 14:45 Blood Culture - Preliminary Blood No Growth after 72 hours
[2022-05-22 17:04] LABS: Glucose,Whole Blood 125 mg/dL (70-110)
--- NOTE | 2022-05-22 17:50 | P.CNOR ---
History of Present Illness - [facility] Consult date: 05/22/22 Consult reason: fracture (Left foot) History of present illness: This is a 67-year-old female who is seen in early April this year for a left foot injury. She was admitted to the hospital at that time. She was found to have a Lisfranc type injury with fractures to the base of the second, third and fourth metatarsals as well as a distal fibula there was some widening at the base of the first and second metatarsals and first and second cuneiform. She was placed in a boot and advised to follow-up with Dr. Collazo. She was never seen in follow-up and she is now readmitted with chest pain and cellulitis to t he bilateral lower legs. We are consulted for reevaluation of her foot. 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 antiphosphopholipid antibody-autoimmune clotting disorder. 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 tinnitus, eczema. thyroid [id number]. thrombocytopenia. History of Any Multi-Drug Resistant Organisms: None Reported Past Surgical History: Cholecystectomy, Hernia Repair, Joint Replacement, Orthopedic Surgery Additional Past Surgical History / Comment(s): cervical decompression, ventral hernia repair, bilat knee replacement, Past Anesthesia/Blood Transfusion Reactions: Postoperative Nausea & Vomiting (PONV) Past Psychological History: Anxiety, Depression Smoking Status: Former smoker Past Alcohol Use History: Occasional Past Drug Use History: None Reported - Past Family History Mother Family Medical History: Hypertension Father Family Medical History: Diabetes Mellitus Medications and Allergies Home Medications Medication Instructions Recorded Confirmed Type Atorvastatin [Lipitor] 20 mg PO HS 11/19/17 05/18/22 History Sertraline HCl [Zoloft] 200 mg PO HS 11/19/17 05/18/22 History Dapsone 50 mg PO DAILY 04/25/22 05/18/22 History Folic Acid 1 mg PO DAILY 04/25/22 05/18/22 History Metoprolol Succinate (ER) [Toprol 50 mg PO HS 04/25/22 05/18/22 History XL] Potassium Chloride ER [K-Dur 10] 10 meq PO DAILY 04/25/22 05/18/22 History lisinopriL [Zestril] 10 mg PO HS 04/25/22 05/18/22 History Dapagliflozin Propanediol [Farxiga] 5 mg PO DAILY 30 Days #30 tablet 04/28/22 05/18/22 Rx Insulin Glargine,Hum.rec.anlog 12 units SQ DAILY@0700 05/13/22 05/18/22 History [Lantus Solostar Pen] Insulin Lispro [humaLOG Kwikpen] 5 unit SQ TID@0700,1200,1700 05/13/22 05/18/22 History QUEtiapine [SEROquel] 25 mg PO HS 05/13/22 05/18/22 History Cephalexin [Keflex] 500 mg PO Q8H 05/18/22 05/18/22 History Furosemide [Lasix] 40 mg PO BID@0600,1200 05/18/22 05/18/22 History Gabapentin [Neurontin] 100 mg PO TID@0600,1300,2100 05/18/22 05/18/22 History Warfarin [Coumadin] 5 mg PO DAILY@1700 05/18/22 05/18/22 History oxyCODONE-APAP 7.5-325MG [Percocet 1 tab PO Q4H PRN 05/18/22 05/18/22 History 7.5-325 mg] Allergies Allergy/AdvReac Type Severity Reaction Status Date / Time povidone-iodine Allergy Rash/Hives Verified 05/18/22 14:22 [From Betadine] soap [From Betadine] Allergy Rash/Hives Verified 05/18/22 14:22 acetaminophen [From [place]] AdvReac Itching Verified 05/18/22 14:22 hydrocodone [From [place]] AdvReac Itching Verified 05/18/22 14:22 Tetracyclines AdvReac Nausea & Verified 05/18/22 14:22 Vomiting Physical Examination This is a pleasant 67-year-old female in no acute distress. She is alert and oriented at this time. Exam of the lower extremities reveals cellulitis to both lower legs with findings consistent with chronic venous stasis. There is mild soft tissue swelling to the foot. There is mild pain with palpation about the base of the metatarsals. There is mild midfoot tenderness. There are no open wounds to the foot. There is minimal pain with palpation to the distal fibula. Pedal pulse is +1/4. Sensation is intact. Results X-rays of the left foot were taken today which reveal persistent fractures to the second, third and fourth metatarsals. There is slight displacement of the base of the second metatarsal and slight widening between the first and second metatarsal. Distal fibula fracture is in satisfactory position and alignment. - Labs Labs: Abnormal Lab Results - Last 24 Hours (Table) 05/21/22 05/22/22 05/22/22 Range/Units 19:58 06:08 06:48 ESR (0-20) mm/hr PT 33.3 H (9.0-12.0) sec INR 3.4 H (<1.2) D-Dimer (<0.60) mg/L FEU POC Glucose (mg/dL) 167 H 166 H (70-110) mg/dL C-Reactive Protein (<1.0) mg/dL 05/22/22 05/22/22 05/22/22 Range/Units 06:48 06:48 11:47 ESR 67 H (0-20) mm/hr PT (9.0-12.0) sec INR (<1.2) D-Dimer 10.35 H (<0.60) mg/L FEU POC Glucose (mg/dL) (70-110) mg/dL C-Reactive Protein 2.6 H (<1.0) mg/dL 05/22/22 05/22/22 Range/Units 11:56 17:03 ESR (0-20) mm/hr PT (9.0-12.0) sec INR (<1.2) D-Dimer (<0.60) mg/L FEU POC Glucose (mg/dL) 183 H 125 H (70-110) mg/dL C-Reactive Protein (<1.0) mg/dL Microbiology - Last 24 Hours (Table) 05/18/22 14:45 Blood Culture - Preliminary Blood No Growth after 96 hours 05/18/22 14:29 Blood Culture Gram Stain - Final Blood Blood Culture - Final Staphylococcus epidermidis H & H 05/18/22 05/21/22 Range/Units 11:01 07:20 Hgb 8.9 L 7.8 L (11.4-16.0) gm/dL Hct 27.6 L 25.4 L (34.0-46.0) % Coagulation 05/18/22 05/19/22 05/20/22 Range/Units 11:01 07:43 09:41 INR 1.9 H 2.5 H 3.9 H (<1.2) 05/21/22 05/22/22 Range/Units 07:20 06:48 INR 5.2 H* 3.4 H (<1.2) Result Diagrams: 05/21/22 07:20 05/21/22 07:20 Assessment and Plan (1) Lisfranc fracture Current Visit: Yes Status: Acute Code(s): ETV0982 - SNOMED Code(s): 48612107 (2) Metatarsal fracture Current Visit: Yes Status: Acute Code(s): S92.309A - FRACTURE OF UNSP METATARSAL BONE(S), UNSP FOOT, INIT SNOMED Code(s): 152213957 (3) Bacteremia Current Visit: Yes Status: Acute Code(s): R78.81 - BACTEREMIA SNOMED Code(s): 2456736 (4) Cellulitis Current Visit: Yes Status: Acute Code(s): L03.90 - CELLULITIS, UNSPECIFIED SNOMED Code(s): 469811162 (5) Dysphagia Current Visit: Yes Status: Acute Code(s): R13.10 - DYSPHAGIA, UNSPECIFIED SNOMED Code(s): 30410339 (6) Closed left ankle fracture Current Visit: No Status: Acute Code(s): S82.892A - OTH FRACTURE OF LEFT LOWER LEG, INIT FOR CLOS FX SNOMED Code(s): 95977420 Plan: The clinical and x-ray findings are discussed with the patient. It is discussed that her injuries could potentially require a surgical treatment. However the patient is not a good surgical candidate at this time secondary to her multiple medical comorbidities. We will continue with the current treatment in the boot and keep her nonweightbearing to the left lower extremity. She is to follow-up with Dr. Collazo upon discharge from the hospital.
[2022-05-22] MEDS ORDERED: WARFARIN 0.5 MG TAB PO ONE (18:00)
[2022-05-22 20:18] LABS: Glucose,Whole Blood 124 mg/dL (70-110)
[2022-05-22] MEDS: SERTRALINE 100 MG TAB PO SCH (21:30)
[2022-05-22] MEDS: QUEtiapine 25 MG TAB PO SCH (21:31)
[2022-05-22] MEDS: ATORVASTATIN 20 MG TAB PO SCH (21:31)
[2022-05-22] MEDS: METOPROLOL SUCCINATE (ER) 50 MG TAB.ER.24H PO SCH (21:31)
[2022-05-23] MEDS: GABAPENTIN 100 MG CAP PO SCH ×3 (05:44→19:33)
[2022-05-23 06:23] LABS: Glucose,Whole Blood 140 mg/dL (70-110)
[2022-05-23] MEDS: INSULIN DETEMIR (LEVEMIR) 100 UNIT/ML SYR SQ SCH (07:10)
[2022-05-23] MEDS: INSULIN ASPART (NovoLOG) 100 UNIT/ML VIAL SQ SCH ×3 (07:12→17:24)
[2022-05-23 07:21] LABS: Anisocytosis Slight; Basophils % (A) 0 %; Eosinophils # (A) 0.1 k/uL (0-0.7); Eosinophils % (A) 1 %; HCT 29.9 % (34.0-46.0); HGB 8.8 gm/dL (11.4-16.0); Hypochromasia Moderate; Lymphocytes # (A) 0.8 k/uL (1.0-4.8); Lymphocytes % (A) 12 %; MCH 24.2 pg (25.0-35.0); MCHC 29.3 g/dL (31.0-37.0); MCV 82.4 fL (80.0-100.0); Microcytosis Slight; Monocytes # (A) 0.2 k/uL (0-1.0); Monocytes % (A) 4 %; Neutrophils # (A) 5.5 k/uL (1.3-7.7); Neutrophils % (A) 81 %; Platelet Count 171 k/uL (150-450); RBC 3.63 m/uL (3.80-5.40); RDW 18.5 % (11.5-15.5); WBC 6.7 k/uL (3.8-10.6)
[2022-05-23 07:36] LABS: INR 2.1 (<1.2); Prothrombin Time 20.5 sec (9.0-12.0)
[2022-05-23 07:46] LABS: ALT 9 U/L (4-34); AST 35 U/L (14-36); African American GFR (CKD) >90 (>60 ml/min/1.73 sqM); Albumin 2.8 g/dL (3.5-5.0); Alkaline Phosphatase 210 U/L (38-126); Anion Gap 4 mmol/L; Blood Urea Nitrogen 22 mg/dL (7-17); Calcium 7.9 mg/dL (8.4-10.2); Carbon Dioxide 32 mmol/L (22-30); Chloride 104 mmol/L (98-107); Glucose 129 mg/dL (74-99); Non-African American GFR(CKD) 83 (>60 ml/min/1.73 sqM); Potassium 3.7 mmol/L (3.5-5.1); Sodium 140 mmol/L (137-145); Total Bilirubin 0.7 mg/dL (0.2-1.3); Total Protein 5.9 g/dL (6.3-8.2)
[2022-05-23] MEDS: FOLIC ACID 1 MG TAB PO SCH (08:53)
[2022-05-23] MEDS: hydroCHLOROthiazide 25 MG TAB PO SCH (08:53)
[2022-05-23] MEDS: lisinopriL 10 MG TAB PO SCH ×2 (08:54→19:32)
[2022-05-23] MEDS: FUROSEMIDE 40 MG TAB PO SCH (08:54)
[2022-05-23] MEDS: POTASSIUM CHLORIDE ER 10 MEQ TAB.ER.PRT PO SCH (08:54)
[2022-05-23] MEDS: PANTOPRAZOLE 40 MG/10 ML VIAL IVP SCH ×2 (08:54→19:33)
[2022-05-23] MEDS: oxyCODONE-APAP 7.5-325MG 1 EACH TAB PO PRN (08:54)
--- NOTE | 2022-05-23 09:49 | XR ---
EXAMINATION TYPE: XR chest 1V portable DATE OF EXAM: 05/23/2022 CLINICAL HISTORY: Difficulty breathing and CHF progress study. TECHNIQUE: Single AP portable upright view of the chest is obtained. COMPARISON: CTA chest and chest x-ray from 5 days earlier FINDINGS: Lungs remain grossly clear without pleural effusion or pneumothorax seen bilaterally. Card iac silhouette size stable and upper limits of normal in size. Surgical changes of the cervical spine is redemonstrated. Overlying EKG leads are redemonstrated. IMPRESSION: No acute cardiopulmonary process. No significant change from recent studies.
[2022-05-23 11:34] LABS: Glucose,Whole Blood 147 mg/dL (70-110)
[2022-05-23 17:17] LABS: Glucose,Whole Blood 149 mg/dL (70-110)
[2022-05-23] MEDS ORDERED: WARFARIN 2.5 MG TAB PO ONE (18:00)
[2022-05-23] MEDS: SERTRALINE 100 MG TAB PO SCH (19:32)
[2022-05-23] MEDS: METOPROLOL SUCCINATE (ER) 50 MG TAB.ER.24H PO SCH (19:32)
[2022-05-23] MEDS: ATORVASTATIN 20 MG TAB PO SCH (19:32)
[2022-05-23] MEDS: QUEtiapine 25 MG TAB PO SCH (19:33)
[2022-05-23 20:10] LABS: Glucose,Whole Blood 189 mg/dL (70-110)
[2022-05-24] MEDS: hydrALAZINE HCL 20 MG/ML 1 ML VIAL IVP PRN ×2 (00:50→13:19)
[2022-05-24] MEDS: GABAPENTIN 100 MG CAP PO SCH ×3 (05:59→19:39)
[2022-05-24 06:04] LABS: Glucose,Whole Blood 182 mg/dL (70-110)
[2022-05-24] MEDS: INSULIN ASPART (NovoLOG) 100 UNIT/ML VIAL SQ SCH ×3 (06:18→17:33)
[2022-05-24] MEDS: INSULIN DETEMIR (LEVEMIR) 100 UNIT/ML SYR SQ SCH (06:18)
--- NOTE | 2022-05-24 06:19 | PN ---
PROGRESS NOTE DATE OF SERVICE: 05/23/2022 SUBJECTIVE: This is a 67-year-old woman who was admitted with multiple medical problems, was still complaining of chest pain. The patient is being closely monitored. No fever. No cough. OBJECTIVE: VITAL SIGNS: Pulse is 86, blood pressure 160/76, respirations 18. CHEST: Clear to auscultation. CARDIOVASCULAR: S1, S2. ABDOMEN: Soft. NERVOUS SYSTEM: No focal deficits. LABORATORY DATA: Reviewed. Hemoglobin 8.8. ASSESSMENT: 1. Hypertensive emergency. 2. Chest pain. 3. Bilateral lower extremity cellulitis. 4. Antiphospholipid antibody, on Coumadin. 5. Supratherapeutic INR on admission. 6. Degenerative joint disease. 7. Multiple medical issues. RECOMMENDATIONS: Recommend to continue current management and symptomatic treatment. Otherwise at this time, repeat labs. I recommend symptomatic treatment with Protonix. See orders for further details. Further recommendations to follow. MMODL / IJN: [id number] /
[2022-05-24 08:37] LABS: Anisocytosis Slight; Basophils % (A) 0 %; Eosinophils # (A) 0.1 k/uL (0-0.7); Eosinophils % (A) 1 %; HCT 31.7 % (34.0-46.0); HGB 9.7 gm/dL (11.4-16.0); Hypochromasia Slight; Lymphocytes # (A) 0.9 k/uL (1.0-4.8); Lymphocytes % (A) 6 %; MCH 24.4 pg (25.0-35.0); MCHC 30.7 g/dL (31.0-37.0); MCV 79.6 fL (80.0-100.0); Mean Platelet Volume 8.1; Microcytosis Slight; Monocytes # (A) 0.4 k/uL (0-1.0); Monocytes % (A) 3 %; Neutrophils # (A) 12.5 k/uL (1.3-7.7); Neutrophils % (A) 90 %; Platelet Count 169 k/uL (150-450); RBC 3.98 m/uL (3.80-5.40); RDW 18.2 % (11.5-15.5)
[2022-05-24 08:43] LABS: INR 1.7 (<1.2); Prothrombin Time 16.4 sec (9.0-12.0)
[2022-05-24 09:16] LABS: ALT 13 U/L (4-34); AST 32 U/L (14-36); African American GFR (CKD) >90 (>60 ml/min/1.73 sqM); Albumin 2.9 g/dL (3.5-5.0); Alkaline Phosphatase 195 U/L (38-126); Anion Gap 3 mmol/L; Blood Urea Nitrogen 15 mg/dL (7-17); Calcium 8.1 mg/dL (8.4-10.2); Carbon Dioxide 31 mmol/L (22-30); Chloride 100 mmol/L (98-107); Glucose 133 mg/dL (74-99); Non-African American GFR(CKD) >90 (>60 ml/min/1.73 sqM); Potassium 3.2 mmol/L (3.5-5.1); Sodium 134 mmol/L (137-145); Total Bilirubin 1.6 mg/dL (0.2-1.3); Total Protein 6.1 g/dL (6.3-8.2)
[2022-05-24] MEDS: lisinopriL 10 MG TAB PO SCH ×2 (10:22→19:40)
[2022-05-24] MEDS: POTASSIUM CHLORIDE ER 10 MEQ TAB.ER.PRT PO SCH (10:23)
[2022-05-24] MEDS: PANTOPRAZOLE 40 MG/10 ML VIAL IVP SCH ×2 (10:23→19:39)
[2022-05-24] MEDS: FUROSEMIDE 40 MG TAB PO SCH (10:23)
[2022-05-24] MEDS: hydroCHLOROthiazide 25 MG TAB PO SCH (10:23)
[2022-05-24] MEDS: FOLIC ACID 1 MG TAB PO SCH (10:23)
[2022-05-24] MEDS: oxyCODONE-APAP 7.5-325MG 1 EACH TAB PO PRN (10:25)
[2022-05-24 12:07] LABS: Glucose,Whole Blood 169 mg/dL (70-110)
[2022-05-24] MEDS ORDERED: POTASSIUM CHLORIDE ER 20 MEQ TAB.ER PO STA (15:55)
[2022-05-24] MEDS ORDERED: Magnesium Replacement Protocol 1 EACH MISC MISCELLANE PRN (16:24)
[2022-05-24] MEDS ORDERED: Potassium Replacement Protocol 1 EACH MISC MISCELLANE PRN (16:24)
[2022-05-24 16:42] LABS: Glucose,Whole Blood 163 mg/dL (70-110)
--- NOTE | 2022-05-24 16:50 | PN ---
PROGRESS NOTE DATE OF SERVICE: 05/24/2022 SUBJECTIVE: This is a 67-year-old woman, who was admitted with multiple medical problems, who also had gait dysfunction. The [facility]. Orthopedics is following the patient closely. No fever. No cough. The patient has abdominal and chest pain. OBJECTIVE: VITAL SIGNS: Pulse is 87, blood pressure 180/84, respirations 16. HEENT: Conjunctivae are normal. NECK: No jugular venous distention. CARDIOVASCULAR: S1 and S2. RESPIRATORY: Breath sounds diminished at the bases. ABDOMEN: Soft. NERVOUS SYSTEM: Diffusely weak. LABORATORY DATA: Reviewed. ASSESSMENT: 1. Hypertensive emergency. 2. Chest pain and abdominal pain. 3. Bilateral lower extremity cellulitis. 4. Antiphospholipid antibody, on Coumadin. 5. Pulmonary embolism, acute. 6. Supratherapeutic INR on admission. 7. Degenerative joint disease. 8. Multiple medical issues. 9. Gait dysfunction. RECOMMENDATIONS: Recommend to continue current medications and symptomatic treatment. Repeat labs. Otherwise, see orders for further details. Prognosis is guarded. Possible ECF rehab. PT and OT evaluation. MMODL / IJN: [id number] /
[2022-05-24] MEDS: amLODIPine 10 MG TAB PO SCH (17:33)
[2022-05-24] MEDS ORDERED: WARFARIN 1.25 MG TAB PO ONE (18:00)
[2022-05-24] MEDS: SERTRALINE 100 MG TAB PO SCH (19:39)
[2022-05-24] MEDS: METOPROLOL SUCCINATE (ER) 50 MG TAB.ER.24H PO SCH (19:39)
[2022-05-24] MEDS: ATORVASTATIN 20 MG TAB PO SCH (19:39)
[2022-05-24] MEDS: QUEtiapine 25 MG TAB PO SCH (19:40)
[2022-05-24 20:27] LABS: Glucose,Whole Blood 151 mg/dL (70-110)
[2022-05-25 06:16] LABS: Glucose,Whole Blood 162 mg/dL (70-110)
[2022-05-25] MEDS: INSULIN ASPART (NovoLOG) 100 UNIT/ML VIAL SQ SCH ×3 (06:27→17:41)
[2022-05-25] MEDS: INSULIN DETEMIR (LEVEMIR) 100 UNIT/ML SYR SQ SCH (06:27)
[2022-05-25] MEDS: GABAPENTIN 100 MG CAP PO SCH ×3 (06:27→20:42)
[2022-05-25 08:24] LABS: Anisocytosis Slight; Basophils % (A) 0 %; Eosinophils # (A) 0.1 k/uL (0-0.7); Eosinophils % (A) 1 %; HCT 29.4 % (34.0-46.0); HGB 9.1 gm/dL (11.4-16.0); Hypochromasia Slight; Lymphocytes # (A) 0.8 k/uL (1.0-4.8); Lymphocytes % (A) 8 %; MCH 24.7 pg (25.0-35.0); MCHC 30.9 g/dL (31.0-37.0); MCV 79.7 fL (80.0-100.0); Mean Platelet Volume 8.2; Microcytosis Slight; Monocytes # (A) 0.4 k/uL (0-1.0); Monocytes % (A) 4 %; Neutrophils # (A) 9.1 k/uL (1.3-7.7); Neutrophils % (A) 87 %; Platelet Count 135 k/uL (150-450); RBC 3.69 m/uL (3.80-5.40); WBC 10.6 k/uL (3.8-10.6)
[2022-05-25 08:36] LABS: INR 1.6 (<1.2); Prothrombin Time 15.6 sec (9.0-12.0)
[2022-05-25] MEDS: hydroCHLOROthiazide 25 MG TAB PO SCH (09:07)
[2022-05-25] MEDS: FOLIC ACID 1 MG TAB PO SCH (09:07)
[2022-05-25] MEDS: lisinopriL 10 MG TAB PO SCH ×2 (09:07→20:42)
[2022-05-25] MEDS: amLODIPine 10 MG TAB PO SCH (09:07)
[2022-05-25 09:08] LABS: ALT 11 U/L (4-34); AST 27 U/L (14-36); African American GFR (CKD) >90 (>60 ml/min/1.73 sqM); Albumin 2.7 g/dL (3.5-5.0); Alkaline Phosphatase 164 U/L (38-126); Anion Gap 4 mmol/L; Blood Urea Nitrogen 17 mg/dL (7-17); Calcium 7.8 mg/dL (8.4-10.2); Carbon Dioxide 34 mmol/L (22-30); Chloride 98 mmol/L (98-107); Glucose 125 mg/dL (74-99); Magnesium 1.5 mg/dL (1.6-2.3); Non-African American GFR(CKD) >90 (>60 ml/min/1.73 sqM); Potassium 3.2 mmol/L (3.5-5.1); Sodium 136 mmol/L (137-145); Total Bilirubin 1.5 mg/dL (0.2-1.3); Total Protein 5.8 g/dL (6.3-8.2)
[2022-05-25] MEDS: PANTOPRAZOLE 40 MG/10 ML VIAL IVP SCH ×2 (09:08→20:42)
[2022-05-25] MEDS: FUROSEMIDE 40 MG TAB PO SCH (09:08)
[2022-05-25] MEDS: POTASSIUM CHLORIDE ER 10 MEQ TAB.ER.PRT PO SCH (09:08)
[2022-05-25] MEDS: oxyCODONE-APAP 7.5-325MG 1 EACH TAB PO PRN (09:08)
[2022-05-25] MEDS ORDERED: POTASSIUM CHLORIDE ER 20 MEQ TAB.ER PO STA (09:14)
[2022-05-25 11:46] LABS: Glucose,Whole Blood 176 mg/dL (70-110)
[2022-05-25] MEDS: MAGNESIUM SULFATE-D5W PMX 1 GM in DEXTROSE/WATER 1 100ML.BAG IVPB SCH ×2 (13:23→15:30)
[2022-05-25 16:35] LABS: Glucose,Whole Blood 190 mg/dL (70-110)
[2022-05-25] MEDS ORDERED: WARFARIN 2 MG TAB PO ONE (18:00)
[2022-05-25 20:23] LABS: Glucose,Whole Blood 123 mg/dL (70-110)
[2022-05-25] MEDS: QUEtiapine 25 MG TAB PO SCH (20:42)
[2022-05-25] MEDS: METOPROLOL SUCCINATE (ER) 50 MG TAB.ER.24H PO SCH (20:42)
[2022-05-25] MEDS: ATORVASTATIN 20 MG TAB PO SCH (20:42)
[2022-05-25] MEDS: SERTRALINE 100 MG TAB PO SCH (20:42)
[2022-05-26 06:21] LABS: Glucose,Whole Blood 143 mg/dL (70-110)
[2022-05-26 06:39] VITALS: RESP 20
[2022-05-26] MEDS: hydrALAZINE HCL 20 MG/ML 1 ML VIAL IVP PRN (06:46)
[2022-05-26] MEDS: oxyCODONE-APAP 7.5-325MG 1 EACH TAB PO PRN (06:47)
[2022-05-26] MEDS: GABAPENTIN 100 MG CAP PO SCH ×2 (06:47→12:51)
[2022-05-26] MEDS: INSULIN DETEMIR (LEVEMIR) 100 UNIT/ML SYR SQ SCH (06:47)
[2022-05-26] MEDS: INSULIN ASPART (NovoLOG) 100 UNIT/ML VIAL SQ SCH ×2 (06:48→12:53)
--- NOTE | 2022-05-26 07:46 | PN ---
PROGRESS NOTE DATE OF SERVICE: 05/25/2022 SUBJECTIVE: This is a 67-year-old woman, who was admitted with hypertensive emergency, who also had multiple complex medical issues. The patient is being evaluated for ECF rehab. OBJECTIVE: VITAL SIGNS: Pulse is 79, blood pressure 140/80, respirations 16. CHEST: Clear to auscultation. CARDIOVASCULAR: S1, S2. ABDOMEN: Soft. NERVOUS SYSTEM: No focal deficits. LABORATORY DATA: Noted. ASSESSMENT: 1. Hypertensive urgency on admission. 2. Chest pain and abdominal pain. 3. Bilateral lower extremity cellulitis. 4. Antiphospholipid antibody, on Coumadin. 5. Pulmonary embolism, acute. 6. Supratherapeutic INR on admission. 7. Degenerative joint disease. 8. Multiple complex medical issues. 9. Gait dysfunction. RECOMMENDATIONS: Recommend to continue current management, repeat labs in the morning. PT, OT evaluation, possible ECF rehab. Closely follow with multiple consultants. Prognosis extremely guarded because of above-mentioned multiple medical issues. Further recommendations to follow. MMODL / IJN: [id number] /
[2022-05-26 08:12] LABS: Anisocytosis Slight; Basophils % (A) 0 %; Eosinophils # (A) 0.1 k/uL (0-0.7); Eosinophils % (A) 1 %; HGB 8.7 gm/dL (11.4-16.0); Hypochromasia Slight; Lymphocytes # (A) 0.5 k/uL (1.0-4.8); Lymphocytes % (A) 6 %; MCH 24.4 pg (25.0-35.0); MCV 78.9 fL (80.0-100.0); Mean Platelet Volume 8.2; Microcytosis Slight; Monocytes # (A) 0.3 k/uL (0-1.0); Monocytes % (A) 4 %; Neutrophils # (A) 7.2 k/uL (1.3-7.7); Neutrophils % (A) 88 %; Platelet Count 110 k/uL (150-450); RBC 3.55 m/uL (3.80-5.40); RDW 18.2 % (11.5-15.5); WBC 8.2 k/uL (3.8-10.6)
[2022-05-26 08:36] LABS: ALT 11 U/L (4-34); AST 34 U/L (14-36); African American GFR (CKD) >90 (>60 ml/min/1.73 sqM); Albumin 2.5 g/dL (3.5-5.0); Alkaline Phosphatase 180 U/L (38-126); Anion Gap 2 mmol/L; Blood Urea Nitrogen 14 mg/dL (7-17); Calcium 7.5 mg/dL (8.4-10.2); Carbon Dioxide 35 mmol/L (22-30); Chloride 96 mmol/L (98-107); Glucose 155 mg/dL (74-99); Magnesium 1.7 mg/dL (1.6-2.3); Non-African American GFR(CKD) >90 (>60 ml/min/1.73 sqM); Potassium 3.3 mmol/L (3.5-5.1); Sodium 133 mmol/L (137-145); Total Bilirubin 1.3 mg/dL (0.2-1.3); Total Protein 5.6 g/dL (6.3-8.2)
[2022-05-26 09:10] LABS: INR 1.7 (<1.2); Prothrombin Time 17.2 sec (9.0-12.0)
[2022-05-26] MEDS: FUROSEMIDE 40 MG TAB PO SCH (09:23)
[2022-05-26] MEDS: POTASSIUM CHLORIDE ER 10 MEQ TAB.ER.PRT PO SCH (09:23)
[2022-05-26] MEDS: hydroCHLOROthiazide 25 MG TAB PO SCH (09:23)
[2022-05-26] MEDS: FOLIC ACID 1 MG TAB PO SCH (09:23)
[2022-05-26] MEDS: lisinopriL 10 MG TAB PO SCH (09:23)
[2022-05-26] MEDS: PANTOPRAZOLE 40 MG/10 ML VIAL IVP SCH (09:23)
[2022-05-26] MEDS: amLODIPine 10 MG TAB PO SCH (09:23)
[2022-05-26 10:25] VITALS: TEMP 99.8
[2022-05-26 11:47] LABS: Glucose,Whole Blood 130 mg/dL (70-110)
[2022-05-26] MEDS ORDERED: POTASSIUM CHLORIDE ER 20 MEQ TAB.ER PO STA (12:13)
[2022-05-26 12:18] VITALS: BP 132/71; PULSE 81
--- NOTE | 2022-05-26 13:41 | P.DS ---
Providers Date of admission: 05/20/22 15:12 Expected date of discharge: 05/26/22 Attending physician: Angela Rdz MD Consults: 05/22/22 10:40 Consult Physician Urgent Consulting Provider: Caty Schulte Consult Reason/Comments: left foot fracture, previously seen Do you want consulting provider notified?: Yes Primary care physician: Brayan Olivas Hospital Course: Final diagnosis Hypertensive urgency, present on admission Chest pain, ruled out ACS per cardiology Bilateral lower extremity cellulitis, improved Antiphospholipid antibody,on Coumadin Acute pulmonary embolism found on CT this admission with past medical history of PEs as well Supratherapeutic INR, present on admission Degenerative joint disease history Gait dysfunction recent left foot fracture and supposed to be nonweightbearing History of chronic venous stasis History of microcytic anemia Obstructive sleep apnea history History of occipital CVA with partial blindness Anxiety/depression Obesity with a BMI of 40.2 No code Dicharge disposition Patient is being discharged in a stable condition with guarded prognosis to [facility] on the [place]. Patient will follow-up with Dr. Olivas in the outpatient setting upon discharge. Patient is to follow-up with cardiology outpatient along with GI outpatient as scheduled. Plan is for possible stress testing outpatient once cleared by other consultations. Patient also to follow-up with podiatry surgery Dr. Collazo for the left foot. Patient is to continue nonweightbearing of the left lower extremity and continue with specialty boot and outpatient follow-up with Dr. Collazo. Total time taken is greater than 35 minutes. Hospital course This is a 67-year-old female who was recently admitted with chest pain and hypertensive emergency along with multiple other complex medical issues. Patient was at [facility] for goal therapy although having uncontrolled blood pressure and abnormal INRs. Patient is on Coumadin and has an extensive antiphospholipid antibody history and will be continued on Coumadin. Patient also with some elevated d-dimer and was found to have a PE on the right and recommend continue on Coumadin. Patient will need close monitoring of PT/INR daily to remain in a therapeutic level of 2-3. Patient has been cleared by consultations including cardiology recommending outpatient follow-up for outpatient stress testing. Patient has been cleared by consultations for discharge. Patient initially doing well although noncompliant with nonweightbearing of the left foot and left her specialty boot at [facility]. Patient was seen and evaluated by orthopedics recommending conservative management and outpatient follow-up once more stable for possible surgical intervention. Patient is to continue on nonweightbearing of the left lower extremity and continue with the specialty boot. Patient to follow-up with Dr. Nicholas Collazo podiatric surgeon in the outpatient setting. Currently no reports of chest pain, shortness of breath, or palpitations. Patient is afebrile. No reports of nausea or vomiting and patient is tolerating diet. Patient will be discharged to [facility] on the [place] today. Guarded prognosis and high risk for re admissions Physical exam: Gen: This is a 67 year old who is awake, alert and oriented 3, well-developed, well-nourished, morbidly obese HEENT: Head is atraumatic, normocephalic. Pupils equal, round. Sclerae is anicteric. NECK: Supple. No JVD. No lymphadenopathy. No thyromegaly. LUNGS: Clear to auscultation. No wheezes or rhonchi. No intercostal retractions. HEART: Regular rate and rhythm. No murmur. ABDOMEN: Soft. obeseBowel sounds are present. No masses. No tenderness. EXTREMITIES: No pedal edema. No calf tenderness. left foot currently wrapped and in the specialty boot, bilateral lower extremities German wrapped and swelling significantly improved NEUROLOGICAL: Patient is awake, alert and oriented x3. Cranial nerves 2 through 12 are grossly intact. diffusely weak Please refer to medication reconciliation sheet for a list of medications. The impression and plan of care has been dictated by Savannah Pereira, Nurse Practitioner as directed. Dr. Leonardo MD I have performed a history and examination and MDM of this patient, discussed the same with the dictator, and agree with the dictator's assessment and plan as written ,documented as a scribe. Based on total visit time, I have performed more than 50% of the visit. Patient Condition at Discharge: Fair Plan - Discharge Summary Discharge Rx Participant: Yes New Discharge Prescriptions: New hydroCHLOROthiazide [Hydrodiuril] 25 mg PO DAILY tab Furosemide [Lasix] 40 mg PO DAILY tab Pantoprazole Sodium [Protonix] 40 mg PO DAILY #30 tab amLODIPine [Norvasc] 10 mg PO DAILY tab lisinopriL [Zestril] 10 mg PO BID tab Continue Sertraline HCl [Zoloft] 200 mg PO HS Atorvastatin [Lipitor] 20 mg PO HS Metoprolol Succinate (ER) [Toprol XL] 50 mg PO HS Dapsone 50 mg PO DAILY Insulin Glargine,Hum.rec.anlog [Lantus Solostar Pen] 12 units SQ DAILY@0700 Insulin Lispro [humaLOG Kwikpen] 5 unit SQ TID@0700,1200,1700 QUEtiapine [SEROquel] 25 mg PO HS Folic Acid 1 mg PO DAILY Dapagliflozin Propanediol [Farxiga] 5 mg PO DAILY 30 Days #30 tablet Warfarin [Coumadin] 5 mg PO DAILY@1700 Changed oxyCODONE-APAP 7.5-325MG [Percocet 7.5-325 mg] 1 tab PO Q4H PRN #6 tab PRN Reason: Pain Potassium Chloride ER [K-Dur 10] 20 meq PO DAILY #0 Gabapentin [Neurontin] 100 mg PO TID@0600,1300,2100 #6 cap Discontinued lisinopriL [Zestril] 10 mg PO HS Furosemide [Lasix] 40 mg PO BID@0600,1200 Cephalexin [Keflex] 500 mg PO Q8H Discharge Medication List Atorvastatin [Lipitor] 20 mg PO HS 11/19/17 [History] Sertraline HCl [Zoloft] 200 mg PO HS 11/19/17 [History] Dapsone 50 mg PO DAILY 04/25/22 [History] Folic Acid 1 mg PO DAILY 04/25/22 [History] Metoprolol Succinate (ER) [Toprol XL] 50 mg PO HS 04/25/22 [History] Dapagliflozin Propanediol [Farxiga] 5 mg PO DAILY 30 Days #30 tablet 04/28/22 [Rx] Insulin Glargine,Hum.rec.anlog [Lantus Solostar Pen] 12 units SQ DAILY@0700 05/13/22 [History] Insulin Lispro [humaLOG Kwikpen] 5 unit SQ TID@0700,1200,1700 05/13/22 [History] QUEtiapine [SEROquel] 25 mg PO HS 05/13/22 [History] Warfarin [Coumadin] 5 mg PO DAILY@1700 05/18/22 [History] Furosemide [Lasix] 40 mg PO DAILY tab 05/26/22 [Rx] Gabapentin [Neurontin] 100 mg PO TID@0600,1300,2100 #6 cap 05/26/22 [Rx] Pantoprazole Sodium [Protonix] 40 mg PO DAILY #30 tab 05/26/22 [Rx] Potassium Chloride ER [K-Dur 10] 20 meq PO DAILY #0 05/26/22 [Rx] amLODIPine [Norvasc] 10 mg PO DAILY tab 05/26/22 [Rx] hydroCHLOROthiazide [Hydrodiuril] 25 mg PO DAILY tab 05/26/22 [Rx] lisinopriL [Zestril] 10 mg PO BID tab 05/26/22 [Rx] oxyCODONE-APAP 7.5-325MG [Percocet 7.5-325 mg] 1 tab PO Q4H PRN #6 tab 05/26/22 [Rx] Follow up Appointment(s)/Referral(s): Brayan Olivas MD [Primary Care Provider] - 1-2 days Randa Fung MD [STAFF PHYSICIAN] - 3 Weeks Phoenix Mahmood [NON-STAFF] - Nicholas Collazo DPM [Doctor of Osteopathic Medicine] - 1 Week Ambulatory/Diagnostic Orders: Prothrombin Time INR [LAB.AMB] Time Frame: 3 Days, Location: None Selected Activity/Diet/Wound Care/Special Instructions: Patient is going to [facility] as tolerated Discharge Disposition: TRANSFER TO SNF/ECF
== END 2022-05-26 15:48 | DRG 176 ==
LOC: EC 09:56 → 3SCARD 13:32 → OBSVTOIN 05-20 15:12
PROVIDERS: ADMIT Internal Medicine; ATTEND Internal Medicine
DX: I26.99 Other pulmonary embolism without acute cor pulmonale (principal); D68.61 Antiphospholipid syndrome; L03.115 Cellulitis of right lower limb; L03.116 Cellulitis of left lower limb; I50.32 Chronic diastolic (congestive) heart failure; I16.1 Hypertensive emergency; Z68.41 Body mass index [BMI] 40.0-44.9, adult; D69.6 Thrombocytopenia, unspecified; I11.0 Hypertensive heart disease with heart failure; E66.01 Morbid (severe) obesity due to excess calories; E11.9 Type 2 diabetes mellitus without complications; Z79.4 Long term (current) use of insulin; Z66 Do not resuscitate; Z20.822 Contact with and (suspected) exposure to COVID-19; F41.9 Anxiety disorder, unspecified; F32.A Depression, unspecified; G47.33 Obstructive sleep apnea (adult) (pediatric); H91.90 Unspecified hearing loss, unspecified ear; Z87.891 Personal history of nicotine dependence; E78.5 Hyperlipidemia, unspecified; I69.398 Other sequelae of cerebral infarction; H54.7 Unspecified visual loss; K22.4 Dyskinesia of esophagus; K21.9 Gastro-esophageal reflux disease without esophagitis; D50.9 Iron deficiency anemia, unspecified; I87.8 Other specified disorders of veins; E04.2 Nontoxic multinodular goiter; M19.90 Unspecified osteoarthritis, unspecified site; S92.912D Unspecified fracture of left toe(s), subsequent encounter for fracture with routine healing; S82.62XD Displaced fracture of lateral malleolus of left fibula, subsequent encounter for closed fracture with routine healing; R26.9 Unspecified abnormalities of gait and mobility; H93.19 Tinnitus, unspecified ear; L30.9 Dermatitis, unspecified; R77.8 Other specified abnormalities of plasma proteins; Z91.199 Patient's noncompliance with other medical treatment and regimen due to unspecified reason; Z79.01 Long term (current) use of anticoagulants; Z79.84 Long term (current) use of oral hypoglycemic drugs; Z79.899 Other long term (current) drug therapy; Z86.718 Personal history of other venous thrombosis and embolism; Z86.711 Personal history of pulmonary embolism; Z96.653 Presence of artificial knee joint, bilateral; Z71.3 Dietary counseling and surveillance; Z88.6 Allergy status to analgesic agent; Z88.1 Allergy status to other antibiotic agents; Z88.5 Allergy status to narcotic agent; Z88.8 Allergy status to other drugs, medicaments and biological substances; Z82.49 Family history of ischemic heart disease and other diseases of the circulatory system
CPT/HCPCS: 36415; 70450; 71045; 71046; 71275; 74018; 74240; 80048; 80053; 80061; 83540; 83550; 83735; 84484; 85025; 85379; 85610; 85652; 85730; 86140; 87040; 87635; 87636; 93005; 94760; 96374; 96375; 99285